=== PATIENT | female | born 1955 | race Caucasian/White ===

== ENCOUNTER 2020-12-04 10:51 | Inpatient (IN) | payer MEDICARE, MEDICAID, SELFPAY ==
[2020-12-04] VITALS (26 sets, daily range): BP systolic 92–131; BP diastolic 45–72; PULSE 68–89; RESP 12–22; TEMP 36.3–37.2; O2SAT 91–100; BMI 31.4
--- NOTE | ~2020-12-04 | XR_ITS ---
EXAMINATION: XR shoulder LT min 2V EXAM DATE: 12/07/2020 18:05 INDICATION: Left shoulder pain after fall. Initial encounter. TECHNIQUE: The following left shoulder projections obtained: frontal projection with internal rotatio n, frontal projection with external rotation, Grashey, and scapular Y view (4+ views). There is no p rior study for comparison. FINDINGS: No evidence of left shoulder rotator cuff calcific tendinosis. There is moderate glenohum eral joint, mild acromioclavicular joint primary osteoarthritis. There are no acute fractures or disl ocations identified. There is no subcutaneous gas. The soft tissue is unremarkable. There are no radiopaque foreign bodies. IMPRESSION: 1. XR shoulder LT min 2V exam without acute osseous findings. 2. Osteoarthritis. Reviewed, dictated and finalized at location A.
--- NOTE | ~2020-12-04 | XR_ITS ---
EXAMINATION: XR shoulder RT min 2V EXAM DATE: 12/07/2020 18:06 INDICATION: Right shoulder pain, fall. Initial encounter. TECHNIQUE: The following right shoulder projections obtained: frontal projection with internal rotati on, frontal projection with external rotation, Grashey, and scapular Y view (4+ views). Comparison is made to prior examination from 12/23/2014. FINDINGS: No evidence of right shoulder rotator cuff calcific tendinosis. There is moderate glenohu meral joint, mild to moderate acromioclavicular joint primary osteoarthritis. There are no acute frac tures or dislocations identified. There is no subcutaneous gas. The soft tissue is unremarkable. There are no radiopaque foreign bodies. IMPRESSION: 1. XR shoulder RT min 2V exam without acute osseous findings. 2. Osteoarthritis. Reviewed, dictated and finalized at location A.
--- NOTE | ~2020-12-04 | XR_ITS ---
EXAMINATION: XR chest 2V DATE: 12/06/2020 12:01 INDICATION: Respiratory failure TECHNIQUE: AP and lateral views of the chest are obtained. COMPARISON: 12/04/2020 FINDINGS: There are persistent but decreased opacities of the lung bases. There is no pleural effusio n or pneumothorax. The cardiomediastinal silhouette is normal. There is moderate thoracic spondylosis . IMPRESSION: 1. Persistent but decreased opacities of the lung bases, consistent with atelectasis versus pneumonia . Reviewed, dictated and finalized at location B. IMPRESSION: 1. Persistent but decreased opacities of the lung bases, consistent with atelec tasis versus pneumonia.
--- NOTE | ~2020-12-04 | XR_ITS ---
XR chest 1V portable DATE: 12/04/2020 11:34 INDICATION: Cough. Weakness. History of COPD. TECHNIQUE: Portable AP chest on 12/04/2020 1123 hours COMPARISON: 07/29/2017 portable AP chest FINDINGS: There are patchy infiltrates and/atelectasis in the lower lung zones, left greater than rig ht. Borderline heart size. No pleural effusion or pulmonary vascular congestion or pneumothorax is eviden t. Osteoarthritic change at the glenohumeral joints. Osteopenia. IMPRESSION: Bilateral lower lung infiltrates and/atelectasis, left greater than right Reviewed, dictated and finalized at location A.
--- NOTE | ~2020-12-04 | XR_ITS ---
EXAMINATION: XR hip RT min 2V EXAM DATE: 12/07/2020 18:06 INDICATION: Initial encounter following injury, with pain of the right hip. TECHNIQUE: Right hip frontal, 'frog leg' projections for interpretation. There is no prior study for comparison. FINDINGS: Smooth right hip femoral head contour, no radiographic evidence of avascular necrosis. The re are no acute right hip fractures or dislocations identified. There is no subcutaneous gas. There are arterial calcifications, arteriosclerosis. There are no radiopaque foreign bodies. There is m ild to moderate primary osteoarthritis. IMPRESSION: 1. XR hip RT min 2V exam without acute osseous findings. 2. Mild to moderate osteoarthritis. Reviewed, dictated and finalized at location A.
--- NOTE | ~2020-12-04 | CT_ITS ---
EXAMINATION: CT brain wo con DATE: 12/04/2020 14:32 INDICATION: Patient fell and struck head. Frequent falls. Weakness. TECHNIQUE: Computed tomography (CT) of the head was performed without intravenous contrast. The mA wa s adjusted according to patient size. Iterative reconstruction technique was employed. Exam dose: 60 5.33 mGy-cm total exam DLP. COMPARISON: 07/29/2017 CT brain FINDINGS: No intracranial mass lesion or hemorrhage or cerebrovascular accident. No midline shift or mass effect effect. No subdural or epidural hematoma. Bilateral vertebral and carotid siphon internal carotid artery calcifications. There is nonspecific d iminished attenuation of the cerebral white matter, likely due to chronic small vessel ischemic anthony es. Partial opacification of left mastoid air cells. Right mastoid air cells are normally developed and a erated. The paranasal sinuses are well aerated. No fracture or bone destruction of the cranial vault. IMPRESSION: No acute intracranial finding or skull fracture Reviewed, dictated and finalized at Location A. Reviewed, dictated and finalized at location A.
--- NOTE | 2020-12-04 11:04 | ECG_ITS ---
Measurements Intervals Waterflow Rate: 73 P: 61 HI: 208 QRS: -21 QRSD: 94 T: 58 QT: 374 QTc: 415 Interpretive Statements SINUS RHYTHM ANTEROSEPTAL INFARCT, AGE INDETERMINATE BORDERLINE ST-T WAVE ABNORMALITY- HIGH LATERAL LEADS ABNORMAL ECG Electronically Signed On 12-04-2020 11:44:09 CDT by Alireza Arevalo D.O.
[2020-12-04 11:22] LABS: Alveolar/Arterial O2 Gradient 184.7 mmHg; Base Excess ABG 3.4 mEq/l (+/-2.0); Carboxyhemoglobin 1.3 % THb (0-2.0); Fractional Inspired Oxygen 44 %; Methemoglobin ABG 0.2 %THb (0-1.5); Oxygen Content ABG 14.3 %vol (16.0-22.0); Oxyhemoglobin 85.8 % THb (90.0-100.0); PO2 ABG 57.7 mmHg (80.0-100.0); PO2 FiO2 Ratio Arterial Blood 1.31 %; Reduced Hemoglobin 12.7 %THb (0-5.0); Total Hemoglobin 11.8 g/dL (12.0-18.0); pH ABG 7.313 (7.350-7.450)
[2020-12-04 11:23] LABS: Device NASAL CANNULA; Oxygen Saturation ABG 86.8 % (95.0-100.0); PCO2 ABG 62.6 mmHg (35.0-45.0); Site Drawn RIGHT BRACHIAL
--- NOTE | 2020-12-04 11:34 | ED.WEAKNESS ---
HPI - Weakness General Chief complaint: Weakness Stated complaint: weakness Time Seen by Provider: 12/04/20 11:26 History of Present Illness HPI Narrative: History limited by mental status. Brought in by EMS for hypoxia. Reportedly on 3 liters at all times. She denies any chest pain fever. She has had increasing generalized weakness. Related Data Home Medications Medication Instructions Recorded Confirmed albuterol sulfate 2 puff INHALATION Q4H PRN 12/04/20 12/04/20 amlodipine 5 mg PO DAILY 12/04/20 12/04/20 diazepam 10 mg PO TID PRN 12/04/20 12/04/20 hydrocodone-acetaminophen 1 tablet PO Q6H PRN 12/04/20 12/04/20 insulin lispro See Rx Instructions .ROUTE .COMPLEX 12/04/20 12/04/20 metformin 500 mg PO BID 12/04/20 12/04/20 pregabalin 100 mg PO DAILY 12/04/20 12/04/20 quetiapine 50 mg PO BID 12/04/20 12/04/20 trazodone 300 mg PO HS 12/04/20 12/04/20 Allergies Allergy/AdvReac Type Severity Reaction Status Date / Time celecoxib Allergy Mild Rash Verified 07/29/17 14:43 alcohol Allergy Unknown Verified 06/17/12 08:51 atorvastatin Allergy Unknown Verified 10/17/11 09:27 clarithromycin Allergy Unknown Verified 09/16/14 08:28 fentanyl Allergy Unknown Verified 10/17/11 09:27 metformin Allergy Unknown Verified 10/17/11 09:26 paroxetine Allergy Unknown Verified 10/17/11 09:26 varenicline Allergy Unknown Verified 10/17/11 09:27 morphine AdvReac Severe Nausea and Verified 07/29/17 14:43 Vomiting Review of Systems Constitutional: Constitutional: Denies fever(s) Cardiovascular: Cardiovascular: Denies chest pain Respiratory: Respiratory: Reports dyspnea Gastrointestinal: Gastrointestinal: Denies nausea Genitourinary: Comments: chronic morfin Neurologic: Denies headache(s), Denies focal weakness and Reports weakness PMFSH Past Medical History Medical History COPD (chronic obstructive pulmonary disease) Depression with anxiety DM2 (diabetes mellitus, type 2) Hypertension Obstructive sleep apnea no longer uses a CPAP but uses oxygen at 2 L per nasal cannula. Peripheral neuropathy Tobacco abuse Surgical History Surgical History History of classical section History of total knee arthroplasty right Family History Family History Father Family history of coronary artery disease Mother Family history of coronary artery disease Other Asthma Diabetes mellitus Family history of elevated blood lipids Social History Social History Social History: the patient stated that she smokes cigarettes up to about 4 months ago. 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 She lives at [facility]. She has an ex-. She has 3 children. She tells me she does not have a durable power sole stitcher hand for healthcare but desires to be a full code. The patient stated although she quit smoking 4 months ago she desires to have a cigarette today. Smoking status: Former smoker Second hand tobacco smoke exposure: Yes Alcohol intake: never Substance use: never Substance use type: does not use Gender identity (if verbalized by the patient): Female Spiritual care concerns: No Exam Const: General: no acute distress and ill appearing Orientation/consciousness: patient oriented x3 Other: lethargic. arousable to voice. HENMT: Head: normal to inspection Neck: Neck: normal visual inspection Resp: Auscultation: crackles bilateral Cardio: Rate: regular rate Rhythm: regular rhythm GI: GI Palp: Yes Soft to palpation and No Tenderness to palpation present (GI) Skin: General skin exam: normal color Neuro: General: no focal motor deficits and CN's II-XI intact bilaterally Speech: normal speech Extrem: General: normal to inspection and no edema Course Vital Signs Vital s
[2020-12-04 11:37] LABS: Add Urine Microscopic? YES; Appearance Urine Cloudy (Clear); Bacteria Urine 4+ /hpf; Bilirubin Urine Negative (Negative); Blood Urine 2+ (Negative); Budding Yeast Urine Present /hpf; Color Urine Yellow (Yellow); Glucose Urine UA Negative (Negative); Ketones Urine Negative (Negative); Leukocyte Esterase Ur 3+ LEU/UL (Negative); Mucus Urine Rare /lpf; Nitrate Urine Negative (Negative); Protein Urine 2+ mg/dL (Negative); RBC Urine >75 /hpf (0-2); Specific Grav Ur 1.016 (1.001-1.035); Squamous Epithelial Cell Urine Rare /hpf (Few); Urobilinogen Urine Negative mg/dL (<2.0); WBC Urine >75 /hpf
[2020-12-04 12:11] LABS: Basophils Percent Auto 0.4 % (0.2-1.2); Eosinophils Absolute Auto 0.2 K/mm3 (0-0.3); Eosinophils Percent Auto 3.2 % (0-4.4); Hematocrit 34.7 % (37.0-47.0); Hemoglobin 10.6 g/dL (12.0-15.0); Immature Granulocyte Absolute 0.03 K/mm3 (0.00-0.031); Immature Granulocyte Percent A 0.4 % (0-0.5); Lymphocytes Absolute Auto 2.19 K/mm3 (0.9-3.2); Lymphocytes Percent Auto 32.1 % (18.3-44.2); Mean Corpuscular HGB Conc 30.5 g/dl (32-36); Mean Corpuscular Hemoglobin 28.9 pg (26-34); Mean Corpuscular Volume 94.6 fl (80-100); Mean Platelet Volume 9.9 fl (7.4-10.4); Monocytes Absolute Auto 0.8 K/mm3 (0.1-0.6); Monocytes Percent Auto 12.3 % (2.6-8.5); Neutrophils Absolute Auto 3.5 K/mm3 (1.3-6.7); Neutrophils Percent Auto 51.6 % (45.5-73.1); Platelet Count Result 181 k/mm3 (150-375); Red Blood Count 3.67 M/mm3 (4.2-5.4); Red Cell Distribution Width 14.5 % (11.5-14.5); White Blood Count 6.8 K/mm3 (4.5-10.0)
[2020-12-04 12:22] LABS: Alanine Aminotransferase 12 U/L (4-35); Albumin Level 3.8 g/dL (3.5-5.1); Alkaline Phosphatase 97 U/L (38-126); Anion Gap 7 mmol/L (8-16); Aspartate Amino Transferase 21 U/L (14-36); Bilirubin,Total 0.3 mg/dL (0.2-1.3); Blood Urea Nitrogen 18 mg/dL (7-17); Calcium 9.6 mg/dL (8.4-10.2); Carbon Dioxide 31 mmol/L (22-30); Chloride 100 mmol/L (98-107); Estimated CRCL calculation 45 ml/min; Estimated Glomerular Filt Rate 55; Glucose 118 mg/dL (65-110); Lactic Acid Reflex 0.5 mmol/L (0.7-2.1); Potassium 5.1 mmol/L (3.4-5.0); Sodium 138 mmol/L (137-145)
[2020-12-04 12:30] LABS: NT Pro B Type Natriuretic Pept 153 pg/mL (5-100)
--- NOTE | 2020-12-04 14:12 | PM.IMHP ---
H&P: HPI History of Present Illness Date/Time: 12/04/20 14:12 This is a 65-year-old female patient who resides at [facility]. The patient does have a history of COPD and just quit smoking approximately 4 months ago. The patient stated she does have sleep apnea and she wears oxygen at about 3 L per nasal cannula at home at night and does not use the CPAP. The patient stated that she has lost weight and does not need to wear her CPAP anymore. The patient stated that she has been short of breath and she has been using her nebulizer machine and oxygen at home. The patient is currently on a BiPAP machine so it is very difficult to understand him plus she is very short of breath so it is difficult to get information from her at this point. It is not known how long she has been short of breath. She also has a chronic Miller catheter and she is not sure how long she has had that in either. The patient tells me that she did fall several days ago she has an abrasion to both her knees and right elbow and has a contusion on the back of her head. She said that she fell several days ago but did going to details as so why she fell. Chest x-ray was read as bilateral lower lung infiltrates and/or atelectasis left greater than right. H&H is 10.6 and 34.7. The patient was somnolent when she 1st came to the emergency room so she was placed on a BiPAP machine. PH was 7.313. CO2 62.6. PO2 was 57.7. The patient is starting to arouse a little bit more. But I have to keep waking her up to get her to answer questions. Patient was found to be positive for UTI with 3+ leukocyte esterase RBCs greater than 75 WBCs greater than 75 urine bacteria 4+. No antibiotics are started at this time However cultures have been sent The patient came in with the indwelling Miller catheter. The patient could not recall when she had a placed. Or even why she had a place. Urine appears to to be dark yellow clear. the patient is being admitted to inpatient services on the date of service of 12/04/2020. Chief Complaint: Shortness of breath Review of Systems Review of Systems: All systems reviewed & are unremarkable except as noted in HPI and below Constitutional: Constitutional: Reports as per HPI and Reports no additional constitutional complaints Eyes: Eyes: Reports as per HPI and Reports no additional eye complaints ENT: Reports system reviewed and no additional complaints, except as documented and Reports Normal hearing present Cardiovascular: Cardiovascular: Reports no additional cardiovascular complaints Respiratory: Respiratory: Reports no additional respiratory complaints and Reports no additional respiratory complaints Gastrointestinal: Gastrointestinal: Reports as per HPI and Reports no additional gastrointestinal complaints Musculoskeletal: Musculoskeletal: Reports no additional musculoskeletal complaints Integumentary/Breasts: Skin/Breast: Reports system reviewed and no additional complaints, except as docu and Reports as per HPI Neurologic: Reports system reviewed and no additional complaints, except as documented, Reports as per HPI and Reports Normal hearing present Psychiatric: Psychiatric: Reports no additional psychiatric complaints and Reports as per HPI Endocrine: Endocrine: Reports no additional endocrine complaints Hematologic/Lymphatic: Hematologic/Lymphatic: Reports no additional hematologic/lymphatic complaints Allergic/Immunologic: Allergic/Immunologic: Reports no additional allergic/immunologic complaints [facility] Past Medical History Medical History (Updated 12/04/20 @ 14:27 by Laura Colmenares NP) COPD (chronic obstructive pulmonary disease) Depression with anxiety DM2 (diabetes mellitus, type 2) Hypertension Obstructive sleep apnea no longer uses a CPAP but uses oxygen at 2 L per nasal cannula. Peripheral neuropathy Tobacco abuse Surgical History Surgical History (Updated 12/04/20 @ 14:27 by Laura Colmenares NP) Hi
--- NOTE | 2020-12-04 14:26 | PC.NURSE ---
Per RESP, pt taken off BIPAP and placed on 3 L NC O2 to go to CT scan, pt is alert and upright on stretcher. VSS.
--- NOTE | 2020-12-04 15:14 | ADMGEN ---
This patient, Casimiro Atkinson, was admitted to IMU Room 204-01 at 1514. Patient/family oriented to hospital policies and general routines including ID bracelet, bed and alarms, visiting hours, pain management, procedures, bathroom and other care routines, personal items, smoking policy, room service/diet, and visiting hours. Information on how to activate the Rapid Response Team has been discussed. Patient/Family are encouraged to report perceived risks to care and to ask questions if they do not understand what they are told or what they should do.
[2020-12-04] MEDS: ENOXAPARIN 40 MG/0.4 ML SYRINGE SUB-Q (16:43)
[2020-12-04] MEDS: methylPREDNISolone SOD SUCC 125 MG VIAL 60 MG IV PUSH (16:43)
[2020-12-04 17:01] LABS: Alveolar/Arterial O2 Gradient 212.6 mmHg; Base Excess ABG 2.2 mEq/l (+/-2.0); Fractional Inspired Oxygen 50 %; Oxygen Content ABG 15.3 %vol (16.0-22.0); Oxygen Saturation ABG 95.1 % (95.0-100.0); Oxyhemoglobin 93.9 % THb (90.0-100.0); PCO2 ABG 55.6 mmHg (35.0-45.0); PO2 ABG 81.4 mmHg (80.0-100.0); PO2 FiO2 Ratio Arterial Blood 1.63 %; Total Hemoglobin 11.5 g/dL (12.0-18.0); pH ABG 7.335 (7.350-7.450)
[2020-12-04 17:02] LABS: Device NON-INVASIVE VENT; Modified Allen's Test Unable to perform; Site Drawn LEFT RADIAL
[2020-12-04 17:03] LABS: Non-Invasive Expiratory Pressure 6 CMH2O; Non-Invasive Inspiratory Pressure 12 CMH2O; Non-Invasive Vent Rate 4 /MIN
[2020-12-04 17:10] LABS: Glucose Point of Care 109 mg/dl (65-105)
[2020-12-04 20:14] LABS: Glucose Point of Care 121 mg/dl (65-105)
[2020-12-04] MEDS: QUEtiapine FUMARATE 25 MG TABLET 50 MG PO (20:42)
[2020-12-04] MEDS: traZODone HCL 50 MG TABLET 300 MG PO (20:44)
[2020-12-04] MEDS: IPRATROPIUM BR 0.02% INH SOLN 0.5 MG/2.5 ML VIAL INHALATION (20:45)
[2020-12-04] MEDS: ALBUTEROL SULFATE NEB 2.5 MG/0.5 ML INH 5 MG INHALATION (20:45)
[2020-12-05] VITALS (21 sets, daily range): BP systolic 116–142; BP diastolic 55–63; PULSE 60–104; RESP 13–20; TEMP 35.5–36.6; O2SAT 91–99
[2020-12-05] MEDS: methylPREDNISolone SOD SUCC 125 MG VIAL 60 MG IV PUSH ×3 (00:12→12:13)
[2020-12-05] MEDS: IPRATROPIUM BR 0.02% INH SOLN 0.5 MG/2.5 ML VIAL INHALATION ×4 (02:35→19:45)
[2020-12-05] MEDS: ALBUTEROL SULFATE NEB 2.5 MG/0.5 ML INH 5 MG INHALATION ×4 (02:36→19:45)
[2020-12-05 03:51] LABS: Hemoglobin A1C 6.9 % (<5.7)
[2020-12-05 04:30] LABS: Basophils Percent Auto 0.1 % (0.2-1.2); Hematocrit 34.6 % (37.0-47.0); Immature Granulocyte Absolute 0.05 K/mm3 (0.00-0.031); Immature Granulocyte Percent A 0.6 % (0-0.5); Lymphocytes Percent Auto 12.8 % (18.3-44.2); Mean Corpuscular HGB Conc 31.8 g/dl (32-36); Mean Corpuscular Hemoglobin 28.9 pg (26-34); Mean Corpuscular Volume 90.8 fl (80-100); Mean Platelet Volume 10.4 fl (7.4-10.4); Monocytes Absolute Auto 0.1 K/mm3 (0.1-0.6); Neutrophils Absolute Auto 6.7 K/mm3 (1.3-6.7); Neutrophils Percent Auto 85.5 % (45.5-73.1); Platelet Count Result 205 k/mm3 (150-375); Red Blood Count 3.81 M/mm3 (4.2-5.4); Red Cell Distribution Width 14.1 % (11.5-14.5); White Blood Count 7.8 K/mm3 (4.5-10.0)
[2020-12-05 04:42] LABS: Anion Gap 9 mmol/L (8-16); Blood Urea Nitrogen 21 mg/dL (7-17); Calcium 9.4 mg/dL (8.4-10.2); Carbon Dioxide 30 mmol/L (22-30); Chloride 97 mmol/L (98-107); Estimated CRCL calculation 51 ml/min; Estimated Glomerular Filt Rate > 60; Glucose 238 mg/dL (65-110); Magnesium 1.5 mg/dL (1.6-2.3); Potassium 4.9 mmol/L (3.4-5.0); Sodium 136 mmol/L (137-145)
[2020-12-05 07:53] LABS: Glucose Point of Care 231 mg/dl (65-105)
[2020-12-05] MEDS: amLODIPine BESYLATE 5 MG TABLET PO (08:31)
[2020-12-05] MEDS: INSULIN ASPART (*BKC) 100 UNITS/ML SUB-Q ×3 (08:34→17:07)
--- NOTE | 2020-12-05 08:42 | WPDCDIQUERY2 ---
CDI Query Clarification Request -Acute on Chronic respiratory failure documented by EDP but not on hospitalist H&P. -12/04 ABG's pH 7.313 pCO2 62.6 pO2 57.5 HCO3 31 O2 sats 86% on 6L O2 -There is documentation that pt is on home O2 at 3L -ER nurse documented that pt is on home O2 at 3L and per EMS, pt's sats were 82% and at 6L O2 sats 91%. -Pt was placed on bipap and currently has O2 at 5L and bipap Please clarify if acute on chronic respiratory failure has been ruled in or ruled out.
[2020-12-05] MEDS: MAGNESIUM SULF 2 GM/WATER 50ML 2 GM/50 ML BAG IVPB (12:09)
--- NOTE | 2020-12-05 12:42 | PM.IMPN ---
Progress Note: A&P Assessment and Plan (1) Acute on chronic respiratory failure with hypercapnia: Code(s): J96.22 - Acute and chronic respiratory failure with hypercapnia Status: Acute Assessment and Plan: Likely secondary to COPD and ERINN with lack of supplemental O2 use at home (due to lack of access to O2 tanks). Improving. No longer obtunded and maintaining adequate oxygenation on 3L supplemental O2 per nasal cannula Continue supplemental O2 with goal saturation 90% or above BiPAP at night; resume continuous BiPAP if she becomes obtunded she will need a home oxygen evaluation prior to discharge and will need to arrange delivery of home O2 CXR reviewed. Favor atelectasis over pneumonia as no clinical findings to suggest acute infection. Continue incentive spirometry (2) COPD exacerbation: Code(s): J44.1 - Chronic obstructive pulmonary disease with (acute) exacerbation Status: Acute Assessment and Plan: Diffuse wheezing on exam continue albuterol and ipratropium nebs scheduled continue IV Solu-Medrol q8h. wean as tolerated (3) Abnormal urinalysis: Code(s): R82.90 - Unspecified abnormal findings in urine Status: Acute Assessment and Plan: UA abnormal upon presentation. Denies urinary symptoms. She does have a chronic indwelling Miller catheter. She has been started on Rocephin Will await results of urine culture. Tailor antibiotics accordingly. Blood cultures are pending. (4) DM2 (diabetes mellitus, type 2): Code(s): E11.9 - Type 2 diabetes mellitus without complications Status: Chronic Assessment and Plan: A1c is 6.9. Blood sugars are elevated above target, likely due to IV steroids Continue accuchecks, high dose SSI, and hypoglycemic protocol Will add Lantus given IV steroids. Plan to discontinue IV steroids as soon as possible (5) Hypertension: Code(s): I10 - Essential (primary) hypertension Status: Chronic Assessment and Plan: Blood pressure reviewed and has been generally well controlled. Last BP 116/55 continue amlodipine (6) Hypomagnesemia: Code(s): E83.42 - Hypomagnesemia Status: Acute Assessment and Plan: magnesium is 1.5 IV magnesium sulfate. Monitor daily labs Subjective Date/time seen: 12/05/20 12:42 Interval history: Date of service: 12/05/20 Casimiro Atkinson is a 65 year old female with a history of COPD, type 2 DM, HTN, and ERINN who is seen in follow up for acute on chronic respiratory failure. She is feeling much better today. She remaining alert and is no longer drowsy. Her main complaint today is that she is hurting all throughout her body which she states is due to a fall. She tells me that she came to the hospital specifically because of fall. Endorses pain in her head, shoulders, elbows, knees, and back. she is having difficulty Getting around. She has been needing to use her walker lately. at this time, she denies shortness of breath. She denies wheezing. No chest pain or pleuritic pain. Has occasional cough, with infrequent clear sputum production. The last time she smoked was 2 months ago. She does not smoke because her son does not like her to, but she has says if she could smoke she would. She reports she is supposed to be on supplemental oxygen per nasal cannula during the day and CPAP at night, however she has not had her oxygen tanks delivered, therefore has been using her CPAP 100% of the time. She cannot recall being drowsy yesterday. She states she has had her Miller catheter approximately 3 months and believes this is due to some kind of bladder cancer but cannot elaborate on this. She is established with a urologist and does have a follow-up appointment scheduled. She denies blood in her urine, suprapubic pain or flank pain. She denies constipation or diarrhea. She ate a good breakfast this morning. Denies
[2020-12-05 12:48] LABS: Glucose Point of Care 343 mg/dl (65-105)
[2020-12-05 16:32] LABS: Glucose Point of Care 411 mg/dl (65-105)
[2020-12-05] MEDS: INSULIN ASPART (*BKC) 100 UNITS/ML 10 UNITS SUB-Q (17:07)
[2020-12-05] MEDS: ENOXAPARIN 40 MG/0.4 ML SYRINGE SUB-Q (17:08)
[2020-12-05] MEDS: ACETAMINOPHEN 325 MG TABLET 650 MG PO ×2 (17:12→21:51)
[2020-12-05] MEDS: QUEtiapine FUMARATE 25 MG TABLET 50 MG PO (20:34)
[2020-12-05] MEDS: traZODone HCL 50 MG TABLET 300 MG PO (20:34)
[2020-12-05] MEDS: guaiFENesin 12 HR 600 MG TABCR PO (20:35)
[2020-12-05] MEDS: INSULIN GLARGINE (*BKC) 100 UNITS/ML 23 UNITS SUB-Q (20:35)
[2020-12-05 21:19] LABS: Glucose Point of Care 381 mg/dl (65-105)
[2020-12-06] VITALS (20 sets, daily range): BP systolic 131–154; BP diastolic 55–84; PULSE 63–89; RESP 17–24; TEMP 36.4–37; O2SAT 92–100
[2020-12-06] MEDS: IPRATROPIUM BR 0.02% INH SOLN 0.5 MG/2.5 ML VIAL INHALATION ×4 (01:29→20:46)
[2020-12-06] MEDS: ALBUTEROL SULFATE NEB 2.5 MG/0.5 ML INH 5 MG INHALATION ×2 (01:29→08:30)
[2020-12-06 05:23] LABS: Hematocrit 33.2 % (37.0-47.0); Hemoglobin 10.1 g/dL (12.0-15.0); Mean Corpuscular HGB Conc 30.4 g/dl (32-36); Mean Corpuscular Hemoglobin 29.6 pg (26-34); Mean Corpuscular Volume 97.4 fl (80-100); Mean Platelet Volume 10.6 fl (7.4-10.4); Platelet Count Result 183 k/mm3 (150-375); Red Blood Count 3.41 M/mm3 (4.2-5.4); Red Cell Distribution Width 14.6 % (11.5-14.5); White Blood Count 8.6 K/mm3 (4.5-10.0)
[2020-12-06 05:37] LABS: Alanine Aminotransferase 10 U/L (4-35); Albumin Level 3.7 g/dL (3.5-5.1); Alkaline Phosphatase 82 U/L (38-126); Anion Gap 9 mmol/L (8-16); Aspartate Amino Transferase 18 U/L (14-36); Bilirubin,Total 0.3 mg/dL (0.2-1.3); Blood Urea Nitrogen 26 mg/dL (7-17); Calcium 9.4 mg/dL (8.4-10.2); Carbon Dioxide 26 mmol/L (22-30); Chloride 98 mmol/L (98-107); Estimated CRCL calculation 57 ml/min; Estimated Glomerular Filt Rate > 60; Glucose 254 mg/dL (65-110); Potassium 4.4 mmol/L (3.4-5.0); Sodium 133 mmol/L (137-145)
[2020-12-06] MEDS: INSULIN ASPART (*BKC) 100 UNITS/ML SUB-Q ×2 (08:01→12:08)
[2020-12-06] MEDS: INSULIN ASPART (*BKC) 100 UNITS/ML 15 UNITS SUB-Q ×3 (08:01→16:43)
[2020-12-06] MEDS: amLODIPine BESYLATE 5 MG TABLET PO (08:02)
[2020-12-06] MEDS: guaiFENesin 12 HR 600 MG TABCR PO ×2 (08:02→21:38)
[2020-12-06] MEDS: QUEtiapine FUMARATE 25 MG TABLET 50 MG PO ×2 (08:02→21:38)
[2020-12-06] MEDS: predniSONE 40 MG, predniSONE 10 MG 50 MG PO (08:02)
[2020-12-06] MEDS: PREGABALIN (*CRX) 50 MG CAPSULE 100 MG PO ×2 (08:05→16:43)
[2020-12-06] MEDS: ACETAMINOPHEN 325 MG TABLET 650 MG PO (08:09)
--- NOTE | 2020-12-06 10:14 | PM.IMPN ---
Progress Note: A&P Assessment and Plan (1) Acute on chronic respiratory failure with hypercapnia: Code(s): J96.22 - Acute and chronic respiratory failure with hypercapnia Status: Acute Assessment and Plan: Likely secondary to COPD and ERINN with lack of supplemental O2 use at home (due to lack of access to O2 tanks). Improving and maintaining adequate oxygenation on 3L supplemental O2 per nasal cannula Continue supplemental O2 with goal saturation 90% or above BiPAP with sleeping; resume continuous BiPAP if she becomes obtunded. She declined to use BiPAP last night and again became obtunded Consult to pulmonology. Input is appreciated. she will need a home oxygen evaluation prior to discharge CXR reviewed. Favor atelectasis over pneumonia as no clinical findings to suggest acute infection. Will repeat CXR today. (2) COPD exacerbation: Code(s): J44.1 - Chronic obstructive pulmonary disease with (acute) exacerbation Status: Acute Assessment and Plan: Improved wheezing on exam continue albuterol and ipratropium nebs scheduled Switched to Prednisone 50 PO. Continue with steroid taper (3) Abnormal urinalysis: Code(s): R82.90 - Unspecified abnormal findings in urine Status: Acute Assessment and Plan: UA abnormal upon presentation. Denies urinary symptoms. She does have a chronic indwelling Morfin catheter which could explain UA results. UTI ruled out based on urine culture Discontinue Rocephin Monitor clinically (4) DM2 (diabetes mellitus, type 2): Code(s): E11.9 - Type 2 diabetes mellitus without complications Status: Chronic Assessment and Plan: A1c is 6.9. Blood sugars are elevated above target, likely due to IV steroids, improving today Continue accuchecks, high dose SSI, and hypoglycemic protocol Lantus and scheduled novolog with meals given steroids. (5) Hypertension: Code(s): I10 - Essential (primary) hypertension Status: Chronic Assessment and Plan: Blood pressure reviewed and has been generally well controlled. Last BP 131/84 continue amlodipine (6) Hypomagnesemia: Code(s): E83.42 - Hypomagnesemia Status: Acute Assessment and Plan: Resolved. magnesium is 2.0 Monitor daily labs (7) Bladder tumor: Code(s): D49.4 - Neoplasm of unspecified behavior of bladder Status: Acute Assessment and Plan: Follows with urologist Dr. Anne. Scheduled for procedure (? tumor removal) this week. Continue morfin catheter Outpatient follow up. Procedure is being rescheduled. Discussed with her son. Subjective Date/time seen: 12/06/20 10:14 Interval history: Date of service: 12/06/20 Casimiro Atkinson is a 65 year old female with a history of COPD, type 2 DM, HTN, and ERINN who is seen in follow up for acute on chronic respiratory failure. she is feeling pretty well today. Continues to have occasional nonproductive cough. she denies wheezing. She does feel weak and notes that when she gets up she is sort of shaky. denies chest pain or palpitations. Denies abdominal pain, nausea, vomiting, fever, or chills. Tolerating her diet. Denies suprapubic pain or flank pain. She declined to wear her BiPAP last night. She eventually became obtunded and was then put on the BiPAP. Review of Systems Review of Systems: All systems reviewed & are unremarkable except as noted in HPI and below Exam Narrative: Exam Narrative: Ms. Atkinson is a chronically ill-appearing 65-year-old female who is lying semi recumbent in bed. She appears comfortable and is in NARD. Neuro: awake, alert and oriented x4, speech clear, no focal neuro deficits noted HEENMT: normocephalic, atraumatic, EOMI, sclerae anicteric, moist oral mucosa Neck: supple, no lymphadenopathy Respiratory: faint expiratory wheezes bilaterally, nonlabored breathing, able to speak in
--- NOTE | 2020-12-06 12:19 | PM.CNPUL ---
Assessment and Plan Assessment and plan (1) COPD exacerbation: Code(s): J44.1 - Chronic obstructive pulmonary disease with (acute) exacerbation Status: Acute Assessment and Plan: Patient carries a diagnosis of COPD on chronic home O2 with a history of tobacco exposure. I have no PFTs at this time. Agree with current treatment for COPD exacerbation including prednisone 50 mg p.o. q.day, albuterol to 4 and 5 mg nebulized q.6 hours, ipratropium bromide 0.5 mg nebulized q.6 hours. Patient did receive ceftriaxone for 48 hours for possible urinary tract infection. Currently patient has no evidence of a pneumonia or tracheobronchitis and anger agree with holding antibiotics at this time. Patient has chronic hypercarbic respiratory failure from her COPD with a blood gas of 7.31/63/58 and would benefit from BiPAP or noninvasive ventilation at night. This will prevent further deterioration and prevent further hospitalizations. Patient was placed on BiPAP but the pressures were high and this hurt her face and I switched her to an AVAPS mode today and she stated that a VATS rate of 20, tidal volume 500, expiratory pressure 5, inspiratory minimum pressure 6, inspiratory maximum pressure 30, inspiratory time 0.8 seconds, rise of 5 which is our slow S2, and 35% FiO2 felt very comfortable. I will plan on continuing these settings tonight and performing an arterial blood gas in the morning prior to discontinuation of the noninvasive ventilation to assess her hypercarbia. I will check an overnight oximetry on 35%. Discussed with April Wilson. will follow with you History of Present Illness History of Present Illness Consult date: 12/06/20 Requesting physician: April Wilson PA-C Reason for consult: COPD Chief complaint: Acute respiratory failure with hypercapnea Narrative: This is a new pulmonary consult for COPD with chronic hypercarbic and hypoxemic respiratory failure. 65-year-old woman with a history of COPD on 3 L oxygen 24-7, diabetes, hypertension, obstructive sleep apnea no longer using CPAP, history of tobacco use, and depression. Patient was discharged from [facility] approximately 1 month ago on 3 L nasal cannula 09/12. The son is in the room today who lives with the patient and he denies that she has ever worn any CPAP or BiPAP and states that she uses her oxygen intermittently. The son also states that when she wears her 3 L nasal cannula at home that her oxygen saturations sitting were 77-88%. Patient states she had shortness of breath that was worsening since her discharge 2 weeks ago from the [facility] and presented to the emergency room on 12/04 with altered mental status and a blood gas of 7.31/63/58 on 6 L nasal cannula. Patient was placed on BiPAP 04/23 and her mental status improved and her blood gas improved for to 7.34/50 . Patient was placed on Patient had a chest x-ray that showed bilateral lower lobe atelectasis left greater than right and also had a possible urinary tract infection was started on ceftriaxone. Patient was treated for COPD exacerbation with Solu-Medrol, ipratropium nebulization and albuterol nebulization. At baseline on a good day patient and son states that she can walk 20 yd. Patient smoked cigarettes from age 10-1 month ago at 1 pack per day for total of 55 pack years. Patient denies vaping, marijuana use, illicit drug use, sandblasting, professional painting, asbestos work or working in the [employer]. 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 12/05 I was consulted today for chronic hypercarbic and hypoxemic respiratory failure. Patient states that she is improved and denies any fever, chills, or hemoptysis. Patient states since admission to the hospital her phlegm production has decreased and it all has also cleared from dark brown to black to a chavarria color now. Currently patient on 3 L nasal cannula with saturatio
[2020-12-06] MEDS: ALBUTEROL SULFATE NEB 2.5 MG/0.5 ML INH INHALATION ×2 (13:48→20:46)
--- NOTE | 2020-12-06 14:29 | PCRCNOTE ---
Addendum entered by Charlette West, TIP CEMENTER 12/07/20 09:55: Patient's discharge destination has changed to [facility]. [facility] to provide non-invasive ventilator at the facility. Original Note: Arrangements for non-invasive ventilator being made with patient's DME company, [employer], for set-up at [facility].
[2020-12-06] MEDS: ENOXAPARIN 40 MG/0.4 ML SYRINGE SUB-Q (16:43)
[2020-12-06 16:50] LABS: Glucose Point of Care 226 mg/dl (65-105)
[2020-12-06 16:50] LABS: Glucose Point of Care 251 mg/dl (65-105)
[2020-12-06 17:00] LABS: Glucose Point of Care 183 mg/dl (65-105)
[2020-12-06] MEDS: traZODone HCL 50 MG TABLET 300 MG PO (21:37)
[2020-12-06] MEDS: INSULIN GLARGINE (*BKC) 100 UNITS/ML 23 UNITS SUB-Q (21:38)
[2020-12-07] VITALS (9 sets, daily range): BP systolic 134–160; BP diastolic 54–70; PULSE 58–84; RESP 18–25; TEMP 36.4–36.6; O2SAT 90–97
[2020-12-07 05:02] LABS: Alveolar/Arterial O2 Gradient 108.8 mmHg; Base Excess ABG 4.2 mEq/l (+/-2.0); Fractional Inspired Oxygen 35 %; HCO3 ABG 29.9 mEq/l (22.0-26.0); Oxygen Content ABG 16.1 %vol (16.0-22.0); Oxygen Saturation ABG 96.1 % (95.0-100.0); Oxyhemoglobin 94.7 % THb (90.0-100.0); PCO2 ABG 49.3 mmHg (35.0-45.0); PO2 ABG 83.4 mmHg (80.0-100.0); PO2 FiO2 Ratio Arterial Blood 2.38 %
[2020-12-07 05:03] LABS: Modified Allen's Test Pass; Site Drawn LEFT RADIAL
[2020-12-07 05:04] LABS: Device OTHER DEVICE
[2020-12-07 06:41] LABS: Hematocrit 37.2 % (37.0-47.0); Hemoglobin 11.7 g/dL (12.0-15.0); Mean Corpuscular HGB Conc 31.5 g/dl (32-36); Mean Corpuscular Volume 92.1 fl (80-100); Mean Platelet Volume 10.1 fl (7.4-10.4); Platelet Count Result 223 k/mm3 (150-375); Red Blood Count 4.04 M/mm3 (4.2-5.4); Red Cell Distribution Width 15.4 % (11.5-14.5); White Blood Count 8.5 K/mm3 (4.5-10.0)
[2020-12-07 07:09] LABS: Anion Gap 7 mmol/L (8-16); Blood Urea Nitrogen 23 mg/dL (7-17); Calcium 9.6 mg/dL (8.4-10.2); Carbon Dioxide 29 mmol/L (22-30); Chloride 101 mmol/L (98-107); Estimated CRCL calculation 51 ml/min; Estimated Glomerular Filt Rate > 60; Glucose 137 mg/dL (65-110); Magnesium 1.9 mg/dL (1.6-2.3); Potassium 4.3 mmol/L (3.4-5.0); Sodium 137 mmol/L (137-145)
[2020-12-07 07:59] LABS: Glucose Point of Care 108 mg/dl (65-105)
[2020-12-07] MEDS: predniSONE 40 MG, predniSONE 10 MG 50 MG PO (08:06)
[2020-12-07] MEDS: QUEtiapine FUMARATE 25 MG TABLET 50 MG PO ×2 (08:06→21:04)
[2020-12-07] MEDS: INSULIN ASPART (*BKC) 100 UNITS/ML 15 UNITS SUB-Q ×2 (08:06→11:51)
[2020-12-07] MEDS: guaiFENesin 12 HR 600 MG TABCR PO ×2 (08:07→21:05)
[2020-12-07] MEDS: amLODIPine BESYLATE 5 MG TABLET PO (08:07)
[2020-12-07] MEDS: ACETAMINOPHEN 325 MG TABLET 650 MG PO (08:11)
[2020-12-07] MEDS: PREGABALIN (*CRX) 50 MG CAPSULE 100 MG PO ×2 (08:11→18:17)
[2020-12-07] MEDS: IPRATROPIUM BR 0.02% INH SOLN 0.5 MG/2.5 ML VIAL INHALATION ×2 (08:27→14:39)
[2020-12-07] MEDS: ALBUTEROL SULFATE NEB 2.5 MG/0.5 ML INH INHALATION ×2 (08:27→14:39)
--- NOTE | 2020-12-07 11:28 | PM.PNPUL ---
Progress Note: A&P Assessment and Plan (1) COPD exacerbation: Code(s): J44.1 - Chronic obstructive pulmonary disease with (acute) exacerbation Status: Acute Assessment and Plan: 12/06 Patient carries a diagnosis of COPD on chronic home O2 with a history of tobacco exposure. I have no PFTs at this time. Agree with current treatment for COPD exacerbation including prednisone 50 mg p.o. q.day, albuterol to 4 and 5 mg nebulized q.6 hours, ipratropium bromide 0.5 mg nebulized q.6 hours. Patient did receive ceftriaxone for 48 hours for possible urinary tract infection. Currently patient has no evidence of a pneumonia or tracheobronchitis and anger agree with holding antibiotics at this time. Patient has chronic hypercarbic respiratory failure from her COPD with a blood gas of 7.31/63/58 and would benefit from BiPAP or noninvasive ventilation at night. This will prevent further deterioration and prevent further hospitalizations. Patient was placed on BiPAP but the pressures were high and this hurt her face and I switched her to an AVAPS mode today and she stated that a VATS rate of 20, tidal volume 500, expiratory pressure 5, inspiratory minimum pressure 6, inspiratory maximum pressure 30, inspiratory time 0.8 seconds, rise of 5 which is our slow S2, and 35% FiO2 felt very comfortable. I will plan on continuing these settings tonight and performing an arterial blood gas in the morning prior to discontinuation of the noninvasive ventilation to assess her hypercarbia. I will check an overnight oximetry on 35%. 12/07 patient tells me that she feels back to normal. Patient has been walking in the room. Patient does have a few end expiratory wheezes on exam today. Patient wore her noninvasive ventilation overnight with AVAPS Rate of 20, tidal volume 500, expiratory pressure 5, inspiratory minimum pressure 6, inspiratory maximum pressure 30, inspiratory time 0.8 seconds, rise of 5 which is our slowest, and 35% FiO2 and said that she was very comfortable. Patient had an arterial blood gas at the end of the night with a pH of 7.40/49/83. Patient had an overnight oximetry on 35% with the noninvasive ventilation with a baseline saturation 98%, lowest saturation 94%, time with saturation less than or equal to 88% was 0 minutes. For her COPD exacerbation I will continue albuterol 2.5 mg nebs q.6 hours, ipratropium 0.5 mg nebs q.6 hours and prednisone 50 mg a day (day 4 steroids). Of note pateint is auto diuresing on the nonincvasive ventilation with cumulative minus 9.1 L. I will continue the above-mentioned noninvasive ventilation at night and have sent an order to [facility] for a ask stroke machine with settings of pressure support with safety tidal volume respiratory rate 15 to 20, tidal volume 350-500, peep 5-20, pressure support 8 to 20 and 3 L bleed in so that when the patient goes to her rehabilitation center this can be continued. Will follow with you. Subjective Date/time seen: 12/07/20 11:28 Interval history: 12/06 This is a new pulmonary consult for COPD with chronic hypercarbic and hypoxemic respiratory failure. 65-year-old woman with a history of COPD on 3 L oxygen , diabetes, hypertension, obstructive sleep apnea no longer using CPAP, history of tobacco use, and depression. Patient was discharged from [facility] approximately 1 month ago on 3 L nasal cannula 09/12. The son is in the room today who lives with the patient and he denies that she has ever worn any CPAP or BiPAP and states that she uses her oxygen intermittently. The son also states that when she wears her 3 L nasal cannula at home that her oxygen saturations sitting were 77-88%. Patient states she had shortness of breath that was worsening since her [facility] and presented to the emergency room on 12/04 with altered mental status and a blood gas of 7.31/63/58 on
--- NOTE | 2020-12-07 11:52 | PM.IMPN ---
Progress Note: A&P Assessment and Plan (1) Acute on chronic respiratory failure with hypercapnia: Code(s): J96.22 - Acute and chronic respiratory failure with hypercapnia Status: Acute Assessment and Plan: Likely secondary to COPD and ERINN with lack of supplemental O2 use at home (due to lack of access to O2 tanks). Improving and maintaining adequate oxygenation on 3L supplemental O2 per nasal cannula Continue supplemental O2 with goal saturation 90% or above BiPAP with sleeping; resume continuous BiPAP if she becomes obtunded. Settings adjusted per pulmonology and she is tolerating. Consult to pulmonology. Input is appreciated. CXR reviewed with decreased opacities. Planning for discharge to SNF that can manage BiPAP. (2) COPD exacerbation: Code(s): J44.1 - Chronic obstructive pulmonary disease with (acute) exacerbation Status: Acute Assessment and Plan: Improved wheezing on exam continue albuterol and ipratropium nebs scheduled Continue Prednisone 50 mg PO. Continue with steroid taper (3) Abnormal urinalysis: Code(s): R82.90 - Unspecified abnormal findings in urine Status: Acute Assessment and Plan: UA abnormal upon presentation. Denies urinary symptoms. She does have a chronic indwelling Morfin catheter which could explain UA results. UTI ruled out based on urine culture Rocephin discontinued Monitor clinically (4) DM2 (diabetes mellitus, type 2): Code(s): E11.9 - Type 2 diabetes mellitus without complications Status: Chronic Assessment and Plan: A1c is 6.9. Blood sugars and were elevated above target with IV steroids. Improving. Fasting glucose today 108 Continue accuchecks, high dose SSI, and hypoglycemic protocol Lantus and scheduled novolog with meals given steroids. Decreased dose. (5) Hypertension: Code(s): I10 - Essential (primary) hypertension Status: Chronic Assessment and Plan: Blood pressure reviewed and has been generally well controlled. Last BP 151/70 continue amlodipine (6) Bladder tumor: Code(s): D49.4 - Neoplasm of unspecified behavior of bladder Status: Acute Assessment and Plan: Follows with urologist Dr. Anne. Scheduled for procedure (? tumor removal) this week. Continue morfin catheter Outpatient follow up. Procedure was rescheduled Patient would like to follow with local urologist. Referral being faxed to [facility] in [place]. Subjective Date/time seen: 12/07/20 11:53 Interval history: Date of service: 12/07/20 Casimiro Atkinson is a 65 year old female with a history of COPD, type 2 DM, HTN, and ERINN who is seen in follow up for acute on chronic respiratory failure. she is feeling pretty well today. She notes dyspnea on exertion and cough occasionally productive of yellowish sputum. No chest pain. Her breathing has improved. Denies palpitations. Denies wheezing. No abdominal pain, nausea, vomiting, fever, or chills. No issues with her morfin. She is eating well. She tolerated her BiPAP well last night. Review of Systems Review of Systems: All systems reviewed & are unremarkable except as noted in HPI and below Exam Narrative: Exam Narrative: Ms. Atkinson is a chronically ill-appearing 65-year-old female who is lying semi recumbent in bed. She appears comfortable and is in NARD. Neuro: awake, alert and oriented x4, speech clear, no focal neuro deficits noted HEENMT: normocephalic, atraumatic, EOMI, sclerae anicteric, moist oral mucosa Neck: supple, no lymphadenopathy Respiratory: faint post expiratory wheezes bilaterally, nonlabored breathing, able to speak in full sentences without increased work of breathing Cardio: regular rate, regular rhythm with S1-S2 Abdomen: nondistended, normoactive bowel sounds, soft, nontender to palpation : Morfin catheter patent and draining straw-colored urine
[2020-12-07 12:14] LABS: Glucose Point of Care 127 mg/dl (65-105)
--- NOTE | 2020-12-07 13:50 | PC.NURSE ---
This patient, Casimiro Atkinson, was transferred to [ [facility]-] on 12/07/20 at 1401. Personal belongings sent with patient. Report given to [CHANTAL Ramos @ [phone]]. Appropriate documentation sent with patient.
--- NOTE | 2020-12-07 13:56 | PC.NURSE ---
Patient transferred from IMU to [address] [place] [address] via bed at 1350.
[2020-12-07 17:18] LABS: Glucose Point of Care 254 mg/dl (65-105)
[2020-12-07] MEDS: ENOXAPARIN 40 MG/0.4 ML SYRINGE SUB-Q (18:13)
[2020-12-07] MEDS: INSULIN ASPART (*BKC) 100 UNITS/ML 10 UNITS SUB-Q (19:01)
[2020-12-07] MEDS: INSULIN GLARGINE (*BKC) 100 UNITS/ML 20 UNITS SUB-Q (21:03)
[2020-12-07] MEDS: traZODone HCL 50 MG TABLET 300 MG PO (21:04)
[2020-12-07 21:38] LABS: Glucose Point of Care 291 mg/dl (65-105)
--- NOTE | 2020-12-07 23:58 | PCRCNOTE ---
Window of time for administration has passed. See next scheduled administration.
[2020-12-08] VITALS (9 sets, daily range): BP systolic 126–150; BP diastolic 55–73; PULSE 60–76; RESP 16–20; TEMP 36.3–36.4; O2SAT 91–98
[2020-12-08] MEDS: IPRATROPIUM BR 0.02% INH SOLN 0.5 MG/2.5 ML VIAL INHALATION ×3 (01:34→15:14)
[2020-12-08] MEDS: ALBUTEROL SULFATE NEB 2.5 MG/0.5 ML INH INHALATION ×3 (01:34→15:14)
[2020-12-08 06:36] LABS: Hemoglobin 11.7 g/dL (12.0-15.0)
[2020-12-08 06:54] LABS: Anion Gap 9 mmol/L (8-16); Blood Urea Nitrogen 28 mg/dL (7-17); Calcium 9.8 mg/dL (8.4-10.2); Carbon Dioxide 27 mmol/L (22-30); Chloride 102 mmol/L (98-107); Estimated CRCL calculation 51 ml/min; Estimated Glomerular Filt Rate > 60; Glucose 124 mg/dL (65-110); Potassium 4.2 mmol/L (3.4-5.0); Sodium 138 mmol/L (137-145)
[2020-12-08 08:09] LABS: Glucose Point of Care 89 mg/dl (65-105)
[2020-12-08] MEDS: PREGABALIN (*CRX) 50 MG CAPSULE 100 MG PO ×2 (08:45→16:26)
[2020-12-08] MEDS: guaiFENesin 12 HR 600 MG TABCR PO (08:46)
[2020-12-08] MEDS: predniSONE 40 MG, predniSONE 10 MG 50 MG PO (08:46)
[2020-12-08] MEDS: amLODIPine BESYLATE 5 MG TABLET PO (08:46)
[2020-12-08] MEDS: QUEtiapine FUMARATE 25 MG TABLET 50 MG PO (08:46)
--- NOTE | 2020-12-08 08:49 | PM.PNPUL ---
Progress Note: A&P Assessment and Plan (1) COPD exacerbation: Code(s): J44.1 - Chronic obstructive pulmonary disease with (acute) exacerbation Status: Acute Assessment and Plan: 12/06 Patient carries a diagnosis of COPD on chronic home O2 with a history of tobacco exposure. I have no PFTs at this time. Agree with current treatment for COPD exacerbation including prednisone 50 mg p.o. q.day, albuterol to 4 and 5 mg nebulized q.6 hours, ipratropium bromide 0.5 mg nebulized q.6 hours. Patient did receive ceftriaxone for 48 hours for possible urinary tract infection. Currently patient has no evidence of a pneumonia or tracheobronchitis and anger agree with holding antibiotics at this time. Patient has chronic hypercarbic respiratory failure from her COPD with a blood gas of 7.31/63/58 and would benefit from BiPAP or noninvasive ventilation at night. This will prevent further deterioration and prevent further hospitalizations. Patient was placed on BiPAP but the pressures were high and this hurt her face and I switched her to an AVAPS mode today and she stated that a VATS rate of 20, tidal volume 500, expiratory pressure 5, inspiratory minimum pressure 6, inspiratory maximum pressure 30, inspiratory time 0.8 seconds, rise of 5 which is our slow S2, and 35% FiO2 felt very comfortable. I will plan on continuing these settings tonight and performing an arterial blood gas in the morning prior to discontinuation of the noninvasive ventilation to assess her hypercarbia. I will check an overnight oximetry on 35%. 12/07 patient tells me that she feels back to normal. Patient has been walking in the room. Patient does have a few end expiratory wheezes on exam today. Patient wore her noninvasive ventilation overnight with AVAPS Rate of 20, tidal volume 500, expiratory pressure 5, inspiratory minimum pressure 6, inspiratory maximum pressure 30, inspiratory time 0.8 seconds, rise of 5 which is our slowest, and 35% FiO2 and said that she was very comfortable. Patient had an arterial blood gas at the end of the night with a pH of 7.40/49/83. Patient had an overnight oximetry on 35% with the noninvasive ventilation with a baseline saturation 98%, lowest saturation 94%, time with saturation less than or equal to 88% was 0 minutes. For her COPD exacerbation I will continue albuterol 2.5 mg nebs q.6 hours, ipratropium 0.5 mg nebs q.6 hours and prednisone 50 mg a day (day 4 steroids). Of note pateint is auto diuresing on the nonincvasive ventilation with cumulative minus 9.1 L. I will continue the above-mentioned noninvasive ventilation at night and have sent an order to [facility] for an astral machine with settings of pressure support with safety tidal volume respiratory rate 15 to 20, tidal volume 350-500, peep 5-20, pressure support 8 to 20 and 3 L bleed in so that when the patient goes to her rehabilitation center this can be continued. 12/08 Patient tells me that she is back to normal and breathing better than she has in the last few months. Patient has been walking in the room. Patient was transferred from her IMU bed to a new bed and she tells me they did not look up her noninvasive ventilation last night. The respiratory therapy note says she refused. When I asked the patient if she would wear the machine at night she said yes as long as they help her put it on. She has no wheezes today. Ready for discharge to facility. Last day of steroids today. Discharge on these pulmonary medications: Beta agonist and muscarinic antagonist that insurance will cover (Anoro Ellipta 62.5/25 at 1 puff Q day, stiolto respimat 2.5/2.5 at 1 puff BID, combivent respimat at 2 puffs Q 4 HR or separate albuterol and atrovent inhalers at 2 puffs Q 4 HR). Rescue albuterol 2 puffs Q 4 H PRN SOB and wheezing Oxygen at rest and with ambulation per facility assessment Astral machine with settings of pressure
[2020-12-08] MEDS: HYDROcodone/acetaminophen (*CRX) 10-325 MG TABLET 1 TAB PO ×2 (08:59→16:26)
[2020-12-08 12:23] LABS: Glucose Point of Care 228 mg/dl (65-105)
--- NOTE | 2020-12-08 12:43 | PM.DS ---
DS: Admitting Diagnosis Admitting Diagnosis Acute respiratory failure DS: Discharge Diagnosis Discharge Diagnosis (1) Acute on chronic respiratory failure with hypercapnia: Code(s): J96.22 - Acute and chronic respiratory failure with hypercapnia Status: Acute Assessment and Plan: Likely secondary to COPD and ERINN with lack of supplemental O2 use at home (due to lack of access to O2 tanks). ABG with hypercapnia improved with BiPAP. She was initially obtunded but mental status improved with BiPAP therapy. She also began to autodiurese with adequate respiratory support. She was seen in consultation by pulmonology and will continue with outpatient follow up in 1 month. Continue with BiPAP therapy at SNF with settings outlined per Dr. Kay Supplemental O2 to be titrated per nursing facility CXR reviewed; overall presentation not felt to be consistent with pneumonia/infectious process. (2) COPD exacerbation: Code(s): J44.1 - Chronic obstructive pulmonary disease with (acute) exacerbation Status: Acute Assessment and Plan: Presented with wheezing. Improved significantly with nebulized breathing treatments and systemic steroids. Will continue with PO prednisone 50 mg daily to complete 5 days. Started on Anoro Ellipta inhaler with p.r.n. albuterol for rescue inhaler. (3) Abnormal urinalysis: Code(s): R82.90 - Unspecified abnormal findings in urine Status: Acute Assessment and Plan: UA abnormal upon presentation with chronic indwelling Miller catheter and lack of urinary symptoms. She was started on empiric Rocephin which was discontinued following negative urine culture. (4) DM2 (diabetes mellitus, type 2): Code(s): E11.9 - Type 2 diabetes mellitus without complications Status: Chronic Assessment and Plan: A1c is 6.9. Blood sugars reviewed and were elevated above target with IV steroids. Managed with Lantus and scheduled novolog and blood sugars were improved. Continue to monitor blood sugars at facility. (5) Hypertension: Code(s): I10 - Essential (primary) hypertension Status: Chronic Assessment and Plan: Blood pressure reviewed and were generally well controlled. Continue amlodipine (6) Bladder tumor: Code(s): D49.4 - Neoplasm of unspecified behavior of bladder Status: Acute Assessment and Plan: Follows with urologist Dr. Anne. Scheduled for procedure, it sounds like a bladder tumor resection, this week that she missed while being hospitalized. She would like to follow up with local urologist. Referral was made to [facility] in [place] per patient request. She and son aware of need for follow up and will call to schedule appointment. Continue with indwelling Miller which was exchanged during this hospitalization. DS: Summary Hospital Course Hospital Course: date of admission: 12/04/2020 date of discharge: 12/08/2020 Casimiro Atkinson is a 65 year old female with a history of COPD, type 2 DM, HTN, and ERINN who presented to the emergency department on 12/04/2020 who was brought in from her assisted living facility as she had become increasingly weak. she was very lethargic upon presentation and BiPAP was initiated immediately. Upon presentation to the emergency department, her blood pressure was low at 90 8/45 with additional vital signs stable, hemoglobin 10.6, hematocrit 34.7, additional CBC unremarkable, potassium 5.1, bicarb 31, additional electrolytes stable, lactic 0.5, BNP 153, ABG with hypercapnia and hypoxemia, urinalysis abnormal, and CXR with bilateral lower lung infiltrates. She was admitted to the hospitalist service for further evaluation management was seen in consultation by pulmonology. Please see above for further details. She had significant improvement in her respiratory and mental status with BiPAP therapy. She will continue to use her BiPAP machine with settings
[2020-12-08] MEDS: INSULIN ASPART (*BKC) 100 UNITS/ML SUB-Q ×2 (13:19→16:26)
[2020-12-08 15:25] LABS: Glucose Point of Care 375 mg/dl (65-105)
== END 2020-12-08 16:35 | DRG 189 ==
LOC: ANHED 12:48 → ANHIMU 15:16 → ANH3MEDSUR 12-08 10:04 → ANHIMU 12-12 13:03
PROVIDERS: Internal Medicine Pulmonary Disease; Nurse Practitioner; Admitting Provider Internal Medicine; Emergency Provider Emergency Medicine; Visit Provider Physician Assistant
DX: J96.22 Acute and chronic respiratory failure with hypercapnia (principal); J44.1 Chronic obstructive pulmonary disease with (acute) exacerbation; R82.90 Unspecified abnormal findings in urine; D49.4 Neoplasm of unspecified behavior of bladder; E11.42 Type 2 diabetes mellitus with diabetic polyneuropathy; I10 Essential (primary) hypertension; F41.8 Other specified anxiety disorders; E83.42 Hypomagnesemia; G47.33 Obstructive sleep apnea (adult) (pediatric); Z87.891 Personal history of nicotine dependence; Z97.8 Presence of other specified devices
CPT/HCPCS: 36415; 36600; 70450; 71045; 71046; 73030; 73502; 80048; 80053; 81001; 82375; 82805; 82948; 83036; 83050; 83605; 83735; 83880; 84443; 85014; 85018; 85025; 85027; 87040; 87086; 87088; 93005; 94002; 94003; 94640; 94762; 97110; 97116; 97161; 97165; 97530; 97535; A9270; J0696; J1650; J1815; J2930; J3475; J7512

== ENCOUNTER 2020-12-24 17:32 | Inpatient (IN) | payer MEDICARE, MEDICAID, SELFPAY ==
[2020-12-24] VITALS (8 sets, daily range): BP systolic 122–145; BP diastolic 57–66; PULSE 66–91; RESP 14–22; TEMP 36.9–39.3; O2SAT 91–98; BMI 32.5
--- NOTE | ~2020-12-24 | XR_ITS ---
EXAMINATION: XR chest 2V DATE: 12/24/2020 18:28 INDICATION: Shortness of breath and fever. TECHNIQUE: Frontal and lateral views of the chest were obtained. COMPARISON: Chest 2 views 12/06/2020, chest single view 12/04/2020, 07/29/2017 FINDINGS: The patient is rotated to her left. There is a diffuse interstitial pattern in the lungs. T here are airspace opacities in left lower lung zone. No pleural effusion or pneumothorax. The heart s ize is normal. IMPRESSION: 1. Stable airspace opacities in left lower lung zone, consistent with atelectasis versus pneumonia. 2. Chronic interstitial pattern in the lungs, likely emphysema. Reviewed, dictated and finalized at location A. IMPRESSION: 1. Stable airspace opacities in left lower lung zone, consistent with atelectas is versus pneumonia. 2. Chronic interstitial pattern in the lungs, likely emphysema.
--- NOTE | 2020-12-24 17:35 | ECG_ITS ---
Measurements Intervals [place] Rate: 92 P: 55 OH: 176 QRS: -27 QRSD: 82 T: 66 QT: 329 QTc: 408 Interpretive Statements SINUS RHYTHM WITH SINUS ARRHYTHMIA CANNOT RULE OUT SEPTAL INFARCT, AGE INDETERMINATE BASELINE ARTIFACT- I, II, III, AVR, AVL, AVF ABNORMAL ECG Electronically Signed On 12-24-2020 20:07:01 CDT by Alireza Arevalo D.O.
[2020-12-24 17:58] LABS: Basophils Percent Auto 0.5 % (0.2-1.2); Eosinophils Absolute Auto 0.1 K/mm3 (0-0.3); Eosinophils Percent Auto 1.7 % (0-4.4); Hematocrit 33.3 % (37.0-47.0); Hemoglobin 10.4 g/dL (12.0-15.0); Immature Granulocyte Absolute 0.02 K/mm3 (0.00-0.031); Immature Granulocyte Percent A 0.3 % (0-0.5); Lymphocytes Absolute Auto 1.12 K/mm3 (0.9-3.2); Lymphocytes Percent Auto 17.7 % (18.3-44.2); Mean Corpuscular HGB Conc 31.2 g/dl (32-36); Mean Corpuscular Hemoglobin 29.1 pg (26-34); Mean Corpuscular Volume 93.3 fl (80-100); Mean Platelet Volume 9.4 fl (7.4-10.4); Monocytes Absolute Auto 0.5 K/mm3 (0.1-0.6); Monocytes Percent Auto 7.9 % (2.6-8.5); Neutrophils Absolute Auto 4.6 K/mm3 (1.3-6.7); Neutrophils Percent Auto 71.9 % (45.5-73.1); Platelet Count Result 251 k/mm3 (150-375); Red Blood Count 3.57 M/mm3 (4.2-5.4); Red Cell Distribution Width 14.8 % (11.5-14.5); White Blood Count 6.3 K/mm3 (4.5-10.0)
[2020-12-24 18:13] LABS: Alanine Aminotransferase 11 U/L (4-35); Albumin Level 3.6 g/dL (3.5-5.1); Alkaline Phosphatase 82 U/L (38-126); Anion Gap 4 mmol/L (8-16); Aspartate Amino Transferase 19 U/L (14-36); Bilirubin,Total 0.4 mg/dL (0.2-1.3); Blood Urea Nitrogen 14 mg/dL (7-17); Calcium 9.2 mg/dL (8.4-10.2); Carbon Dioxide 28 mmol/L (22-30); Chloride 103 mmol/L (98-107); Estimated CRCL calculation 65 ml/min; Estimated Glomerular Filt Rate > 60; Glucose 152 mg/dL (65-110); Potassium 5.4 mmol/L (3.4-5.0); Sodium 135 mmol/L (137-145)
[2020-12-24 18:56] LABS: Alveolar/Arterial O2 Gradient 91.4 mmHg; Base Excess ABG 2.6 mEq/l (+/-2.0); Fractional Inspired Oxygen 32 %; HCO3 ABG 28.4 mEq/l (22.0-26.0); Oxygen Saturation ABG 95.5 % (95.0-100.0); Oxyhemoglobin 93.5 % THb (90.0-100.0); PCO2 ABG 48.7 mmHg (35.0-45.0); PO2 ABG 79.8 mmHg (80.0-100.0); PO2 FiO2 Ratio Arterial Blood 2.49 %; Total Hemoglobin 12.1 g/dL (12.0-18.0); pH ABG 7.383 (7.350-7.450)
[2020-12-24 18:57] LABS: Device NASAL CANNULA; Modified Allen's Test Pass; Site Drawn RIGHT RADIAL
[2020-12-24 19:12] LABS: Add Urine Microscopic? YES; Appearance Urine Clear (Clear); Bacteria Urine Trace /hpf; Bilirubin Urine Negative (Negative); Blood Urine 2+ (Negative); Budding Yeast Urine Present /hpf; Color Urine Yellow (Yellow); Glucose Urine UA Negative (Negative); Ketones Urine Negative (Negative); Leukocyte Esterase Ur 2+ LEU/UL (Negative); Mucus Urine Rare /lpf; Nitrate Urine Negative (Negative); Protein Urine Negative (Negative); Specific Grav Ur 1.012 (1.001-1.035); Squamous Epithelial Cell Urine Rare /hpf (Few); Urobilinogen Urine Negative mg/dL (<2.0)
--- NOTE | 2020-12-24 19:34 | PC.NURSE ---
Patient attempting to get out of bed multiple times. java programmer analyst aware, sitter at bedside.
--- NOTE | 2020-12-24 20:14 | ED.SOB ---
HPI - SOB/Dyspnea General Chief Complaint: Shortness of Breath/Dyspnea Stated Complaint: SOB Time Seen by Provider: 12/24/20 18:10 Source: patient and EMS Mode of arrival: EMS Limitations: clinical condition History of Present Illness HPI Narrative: 65-year-old female History of COPD on home oxygen and has a indwelling urinary catheter, had a history of type 2 diabetes Poor historian, tells me that is 1953 and that she was born in 1955 and does recognize that paradox but still cannot get the year right Arrives via EMS for shortness of breath, with low oxygen saturations reported in the field, and confusion Patient is unable to elaborate on this in any detail Does however appear that she was discharged from here about 2-1/2 weeks ago after being hospitalized with a UTI and hypercapnic exacerbation of her COPD Related Data Home Medications Medication Instructions Recorded Confirmed albuterol sulfate 2 puff INHALATION Q4H PRN 12/04/20 12/04/20 amlodipine 5 mg PO DAILY 12/04/20 12/04/20 insulin lispro See Rx Instructions .ROUTE .COMPLEX 12/04/20 12/04/20 metformin 500 mg PO BID 12/04/20 12/04/20 quetiapine 50 mg PO BID 12/04/20 12/04/20 trazodone 300 mg PO HS 12/04/20 12/04/20 Allergies Allergy/AdvReac Type Severity Reaction Status Date / Time celecoxib Allergy Mild Rash Verified 07/29/17 14:43 alcohol Allergy Unknown Verified 06/17/12 08:51 atorvastatin Allergy Unknown Verified 10/17/11 09:27 clarithromycin Allergy Unknown Verified 09/16/14 08:28 fentanyl Allergy Unknown Verified 10/17/11 09:27 metformin Allergy Unknown Verified 10/17/11 09:26 paroxetine Allergy Unknown Verified 10/17/11 09:26 varenicline Allergy Unknown Verified 10/17/11 09:27 morphine AdvReac Severe Nausea and Verified 07/29/17 14:43 Vomiting Review of Systems Review of Systems: ROS unobtainable: Yes unobtainable due to mental status PMFSH Past Medical History Medical History COPD (chronic obstructive pulmonary disease) Depression with anxiety DM2 (diabetes mellitus, type 2) Hypertension Obstructive sleep apnea no longer uses a CPAP but uses oxygen at 2 L per nasal cannula. Peripheral neuropathy Tobacco abuse Surgical History Surgical History History of classical section History of total knee arthroplasty right Family History Family History Father Family history of coronary artery disease Mother Family history of coronary artery disease Other Asthma Diabetes mellitus Family history of elevated blood lipids Social History Social History Social History: the patient stated that she smokes cigarettes up to about 4 months ago. 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 She lives at [facility]. She has an ex-. She has 3 children. She tells me she does not have a durable power trust and estates attorney for healthcare but desires to be a full code. The patient stated although she quit smoking 4 months ago she desires to have a cigarette today. Smoking status: Former smoker Second hand tobacco smoke exposure: Yes Alcohol intake: never Substance use: never Substance use type: does not use Gender identity (if verbalized by the patient): Female Spiritual care concerns: No Exam Const: General: cooperative, alert, confusion and ill appearing Nutritional Appearance: obese Limitations: altered mental status HENMT: Head: normal to inspection, normocephalic, atraumatic, no contusions and no hematomas Ears: external ears normal General nose exam: no epistaxis Eyes: Conjunctivae: conjunctivae normal EOM: EOMs intact bilaterally Neck: Neck: normal visual inspection, supple and no JVD Resp: Effort & Inspection: normal respiratory effort and not labored Auscultation: clear to ausculta
--- NOTE | 2020-12-24 20:32 | PC.NURSE ---
Patient starting to get agitated and ripping of her oxygen. ERP notified. Orders received.
[2020-12-24] MEDS: HALOPERIDOL LACTATE 5 MG/ML VIAL IV PUSH (20:34)
[2020-12-24] MEDS: ALBUTEROL SULFATE NEB 2.5 MG/0.5 ML INH 5 MG INHALATION (20:46)
[2020-12-24] MEDS: IPRATROPIUM BR 0.02% INH SOLN 0.5 MG/2.5 ML VIAL INHALATION (20:46)
--- NOTE | 2020-12-24 22:25 | ADMGEN ---
This patient, Casimiro Atkinson, was admitted to [facility] Room 323-01. Patient/family oriented to hospital policies and general routines including ID bracelet, bed and alarms, visiting hours, pain management, procedures, bathroom and other care routines, personal items, smoking policy, room service/diet, and visiting hours. Information on how to activate the Rapid Response Team has been discussed. Patient/Family are encouraged to report perceived risks to care and to ask questions if they do not understand what they are told or what they should do.
--- NOTE | 2020-12-24 23:24 | PM.IMHP ---
H&P: HPI History of Present Illness Date/Time: 12/24/20 23:24 Chief Complaint: LOW OXYGEN SATURATION Narrative: THIS IS A 65-YEAR-OLD FEMALE WITH PAST MEDICAL HISTORY SIGNIFICANT FOR CHRONIC HYPERCARBIC AND HYPOXIC RESPIRATORY FAILURE ON SUPPLEMENTAL OXYGEN, CHRONIC INDWELLING SAMPSON CATHETER, RECENTLY DISCHARGED FROM OUR HOSPITAL WHERE SHE WAS TREATED FOR ACUTE ON CHRONIC RESPIRATORY FAILURE AND ABNORMAL URINALYSIS. SHE WAS BROUGHT IN TODAY DUE TO LOW PULSE OX AND CONFUSION. PATIENT ALSO HAS HISTORY OF BLADDER CANCER WHICH IS BEING FOLLOWED UP IN THE OUTPATIENT SETTING WITH UROLOGY. PATIENT CAN NOT PROVIDE MUCH HISTORY SHE WAS CONFUSED AT THE TIME OF ARRIVAL AND AT THE TIME OF MY VISIT SHE DENIED ANY ACUTE ISSUES. SHE HAS BEEN STARTED ON ANTIBIOTIC AND HER OXYGEN WAS INCREASED TO 5 L IN EMERGENCY ROOM. SHE HAS BEEN RULED OUT FOR COVID PNEUMONIA. Review of Systems Review of Systems: ROS unobtainable: Yes unobtainable due to mental status PMFSH Past Medical History Medical History (Updated 12/25/20 @ 04:09 by Lj Fernandez MD) COPD (chronic obstructive pulmonary disease) Depression with anxiety DM2 (diabetes mellitus, type 2) Hypertension Obstructive sleep apnea no longer uses a CPAP but uses oxygen at 2 L per nasal cannula. Peripheral neuropathy Tobacco abuse Surgical History Surgical History History of classical section History of total knee arthroplasty right Family History Family History Father Family history of coronary artery disease Mother Family history of coronary artery disease Other Asthma Diabetes mellitus Family history of elevated blood lipids Social History Social History Social History: the patient stated that she smokes cigarettes up to about 4 months ago. 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 She lives at [facility]. She has an ex-. She has 3 children. She tells me she does not have a durable power corporate associate attorney for healthcare but desires to be a full code. The patient stated although she quit smoking 4 months ago she desires to have a cigarette today. Smoking packs per day: 1 Smoking cigarettes per day: 20.0 Smoking status: Current every day smoker Tobacco type: cigarettes Second hand tobacco smoke exposure: Yes Alcohol intake: unknown Substance use: unknown Substance use type: does not use Gender identity (if verbalized by the patient): Female Spiritual care concerns: No Meds Home Medications and Allergies Home Medications Medication Instructions Recorded Confirmed Type albuterol sulfate 2 puff INHALATION Q4H PRN 12/04/20 12/24/20 History amlodipine 5 mg PO DAILY 12/04/20 12/24/20 History insulin lispro See Rx Instructions .ROUTE .COMPLEX 12/04/20 12/24/20 History metformin 500 mg PO BID 12/04/20 12/24/20 History quetiapine 50 mg PO BID 12/04/20 12/24/20 History trazodone 300 mg PO HS PRN 12/04/20 12/24/20 History acetaminophen [Mapap 650 mg PO Q4H PRN #30 tablet 12/08/20 12/24/20 Rx (acetaminophen)] diazepam 10 mg PO TID PRN #20 tablet 12/08/20 12/24/20 Rx hydrocodone-acetaminophen 1 tablet PO Q6H PRN #20 tablet 12/08/20 12/24/20 Rx pregabalin 100 mg PO BID #20 cap 12/08/20 12/24/20 Rx umeclidinium-vilanterol [Anoro 1 inh INHALATION DAILY #60 ea 12/08/20 Rx Ellipta] diclofenac sodium 1 ea TOPICAL BID PRN 12/24/20 12/24/20 History duloxetine 60 mg PO DAILY 12/24/20 12/24/20 History nystatin 1 applic TOPICAL BID 12/24/20 12/24/20 History simvastatin 20 mg PO DAILY 12/24/20 12/24/20 History Allergies Allergy/AdvReac Type Severity Reaction Status Date / Time celecoxib Allergy Mild Rash Verified 07/29/17 14:43 alcohol Allergy Unknown Unknown Verified 12/25/20 11:40 atorvastatin Allergy Unknown Unknown Verified 12/25/20 11:40 clarithromycin Allergy Unknown Unkno
[2020-12-24] MEDS: LACTATED RINGERS 1,000 ML 150 ML IV CONT (23:29)
[2020-12-25] VITALS (10 sets, daily range): BP systolic 109–140; BP diastolic 52–65; PULSE 65–90; RESP 16–22; TEMP 36.2–37.1; O2SAT 93–99; BMI 32.5
[2020-12-25] MEDS: ALBUTEROL SULFATE NEB 2.5 MG/0.5 ML INH 5 MG INHALATION ×3 (03:03→23:51)
[2020-12-25] MEDS: IPRATROPIUM BR 0.02% INH SOLN 0.5 MG/2.5 ML VIAL INHALATION ×3 (03:03→23:51)
[2020-12-25 06:49] LABS: Basophils Percent Auto 0.2 % (0.2-1.2); Hematocrit 35.5 % (37.0-47.0); Hemoglobin 10.9 g/dL (12.0-15.0); Immature Granulocyte Absolute 0.03 K/mm3 (0.00-0.031); Immature Granulocyte Percent A 0.6 % (0-0.5); Lymphocytes Absolute Auto 0.99 K/mm3 (0.9-3.2); Mean Corpuscular HGB Conc 30.7 g/dl (32-36); Mean Corpuscular Hemoglobin 28.5 pg (26-34); Mean Corpuscular Volume 92.9 fl (80-100); Mean Platelet Volume 9.3 fl (7.4-10.4); Monocytes Absolute Auto 0.2 K/mm3 (0.1-0.6); Neutrophils Absolute Auto 3.8 K/mm3 (1.3-6.7); Neutrophils Percent Auto 76.2 % (45.5-73.1); Platelet Count Result 261 k/mm3 (150-375); Red Blood Count 3.82 M/mm3 (4.2-5.4); Red Cell Distribution Width 14.6 % (11.5-14.5)
[2020-12-25] MEDS: LACTATED RINGERS 1,000 ML 150 ML IV CONT (06:51)
[2020-12-25 07:05] LABS: Anion Gap 5 mmol/L (8-16); Blood Urea Nitrogen 14 mg/dL (7-17); Calcium 9.8 mg/dL (8.4-10.2); Carbon Dioxide 28 mmol/L (22-30); Chloride 102 mmol/L (98-107); Estimated CRCL calculation 90 ml/min; Estimated Glomerular Filt Rate > 60; Glucose 202 mg/dL (65-110); Potassium 4.8 mmol/L (3.4-5.0); Sodium 135 mmol/L (137-145)
[2020-12-25] MEDS: ASPIRIN 81 MG CHEWABLE TABLET PO (09:43)
--- NOTE | 2020-12-25 10:37 | PCRTNOTE ---
Window of time for administration has passed. See next scheduled administration.
--- NOTE | 2020-12-25 10:52 | PM.IMPN ---
Progress Note: A&P Assessment and Plan (1) Altered mental status: Code(s): R41.82 - Altered mental status, unspecified Status: Acute Assessment and Plan: Patient presented to the emergency room from her long-term rehab facility with altered mental status. During the patient's prior hospitalization 2 and half weeks ago she had multiple episodes of altered mental status which was secondary to hypercapnia. In the emergency room they placed her on a BiPAP with improvement of her symptoms and confusion. Today she is feeling well, resting comfortably on 3 L of oxygen. could be secondary to acute hypercapnia. Continue monitoring her mental status, use BiPAP machine at night with sleeping and with naps. She was also found to have fevers which could also have contributed to her confusion. She was started on IV doxycycline and Rocephin for treatment of pneumonia. Patient does have a slightly abnormal urinalysis with 2+ leukocyte esterase and WBCs 10-15. Urine culture is pending at this time and being cover with IV Rocephin. She does have a chronic indwelling Morfin catheter due to history of bladder cancer, And she needs to follow-up with a urologist for further evaluation, treatment plan and monitoring.. She is currently in isolation for COVID-19, pending COVID results. She has not been COVID vaccine needed. Continue with neuro checks q.4 hours. Continue monitoring. (2) Fever: Code(s): R50.9 - Fever, unspecified Status: Acute Assessment and Plan: Could be secondary to pneumonia versus COVID versus UTI blood cultures pending at this time continue IV Rocephin and doxycycline she did have a fever of 102.7 on arrival to the emergency room last night. No fever since then. Continue IV antibiotics. Continue monitoring for any fevers. P.r.n. Tylenol. (3) Acute on chronic respiratory failure with hypercapnia: Code(s): J96.22 - Acute and chronic respiratory failure with hypercapnia Status: Acute Assessment and Plan: Patient was requiring 5 L of oxygen on arrival, but today she is improved back down to her baseline which is 3 L of oxygen. She denies any respiratory symptoms that are worse from her baseline. She does not seem to be in COPD exacerbation at this time. No steroids have been given. Continue breathing treatments q.6 hours, BiPAP at night for hypercapnia, wean oxygen as tolerated to keep between 90-95%. (4) Abnormal urinalysis: Code(s): R82.90 - Unspecified abnormal findings in urine Status: Acute Assessment and Plan: Could have UTI due to indwelling morfin catheter which is to remain in place due to history of Bladder tumor. IV Rocephin at this time Pending Urine Culture results Will change out morfin catheter today Continue monitoring. (5) Obstructive sleep apnea: Code(s): G47.33 - Obstructive sleep apnea (adult) (pediatric) Status: Chronic Assessment and Plan: BiPAP ordered for home settings to trying prevent any worsening confusion or hypercapnia. (6) DM2 (diabetes mellitus, type 2): Code(s): E11.9 - Type 2 diabetes mellitus without complications Status: Chronic Assessment and Plan: Will hold patient's oral medications while here. She is not on any insulin at home. Continue glucose a.c. HS, hypoglycemic protocol in place, sliding scale insulin ordered. (7) Tobacco abuse: Code(s): Z72.0 - Tobacco use Status: Inactive Assessment and Plan: Smoking sensation given for 3 minutes to the patient. (8) Bladder tumor:
[2020-12-25 11:56] LABS: Glucose Point of Care 269 mg/dl (65-105)
[2020-12-25] MEDS: QUEtiapine FUMARATE 25 MG TABLET 50 MG PO ×2 (11:59→21:01)
[2020-12-25] MEDS: PREGABALIN (*CRX) 50 MG CAPSULE 100 MG PO ×2 (12:00→17:29)
[2020-12-25] MEDS: DULoxetine HCL 60 MG CAPSULE.DR PO (12:01)
[2020-12-25] MEDS: HYDROcodone/acetaminophen (*CRX) 10-325 MG TABLET 1 TAB PO (12:03)
[2020-12-25] MEDS: INSULIN ASPART (*BKC) 100 UNITS/ML SUB-Q ×2 (12:51→17:32)
--- NOTE | 2020-12-25 16:27 | PCRCNOTE ---
PT DOES NOT USE CPAP AT HOME .
[2020-12-25 17:00] LABS: Glucose Point of Care 241 mg/dl (65-105)
[2020-12-25 17:31] LABS: SARS-CoV-2 RNA PCR Negative
[2020-12-25] MEDS: MELATONIN 5 MG TABLET PO (21:01)
[2020-12-25] MEDS: SIMVASTATIN 20 MG TABLET PO (21:03)
[2020-12-25 21:58] LABS: Glucose Point of Care 200 mg/dl (65-105)
[2020-12-26] VITALS (14 sets, daily range): BP systolic 127–140; BP diastolic 53–60; PULSE 61–95; RESP 12–20; TEMP 36.3–36.5; O2SAT 92–97
[2020-12-26] MEDS: diazePAM (*CRX) 10 MG TABLET PO ×4 (01:43→21:13)
[2020-12-26] MEDS: ALBUTEROL SULFATE NEB 2.5 MG/0.5 ML INH 5 MG INHALATION ×4 (03:07→21:01)
[2020-12-26] MEDS: IPRATROPIUM BR 0.02% INH SOLN 0.5 MG/2.5 ML VIAL INHALATION ×4 (03:07→21:01)
[2020-12-26 06:23] LABS: Basophils Percent Auto 0.4 % (0.2-1.2); Eosinophils Absolute Auto 0.1 K/mm3 (0-0.3); Eosinophils Percent Auto 1.7 % (0-4.4); Hematocrit 33.7 % (37.0-47.0); Hemoglobin 10.6 g/dL (12.0-15.0); Immature Granulocyte Absolute 0.02 K/mm3 (0.00-0.031); Immature Granulocyte Percent A 0.4 % (0-0.5); Lymphocytes Absolute Auto 2.23 K/mm3 (0.9-3.2); Lymphocytes Percent Auto 41.2 % (18.3-44.2); Mean Corpuscular HGB Conc 31.5 g/dl (32-36); Mean Corpuscular Hemoglobin 28.4 pg (26-34); Mean Corpuscular Volume 90.3 fl (80-100); Mean Platelet Volume 9.3 fl (7.4-10.4); Monocytes Absolute Auto 0.5 K/mm3 (0.1-0.6); Monocytes Percent Auto 9.8 % (2.6-8.5); Neutrophils Absolute Auto 2.5 K/mm3 (1.3-6.7); Neutrophils Percent Auto 46.5 % (45.5-73.1); Platelet Count Result 284 k/mm3 (150-375); Red Blood Count 3.73 M/mm3 (4.2-5.4); Red Cell Distribution Width 14.6 % (11.5-14.5); White Blood Count 5.4 K/mm3 (4.5-10.0)
[2020-12-26 06:41] LABS: Anion Gap 5 mmol/L (8-16); Blood Urea Nitrogen 21 mg/dL (7-17); Calcium 10.1 mg/dL (8.4-10.2); Carbon Dioxide 30 mmol/L (22-30); Chloride 99 mmol/L (98-107); Estimated CRCL calculation 76 ml/min; Estimated Glomerular Filt Rate > 60; Glucose 123 mg/dL (65-110); Potassium 4.7 mmol/L (3.4-5.0); Sodium 134 mmol/L (137-145)
[2020-12-26] MEDS: HYDROcodone/acetaminophen (*CRX) 10-325 MG TABLET 1 TAB PO ×3 (07:46→21:13)
[2020-12-26] MEDS: QUEtiapine FUMARATE 25 MG TABLET 50 MG PO ×2 (07:49→20:59)
[2020-12-26] MEDS: PREGABALIN (*CRX) 50 MG CAPSULE 100 MG PO ×2 (07:49→18:00)
[2020-12-26] MEDS: ASPIRIN 81 MG CHEWABLE TABLET PO (07:50)
[2020-12-26] MEDS: amLODIPine BESYLATE 5 MG TABLET PO (07:51)
[2020-12-26] MEDS: DULoxetine HCL 60 MG CAPSULE.DR PO (07:51)
[2020-12-26 11:35] LABS: Glucose Point of Care 218 mg/dl (65-105)
[2020-12-26] MEDS: INSULIN ASPART (*BKC) 100 UNITS/ML SUB-Q ×2 (11:48→18:38)
[2020-12-26] MEDS: MICONAZOLE NITRATE 2% CREAM 30 GM TUBE 1 APPLIC TOPICAL (13:42)
--- NOTE | 2020-12-26 16:47 | PM.IMPN ---
Progress Note: A&P Assessment and Plan (1) Acute exacerbation of chronic obstructive pulmonary disease: Code(s): J44.1 - Chronic obstructive pulmonary disease with (acute) exacerbation Status: Acute Assessment and Plan: OXYGEN INCREASED TO 5 L, but decreased to 3L which is her norm Ceftriaxone 1gm Daily, and Doxycycline 100mg IV Q12hr Albuterol inhalation q.6 schedule Atrovent nebs 0.5 mg q.6 scheduled BREATHING TREATMENTS SUPPORTIVE CARE (2) Altered mental status: Code(s): R41.82 - Altered mental status, unspecified Status: Acute Assessment and Plan: Seems to be resolved as patient is A&O x3 LIKELY SECONDARY TO HYPOXEMIA, or possible UTI SUPPORTIVE CARE (3) Fever: Code(s): R50.9 - Fever, unspecified Status: Acute Assessment and Plan: Seems to been resolved patient 36.5 c PATIENT HAS BEEN RULE OUT FOR COVID AWAITING COVID PCR (4) Acute on chronic respiratory failure with hypercapnia: Code(s): J96.22 - Acute and chronic respiratory failure with hypercapnia Status: Acute Assessment and Plan: SUPPLEMENTAL OXYGEN INCREASED TO 5 L, patient is back down to 3 L which to her baseline CONTINUE TO MONITOR APPEARS TO BE COMFORTABLE (5) Obstructive sleep apnea: Code(s): G47.33 - Obstructive sleep apnea (adult) (pediatric) Status: Chronic Assessment and Plan: CPAP AT NIGHTTIME HOME SETTINGS (6) DM2 (diabetes mellitus, type 2): Code(s): E11.9 - Type 2 diabetes mellitus without complications Status: Chronic Assessment and Plan: GLUCOSE 123 TREND LABS LABS IN A.M. CONTINUE TO MONITOR INSULIN SLIDING SCALE NEEDED (7) Tobacco abuse: Code(s): Z72.0 - Tobacco use Status: Inactive Assessment and Plan: NICOTINE PATCH NEEDED (8) UTI (urinary tract infection): Code(s): N39.0 - Urinary tract infection, site not specified Status: Acute Assessment and Plan: UA suspicious for UTI leukocyte esterase 2+, white blood cell 10 to 15 yeast is present trace bacteria Ceftriaxone 1g Q24 Time Spent With Patient Time with patient: Greater than 35 minutes Subjective Date/time seen: 12/26/20 12:57 Interval history: Patient 65 year old female with a past medical history with chronic hypercarbic and hypoxic respiratory failure on supplemental oxygen, chronic indwelling Miller catheter who came for evaluation of altered mental status and confusion. Today she stated that she is feeling better, and that she does not know why she is even here. She stated that she does have the chronic catheter from bladder cancer. Nursing did say that she did have a rough night which the patient confirmed. She was given Haldol overnight since she was being non-compliant. She was alert and oriented however she did say to not ask her about the president because she does not like them. Her son did ask that the patient be seen by a urologist here for her bladder cancer since the patient does not seem to be able to get to her appointments in [place]. Patient denied chest pain, shortness of breath, nausea, vomiting, abdominal pain, sweats, chills, fevers. Review of Systems Review of Systems: All systems reviewed & are unremarkable except as noted in HPI and below Exam Const: General: cooperative, healthy appearing, comfortable, no acute distress, well developed, alert, awake, Physically active, anxious, confusion, ill appearing and tired appearing Nutritional Appearance: average body habitus Orientation/consciousness: oriented to person, oriented to place, oriented to time and patient oriented x3 HENMT: Head: normal to inspection, normocephalic and atraumatic Ears: hearing grossly normal bilaterally General nose exam: Normal external nose present Face and sinus: normal facial exam Eyes: General: appearance normal, both eyes and all related structur
[2020-12-26 17:15] LABS: Glucose Point of Care 219 mg/dl (65-105)
[2020-12-26] MEDS: MELATONIN 5 MG TABLET PO (20:59)
[2020-12-26] MEDS: SIMVASTATIN 20 MG TABLET PO (20:59)
[2020-12-26 22:30] LABS: Glucose Point of Care 182 mg/dl (65-105)
[2020-12-27] VITALS (11 sets, daily range): BP systolic 102–150; BP diastolic 55–76; PULSE 55–71; RESP 14–20; TEMP 36.7; O2SAT 2–100
[2020-12-27] MEDS: ALBUTEROL SULFATE NEB 2.5 MG/0.5 ML INH 5 MG INHALATION ×3 (03:46→21:12)
[2020-12-27] MEDS: IPRATROPIUM BR 0.02% INH SOLN 0.5 MG/2.5 ML VIAL INHALATION ×3 (03:46→21:12)
[2020-12-27 06:37] LABS: Hematocrit 33.8 % (37.0-47.0); Hemoglobin 10.5 g/dL (12.0-15.0); Mean Corpuscular HGB Conc 31.1 g/dl (32-36); Mean Corpuscular Hemoglobin 28.5 pg (26-34); Mean Corpuscular Volume 91.6 fl (80-100); Mean Platelet Volume 9.2 fl (7.4-10.4); Platelet Count Result 275 k/mm3 (150-375); Red Blood Count 3.69 M/mm3 (4.2-5.4); Red Cell Distribution Width 14.6 % (11.5-14.5); White Blood Count 5.6 K/mm3 (4.5-10.0)
[2020-12-27 06:53] LABS: Alanine Aminotransferase 10 U/L (4-35); Albumin Level 3.3 g/dL (3.5-5.1); Alkaline Phosphatase 65 U/L (38-126); Anion Gap 7 mmol/L (8-16); Aspartate Amino Transferase 14 U/L (14-36); Bilirubin,Total < 0.1 mg/dL (0.2-1.3); Blood Urea Nitrogen 23 mg/dL (7-17); Calcium 9.2 mg/dL (8.4-10.2); Carbon Dioxide 29 mmol/L (22-30); Chloride 89 mmol/L (98-107); Estimated CRCL calculation 66 ml/min; Estimated Glomerular Filt Rate > 60; Glucose 102 mg/dL (65-110); Potassium 4.7 mmol/L (3.4-5.0); Sodium 125 mmol/L (137-145)
[2020-12-27 07:48] LABS: NT Pro B Type Natriuretic Pept 1440 pg/mL (5-100)
[2020-12-27 09:06] LABS: Glucose Point of Care 110 mg/dl (65-105)
[2020-12-27] MEDS: HYDROcodone/acetaminophen (*CRX) 10-325 MG TABLET 1 TAB PO ×2 (09:26→17:11)
[2020-12-27] MEDS: DULoxetine HCL 60 MG CAPSULE.DR PO (09:28)
[2020-12-27] MEDS: amLODIPine BESYLATE 5 MG TABLET PO (09:28)
[2020-12-27] MEDS: DICLOFENAC SODIUM 1% 100 GM GEL (*BKC) 1 APPLIC TOPICAL ×2 (09:29→18:45)
[2020-12-27] MEDS: ASPIRIN 81 MG CHEWABLE TABLET PO (09:29)
[2020-12-27] MEDS: QUEtiapine FUMARATE 25 MG TABLET 50 MG PO ×2 (09:31→22:27)
[2020-12-27] MEDS: PREGABALIN (*CRX) 50 MG CAPSULE 100 MG PO ×2 (10:02→17:07)
[2020-12-27] MEDS: MICONAZOLE NITRATE 2% CREAM 30 GM TUBE 1 APPLIC TOPICAL ×2 (10:03→18:45)
[2020-12-27] MEDS: diazePAM (*CRX) 10 MG TABLET PO ×2 (10:03→22:38)
--- NOTE | 2020-12-27 11:05 | WPDURCON ---
Assessment and Plan Assessment and plan (1) Bladder tumor: Code(s): D49.4 - Neoplasm of unspecified behavior of bladder Status: Acute Assessment and Plan: After discussion with Dr. Palacio we will plan to have her follow up as an outpatient for a cystoscope to further assess. No imaging needed at this time. No surgical plans at this time. (2) Abnormal urinalysis: Code(s): R82.90 - Unspecified abnormal findings in urine Status: Acute Assessment and Plan: Continue IV antibiotics, tailor to culture results. (3) Indwelling Morfin catheter present: Code(s): Z97.8 - Presence of other specified devices Status: Acute Assessment and Plan: Remove morfin and perform voiding trial. Bladder scan after first void and call the office to report. Likely left in after the ICU placed it months ago and she never had an opportunity for a voiding trial. Push fluids to encourage urination. Urology Consult Note HPI Date Seen: 12/27/20 Requesting Physician: Bonnie Benedict PA-C Primary Care Provider: Griffin Weiss MD Consult Narrative Narrative: Casimiro Atkinson is a 65 year old female who presented ot the ER on 12/24/2020 for a COPD exacerbation with a chronic morfin. The patient had mentioned to the hospitalist that she was seeing a Dr. Anne (urologist) in [place] for a bladder tumor that was discovered. She had a cystoscope in 09/2020 which confirmed this bladder tumor and was scheduled yesterday for a TURBT. We were consulted per the patient's request to have a second opinion of her bladder tumor as she lives in [place] and our group was much closer for her to manage her appointments. She states her morfin was placed while hospitalized in the ICU at [place] in 08/2020. She states she fell at home in 08/2020 and her son found her bleeding from her head which caused her to be intubated and in the ICU for quite some time to recover. She has had her morfin in since and it was never re-evaluated according to her as to why she needs it. She had it changed with her cystoscope in 09/2020 but not again since yesterday, therefore prior to yesterday it was in place for 3 months. She has now developed what appears to be a UTI, but her urine culture is pending. WBC 5.6, creatinine is 0.70, she is bradycardic and hypotensive. She is A&O x 4 but her medical history seems to be a bit unclear. She did however, provide all of her urologic information to me today. There has been no imaging of her abdomen at this time. Review of Systems Cardiovascular: Cardiovascular: Denies chest pain Respiratory: Respiratory: Reports dyspnea on exertion Gastrointestinal: Gastrointestinal: Denies abdominal pain, Denies nausea and Denies vomiting Genitourinary: Genitourinary: Denies hematuria, Denies flank pain and Reports other (morfin catheter of uknown reason) [facility] Past Medical History Medical History COPD (chronic obstructive pulmonary disease) Depression with anxiety DM2 (diabetes mellitus, type 2) Hypertension Obstructive sleep apnea no longer uses a CPAP but uses oxygen at 2 L per nasal cannula. Peripheral neuropathy Tobacco abuse Surgical History Surgical History History of classical section History of total knee arthroplasty right Family History Family History Father Family history of coronary artery disease Mother Family history of coronary artery disease Other Asthma Diabetes mellitus Family history of elevated blood lipids Social History Social History Social History: the patient stated that she smokes cigarettes up to about 4 months ago. 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 She has an ex-. She has 3 children. She tells m
[2020-12-27] MEDS: BUMETANIDE INJ 1 MG/4 ML VIAL 2 MG IV PUSH (12:55)
[2020-12-27 13:13] LABS: Glucose Point of Care 188 mg/dl (65-105)
--- NOTE | 2020-12-27 16:00 | PM.IMPN ---
Progress Note: A&P Assessment and Plan (1) Acute exacerbation of chronic obstructive pulmonary disease: Code(s): J44.1 - Chronic obstructive pulmonary disease with (acute) exacerbation Status: Acute Assessment and Plan: OXYGEN INCREASED TO 5 L, but decreased to 3L which is her norm Ceftriaxone 1gm Daily, and Doxycycline 100mg IV Q12hr Albuterol inhalation q.6 schedule Atrovent nebs 0.5 mg q.6 scheduled BREATHING TREATMENTS SUPPORTIVE CARE (2) Altered mental status: Code(s): R41.82 - Altered mental status, unspecified Status: Acute Assessment and Plan: Seems to be resolved as patient is A&O x3 LIKELY SECONDARY TO HYPOXEMIA, or possible UTI SUPPORTIVE CARE (3) Fever: Code(s): R50.9 - Fever, unspecified Status: Acute Assessment and Plan: Seems to been resolved patient 36.5 c PATIENT HAS BEEN RULE OUT FOR COVID (4) Acute on chronic respiratory failure with hypercapnia: Code(s): J96.22 - Acute and chronic respiratory failure with hypercapnia Status: Acute Assessment and Plan: SUPPLEMENTAL OXYGEN INCREASED TO 5 L, patient is back down to 3 L which to her baseline CONTINUE TO MONITOR APPEARS TO BE COMFORTABLE (5) Obstructive sleep apnea: Code(s): G47.33 - Obstructive sleep apnea (adult) (pediatric) Status: Chronic Assessment and Plan: CPAP AT NIGHTTIME HOME SETTINGS (6) DM2 (diabetes mellitus, type 2): Code(s): E11.9 - Type 2 diabetes mellitus without complications Status: Chronic Assessment and Plan: GLUCOSE 102 TREND LABS LABS IN A.M. CONTINUE TO MONITOR INSULIN SLIDING SCALE NEEDED (7) Tobacco abuse: Code(s): Z72.0 - Tobacco use Status: Inactive Assessment and Plan: NICOTINE PATCH NEEDED (8) UTI (urinary tract infection): Code(s): N39.0 - Urinary tract infection, site not specified Status: Acute Assessment and Plan: UA suspicious for UTI leukocyte esterase 2+, white blood cell 10 to 15 yeast is present trace bacteria Ceftriaxone 1g Q24 (9) Bladder cancer: Code(s): C67.9 - Malignant neoplasm of bladder, unspecified Status: Acute Assessment and Plan: Patient has a known history of bladder cancer Patient wanted a 2nd opinion about her bladder cancer Urology was consulted think the recommendations Voiding trial Remove Miller Post residual void Follow-up outpatient Subjective Date/time seen: 12/27/20 11:28 Interval history: Patient 65 year old female with a past medical history with chronic hypercarbic and hypoxic respiratory failure on supplemental oxygen, chronic indwelling Miller catheter who came for evaluation of altered mental status and confusion. Patient had no complaints except for she did say she had pain in her right hip and shoulder. She also was upset because her trazodone was discontinued due to her unresponsive nature. She went her trazodone restarted. Patient denied chest pain, shortness of breath, nausea, vomiting, diarrhea, constipation I did consult Urology for her chronic Miller and bladder cancer. It was stated that they would like for the patient to have a voiding trial. Patient also need to follow-up outpatient. It was also recommended that the patient have a bladder scan after the 1st void. Exam Const: General: cooperative, healthy appearing, comfortable, no acute distress, well developed, alert, awake, Physically active, anxious, confusion, ill appearing and tired appearing Nutritional Appearance: average body habitus Orientation/consciousness: oriented to person, oriented to place, oriented to time and patient oriented x3 HENMT: Head: normal to inspection, normocephalic and atraumatic Ears: hearing grossly normal bilaterally General nose exam: Normal external nose present Face and sinus: normal facial exam Eyes: General: a
[2020-12-27 20:08] LABS: Glucose Point of Care 184 mg/dl (65-105)
[2020-12-27] MEDS: MELATONIN 5 MG TABLET PO (22:27)
[2020-12-27] MEDS: SIMVASTATIN 20 MG TABLET PO (22:27)
[2020-12-28] VITALS (8 sets, daily range): BP systolic 104–136; BP diastolic 47–72; PULSE 59–76; RESP 18–22; TEMP 36.2–37.2; O2SAT 94–100
[2020-12-28] MEDS: HYDROcodone/acetaminophen (*CRX) 10-325 MG TABLET 1 TAB PO (00:16)
[2020-12-28 07:41] LABS: Hematocrit 37.8 % (37.0-47.0); Hemoglobin 12.1 g/dL (12.0-15.0); Mean Corpuscular Volume 90.6 fl (80-100); Mean Platelet Volume 9.3 fl (7.4-10.4); Platelet Count Result 304 k/mm3 (150-375); Red Blood Count 4.17 M/mm3 (4.2-5.4); Red Cell Distribution Width 14.6 % (11.5-14.5); White Blood Count 6.7 K/mm3 (4.5-10.0)
[2020-12-28 07:57] LABS: Alanine Aminotransferase 10 U/L (4-35); Albumin Level 3.4 g/dL (3.5-5.1); Alkaline Phosphatase 70 U/L (38-126); Anion Gap 6 mmol/L (8-16); Aspartate Amino Transferase 16 U/L (14-36); Bilirubin,Total 0.3 mg/dL (0.2-1.3); Blood Urea Nitrogen 28 mg/dL (7-17); Calcium 9.3 mg/dL (8.4-10.2); Carbon Dioxide 27 mmol/L (22-30); Chloride 92 mmol/L (98-107); Estimated CRCL calculation 66 ml/min; Estimated Glomerular Filt Rate > 60; Glucose 121 mg/dL (65-110); Magnesium 1.3 mg/dL (1.6-2.3); Potassium 4.9 mmol/L (3.4-5.0); Sodium 125 mmol/L (137-145)
[2020-12-28 08:43] LABS: Glucose Point of Care 127 mg/dl (65-105)
--- NOTE | 2020-12-28 08:58 | WPDUROPN2 ---
Progress Note: A&P Assessment and Plan (1) Bladder cancer: Code(s): C67.9 - Malignant neoplasm of bladder, unspecified Status: Acute Assessment and Plan: Will plan to cysto as an outpatient with Dr. Palacio once she is discharged home. No further plans at this time. (2) Indwelling Miller catheter present: Code(s): Z97.8 - Presence of other specified devices Status: Acute Assessment and Plan: Patient is urinating well s/p cath removal. Plan to bladder scan today post void and call with results. [phone] Subjective Subjective Date/Time Seen: 12/28/20 08:58 Patient is doing well today, she is urinating s/p cath removal. She has no complaints at this time. Review of Systems Cardiovascular: Cardiovascular: Denies chest pain Respiratory: Respiratory: Reports no additional respiratory complaints Gastrointestinal: Gastrointestinal: Denies abdominal pain, Denies nausea and Denies vomiting Genitourinary: Genitourinary: Denies hematuria, Denies nocturia, Denies dysuria, Denies pelvic pain, Denies flank pain, Denies urinary hesitancy and Denies urinary urgency Exam Resp: Effort & Inspection: normal respiratory effort Cardio: Rate: regular rate GI: GI Palp: Yes Soft to palpation and No Tenderness to palpation present (GI) : General: Yes no CVA tenderness Extrem: General: no edema Objective Data Vital Signs Vital Signs: Vital Signs - 24 hr 12/27/20 14:00 12/27/20 20:00 12/27/20 21:10 Temperature 98.0 F Pulse Rate 58 L 60 Respiratory Rate 14 20 Blood Pressure 117/57 L Pulse Oximetry 98 2 L 96 12/27/20 21:25 12/27/20 22:00 12/28/20 05:53 Temperature 98.0 F 97.5 F L Pulse Rate 61 64 61 Respiratory Rate 20 18 20 Blood Pressure 150/76 H 136/64 Pulse Oximetry 96 95 95 Intake/Output Intake/Output: Intake & Output 12/25/20 12/26/20 12/27/20 12/28/20 23:59 23:59 23:59 23:59 Intake Total 3450 2822 2030 100 Output Total 3350 2100 2925 Balance 100 722 -895 100 Meds/Results Medications: Active Medications Generic Name Dose Route Start Last Admin Trade Name Freq PRN Reason Stop Dose Admin Acetaminophen 650 mg 12/25/20 10:47 Acetaminophen 325 Mg Tablet PO Q4H PRN Pain 1-3 Hydrocodone Bitart/Acetaminophen 1 tab 12/25/20 10:47 12/28/20 00:16 Hydrocodone/Acetaminophen (*Crx) 10-325 Mg Tablet PO 1 tab Q6H PRN Administration Pain 6-10 Albuterol 5 mg 12/25/20 02:00 12/28/20 02:17 Albuterol Sulfate Neb 2.5 Mg/0.5 Ml Inh INHALATION Not Given Q6HRT LALO Amlodipine Besylate 5 mg 12/26/20 09:00 12/27/20 09:28 Amlodipine Besylate 5 Mg Tablet PO 5 mg DAILY LALO Administration Aspirin 81 mg 12/25/20 08:00 12/27/20 09:29 Aspirin 81 Mg Chewable Tablet PO 81 mg DAILY@0800 LALO Administration Dextrose 12.5 gm 12/25/20 10:52 Dextrose 50% 25 Gm/50 Ml Syringe IV PUSH PRN PRN Hypoglycemia Protocol Diazepam 10 mg 12/25/20 10:47 12/27/20 22:38 Diazepam (*Crx) 10 Mg Tablet PO 10 mg TID PRN Administration Muscle Spasm Diclofenac Sodium 1 applic 12/25/20 10:50 12/27/20 18:45 Diclofenac Sodium 1% 100 Gm Gel (*Bkc) TOPICAL 1 applic BID PRN Administration Muscle Pain Duloxetine HCl 60 mg 12/25/20 10:50 12/27/20 09:28 Duloxetine Hcl 60 Mg Capsule.Dr PO 60 mg DAILY LALO Administration Glucagon 1 mg 12/25/20 10:52 Glucagon For Inj 1 Mg Vial IM PRN PRN Hypoglycemia Protocol Glucose 15 gm 12/25/20 10:52 Glucose Oral Gel 15 Gm Of Glucse In 37.5 Gm Tube PO PRN PRN Hypoglycemia Protocol Doxycycline Hyclate 100 mg in 100 mls @ 100 mls/hr 12/25/20 09:00 12/27/20 22:27 Vibramycin 100 Mg/D5w 100 Ml IVPB 100 mls/hr Q12H LALO Administration Ceftriaxone Sodium/Dextrose 1 gm in 50 mls @ 100 mls/hr 12/25/20 18:00 12/27/20 18:48 Rocephin 1 Gm/D5w 50 Ml IVPB 100 mls/hr QPM LALO Administration Dex
[2020-12-28] MEDS: PREGABALIN (*CRX) 50 MG CAPSULE 100 MG PO ×2 (09:27→16:59)
[2020-12-28] MEDS: DICLOFENAC SODIUM 1% 100 GM GEL (*BKC) 1 APPLIC TOPICAL (09:27)
[2020-12-28] MEDS: MICONAZOLE NITRATE 2% CREAM 30 GM TUBE 1 APPLIC TOPICAL ×2 (09:28→16:59)
[2020-12-28] MEDS: amLODIPine BESYLATE 5 MG TABLET PO (09:28)
[2020-12-28] MEDS: DULoxetine HCL 60 MG CAPSULE.DR PO (09:28)
[2020-12-28] MEDS: QUEtiapine FUMARATE 25 MG TABLET 50 MG PO (09:28)
[2020-12-28] MEDS: ASPIRIN 81 MG CHEWABLE TABLET PO (09:29)
[2020-12-28] MEDS: ALBUTEROL SULFATE NEB 2.5 MG/0.5 ML INH 5 MG INHALATION ×2 (10:33→14:36)
[2020-12-28] MEDS: IPRATROPIUM BR 0.02% INH SOLN 0.5 MG/2.5 ML VIAL INHALATION ×2 (10:33→14:36)
--- NOTE | 2020-12-28 10:38 | PCNFU ---
Nutrition Follow-Up Complete: Increased protein needs as related to wounds as evidenced by unstageable pressure ulcer on coccyx/right and left buttock. Goal: Adequate Intake of at least 75% of meals/supplements Patient is progressing towards goal. We will continue current goal. Pt current nutrition is DBCC with Michael BID. Last recorded weight is 80.6 kg, no new weight to report. Bowel Motility:+BM reported 12/25 Labs Reviewed:BUN 28,Na 125,Alb 3.4,Glu 121 Meds Noted:Liberty,Norvasc,Valium,Cymbalta,Zocor,Seroquel,Rocephin. Additional Notes: Patient seen today for nutrition follow up. She states to eating toast and banana for breakfast today. Oral Intake has improved to greater than 75% of meals. Skin: unstageable pressure ulcer noted coccyx and left/right heels-Michael continues for wound healing. Agree with diet orders. Monitoring: RD will monitor every 5 days.
[2020-12-28 11:04] LABS: Glucose Point of Care 195 mg/dl (65-105)
--- NOTE | 2020-12-28 11:51 | PCOTNOTE ---
Attempted to see patient this am, however patient declined stating, No, I'm not feeling well. I haven't slept, and I barely ate.
--- NOTE | 2020-12-28 14:22 | PCOTNOTE ---
Attempted to see patient this pm, however patient unavailable with nursing attempting straight cath at this time.
--- NOTE | 2020-12-28 15:55 | PM.IMPN ---
Progress Note: A&P Assessment and Plan (1) Acute exacerbation of chronic obstructive pulmonary disease: Code(s): J44.1 - Chronic obstructive pulmonary disease with (acute) exacerbation Status: Acute Assessment and Plan: OXYGEN INCREASED TO 5 L, but decreased to 3L which is her norm Ceftriaxone 1gm Daily, and Doxycycline 100mg IV Q12hr (Day 4) Albuterol inhalation q.6 schedule Atrovent nebs 0.5 mg q.6 scheduled BREATHING TREATMENTS SUPPORTIVE CARE (2) Altered mental status: Code(s): R41.82 - Altered mental status, unspecified Status: Acute Assessment and Plan: Seems to be resolved as patient is A&O x3 LIKELY SECONDARY TO HYPOXEMIA, or possible UTI SUPPORTIVE CARE (3) Fever: Code(s): R50.9 - Fever, unspecified Status: Acute Assessment and Plan: Seems to been resolved patient 36.5 c PATIENT HAS BEEN RULE OUT FOR COVID (4) Acute on chronic respiratory failure with hypercapnia: Code(s): J96.22 - Acute and chronic respiratory failure with hypercapnia Status: Acute Assessment and Plan: SUPPLEMENTAL OXYGEN INCREASED TO 5 L, patient is back down to 3 L which to her baseline CONTINUE TO MONITOR APPEARS TO BE COMFORTABLE (5) Obstructive sleep apnea: Code(s): G47.33 - Obstructive sleep apnea (adult) (pediatric) Status: Chronic Assessment and Plan: CPAP AT NIGHTTIME HOME SETTINGS (6) DM2 (diabetes mellitus, type 2): Code(s): E11.9 - Type 2 diabetes mellitus without complications Status: Chronic Assessment and Plan: GLUCOSE 102 TREND LABS LABS IN A.M. CONTINUE TO MONITOR INSULIN SLIDING SCALE NEEDED (7) Tobacco abuse: Code(s): Z72.0 - Tobacco use Status: Inactive Assessment and Plan: NICOTINE PATCH NEEDED (8) UTI (urinary tract infection): Code(s): N39.0 - Urinary tract infection, site not specified Status: Acute Assessment and Plan: UA suspicious for UTI leukocyte esterase 2+, white blood cell 10 to 15 yeast is present trace bacteria Ceftriaxone 1g Q24 (9) Bladder cancer: Code(s): C67.9 - Malignant neoplasm of bladder, unspecified Status: Acute Assessment and Plan: Patient has a known history of bladder cancer Patient wanted a 2nd opinion about her bladder cancer Urology was consulted think the recommendations Voiding trial Remove Miller Post residual void Follow-up outpatient Patient did have a voiding trial and had a post residual void of more than 1000ml. Time Spent With Patient Time with patient: Greater than 35 minutes Subjective Date/time seen: 12/28/20 15:55 Interval history: Patient 65 year old female with a past medical history with chronic hypercarbic and hypoxic respiratory failure on supplemental oxygen, chronic indwelling Miller catheter who came for evaluation of altered mental status and confusion. Patient stated that she was doing okay this morning when I saw her she was excited that she was peeing on her own and she was going on the commode. Patient was little irritated that I did not restart trazodone, and was stating that she was tired and she did not get good sleep last night. Patient denied chest pain, shortness of breath, nausea, vomiting, sweats, fevers, chills. 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
--- NOTE | 2020-12-28 16:31 | PM.DS ---
DS: Admitting Diagnosis Admitting Diagnosis COPD exacerbation DS: Discharge Diagnosis Discharge Diagnosis (1) Acute exacerbation of chronic obstructive pulmonary disease: Code(s): J44.1 - Chronic obstructive pulmonary disease with (acute) exacerbation Status: Acute Assessment and Plan: OXYGEN INCREASED TO 5 L, but decreased to 3L which is her norm Ceftriaxone 1gm Daily, and Doxycycline 100mg IV Q12hr (Day 4) Albuterol inhalation q.6 schedule Atrovent nebs 0.5 mg q.6 scheduled BREATHING TREATMENTS SUPPORTIVE CARE (2) Altered mental status: Code(s): R41.82 - Altered mental status, unspecified Status: Acute Assessment and Plan: Seems to be resolved as patient is A&O x3 LIKELY SECONDARY TO HYPOXEMIA, or possible UTI SUPPORTIVE CARE (3) Fever: Code(s): R50.9 - Fever, unspecified Status: Acute Assessment and Plan: Seems to been resolved patient 36.5 c PATIENT HAS BEEN RULE OUT FOR COVID (4) Acute on chronic respiratory failure with hypercapnia: Code(s): J96.22 - Acute and chronic respiratory failure with hypercapnia Status: Acute Assessment and Plan: SUPPLEMENTAL OXYGEN INCREASED TO 5 L, patient is back down to 3 L which to her baseline CONTINUE TO MONITOR APPEARS TO BE COMFORTABLE (5) Obstructive sleep apnea: Code(s): G47.33 - Obstructive sleep apnea (adult) (pediatric) Status: Chronic Assessment and Plan: CPAP AT NIGHTTIME HOME SETTINGS (6) DM2 (diabetes mellitus, type 2): Code(s): E11.9 - Type 2 diabetes mellitus without complications Status: Chronic Assessment and Plan: GLUCOSE 102 TREND LABS LABS IN A.M. CONTINUE TO MONITOR INSULIN SLIDING SCALE NEEDED (7) Tobacco abuse: Code(s): Z72.0 - Tobacco use Status: Inactive Assessment and Plan: NICOTINE PATCH NEEDED (8) UTI (urinary tract infection): Code(s): N39.0 - Urinary tract infection, site not specified Status: Acute Assessment and Plan: UA suspicious for UTI leukocyte esterase 2+, white blood cell 10 to 15 yeast is present trace bacteria Ceftriaxone 1g Q24 (9) Bladder cancer: Code(s): C67.9 - Malignant neoplasm of bladder, unspecified Status: Acute Assessment and Plan: Patient has a known history of bladder cancer Patient wanted a 2nd opinion about her bladder cancer Urology was consulted think the recommendations Voiding trial Remove Miller Post residual void Follow-up outpatient Patient did have a voiding trial and had a post residual void of more than 1000ml. DS: Summary Hospital Course Reason for hospitalization: Date of service 12/28/2020 at 11:28 a.m. Hospital Course: Patient is 65-year-old female with past medical history of chronic hypercarbic and hypoxic respiratory failure on supplemental oxygen, with a chronic indwelling Miller catheter who came in for evaluation of altered mental status and confusion. Since admission patient was treated with COPD exacerbation with IV antibiotics and breathing treatments. Patient was also continued on supplemental oxygen however was increased to 5 L and was weaned down to 3 L which is her normal. Patient was also placed on CPAP at night per her home settings. Patient was also treated for suspected UTI. Patient was also evaluated by Urology who did a voiding trial on patient which the patient did not do well and had to have a new Miller placed. Labs have remained stable throughout the visit vital signs have also been stable throughout the visit. Patient will be going back to alf care. Patient will need to follow up with Urology outpatient for further evaluations and needs. Today patient denied chest pain, shortness of breath, nausea, vomiting, fevers, chills, sweats, any other symptoms. Patient did state that she was tired and that she wanted her trazodone
[2020-12-28 17:11] LABS: Glucose Point of Care 141 mg/dl (65-105)
== END 2020-12-28 21:45 | DRG 191 ==
LOC: ANHED 20:58 → ANH3MEDSUR 12-25 08:02
PROVIDERS: Emergency Medicine; Nurse Practitioner; Admitting Provider Internal Medicine; Emergency Provider Emergency Medicine; Visit Provider Physician Assistant
DX: J44.1 Chronic obstructive pulmonary disease with (acute) exacerbation (principal); N39.0 Urinary tract infection, site not specified; C67.9 Malignant neoplasm of bladder, unspecified; Z97.8 Presence of other specified devices; Z20.822 Contact with and (suspected) exposure to COVID-19; R50.9 Fever, unspecified; R41.82 Altered mental status, unspecified; E11.42 Type 2 diabetes mellitus with diabetic polyneuropathy; I10 Essential (primary) hypertension; G47.33 Obstructive sleep apnea (adult) (pediatric); F17.210 Nicotine dependence, cigarettes, uncomplicated; F41.8 Other specified anxiety disorders; Z79.899 Other long term (current) drug therapy; Z79.4 Long term (current) use of insulin; Z99.81 Dependence on supplemental oxygen
CPT/HCPCS: 36415; 36600; 71046; 80048; 80053; 81001; 82805; 82948; 83605; 83735; 83880; 85025; 85027; 87040; 87077; 87086; 87088; 87106; 87186; 93005; 94640; 96365; 96375; 97110; 97162; 97165; 97530; 97535; 99285; A9270; C9803; J0696; J1630; J1815; J7120; U0003; U0005

== ENCOUNTER → 2021-08-11 00:09 | Outpatient (CLI) | payer MEDICARE, MEDICAID, SELFPAY ==
[2021-08-11 13:10] LABS: SARS-CoV-2 RNA PCR Negative
== END ==
PROVIDERS: Visit Provider Urology
DX: Z01.812 Encounter for preprocedural laboratory examination (principal); Z20.822 Contact with and (suspected) exposure to COVID-19
CPT/HCPCS: C9803; U0003; U0005

== ENCOUNTER 2021-08-11 10:39 | Outpatient (CLI) | payer MEDICARE, MEDICAID, SELFPAY | END 2021-08-11 10:40 | disposition home or self-care (01) | PROVIDERS: Visit Provider Urology | DX: C67.9 Malignant neoplasm of bladder, unspecified (principal); Z01.818 Encounter for other preprocedural examination | CPT/HCPCS: 87086; 87147; 87181; 87186 ==

== ENCOUNTER → 2021-08-25 00:18 | Outpatient (CLI) | payer MEDICARE, MEDICAID, SELFPAY ==
[2021-08-25 11:30] LABS: SARS-CoV-2 RNA PCR Negative
== END ==
PROVIDERS: Visit Provider Urology
DX: Z01.812 Encounter for preprocedural laboratory examination (principal); Z20.822 Contact with and (suspected) exposure to COVID-19
CPT/HCPCS: C9803; U0003; U0005

== ENCOUNTER 2021-08-25 08:53 | Outpatient (CLI) | payer MEDICARE, MEDICAID, SELFPAY ==
[2021-08-25 10:51] LABS: INR 0.9; Prothrombin Time 11.6 Seconds (11.1-14.7)
== END 2021-08-25 08:54 | disposition home or self-care (01) ==
LOC: ANHLAB 08:57
PROVIDERS: Visit Provider Urology
DX: N32.9 Bladder disorder, unspecified (principal); Z01.812 Encounter for preprocedural laboratory examination
CPT/HCPCS: 36415; 85610; 85730

== ENCOUNTER 2021-08-28 00:27 | Day surgery (SDC) | payer MEDICARE, MEDICAID, SELFPAY ==
--- NOTE | 2021-08-06 09:49 | PC.NURSE ---
Report to the Outpatient Waiting Room, entrance under the green pavilion located off [facility], at time __0800 on date __08/14/21 . OR Time: _999 . - You and your visitor will be asked a series of questions to screen for COVID 19 for your protection. - A mask is required within the hospital. Preoperative COVID Testing Requirements: No COVID Test needed if: (proof is required; if not received patient will have Rapid Test prior to entry) - Patient has received COVID Vaccine at least 14 days prior to procedure date or - Patient has positive COVID test result within last 90 days of surgery date. COVID Test needed if above criteria is not met If not COVID vaccinated a COVID test must be conducted within 72 hours of surgery and patient is asked to isolate self from time of testing until procedure. You will go to the [facility] for your COVID testing. The [facility] is located at the corner of [address] [facility]. You will only be called if COVID results are positive and your surgeon may reschedule your elective surgery date. Patients may have clear liquids (water, carbonated beverages, clear teas, apple juice) until 3 hours prior to surgery with a maximum of 20 ounces. - No food from midnight until time of surgery - Infants may have breast milk until 4 hours before surgery, infant formula 6 hours prior to surgery. - Children will be allowed to drink immediately following surgery. If applicable, please bring a bottle or sippy cup to assist with drinking. Juice, water, soda, and popsicles are readily available. For infants on formula, please bring formula the day of surgery. Pacifiers are allowed. Take the following medications with a SIP of water the morning of surgery: ___INHALERS ,AMLODIPINE,PAIN PILL IF NEEDED,QUETIAPINE,DULOXETINE Medications to discontinue per physician PT STATES ASPIRIN 7 DAYS PER OP PER DR ANDRADE, ALL VITAMINS 3 DAYS PRE OP Date to take last dose___ASPIRIN 08/06/21, VITAMINS 08/10/21 Please no make-up, nail romansh, hairspray, perfume, deodorant, or body powder the day of surgery. No jewelry (including any body piercings) or valuables the day of surgery, leave them at home. Please take a shower or bath the night before, or the morning of, surgery with an antibacterial soap. Wear comfortable, loose fitting clothing. Children are encouraged to wear pajamas. - Jewelry must be removed prior to entering the operating room. Rings and piercings that are not removed may be cut off. - The hospital will not accept responsibility for valuables. - Please leave all valuables, including medications, at home the day of surgery. If you are going home after surgery, a licensed carry all driver must drive you home. - NO public transportation without another adult. - We recommend that an adult stay with you for 24 hours following discharge. - We also recommend that you do not drive, make important decision, drink alcoholic beverages, or take any drugs that were not prescribed by your health care provider for at least 24 hours after your discharge time. For Pediatric surgeries, we recommend two adults accompany the child home (only one inside the building at this time). One visitor will be allowed to accompany the patient into the hospital. Patients visitor will be instructed to remain with patient at all times or leave the building. We will allow the visitor to come back to the postoperative area when patient is ready. Follow any additional instructions given to you from your surgeon. Telephone instructions given to _PATIENT and asked if any additional questions and then verbalized understanding. Patient advised to call surgeon office or pre surgery nurse liaison [phone] if any additional questions.
[2021-08-06 10:09] VITALS: BMI 29.8
--- NOTE | 2021-08-20 09:42 | PC.NURSE ---
Report to the Outpatient Waiting Room, entrance under the green pavilion located off [facility], at time _07 on date ___08/28/21____. OR Time: . - You and your visitor will be asked a series of questions to screen for COVID 19 for your protection. - A mask is required within the hospital. Preoperative COVID Testing Requirements: No COVID Test needed if: (proof is required; if not received patient will have Rapid Test prior to entry) - Patient has received COVID Vaccine at least 14 days prior to procedure date or - Patient has positive COVID test result within last 90 days of surgery date. COVID TESTING 08/25/21 @ 0930 COVID Test needed if above criteria is not met If not COVID vaccinated a COVID test must be conducted within 72 hours of surgery and patient is asked to isolate self from time of testing until procedure. You will go to the [facility] for your COVID testing. The [facility] is located at the corner of [address] [facility]. You will only be called if COVID results are positive and your surgeon may reschedule your elective surgery date. Patients may have clear liquids (water, carbonated beverages, clear teas, apple juice) until 3 hours prior to surgery with a maximum of 20 ounces. - No food from midnight until time of surgery - Infants may have breast milk until 4 hours before surgery, infant formula 6 hours prior to surgery. - Children will be allowed to drink immediately following surgery. If applicable, please bring a bottle or sippy cup to assist with drinking. Juice, water, soda, and popsicles are readily available. For infants on formula, please bring formula the day of surgery. Pacifiers are allowed. Take the following medications with a SIP of water the morning of surgery: ___INHALERS,AMLODIPINE,PAIN PILL IF NEEDED,QUETIAPINE Medications to discontinue per physician __ASPIRIN 7 DAYS PRE OP PER DR ANDRADE, ALL VITAMINS AND SUPPLEMENTS 3 DAYS PRE OP Date to take last dose_PT STATES LAST DOSE OF ASPIRIN WAS 08/06/21 NONE SINCE. ALL VITAMINS 08/24/21 Please no make-up, nail korean, hairspray, perfume, deodorant, or body powder the day of surgery. No jewelry (including any body piercings) or valuables the day of surgery, leave them at home. Please take a shower or bath the night before, or the morning of, surgery with an antibacterial soap. Wear comfortable, loose fitting clothing. Children are encouraged to wear pajamas. - Jewelry must be removed prior to entering the operating room. Rings and piercings that are not removed may be cut off. - The hospital will not accept responsibility for valuables. - Please leave all valuables, including medications, at home the day of surgery. If you are going home after surgery, a licensed local intermodal truck driver must drive you home. INSTRUCTED TO NOTIFY GAURAV AT DR ANDRADE OFFICE TO HAVE HER FAX ORDERS FOR URINE CULTURE AND PT/PTT TO [facility] - NO public transportation without another adult. - We recommend that an adult stay with you for 24 hours following discharge. - We also recommend that you do not drive, make important decision, drink alcoholic beverages, or take any drugs that were not prescribed by your health care provider for at least 24 hours after your discharge time. For Pediatric surgeries, we recommend two adults accompany the child home (only one inside the building at this time). One visitor will be allowed to accompany the patient into the hospital. Patients visitor will be instructed to remain with patient at all times or leave the building. We will allow the visitor to come back to the postoperative area when patient is ready. Follow any additional instructions given to you from your surgeon. Telephone instructions given to ___PATIENT and asked if any additional questions and then verbalized understa
--- NOTE | 2021-08-20 09:48 | PC.NURSE ---
PT STATES NO CHANGE IN HEALTH HX SINCE LAST INTERVIEW ON 08/06/21. DID STATE POSITIVE URINE CULTURE AND WAS ON ANTIBIOTICS. STATES LAST DOSE WILL BE TODAY
[2021-08-28] VITALS (9 sets, daily range): BP systolic 118–145; BP diastolic 57–96; PULSE 56–67; RESP 11–20; TEMP 36.2–36.6; O2SAT 97–100
--- NOTE | 2021-08-28 07:36 | WPDHPUPDATE1 ---
History and Physical Update Update Date/Time: 08/28/21 07:36 History and Physical has been reviewed, including an updated exam of the patient. There are NO changes in the patient's condition. Risks, benefits, and alternatives have been discussed and questions answered. Patient agrees to proceed with procedure.
--- NOTE | 2021-08-28 08:18 | WPDANESEPPF ---
Anes - Initial Pre Proc Eval Procedure: Operation Date: 08/28/21 09:15 Proposed Procedures p Trans Urethral Resection Bladder Tumor - Sy Palacio MD Date/Time: 08/28/21 08:18 Surgeon: Sy Palacio MD Pre Op Diagnosis: lesion of bladder Patient Data Age: 66 Gender: F Height: 1.57 m Weight: 76.2 kg Last Vital Signs Temp 36.6 C 08/28/21 06:59 Pulse 67 08/28/21 06:59 Resp 16 08/28/21 06:59 BP 135/66 08/28/21 06:59 Pulse Ox 97 08/28/21 06:59 Allergies Allergy/AdvReac Type Severity Reaction Status Date / Time alcohol Allergy Severe Hives Verified 08/28/21 07:48 fentanyl Allergy Severe COULD NOT Verified 08/28/21 07:50 BREATH clarithromycin Allergy Intermediate Hives Verified 08/28/21 07:50 paroxetine Allergy Intermediate Hives Verified 08/28/21 07:50 varenicline [From Chantix] Allergy Intermediate Hallucinati Verified 08/28/21 07:53 ng morphine AdvReac Severe Nausea and Verified 08/20/21 09:41 Vomiting gabapentin AdvReac Intermediate Dizziness Verified 08/28/21 07:50 Home Medications Medication Instructions Recorded Confirmed Type albuterol sulfate 2 puff INHALATION Q4H PRN 12/04/20 08/28/21 History amlodipine 5 mg PO DAILY 12/04/20 08/28/21 History insulin lispro See Rx Instructions .ROUTE .COMPLEX 12/04/20 08/28/21 History metformin 500 mg PO BID 12/04/20 08/28/21 History quetiapine 50 mg PO BID 12/04/20 08/28/21 History trazodone 300 mg PO HS PRN 12/04/20 08/28/21 History diclofenac sodium 1 ea TOPICAL BID PRN 12/24/20 08/20/21 History nystatin 1 applic TOPICAL BID 12/24/20 08/28/21 History simvastatin 20 mg PO DAILY 12/24/20 08/28/21 History aspirin [Children's Aspirin] 81 mg PO DAILY@0800 30 Days #30 12/28/20 08/28/21 Rx tablet doxycycline monohydrate 100 mg PO BID #2 cap 12/28/20 08/28/21 Rx miconazole nitrate [Aloe [place] 1 applic TOPICAL Q12HR 30 Days 12/28/20 08/28/21 Rx Antifungal (micon)] #1692 g hydrocodone 10 mg-acetaminophen 1 tablet PO Q8H PRN #90 tablet 01/06/21 08/28/21 Rx 325 mg tablet pregabalin 100 mg capsule 100 mg PO BID #60 cap 02/20/21 08/28/21 Rx budesonide-formoterol 2 puff INHALATION DAILY 08/06/21 08/28/21 History diazepam 2 mg PO BID PRN 08/06/21 08/28/21 History melatonin 10 mg PO HS PRN 08/06/21 08/28/21 History pbruuwmydgqa-wba-ehks-FA-vit K 1 tablet PO DAILY 08/06/21 08/28/21 History [Adults Multivitamin] tiotropium bromide [Spiriva 2 puff INHALATION DAILY 08/06/21 08/28/21 History Respimat] Patient hx anesthesia problems: none Family hx anesthesia problems: none Results Review: All pre-operative results and documents have been reviewed as part of the pre-operative evaluation. [facility] Past Medical History Medical History COPD (chronic obstructive pulmonary disease) Depression with anxiety DM2 (diabetes mellitus, type 2) Hypertension Obstructive sleep apnea no longer uses a CPAP but uses oxygen at 2 L per nasal cannula. Peripheral neuropathy Tobacco abuse Surgical History Surgical History History of classical section History of total knee arthroplasty right Family History Family History Father Family history of coronary artery disease Mother Family history of coronary artery disease Other Asthma Diabetes mellitus Family history of elevated blood lipids Social History Social History Social History: the patient stated that she smokes cigarettes up to about 4 months ago. 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 She lives at [facility]. She has an ex-. She has 3 children. She tells me she does not have a durable power employment law attorney for healthcare but desires to be a full code. The patient stated although she quit smoking 4 months ago she desires to have a cigarette toda
[2021-08-28 08:24] LABS: Glucose Point of Care 103 mg/dl (65-105)
[2021-08-28] MEDS: LACTATED RINGERS 1,000 ML 30 ML IV CONT ×2 (08:30→10:01)
[2021-08-28] MEDS: ceFAZolin 2 GM/D5W 50 ML 2 GM/50 ML BAG IVPB (09:23)
[2021-08-28] MEDS: LIDOCAINE HCL 2% GEL UROJET 10 ML PKG MUCOUS MEM (09:46)
--- NOTE | 2021-08-28 09:59 | W.PM.PROC2 ---
Procedure Note - Detailed Date of Procedure 08/28/21 Pre-op Diagnosis lesion of bladder Post-op Diagnosis Same Procedure Performed Cysto with transurethral resection of bladder tumor greater than 5 cm area with fulguration Surgeon Sy Palacio MD Anesthesia General Findings Irregularity along the right lateral wall and floor of bladder differential including edema from catheter versus low-grade carcinoma Description of Procedure Patient is taken the operative suite correctly identified. Once anesthesia was obtained she was placed in dorsal lithotomy position and prepped and draped usual sterile fashion. Twenty-four Slovenian resectoscope sheath inserted the bladder. She has irregularity along the right lateral wall and floor. Some of this appears edematous from catheter irritation but malignancy cannot be ruled out. We went ahead and resected the irregularity. We fulgurated the base as well as the surrounding tissue. The total area was greater than 5 cm. Scope was removed. 2% viscous lidocaine was inserted urethra. Eighteen Slovenian Miller was placed and inflated with 10 cc in the balloon. Patient was taken recovery stable condition. Estimated Blood Loss 0 Drains Yes Packing No Pathology Yes Complications No immediate complications Condition Stable Disposition PACU
[2021-08-28 10:25] LABS: Glucose Point of Care 89 mg/dl (65-105)
[2021-08-28] MEDS: MORPHINE SULFATE (*CRX) 2 MG/ML INJ 1 MG IV PUSH ×2 (10:59→11:06)
[2021-08-28] MEDS: OXYBUTYNIN CHLORIDE 5 MG TABLET PO (12:10)
== END 2021-08-28 12:48 | disposition home or self-care (01) ==
PROVIDERS: Visit Provider Urology
PROC: 0TBB8ZZ Excision of Bladder, Via Natural or Artificial Opening Endoscopic (ICD-10-PCS; CPT 52240; principal; 2021-08-28 09:15)
DX: N30.80 Other cystitis without hematuria (principal); J44.9 Chronic obstructive pulmonary disease, unspecified; I10 Essential (primary) hypertension; E11.42 Type 2 diabetes mellitus with diabetic polyneuropathy; G47.33 Obstructive sleep apnea (adult) (pediatric); F41.8 Other specified anxiety disorders; Z79.51 Long term (current) use of inhaled steroids; Z79.84 Long term (current) use of oral hypoglycemic drugs; Z79.4 Long term (current) use of insulin; Z79.82 Long term (current) use of aspirin; Z79.891 Long term (current) use of opiate analgesic; Z87.891 Personal history of nicotine dependence; E66.9 Obesity, unspecified; Z68.30 Body mass index [BMI] 30.0-30.9, adult
CPT/HCPCS: 52240; 36415; 82948; 85610; 85730; 87086; 87147; 87181; 87186; 88305; A9270; C9803; J0171; J0690; J1100; J2270; J2405; J2704; J3010; J7120; U0003; U0005

== ENCOUNTER 2023-03-04 13:34 | Outpatient (CLI) | payer MEDICARE, MEDICAID, SELFPAY ==
[2023-03-04 14:53] LABS: Anion Gap 6 mmol/L (8-16); Blood Urea Nitrogen 13 mg/dL (7-17); Calcium 8.7 mg/dL (8.4-10.2); Carbon Dioxide 25 mmol/L (22-30); Chloride 102 mmol/L (98-107); Estimated Glomerular Filt Rate > 60; Glucose 64 mg/dL (65-110); Potassium 4.3 mmol/L (3.4-5.0); Sodium 133 mmol/L (137-145)
== END 2023-03-04 13:35 | disposition home or self-care (01) ==
PROVIDERS: Visit Provider Anesthesiology
DX: E11.9 Type 2 diabetes mellitus without complications (principal); Z01.818 Encounter for other preprocedural examination
CPT/HCPCS: 36415; 80048

== ENCOUNTER 2023-03-20 02:18 | Day surgery (SDC) | payer MEDICARE, MEDICAID, SELFPAY ==
--- NOTE | 2023-02-27 13:48 | PC.NURSE ---
Report to the Outpatient Waiting Room, entrance under the green pavilion located off [facility], at time _1215 on date __03/06/23 . Planned Procedure Time: __1415 . Time changes happen often and if your time is changed the preop area will call you the afternoon before. - You and your visitor will be asked to self-screen and do not enter if you have any COVID symptoms. - A mask is optional within the hospital at this time. Patients may have clear liquids (water, carbonated beverages, clear teas, apple juice) until 3 hours prior to surgery with a maximum of 20 ounces. - No food from midnight until time of surgery - Infants may have breast milk until 4 hours before surgery, infant formula 6 hours prior to surgery. - Children will be allowed to drink immediately following surgery. If applicable, please bring a bottle or sippy cup to assist with drinking. Juice, water, soda, and popsicles are readily available. For infants on formula, please bring formula the day of surgery. Pacifiers are allowed. Take the following medications with a SIP of water the morning of surgery: ___AMLODIPINE,SYMBICORT ,HYDROCODONE IF NEEDED,PREGABALIN,QUETIAPINE DO NOT STOP ANY OF YOUR OTHER PRESCRIPTION MEDICATIONS PRIOR TO SURGERY ?EXCEPT THE FOLLOWING Medications to discontinue per physician _PT STATES HOLD_ASPIRIN AND FISH OIL__5 DAYS PRE OP. LAST DOSE02/28/23. ALL VITAMINS AND SUPPLEMENTS 3 DAYS PRE OP.LAST DOSE03/02/23 Please no make-up, nail chinese, hairspray, perfume, deodorant, or body powder the day of surgery. No jewelry (including any body piercings) or valuables the day of surgery, leave them at home. Please take a shower or bath the night before, or the morning of, surgery with an antibacterial soap. Wear comfortable, loose fitting clothing. Children are encouraged to wear pajamas. - Jewelry must be removed prior to entering the operating room. Rings and piercings that are not removed may be cut off. - The hospital will not accept responsibility for valuables. - Please leave all valuables, including medications, at home the day of surgery. If you are going home after surgery, a licensed electric pile driver operator must drive you home. - NO public transportation without another adult if you receive anesthesia. - We recommend that an adult stay with you for 24 hours following discharge. - We also recommend that you do not drive, make important decision, drink alcoholic beverages, or take any drugs that were not prescribed by your health care provider for at least 24 hours after your discharge time. For Pediatric surgeries, we recommend two adults accompany the child home. Follow any additional instructions given to you from your surgeon. If you or anyone in your household have experienced Covid symptoms in the past week, please notify your surgeon or the nurse liaison at the phone number below for possible testing. Telephone instructions given to __PATIENT and asked if any additional questions and then verbalized understanding. Patient advised to call surgeon office or pre surgery nurse liaison [phone] if any additional questions.
[2023-02-27 13:56] VITALS: BMI 22.5
--- NOTE | 2023-03-13 14:06 | PC.NURSE ---
Report to the Outpatient Waiting Room, entrance under the green pavilion located off [facility], at time 0945 on date __03/20/23 . Planned Procedure Time: 1145 . Time changes happen often and if your time is changed the preop area will call you the afternoon before. - You and your visitor will be asked to self-screen and do not enter if you have any COVID symptoms. - A mask is optional within the hospital at this time. Patients may have clear liquids (water, carbonated beverages, clear teas, apple juice) until 3 hours prior to surgery with a maximum of 20 ounces. - No food from midnight until time of surgery - Infants may have breast milk until 4 hours before surgery, formula 6 hours prior to surgery. - Children will be allowed to drink immediately following surgery. If applicable, please bring a bottle or sippy cup to assist with drinking. Juice, water, soda, and popsicles are readily available. For infants on formula, please bring formula the day of surgery. Pacifiers are allowed. Take the following medications with a SIP of water the morning of surgery: _AMLODIPINE,SYMBICORT INHALER,HYDROCODONE IF NEEDED FOR PAIN,PREGABALIN, AND QUETIAPINE DO NOT STOP ANY OF YOUR OTHER PRESCRIPTION MEDICATIONS PRIOR TO SURGERY ?EXCEPT THE FOLLOWING Medications to discontinue per physician __PT STATES HOLD ASPIRIN AND FISH OIL 5 DAYS PRE OP PER DR COLLINS. LAST DOSE 03/14/23. HOLD ALL VITAMINS AND SUPPLEMENTS 3 DAYS PRE OP .LAST DOSE 03/16/23 Please no make-up, nail slovak, hairspray, perfume, deodorant, or body powder the day of surgery. No jewelry (including any body piercings) or valuables the day of surgery, leave them at home. Please take a shower or bath the night before, or the morning of, surgery with an antibacterial soap. Wear comfortable, loose fitting clothing. Children are encouraged to wear pajamas. - Jewelry must be removed prior to entering the operating room. Rings and piercings that are not removed may be cut off. - The hospital will not accept responsibility for valuables. - Please leave all valuables, including medications, at home the day of surgery. If you are going home after surgery, a licensed feeder driver must drive you home. - NO public transportation without another adult if you receive anesthesia. - We recommend that an adult stay with you for 24 hours following discharge. - We also recommend that you do not drive, make important decision, drink alcoholic beverages, or take any drugs that were not prescribed by your health care provider for at least 24 hours after your discharge time. For Pediatric surgeries, we recommend two adults accompany the child home. Follow any additional instructions given to you from your surgeon. If you or anyone in your household have experienced Covid symptoms in the past week, please notify your surgeon or the nurse liaison at the phone number below for possible testing. Telephone instructions given to ____PT and asked if any additional questions and then verbalized understanding. Patient advised to call surgeon office or pre surgery nurse liaison [phone] if any additional questions.
--- NOTE | 2023-03-13 14:09 | PC.NURSE ---
PT STATES NO CHANGE IN HEALTH HX SINCE LAST INTERVIEW ON 02/27/23
--- NOTE | 2023-03-20 06:25 | WPDHPUPDATE1 ---
History and Physical Update Update Date/Time: 03/20/23 06:25 History and Physical has been reviewed, including an updated exam of the patient. There are NO changes in the patient's condition. Risks, benefits, and alternatives have been discussed and questions answered. Patient agrees to proceed with procedure.
[2023-03-20 09:13] VITALS: BP 109/55; PULSE 82; RESP 20; TEMP 37.3; O2SAT 98
[2023-03-20 09:59] LABS: Glucose Point of Care 82 mg/dl (65-105)
[2023-03-20] MEDS: LACTATED RINGERS 1,000 ML 30 ML IV CONT (10:09)
--- NOTE | 2023-03-20 10:28 | WPDANESEPPF ---
Anes - Initial Pre Proc Eval Procedure: Operation Date: 03/20/23 11:45 Proposed Procedures p Cystoscopy, Insertion Suprapubic Catheter - Jameson Medellin MD Date/Time: 03/20/23 10:28 Surgeon: Jameson Medellin MD Pre Op Diagnosis: retention Patient Data Age: 67 Gender: F Height: 1.57 m Weight: 57 kg Last Vital Signs Temp 37.3 C 03/20/23 09:13 Pulse 82 03/20/23 09:13 Resp 20 03/20/23 09:13 BP 109/55 L 03/20/23 09:13 Pulse Ox 98 03/20/23 09:13 O2 Del Method Room Air 03/20/23 09:13 Allergies Allergy/AdvReac Type Severity Reaction Status Date / Time alcohol Allergy Severe Hives Verified 03/20/23 09:37 fentanyl Allergy Severe COULD NOT Verified 03/20/23 09:37 BREATH clarithromycin Allergy Intermediate Hives Verified 03/20/23 09:37 paroxetine Allergy Intermediate Hives Verified 03/20/23 09:37 varenicline [From Chantix] Allergy Intermediate Hallucinati Verified 03/20/23 09:37 ng morphine AdvReac Severe Nausea and Verified 03/20/23 09:37 Vomiting gabapentin AdvReac Intermediate Dizziness Verified 03/20/23 09:37 Lipitor Allergy Unknown Rash Uncoded 03/20/23 09:37 Home Medications Medication Instructions Recorded Confirmed Type albuterol sulfate 90 mcg/actuation 2 puff inhalation Q4H PRN 12/04/20 03/20/23 History aerosol inhaler Shortness Of Breath amlodipine 5 mg tablet 5 mg PO DAILY 12/04/20 03/20/23 History metformin 500 mg tablet 500 mg PO BID 12/04/20 03/20/23 History quetiapine 50 mg tablet 50 mg PO BID 12/04/20 03/20/23 History trazodone 300 mg tablet 300 mg PO HS PRN Sleep 12/04/20 03/20/23 History simvastatin 20 mg tablet 20 mg PO DAILY 12/24/20 03/20/23 History aspirin 81 mg chewable tablet 81 mg PO DAILY@0800 30 days #30 12/28/20 03/20/23 Rx (Children's Aspirin) tabs miconazole nitrate 2 % topical 1 applic topical Q12HR 30 days 12/28/20 03/20/23 Rx ointment (Aloe [place] Antifungal #1,692 grams (miconazole)) hydrocodone 10 mg-acetaminophen 1 tablet PO Q8H PRN Pain 6-10 #90 01/06/21 03/20/23 Rx 325 mg tablet tabs pregabalin 100 mg capsule 100 mg PO BID #60 caps 02/20/21 03/20/23 Rx budesonide-formoterol HFA 80 2 puff inhalation DAILY 08/06/21 03/20/23 History mcg-4.5 mcg/actuation aerosol inhaler multivit with minerals-iron 18 1 tablet PO DAILY 08/06/21 03/20/23 History mg-folic ac 400 mcg-vit K 25 mcg tablet (Adults Multivitamin) omega-3 fatty acids 1,250 mg PO DAILY 02/27/23 03/20/23 History tiotropium bromide 2.5 1 inh inhalation .twice a day #4 03/04/23 03/20/23 Rx mcg/actuation mist for inhalation grams Laboratory Tests 03/20/23 09:46 POC Capillary Glucose 82 mg/dl (65-105) Patient hx anesthesia problems: none Family hx anesthesia problems: none Results Review: All pre-operative results and documents have been reviewed as part of the pre-operative evaluation. [facility] Past Medical History Medical History COPD (chronic obstructive pulmonary disease) Depression with anxiety DM2 (diabetes mellitus, type 2) Hypertension Obstructive sleep apnea no longer uses a CPAP but uses oxygen at 2 L per nasal cannula. Peripheral neuropathy Tobacco abuse Surgical History Surgical History History of classical section History of total knee arthroplasty right Family History Family History Father Family history of coronary artery disease Mother Family history of coronary artery disease Other Asthma Diabetes mellitus Family history of elevated blood lipids Social History Social History Social History: the patient stated that she smokes cigarettes up to about 4 months ago. 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 She lives at [facility]. She has an ex-. She has 3 c
[2023-03-20 10:41] VITALS: PULSE 65; RESP 18
[2023-03-20] MEDS: ALBUTEROL SULFATE NEB 2.5 MG/3 ML INH INHALATION (10:41)
[2023-03-20 10:55] VITALS: PULSE 66; RESP 18
[2023-03-20] MEDS: ceFAZolin 2 GM/D5W 50 ML 2 GM/50 ML BAG IVPB (11:00)
[2023-03-20] MEDS: LIDOCAINE HCL 1% LOCAL INJ 10 ML VIAL INFILTRATE (11:18)
[2023-03-20] MEDS: LIDOCAINE HCL 2% GEL UROJET 10 ML PKG MUCOUS MEM (11:19)
--- NOTE | 2023-03-20 11:30 | W.PM.PROC2 ---
Procedure Note - Detailed Date of Procedure 03/20/23 Pre-op Diagnosis Urinary retention Post-op Diagnosis Same Procedure Performed Cystoscopy, placement of a suprapubic catheter Surgeon Jameson Medellin MD Anesthesia MAC Description of Procedure Patient is brought to the operative suite where she has prepped and draped in routine sterile fashion while in a dorsal lithotomy position. Cystoscopy is undertaken with a 21 F rigid cystoscope. She has no urethral strictures and a normal bladder neck. Bladder mucosa is normal with only minimal hyperemia in the posterior wall consistent with catheter cystitis. There is no intravesical foreign body or neoplasm. I filled his bladder with saline and placed a spinal needle through the dome of the bladder 0.035 in glidewire was advanced through that and grasped with the cystoscope. I dilated the suprapubic tract with Amplatz dilators to from 8 F to 22 F. I then placed an 18 F Councill tip catheter through the dome. The suprapubic catheter secured with a 3-0 nylon. Scopes and wires were removed. Blood loss was approximately 5 cc. Drains Yes Packing No Pathology None sent Complications No immediate complications Condition Stable
[2023-03-20 11:37] VITALS: BP 110/51; PULSE 72; RESP 16; O2SAT 100
[2023-03-20 11:56] LABS: Glucose Point of Care 79 mg/dl (65-105)
[2023-03-20 12:05] VITALS: BP 111/67; PULSE 75; RESP 16; O2SAT 100
== END 2023-03-20 12:20 | disposition home or self-care (01) ==
PROVIDERS: PCP Internal Medicine Gastroenterology; Visit Provider Urology
PROC: 0T9B30Z Drainage of Bladder with Drainage Device, Percutaneous Approach (ICD-10-PCS; CPT 51102; principal; 2023-03-20 11:45)
DX: R33.9 Retention of urine, unspecified (principal); J44.9 Chronic obstructive pulmonary disease, unspecified; E11.9 Type 2 diabetes mellitus without complications; I10 Essential (primary) hypertension; G47.33 Obstructive sleep apnea (adult) (pediatric); Z79.51 Long term (current) use of inhaled steroids; Z79.84 Long term (current) use of oral hypoglycemic drugs; Z79.82 Long term (current) use of aspirin; Z79.891 Long term (current) use of opiate analgesic; Z99.81 Dependence on supplemental oxygen; Z82.49 Family history of ischemic heart disease and other diseases of the circulatory system; F17.210 Nicotine dependence, cigarettes, uncomplicated
CPT/HCPCS: 51102; 36415; 80048; 82948; 94640; C1726; C1769; J0690; J2704; J7120

== ENCOUNTER 2023-05-06 07:58 | Outpatient (CLI) | payer MEDICARE, MEDICAID, SELFPAY ==
--- NOTE | 2023-05-06 12:53 | WPDSIXMINUTE ---
Six Minute Walk Procedure Procedure Performed Pulmonary Stress Test (6 min walk) Six Minute Walk Six Minute Walk: This is a 6 minute walk test. The test was performed and interpreted in accordance with the 2014 ERS/ATS task force guidelines. Of note the patient stopped walking at 3 minutes as she felt too tired, shortness of breath and total body pain to complete. Findings: The patient's resting room air oxygen saturation measured by pulse oximetry was 95% and heart rate was 67 bpm. Patient ambulated for 76 meters and oxygen saturation remained 94%. Heart rate at 3 minutes was 94 bpm. The patient did not qualify for supplemental oxygen at rest or with ambulation. There are no prior studies for comparison.
--- NOTE | 2023-05-06 12:55 | WPDPFTINT ---
PFT Procedure Performed PFT Procedure Performed Plethysmography (Lung Vol) Flow Vol Loop Spirometry w/o Bronchodil PFT Interpretation This is a pulmonary function test with spirometry and plethysmography. The test was performed and results interpreted in accordance with the 2019 and 2005 ATS/ERS Task Force guidelines respectively using the Global Lung Function Initiative-2012 reference equations. Patient demonstrated good effort and cooperation. Reproducibility criteria were met. The quality of the spirometry maneuver was Grade A. Of note the patient was unable to finish the post bronchodilator spirometry because she was too tired and needed to stop the testing. She was unable to complete DLCO after 2 attempts. Findings: Spirometry: There is decreased maximal expiratory airflow at all lung volumes with concave expiratory flow tracing. The contour the inspiratory flow tracing is truncated. The FVC is 1.87 L, 71% predicted. The FEV1 is 0.91 L, 44% predicted. The FEV1: FVC ratio is 49%. Plethysmography: The total lung capacity is 4.86 L, 103% predicted. The functional residual capacity is 3.68 L, 137% predicted. The residual volume is 2.99 L, 144% predicted Impression: There is a severe obstructive abnormality. The increase in residual volume is consistent with hyperinflation from an obstructive abnormality. There are no prior studies for comparison
== END 2023-05-06 07:59 | disposition home or self-care (01) ==
PROVIDERS: PCP Internal Medicine Gastroenterology; Visit Provider Internal Medicine Pulmonary Disease
DX: J44.9 Chronic obstructive pulmonary disease, unspecified (principal); R94.2 Abnormal results of pulmonary function studies
CPT/HCPCS: 94375; 94618; 94726

== ENCOUNTER 2023-05-11 11:50 | Emergency (ER) | payer MEDICARE, MEDICAID, SELFPAY ==
--- NOTE | ~2023-05-11 | XR_ITS ---
XR chest 1V portable DATE: 05/11/2023 13:25 INDICATION: Shortness of breath TECHNIQUE: Portable upright AP chest on 05/07/2023 at 1323 hours COMPARISON: 12/24/2020 2 view chest FINDINGS: Heart size is within normal limits. There is minimal aortic unfolding. No hilar or mediasti nal enlargement. No pulmonary infiltrate or consolidation, pleural effusion or pulmonary vascular congestion or pneumo thorax. Osteoarthritic change at the glenohumeral joints. Mild thoracic dextroscoliosis. Degenerative spurring of the thoracic spine. IMPRESSION: No active cardiopulmonary disease Reviewed, dictated and finalized at location A. INKER
--- NOTE | ~2023-05-11 | CT_ITS ---
EXAMINATION: CT abdomen pelvis w con DATE: 05/11/2023 15:41 INDICATION: Right lower quadrant pain TECHNIQUE: Computed tomography (CT) of the abdomen and pelvis was performed with 100 cc Omnipaque 350 intravenous contrast. The dose-length product was 334.70 mGy-cm. Automated exposure control and iter ative reconstruction technique were employed. COMPARISON: None. FINDINGS: There is dependent atelectasis. Heart size normal. There is mild thickening of the distal e sophagus. No significant pleural or pericardial effusion. Status post cholecystectomy with expected p rominence of the bile ducts. There is moderate-severe bilateral hydronephrosis. No obstructing stone or mass identified. Ureter is dilated to the pelvis. There is a suprapubic catheter in the bladder. B ladder is moderately distended. There is bilateral perinephric edema is nonobstructive bowel gas scarlett ruthy. Moderate colonic fecal loading. The spleen, pancreas, adrenal glands are unremarkable. Nonobstructive bowel pattern. Severe lumbar sp ondylosis with levoscoliosis. Moderate osteoarthritis of the hips. IMPRESSION: 1. Moderate-severe bilateral hydroureteronephrosis with perinephric edema. No obstructing stone or ma ss identified. Bladder is moderately distended with suprapubic catheter present. 2: Mild thickening of the distal esophagus, suspicious for esophagitis. Reviewed, dictated and finalized at location A. ER SHOP OPERATOR IMPRESSION: 1. Moderate-severe bilateral hydroureteronephrosis with perinephric edema. No o bstructing stone or mass identified. Bladder is moderately distended with supra pubic catheter present. 2: Mild thickening of the distal esophagus, suspicious for esophagitis.
[2023-05-11 12:09] VITALS: BP 156/91; PULSE 102; RESP 22; TEMP 36.4; O2SAT 95
[2023-05-11 12:18] VITALS: BP 206/97; PULSE 94; RESP 17; RESP 30; O2SAT 90; O2SAT 99
[2023-05-11 12:20] VITALS: O2SAT 98
--- NOTE | 2023-05-11 12:37 | PC.NURSE ---
patient will not discuss symptoms that brought her in today. asked if she was SOB, denies, however, patient labored breathing and placed on oxygen. states that she is having some lower back pain. hx of non-malignant bladder tumor but has suprapubic catheter in place. patient too focused on drinking soda at this time and is uncooperative.
--- NOTE | 2023-05-11 12:39 | PC.NURSE ---
patient wishes to be a DNR when asked
--- NOTE | 2023-05-11 12:45 | ECG_ITS ---
Measurements Intervals [place] Rate: 80 P: 73 MO: 188 QRS: -22 QRSD: 80 T: 36 QT: 346 QTc: 401 Interpretive Statements SINUS RHYTHM POSSIBLE OLD SEPTAL MYOCARDIAL INFARCTION , PROBABLY OLD [40+ ms Q WAVE IN V1/V2] COMPARED TO ECG 12/24/2020 17:37:08 NO SIGNIFICANT CHANGES Electronically Signed On 05-11-2023 17:13:08 PHYSICAL THERAPIST AIDE by Bijal Cortez M.D.
[2023-05-11 13:06] VITALS: BP 217/84; PULSE 87; RESP 22; O2SAT 99
[2023-05-11 13:09] LABS: Basophils Percent Auto 0.5 % (0.2-1.2); Eosinophils Absolute Auto 0.1 K/mm3 (0-0.3); Eosinophils Percent Auto 0.7 % (0-4.4); Hematocrit 34.5 % (37.0-47.0); Hemoglobin 11.1 g/dL (12.0-15.0); Immature Granulocyte Absolute 0.03 K/mm3 (0.00-0.031); Immature Granulocyte Percent A 0.3 % (0-0.5); Lymphocytes Absolute Auto 1.74 K/mm3 (0.9-3.2); Mean Corpuscular HGB Conc 32.2 g/dl (32-36); Mean Corpuscular Hemoglobin 27.9 pg (26-34); Mean Corpuscular Volume 86.7 fl (80-100); Monocytes Absolute Auto 0.5 K/mm3 (0.1-0.6); Monocytes Percent Auto 6.1 % (2.6-8.5); Neutrophils Absolute Auto 6.3 K/mm3 (1.3-6.7); Neutrophils Percent Auto 72.4 % (45.5-73.1); Platelet Count Result 305 k/mm3 (150-375); Red Blood Count 3.98 M/mm3 (4.2-5.4); Red Cell Distribution Width 14.5 % (11.5-14.5); White Blood Count 8.7 K/mm3 (4.5-10.0)
[2023-05-11 13:14] LABS: Appearance Urine Clear (Clear); Bacteria Urine None Seen /hpf; Bilirubin Urine Negative (Negative); Blood Urine Negative (Negative); Color Urine Yellow (Yellow); Glucose Urine UA Negative (Negative); Ketones Urine Negative (Negative); Leukocyte Esterase Ur Trace LEU/UL (Negative); Nitrate Urine Negative (Negative); Non Pathogenic Casts 0-2; Protein Urine Negative (Negative); RBC Urine 0-2 /hpf (0-2); Specific Grav Ur 1.007 (1.001-1.035); Squamous Epithelial Cell Urine None seen /hpf (Few); Urobilinogen Urine 0.2 mg/dL (<2.0); WBC Urine 0-5 /hpf
[2023-05-11 13:20] LABS: INR 0.9; Prothrombin Time 12.5 Seconds (11.1-14.7)
[2023-05-11 13:22] LABS: Alanine Aminotransferase 36 U/L (6-35); Albumin Level 4.1 g/dL (3.5-5.1); Alkaline Phosphatase 80 U/L (38-126); Anion Gap 8 mmol/L (8-16); Aspartate Amino Transferase 38 U/L (14-36); Bilirubin,Total 0.4 mg/dL (0.2-1.3); Blood Urea Nitrogen 12 mg/dL (7-17); Calcium 9.5 mg/dL (8.4-10.2); Carbon Dioxide 25 mmol/L (22-30); Chloride 97 mmol/L (98-107); Estimated CRCL calculation 84 ml/min; Estimated Glomerular Filt Rate > 60; Glucose 127 mg/dL (65-110); Potassium 4.2 mmol/L (3.4-5.0); Sodium 130 mmol/L (137-145)
[2023-05-11 13:23] LABS: Add Urine Microscopic? YES; Lactic Acid Reflex 0.7 mmol/L (0.7-2.0)
[2023-05-11 13:24] LABS: Alveolar/Arterial O2 Gradient 40.9 mmHg; Base Excess ABG 1.9 mEq/l (+/-2.0); Device ROOM AIR; Fractional Inspired Oxygen 21 %; HCO3 ABG 25.6 mEq/l (22.0-26.0); Modified Allen's Test Pass; Oxygen Content ABG 15.5 %vol (16.0-22.0); Oxygen Saturation ABG 93.9 % (95.0-100.0); PCO2 ABG 36.7 mmHg (35.0-45.0); PO2 ABG 64.9 mmHg (80.0-100.0); PO2 FiO2 Ratio Arterial Blood 3.09 %; Site Drawn RIGHT RADIAL; Total Hemoglobin 12.4 g/dL (12.0-18.0); pH ABG 7.461 (7.350-7.450)
[2023-05-11] MEDS: IPRATROPIUM BR 0.02% INH SOLN 0.5 MG/2.5 ML VIAL 1.5 MG INHALATION (13:30)
[2023-05-11] MEDS: ALBUTEROL SULFATE NEB 2.5 MG/3 ML INH 15 MG INHALATION (13:30)
[2023-05-11 13:46] LABS: Influenza A QL RT-PCR Negative (Negative); Influenza B QL RT-PCR Negative (Negative); RSV RNA, RT-PCR Negative (Negative); SARS-CoV-2 RNA PCR Negative (Negative)
[2023-05-11 16:15] VITALS: BP 175/96; PULSE 100; RESP 19; O2SAT 95
--- NOTE | 2023-05-11 16:35 | PC.NURSE ---
irrigated existing suprapubic catheter. Flushed with ease but not draining well. pulled 850 ml off with syringe. notified dr. Driver
--- NOTE | 2023-05-11 17:26 | ED.GENADULT ---
HPI - General Adult General Chief complaint: Unspecified Stated complaint: i don't know what's wrong Time Seen by Provider: 05/11/23 12:41 History of Present Illness HPI narrative: Patient is a 68-year-old female who presents ER with lower abdominal pain and shortness of breath. Patient reports recent hospitalization In ICU at [place]. Discharge 2 days ago. Reports UTI and low sodium. Reports she has dropped off by family today and they were not present help provide any additional information. Patient is unsure what antibiotic she may be on. Related Data Home Medications Medication Instructions Recorded Confirmed albuterol sulfate 90 mcg/actuation 2 puff inhalation Q4H PRN 12/04/20 03/20/23 aerosol inhaler Shortness Of Breath amlodipine 5 mg tablet 5 mg PO DAILY 12/04/20 03/20/23 metformin 500 mg tablet 500 mg PO BID 12/04/20 03/20/23 quetiapine 50 mg tablet 50 mg PO BID 12/04/20 03/20/23 trazodone 300 mg tablet 300 mg PO HS PRN Sleep 12/04/20 03/20/23 simvastatin 20 mg tablet 20 mg PO DAILY 12/24/20 03/20/23 budesonide-formoterol HFA 80 2 puff inhalation DAILY 08/06/21 03/20/23 mcg-4.5 mcg/actuation aerosol inhaler multivit with minerals-iron 18 1 tablet PO DAILY 08/06/21 03/20/23 mg-folic ac 400 mcg-vit K 25 mcg tablet (Adults Multivitamin) omega-3 fatty acids 1,250 mg PO DAILY 02/27/23 03/20/23 Allergies Allergy/AdvReac Type Severity Reaction Status Date / Time alcohol Allergy Severe Hives Verified 05/11/23 12:23 fentanyl Allergy Severe COULD NOT Verified 05/11/23 12:23 BREATH clarithromycin Allergy Intermediate Hives Verified 05/11/23 12:23 paroxetine Allergy Intermediate Hives Verified 05/11/23 12:23 varenicline [From Chantix] Allergy Intermediate Hallucinati Verified 05/11/23 12:23 ng atorvastatin Allergy Unknown Rash Verified 05/11/23 12:23 morphine AdvReac Severe Nausea and Verified 05/11/23 12:23 Vomiting gabapentin AdvReac Intermediate Dizziness Verified 05/11/23 12:23 Review of Systems Review of Systems: All systems reviewed & are unremarkable except as noted in HPI and below Constitutional: Constitutional: Reports no additional constitutional complaints ENT: Reports system reviewed and no additional complaints, except as documented Cardiovascular: Cardiovascular: Reports no additional cardiovascular complaints Respiratory: Respiratory: Reports cough, Reports dyspnea and Reports wheezing Gastrointestinal: Gastrointestinal: Reports abdominal pain, Denies diarrhea, Denies nausea and Denies vomiting PMF Past Medical History Medical History COPD (chronic obstructive pulmonary disease) Depression with anxiety DM2 (diabetes mellitus, type 2) Hypertension Obstructive sleep apnea no longer uses a CPAP but uses oxygen at 2 L per nasal cannula. Peripheral neuropathy Tobacco abuse Surgical History Surgical History History of classical section History of total knee arthroplasty right Family History Family History Father Family history of coronary artery disease Mother Family history of coronary artery disease Other Asthma Diabetes mellitus Family history of elevated blood lipids Social History Social History Social History: the patient stated that she smokes cigarettes up to about 4 months ago. 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 She lives at [facility] [address]. She has an ex-. She has 3 children. She tells me she does not have a durable power jewelry appraiser for healthcare but desires to be a full code. The patient stated although she quit smoking 4 months ago she desires to have a cigarette today. Smoking packs per day: 0.25 Smoking cigarettes per day: 5.0 Years smoked: 57 Smoking pack-years: 14.25 Smoking
[2023-05-11 17:49] VITALS: BP 168/93; PULSE 98; RESP 22; O2SAT 95
== END 2023-05-11 18:01 | disposition home or self-care (01) ==
PROVIDERS: Emergency Provider Emergency Medicine; PCP Internal Medicine Gastroenterology
DX: T83.098A Other mechanical complication of other urinary catheter, initial encounter (principal); R33.9 Retention of urine, unspecified; J44.9 Chronic obstructive pulmonary disease, unspecified; E11.9 Type 2 diabetes mellitus without complications; I10 Essential (primary) hypertension; F17.210 Nicotine dependence, cigarettes, uncomplicated; Z20.822 Contact with and (suspected) exposure to COVID-19
CPT/HCPCS: 36415; 36600; 71045; 74177; 80053; 81001; 82805; 83605; 85025; 85610; 85730; 87637; 93005; 99284; Q9967

== ENCOUNTER 2023-11-14 11:51 | Observation (INO) | payer MEDICARE, MEDICAID, SELFPAY ==
[2023-11-14] VITALS (20 sets, daily range): BP systolic 115–152; BP diastolic 69–103; PULSE 66–102; RESP 13–20; TEMP 36.4–37.1; O2SAT 91–98; BMI 26.9
--- NOTE | ~2023-11-14 | CT_ITS ---
EXAMINATION: CT cervical spine wo con DATE: 11/14/2023 12:34 INDICATION: Fall with head injury TECHNIQUE: Computed tomography (CT) of the cervical spine was performed without intravenous contrast. Automated exposure control and iterative reconstruction technique were employed. The dose-length pro duct was 327.19 mGy-cm. COMPARISON: None FINDINGS: Alignment is normal. Mild to moderate osteoarthritis at the atlantoaxial articulation. Vertebral body heights are normal. No fracture. Moderate disc height loss at T1-T2 and T2-T3. Mild disc height loss dated C3-C4. Small disc bulges with only minimal central canal stenosis at C3-C4 through C5-C6. Mult ilevel mild cervical uncovertebral osteoarthritis and mild to moderate left-sided and moderate to sev ere right-sided facet osteoarthritis which results in multilevel mild bilateral cervical neural akiko inal stenosis. Atherosclerotic calcifications along the bilateral carotid arteries including at the c arotid bulbs. Cervical soft tissues are otherwise unremarkable. Mild emphysema and pleural parenchyma l scarring at the bilateral apices. IMPRESSION: 1. Mild cervical and moderate upper thoracic spondylosis. No acute osseous abnormality. Reviewed, dictated and finalized at location B. IMPRESSION: 1. Mild cervical and moderate upper thoracic spondylosis. No acute osseous abno rmality.
--- NOTE | ~2023-11-14 | CT_ITS ---
EXAMINATION: CT brain wo con DATE: 11/14/2023 12:34 INDICATION: Head injury post fall TECHNIQUE: Computed tomography (CT) of the head was performed without intravenous contrast. Sagittal and coronal reconstructions were performed. The mA was adjusted according to patient size. Iterative reconstruction technique was employed. The dose-length product was 756.67 mGy-cm. COMPARISON: head CT dated 12/04/2020 FINDINGS: No fracture. No acute intracranial hemorrhage, acute infarction or abnormal extra axial fluid collect ion. There is mild scattered white matter hypoattenuation consistent with chronic small vessel ischem ic disease. Symmetric prominence of the sulci and subarachnoid spaces overlying the convexities consi stent with mild to moderate age-appropriate diffuse cerebral volume loss. Ventricles are normal and s ymmetric. No mass/mass effect. Chronic moderate-sized left mastoid effusion. The orbits, paranasal si nuses and right mastoid air cells are normal. IMPRESSION: 1. No fracture or acute intracranial process. 2. Age-related changes including mild to moderate diffuse volume loss and mild scattered white matter hypoattenuation consistent with chronic small vessel ischemic disease. Reviewed, dictated and finalized at location B. IMPRESSION: 1. No fracture or acute intracranial process. 2. Age-related changes including mild to moderate diffuse volume loss and mild scattered white matter hypoattenuation consistent with chronic small vessel isc hemic disease.
--- NOTE | ~2023-11-14 | XR_ITS ---
EXAMINATION: XR chest 2V DATE: 11/14/2023 13:17 INDICATION: Weakness. Confusion. TECHNIQUE: Frontal and lateral views of the chest were obtained. COMPARISON: Chest single view 05/11/2023, CT abdomen and pelvis 05/11/2023 FINDINGS: There is mild atelectasis in the lower lung zones. No pleural effusion or pneumothorax. The heart size is normal. IMPRESSION: 1. Mild atelectasis in the lower lung zones. Reviewed, dictated and finalized at location A.
--- NOTE | 2023-11-14 12:26 | ECG_ITS ---
Test Date: 2023-11-14 12:21:20 Measurements Intervals [place] Rate: 97 P: 69 NM: 216 QRS: -12 QRSD: 85 T: 72 QT: 328 QTc: 417 Interpretive Statements SINUS RHYTHM WITH FIRST DEGREE AV BLOCK PREVIOUS ANTEROSEPTAL CT NONSPECIFIC T-WAVE ABNORMALITY ABNORMAL ECG No previous ECG available for comparison Electronically Signed On 11-14-2023 15:50:52 CDT by Enoch Cruz M.D.
[2023-11-14 14:07] LABS: Basophils Percent Auto 0.3 % (0.2-1.2); Eosinophils Percent Auto 0.3 % (0-4.4); Hematocrit 32.4 % (37.0-47.0); Hemoglobin 9.8 g/dL (12.0-15.0); Immature Granulocyte Absolute 0.05 K/mm3 (0.00-0.031); Immature Granulocyte Percent A 0.4 % (0-0.5); Lymphocytes Absolute Auto 1.27 K/mm3 (0.9-3.2); Lymphocytes Percent Auto 10.9 % (18.3-44.2); Mean Corpuscular HGB Conc 30.2 g/dl (32-36); Mean Corpuscular Hemoglobin 26.4 pg (26-34); Mean Corpuscular Volume 87.3 fl (80-100); Mean Platelet Volume 9.6 fl (7.4-10.4); Monocytes Absolute Auto 0.8 K/mm3 (0.1-0.6); Monocytes Percent Auto 7.2 % (2.6-8.5); Neutrophils Absolute Auto 9.4 K/mm3 (1.3-6.7); Neutrophils Percent Auto 80.9 % (45.5-73.1); Platelet Count Result 285 k/mm3 (150-375); Red Blood Count 3.71 M/mm3 (4.2-5.4); Red Cell Distribution Width 14.6 % (11.5-14.5); White Blood Count 11.6 K/mm3 (4.5-10.0)
[2023-11-14 14:17] LABS: Alanine Aminotransferase 21 U/L (6-35); Albumin Level 4.3 g/dL (3.5-5.1); Alkaline Phosphatase 88 U/L (38-126); Anion Gap 6 mmol/L (4-12); Aspartate Amino Transferase 31 U/L (14-36); Bilirubin,Total 0.3 mg/dL (0.2-1.3); Blood Urea Nitrogen 22 mg/dL (7-17); Calcium 9.5 mg/dL (8.4-10.2); Carbon Dioxide 32 mmol/L (22-30); Chloride 101 mmol/L (98-107); Estimated CRCL calculation 41 ml/min; Estimated Glomerular Filt Rate > 60; Glucose 169 mg/dL (65-110); Potassium 4.6 mmol/L (3.4-5.0); Sodium 139 mmol/L (137-145)
[2023-11-14 14:40] LABS: Appearance Urine Clear (Clear); Bacteria Urine 2+ /hpf; Bilirubin Urine Negative (Negative); Blood Urine Negative (Negative); Budding Yeast Urine Present /hpf; Color Urine Yellow (Yellow); Glucose Urine UA 3+ mg/dL (Negative); Ketones Urine Negative (Negative); Leukocyte Esterase Ur 1+ LEU/UL (Negative); Need Manual Microscopic Reviewed; Nitrate Urine Positive (Negative); Non Pathogenic Casts 0-2; Protein Urine Negative (Negative); Specific Grav Ur 1.008 (1.001-1.035); Squamous Epithelial Cell Urine None Seen /hpf (Few); Urobilinogen Urine 0.2 mg/dL (<2.0)
[2023-11-14 14:41] LABS: RBC Urine 0-2 /hpf (0-2)
[2023-11-14 14:42] LABS: Add Urine Microscopic? YES
--- NOTE | 2023-11-14 14:53 | ED.FALL ---
HPI - Fall General Chief Complaint: Fall Stated Complaint: back pain & fall Time Seen by Provider: 11/14/23 13:03 History of Present Illness HPI Narrative: 68-year-old female with history of COPD, type 2 diabetes, hypertension and current smoker presented to the emergency department for evaluation of altered mental status after having a ground level fall. Patient has been more confused and restless. Patient denies any pain or complaint. Patient is confused and not a good historian due to her mental status change. Related Data Home Medications Medication Instructions Recorded Confirmed albuterol sulfate 90 mcg/actuation 2 puff inhalation Q4H PRN 12/04/20 11/14/23 aerosol inhaler Shortness Of Breath amlodipine 5 mg tablet 5 mg PO DAILY 12/04/20 11/14/23 quetiapine 50 mg tablet 100 mg PO BID 12/04/20 11/14/23 trazodone 300 mg tablet 300 mg PO HS PRN Sleep 12/04/20 11/14/23 simvastatin 20 mg tablet 20 mg PO DAILY 12/24/20 11/14/23 multivit with minerals-iron 18 1 tablet PO DAILY 08/06/21 11/14/23 mg-folic ac 400 mcg-vit K 25 mcg tablet (Adults Multivitamin) omega-3 fatty acids 1,250 mg PO DAILY 02/27/23 11/14/23 clopidogrel 75 mg tablet 75 mg PO DAILY 10/21/23 11/14/23 budesonide 160 mcg-glycopyr 9 2 inh inhalation BID 11/14/23 11/14/23 mcg-formot 4.8 mcg/actuation HFA inhaler (Breztri Aerosphere) budesonide-formoterol HFA 160 2 inh inhalation BID 11/14/23 11/14/23 mcg-4.5 mcg/actuation aerosol inhaler (Symbicort) melatonin 10 mg tablet 20 mg PO HS 11/14/23 11/14/23 metformin 500 mg tablet 500 mg PO BIDWM 11/14/23 11/14/23 Allergies Allergy/AdvReac Type Severity Reaction Status Date / Time alcohol Allergy Severe Hives Verified 11/14/23 14:59 fentanyl Allergy Severe COULD NOT Verified 11/14/23 14:59 BREATH clarithromycin Allergy Intermediate Hives Verified 11/14/23 14:59 paroxetine Allergy Intermediate Hives Verified 11/14/23 14:59 varenicline [From Chantix] Allergy Intermediate Hallucinati Verified 11/14/23 14:59 ng atorvastatin Allergy Unknown Rash Verified 11/14/23 14:59 morphine AdvReac Severe Nausea and Verified 11/14/23 14:59 Vomiting gabapentin AdvReac Intermediate Dizziness Verified 11/14/23 14:59 Review of Systems Review of Systems: All systems reviewed & are unremarkable except as noted in HPI and below PMFSH Past Medical History Medical History Bladder cancer s/p resection COPD (chronic obstructive pulmonary disease) Depression with anxiety DM2 (diabetes mellitus, type 2) Hyperlipidemia, unspecified Hypertension Indwelling Miller catheter present Obstructive sleep apnea no longer uses a CPAP but uses oxygen at 2 L per nasal cannula. Peripheral neuropathy Tobacco abuse Surgical History Surgical History History of classical section History of total knee arthroplasty right Family History Family History Father Family history of coronary artery disease Mother Family history of coronary artery disease Other Asthma Diabetes mellitus Family history of elevated blood lipids Social History Social History Social History: the patient stated that she smokes cigarettes up to about 4 months ago. 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 She lives at [facility]. She has an ex-. She has 3 children. She tells me she does not have a durable power trademark attorney for healthcare but desires to be a full code. The patient stated although she quit smoking 4 months ago she desires to have a cigarette today. Smoking packs per day: 1 Smoking cigarettes per day: 20.0 Years smoked: 62 Smoking pack-years: 62.00 Smoking status: Current every day smoker Tobacco type: cigarettes Second hand tobacco smoke exposure: Yes Smoking end date:
--- NOTE | 2023-11-14 14:54 | PM.IMHP ---
H&P: HPI History of Present Illness Date/Time: 11/14/23 14:54 Chief Complaint: Back Pain, Cloudy Urine, Fall Narrative: 68 y/o F presents here with lower back pain and cloudy urine with PMH of COPD, bladder mass (s/p resection, 2021), depression/anxiety, DM2, HTN, ERINN (on 2L at night), current smoker, and peripheral neuropathy. The patient presents here for further evaluation of lower right back pain, cloudy urine, restlessness, and GLF. Patient unable to contribute to HPI due to somnolence, patient's son was able to provide some collateral information, but majority of information obtained through chart review. Patient is reporting lower right back pain that is accompanied by change in urinary output from her suprapubic catheter. States her urine has become more cloudy. Has a chronic indwelling suprapubic catheter due to urinary retention and bladder mass that was resected in 2021. Patient also reports feeling restless with involuntary body movements that started today, had similar episode in July of 2023 due to non-compliance with CPAP leading to CO2 narcosis. Restlessness is not accompanied by focal weakness, focal numbness, dysarthria, headache, changes in vision, or changes in gait. Patient also sustained a ground level fall this morning. Patient fell sometime this morning between 730am-930am, found on the floor by her son. Unclear what caused fall. Unable to clarify with patient if she hit her head or loss consciousness. Son estimates the patient has had 1 fall in the last 3 months. Uses a walker at baseline. Initial VS at presentation: 97.6? F, HR 100, RR 20, 134/85, and 97% on 2L nasal cannula. ED workup showed: WBC 11.6, hemoglobin 9.8, creatinine 0.8 and GFR >60, glucose 169, no other electrolyte derangements. UA consistent with UTI. CT of the head and C-spine negative for acute findings. CXR showed mild atelectasis in the lower lung zones. Review of Systems Review of Systems: ROS unobtainable: Yes unobtainable due to mental status PMFSH Past Medical History Medical History Bladder cancer s/p resection COPD (chronic obstructive pulmonary disease) Depression with anxiety DM2 (diabetes mellitus, type 2) Hyperlipidemia, unspecified Hypertension Indwelling Miller catheter present Obstructive sleep apnea no longer uses a CPAP but uses oxygen at 2 L per nasal cannula. Peripheral neuropathy Tobacco abuse Surgical History Surgical History History of classical section History of total knee arthroplasty right Family History Family History Father Family history of coronary artery disease Mother Family history of coronary artery disease Other Asthma Diabetes mellitus Family history of elevated blood lipids Social History Social History Social History: the patient stated that she smokes cigarettes up to about 4 months ago. 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 She lives at [facility]. She has an ex-. She has 3 children. She tells me she does not have a durable power civil litigation attorney for healthcare but desires to be a full code. The patient stated although she quit smoking 4 months ago she desires to have a cigarette today. Smoking packs per day: 1 Smoking cigarettes per day: 20.0 Years smoked: 62 Smoking pack-years: 62.00 Smoking status: Current every day smoker Tobacco type: cigarettes Second hand tobacco smoke exposure: Yes Smoking end date: 08/05/21 Additional smoking assessment comments: CURRENTLY SMOKES 0.25 PK/DAY Alcohol intake: never Substance use: former Substance use type: crack/cocaine Do You Feel Safe in your Home?: Yes Lack of Transportation: No Lack of Food: Never True Current Housing: I Have Housing Concerned About Future [facility]
--- NOTE | 2023-11-14 15:40 | ADMGEN ---
This patient, Casimiro Atkinson, was admitted to Medical Room 255-. Patient/family oriented to hospital policies and general routines including ID bracelet, bed and alarms, visiting hours, pain management, procedures, bathroom and other care routines, personal items, smoking policy, room service/diet, and visiting hours. Information on how to activate the Rapid Response Team has been discussed. Patient/Family are encouraged to report perceived risks to care and to ask questions if they do not understand what they are told or what they should do.
[2023-11-14 16:51] LABS: Glucose Point of Care 137 mg/dl (65-105)
[2023-11-14 17:27] LABS: Base Excess ABG 5.9 mEq/l (+/-2.0); Device NASAL CANNULA; Fractional Inspired Oxygen 40 %; HCO3 ABG 31.6 mEq/l (22.0-26.0); Modified Allen's Test Pass; Oxygen Content ABG 13.6 %vol (16.0-22.0); Oxyhemoglobin 91.8 % THb (90.0-100.0); PCO2 ABG 51.7 mmHg (35.0-45.0); PO2 ABG 70.7 mmHg (80.0-100.0); PO2 FiO2 Ratio Arterial Blood 1.77 %; Site Drawn LEFT RADIAL; Total Hemoglobin 10.5 g/dL (12.0-18.0); pH ABG 7.404 (7.350-7.450)
[2023-11-14 18:02] LABS: Amphetamine Screen Urine Negative (Negative); Barbiturate Screen Urine Negative (Negative); Benzodiazepines Screen Urine Negative (Negative); Cannabinoid Screen Urine Negative (Negative); Cocaine Screen Urine Negative (Negative); Methadone Screen Urine Negative (Negative); Opiate Screen Urine Negative (Negative); Phencyclidine Screen Urine Negative (Negative)
[2023-11-14] MEDS: PREGABALIN (*CRX) 50 MG CAPSULE 100 MG PO (18:02)
[2023-11-14] MEDS: FLUTICASONE/SALMETEROL 115-21 MCG INHALER 1 PUFF 2 PUFF INHALATION (20:09)
[2023-11-14] MEDS: QUEtiapine FUMARATE 100 MG TABLET PO (20:32)
[2023-11-14] MEDS: MELATONIN 5 MG TABLET 20 MG PO (20:33)
[2023-11-14] MEDS: QUEtiapine FUMARATE 25 MG TABLET 50 MG PO (20:33)
[2023-11-14] MEDS: ACETAMINOPHEN 325 MG TABLET 650 MG PO (20:37)
[2023-11-14] MEDS: ALBUTEROL SULFATE (*SP) AEROSOL 1 PUFF 2 PUFF INHALATION (20:38)
[2023-11-14 20:46] LABS: Glucose Point of Care 142 mg/dl (65-105)
[2023-11-15] VITALS (17 sets, daily range): BP systolic 134–172; BP diastolic 48–77; PULSE 72–97; RESP 18–24; TEMP 36.6–36.7; O2SAT 90–100
[2023-11-15 05:20] LABS: Basophils Percent Auto 0.6 % (0.2-1.2); Eosinophils Absolute Auto 0.1 K/mm3 (0-0.3); Eosinophils Percent Auto 1.3 % (0-4.4); Hematocrit 31.2 % (37.0-47.0); Hemoglobin 9.4 g/dL (12.0-15.0); Immature Granulocyte Absolute 0.01 K/mm3 (0.00-0.031); Immature Granulocyte Percent A 0.1 % (0-0.5); Lymphocytes Percent Auto 33.3 % (18.3-44.2); Mean Corpuscular HGB Conc 30.1 g/dl (32-36); Mean Corpuscular Volume 86.4 fl (80-100); Mean Platelet Volume 9.9 fl (7.4-10.4); Monocytes Absolute Auto 0.7 K/mm3 (0.1-0.6); Monocytes Percent Auto 10.3 % (2.6-8.5); Neutrophils Absolute Auto 3.9 K/mm3 (1.3-6.7); Neutrophils Percent Auto 54.4 % (45.5-73.1); Platelet Count Result 273 k/mm3 (150-375); Red Blood Count 3.61 M/mm3 (4.2-5.4); Red Cell Distribution Width 14.7 % (11.5-14.5); White Blood Count 7.2 K/mm3 (4.5-10.0)
[2023-11-15 05:24] LABS: Hemoglobin A1C 5.5 % (<5.7)
[2023-11-15 05:28] LABS: Alanine Aminotransferase 20 U/L (6-35); Albumin Level 3.8 g/dL (3.5-5.1); Alkaline Phosphatase 88 U/L (38-126); Anion Gap 4 mmol/L (4-12); Aspartate Amino Transferase 30 U/L (14-36); Bilirubin,Total 0.3 mg/dL (0.2-1.3); Blood Urea Nitrogen 22 mg/dL (7-17); Calcium 9.3 mg/dL (8.4-10.2); Carbon Dioxide 30 mmol/L (22-30); Chloride 102 mmol/L (98-107); Estimated CRCL calculation 42 ml/min; Estimated Glomerular Filt Rate > 60; Glucose 102 mg/dL (65-110); Potassium 4.2 mmol/L (3.4-5.0); Sodium 136 mmol/L (137-145)
[2023-11-15] MEDS: FLUTICASONE/SALMETEROL 115-21 MCG INHALER 1 PUFF 2 PUFF INHALATION (07:59)
[2023-11-15] MEDS: FLUTICASONE/UMECLIDIN/VILANTER 100-62.5-25 MCG ELLIPTA 1 PUFF INHALATION (08:00)
[2023-11-15 08:04] LABS: Glucose Point of Care 109 mg/dl (65-105)
--- NOTE | 2023-11-15 08:25 | PM.IMPN ---
Progress Note: A&P Assessment and Plan (1) COPD (chronic obstructive pulmonary disease): Code(s): J44.9 - Chronic obstructive pulmonary disease, unspecified Status: Acute Assessment and Plan: - continue home medications: albuterol inhaler, budesonide inhaler, breztri inhaler - add albuterol neb - CXR negative for acute findings - exam: intermittent expiratory wheeze, somnolent - abg: pH 7.404, pCO2 51.7, pO2 70.7, HCO3 31.6, O2 sat 94% on 5L NC 11/14: Patient is lethargic with congested cough, diffuse expiratory wheezing, coarse lung sounds with rhonchi. Gas on admission shows compensated respiratory acidosis. Home inhalers on hold. Neb treatments with duo nebs scheduled q 4 hours and budesonide q 12 hours Started on Solu-Medrol 40 mg IVP every six hours Added azithromycin Mucinex BID CPAP when sleeping and napping chronically on 5 L nc at home. Currently on 3 L NC here. (2) Urinary tract infection: Qualifiers: Hematuria presence: without hematuria Urinary tract infection type: acute cystitis Qualified Code(s): N30.00 - Acute cystitis without hematuria Code(s): N39.0 - Urinary tract infection, site not specified Status: Acute Assessment and Plan: - chronic suprapubic catheter - UA: 3+ glucose, positive nitrates, 1+ leuks, 6-10 WBC, 2+ bacteria, no epithelial cells, yeast present. - UC pending, obtained on 11/13 - previous micro reviewed 07/2021: coag neg strep, resistant to Cipro, Levaquin, Oxacillin, and intermediate to Moxifloxacin 12/2020: pseudomonas putida and martin, resistant to Bactrim - started on Ceftriaxone on 11/13 11/14: I exchanged suprapubic catheter. U/A was collected on chronic morfin, nursing had replaced collection bag but not catheter. New U/A ordered with culture. Urine is yellow, clear with some sediment present. Per nurse, collection bag was dirty and discolored. (3) Ground-level fall: Code(s): W18.30XA - Fall on same level, unspecified, initial encounter Status: Acute Assessment and Plan: - CT head: 1. No fracture or acute intracranial process. 2. Age-related changes including mild to moderate diffuse volume loss and mild scattered white matter hypoattenuation consistent with chronic small vessel ischemic disease. - CT c-spine: Mild cervical and moderate upper thoracic spondylosis. No acute osseous abnormality. - CXR: Mild atelectasis in the lower lung zones. - pain control 11/14: Patient does not remember falling. Will need PT/OT consult for new weakness, recent fall, and dispo planning (4) Restless: Code(s): R45.1 - Restlessness and agitation Status: Acute Assessment and Plan: - Head CT negative for acute findings - reviewed home medications: holding home Aguila and trazodone given somnolence - ABG pH 7.404, pCO2 51.7, pO2 70.7, HCO3 31.6, O2 sat 94% on 5L NC - add UDS, per son has current substance use. Narcan ordered. - start CPAP while inpatient 11/14: Patient is lethargic on exam. Opens her eyes and answer limited questions with tactile stimulation. Holding all sedating medications. UDS was negative. (5) DM2 (diabetes mellitus, type 2): Code(s): E11.9 - Type 2 diabetes mellitus without complications Status: Chronic Assessment and Plan: - hypoglycemia protocol - POC blood glucose ACHS - home medication: hold metformin - correct regimen ordered - low dose TIDWM based off total insulin at home - A1C 6.9% in 2020, update 11/14: Blood glucose reviewed. (6) Hypertension: Code(s): I10 - Essential (primary) hypertension Status: Chronic Assessment and Plan: - chronic, currently 152/81 - continue home medications: amlodipine 5 mg daily - monitor (7) Obstructive sleep apnea: Code(s): G47.33 - Obstructive sleep apnea (adult) (pediatric) Status: Chronic Assessment and Plan: - wears 2L NC at night or while
[2023-11-15] MEDS: SIMVASTATIN 20 MG TABLET PO (09:03)
[2023-11-15] MEDS: OMEGA 3 POLYUNSAT FATTY ACIDS 1 GM CAP PO (09:03)
[2023-11-15] MEDS: MULTIVITAMINS /C LUTEIN (CENTRUM SILVER) TABLET *BKC 1 TAB PO (09:03)
[2023-11-15] MEDS: CLOPIDOGREL BISULFATE 75 MG TABLET PO (09:03)
[2023-11-15] MEDS: amLODIPine BESYLATE 5 MG TABLET PO (09:03)
[2023-11-15] MEDS: ASPIRIN 81 MG CHEWABLE TABLET PO (09:03)
[2023-11-15] MEDS: QUEtiapine FUMARATE 100 MG TABLET PO ×2 (09:03→20:11)
[2023-11-15] MEDS: PREGABALIN (*CRX) 50 MG CAPSULE 100 MG PO ×2 (09:05→17:30)
[2023-11-15 11:54] LABS: Appearance Urine Clear (Clear); Bacteria Urine None Seen /hpf; Bilirubin Urine Negative (Negative); Blood Urine Trace (Negative); Color Urine Yellow (Yellow); Glucose Urine UA 2+ mg/dL (Negative); Ketones Urine Negative (Negative); Leukocyte Esterase Ur 2+ LEU/UL (Negative); Nitrate Urine Negative (Negative); Non Pathogenic Casts 0-2; Protein Urine Negative (Negative); RBC Urine 0-2 /hpf (0-2); Specific Grav Ur 1.009 (1.001-1.035); Squamous Epithelial Cell Urine None Seen /hpf (Few); Urobilinogen Urine 0.2 mg/dL (<2.0); WBC Urine 21-50 /hpf (0-3)
[2023-11-15 11:59] LABS: Add Urine Microscopic? YES
[2023-11-15 12:00] LABS: Glucose Point of Care 165 mg/dl (65-105)
[2023-11-15] MEDS: BUDESONIDE RESPULE NEB 0.5 MG/2 ML AMP INHALATION ×2 (12:12→21:08)
[2023-11-15] MEDS: IPRATROPIUM 0.5 MG/ALBUTEROL SULFATE 2.5 MG AMPUL.NEB 3 ML INHALATION ×4 (12:12→23:00)
--- NOTE | 2023-11-15 12:29 | PCPTNOTE ---
Attempted patient evaluation. Pt lethargic and fell asleep multiple times mid sentence. Attempted to sit upright with head of bed elevated and patient continued to fall asleep. Would rouse with tactile stim but could not remain alert. Well reattempt evaluation as able.
[2023-11-15] MEDS: AZITHROMYCIN 500 MG/NS 250 ML 500 MG/250 ML BAG 250 MG IVPB (12:44)
[2023-11-15] MEDS: guaiFENesin 12 HR 600 MG TABCR 1200 MG PO ×2 (12:44→20:10)
[2023-11-15] MEDS: methylPREDNISolone SOD SUCC 40 MG VIAL IV PUSH ×3 (12:46→23:08)
[2023-11-15 16:50] LABS: Glucose Point of Care 207 mg/dl (65-105)
[2023-11-15] MEDS: INSULIN ASPART (*BKC) 100 UNITS/ML SUB-Q (17:30)
[2023-11-15] MEDS: QUEtiapine FUMARATE 25 MG TABLET 50 MG PO (20:11)
[2023-11-15 20:58] LABS: Glucose Point of Care 232 mg/dl (65-105)
[2023-11-16] VITALS (13 sets, daily range): BP systolic 133–151; BP diastolic 55–62; PULSE 79–99; RESP 18–20; TEMP 36.6–36.9; O2SAT 82–100
[2023-11-16] MEDS: ONDANSETRON INJ 4 MG/2 ML VIAL IV PUSH (01:45)
[2023-11-16] MEDS: IPRATROPIUM 0.5 MG/ALBUTEROL SULFATE 2.5 MG AMPUL.NEB 3 ML INHALATION (02:38)
[2023-11-16] MEDS: methylPREDNISolone SOD SUCC 40 MG VIAL IV PUSH ×2 (05:04→12:28)
[2023-11-16 06:06] LABS: Hematocrit 29.7 % (37.0-47.0); Hemoglobin 9.5 g/dL (12.0-15.0); Immature Granulocyte Absolute 0.04 K/mm3 (0.00-0.031); Immature Granulocyte Percent A 0.6 % (0-0.5); Lymphocytes Absolute Auto 0.88 K/mm3 (0.9-3.2); Lymphocytes Percent Auto 14.1 % (18.3-44.2); Mean Corpuscular Hemoglobin 26.6 pg (26-34); Mean Corpuscular Volume 83.2 fl (80-100); Mean Platelet Volume 10.8 fl (7.4-10.4); Monocytes Absolute Auto 0.2 K/mm3 (0.1-0.6); Neutrophils Absolute Auto 5.1 K/mm3 (1.3-6.7); Neutrophils Percent Auto 82.3 % (45.5-73.1); Platelet Count Result 258 k/mm3 (150-375); Red Blood Count 3.57 M/mm3 (4.2-5.4); Red Cell Distribution Width 14.6 % (11.5-14.5); White Blood Count 6.2 K/mm3 (4.5-10.0)
[2023-11-16 06:12] LABS: Alanine Aminotransferase 20 U/L (6-35); Albumin Level 3.9 g/dL (3.5-5.1); Alkaline Phosphatase 81 U/L (38-126); Anion Gap 5 mmol/L (4-12); Aspartate Amino Transferase 26 U/L (14-36); Bilirubin,Total 0.3 mg/dL (0.2-1.3); Blood Urea Nitrogen 24 mg/dL (7-17); Calcium 9.3 mg/dL (8.4-10.2); Carbon Dioxide 31 mmol/L (22-30); Chloride 96 mmol/L (98-107); Estimated CRCL calculation 53 ml/min; Estimated Glomerular Filt Rate > 60; Glucose 204 mg/dL (65-110); Magnesium 1.8 mg/dL (1.6-2.3); Potassium 3.9 mmol/L (3.4-5.0); Sodium 132 mmol/L (137-145)
--- NOTE | 2023-11-16 07:25 | P.PNIM_ITS ---
Progress Note: A&P Assessment and Plan (1) COPD (chronic obstructive pulmonary disease): Code(s): J44.9 - Chronic obstructive pulmonary disease, unspecified Status: Acute Assessment and Plan: - continue home medications: albuterol inhaler, budesonide inhaler, breztri inhaler - add albuterol neb - CXR negative for acute findings - exam: intermittent expiratory wheeze, somnolent - abg: pH 7.404, pCO2 51.7, pO2 70.7, HCO3 31.6, O2 sat 94% on 5L NC 11/14: Patient is lethargic with congested cough, diffuse expiratory wheezing, coarse lung sounds with rhonchi. Gas on admission shows compensated respiratory acidosis. * Home inhalers on hold. Neb treatments with duo nebs scheduled q 4 hours and budesonide q 12 hours * Started on Solu-Medrol 40 mg IVP every six hours * Added azithromycin * Mucinex BID * CPAP when sleeping and napping * chronically on 5 L nc at home. Currently on 3 L NC here. 11/15: * (2) Urinary tract infection: Qualifiers: Hematuria presence: without hematuria Urinary tract infection type: acute cystitis Qualified Code(s): N30.00 - Acute cystitis without hematuria Code(s): N39.0 - Urinary tract infection, site not specified Status: Acute Assessment and Plan: - chronic suprapubic catheter - UA: 3+ glucose, positive nitrates, 1+ leuks, 6-10 WBC, 2+ bacteria, no epithelial cells, yeast present. - UC pending, obtained on 11/13 - previous micro reviewed 07/2021: coag neg strep, resistant to Cipro, Levaquin, Oxacillin, and intermediate to Moxifloxacin 12/2020: pseudomonas putida and martin, resistant to Bactrim - started on Ceftriaxone on 11/13 11/14: I exchanged suprapubic catheter. U/A was collected on chronic Miller, nursing had replaced collection bag but not catheter. * New U/A ordered with culture. Urine is yellow, clear with some sediment present. Per nurse, collection bag was dirty and discolored. 11/15: Surprisingly, urine culture obtained from chronic Miller was negative. (3) Ground-level fall: Code(s): W18.30XA - Fall on same level, unspecified, initial encounter Status: Acute Assessment and Plan: - CT head: 1. No fracture or acute intracranial process. 2. Age-related changes including mild to moderate diffuse volume loss and mild scattered white matter hypoattenuation consistent with chronic small vessel ischemic disease. - CT c-spine: Mild cervical and moderate upper thoracic spondylosis. No acute osseous abnormality. - CXR: Mild atelectasis in the lower lung zones. - pain control 11/14: Patient does not remember falling. * Will need PT/OT consult for new weakness, recent fall, and dispo planning 11/15: PT/OT attempted to see the patient yesterday but due to somnolence her visit was deferred. (4) Restless: Code(s): R45.1 - Restlessness and agitation Status: Acute Assessment and Plan: - Head CT negative for acute findings - reviewed home medications: holding home Brackney and trazodone given somnolence - ABG pH 7.404, pCO2 51.7, pO2 70.7, HCO3 31.6, O2 sat 94% on 5L NC - add UDS, per son has current substance use. Narcan ordered. - start CPAP while inpatient 11/14: Patient is lethargic on exam. Opens her eyes and answer limited questions with tactile stimulation. * Holding all sedating medications. * UDS was negative. 11/15: Patient was rather lethargic (5) DM2 (diabetes mellitus, type 2): Code(s): E11.9 - Type 2 diabetes mellitus without complications Status: Chronic Assessm
[2023-11-16 08:08] LABS: Glucose Point of Care 190 mg/dl (65-105)
[2023-11-16] MEDS: CLOPIDOGREL BISULFATE 75 MG TABLET PO (08:27)
[2023-11-16] MEDS: SIMVASTATIN 20 MG TABLET PO (08:27)
[2023-11-16] MEDS: OMEGA 3 POLYUNSAT FATTY ACIDS 1 GM CAP PO (08:27)
[2023-11-16] MEDS: MULTIVITAMINS /C LUTEIN (CENTRUM SILVER) TABLET *BKC 1 TAB PO (08:27)
[2023-11-16] MEDS: ASPIRIN 81 MG CHEWABLE TABLET PO (08:27)
[2023-11-16] MEDS: guaiFENesin 12 HR 600 MG TABCR 1200 MG PO (08:27)
[2023-11-16] MEDS: amLODIPine BESYLATE 5 MG TABLET PO (08:27)
[2023-11-16] MEDS: PREGABALIN (*CRX) 50 MG CAPSULE 100 MG PO (08:27)
[2023-11-16 11:59] LABS: Glucose Point of Care 209 mg/dl (65-105)
[2023-11-16 11:59] LABS: Glucose Point of Care 278 mg/dl (65-105)
[2023-11-16] MEDS: AZITHROMYCIN 500 MG/NS 250 ML 500 MG/250 ML BAG 250 MG IVPB (12:28)
[2023-11-16] MEDS: INSULIN ASPART (*BKC) 100 UNITS/ML SUB-Q (12:29)
--- NOTE | 2023-11-16 13:37 | PM.DS ---
DS: Admitting Diagnosis Discharge Date 11/15 Admitting Diagnosis fall DS: Discharge Diagnosis Discharge Diagnosis (1) COPD (chronic obstructive pulmonary disease): Code(s): J44.9 - Chronic obstructive pulmonary disease, unspecified Status: Acute Assessment and Plan: - continue home medications: albuterol inhaler, budesonide inhaler, breztri inhaler - add albuterol neb - CXR negative for acute findings - exam: intermittent expiratory wheeze, somnolent - abg: pH 7.404, pCO2 51.7, pO2 70.7, HCO3 31.6, O2 sat 94% on 5L NC 11/14: Patient is lethargic with congested cough, diffuse expiratory wheezing, coarse lung sounds with rhonchi. Gas on admission shows compensated respiratory acidosis. Home inhalers on hold. Neb treatments with duo nebs scheduled q 4 hours and budesonide q 12 hours Started on Solu-Medrol 40 mg IVP every six hours Added azithromycin Mucinex BID CPAP when sleeping and napping chronically on 5 L nc at home. Currently on 3 L NC here. 11/15: (2) Urinary tract infection: Qualifiers: Hematuria presence: without hematuria Urinary tract infection type: acute cystitis Qualified Code(s): N30.00 - Acute cystitis without hematuria Code(s): N39.0 - Urinary tract infection, site not specified Status: Acute Assessment and Plan: - chronic suprapubic catheter - UA: 3+ glucose, positive nitrates, 1+ leuks, 6-10 WBC, 2+ bacteria, no epithelial cells, yeast present. - UC pending, obtained on 11/13 - previous micro reviewed 07/2021: coag neg strep, resistant to Cipro, Levaquin, Oxacillin, and intermediate to Moxifloxacin 12/2020: pseudomonas putida and martin, resistant to Bactrim - started on Ceftriaxone on 11/13 11/14: I exchanged suprapubic catheter. U/A was collected on chronic Miller, nursing had replaced collection bag but not catheter. New U/A ordered with culture. Urine is yellow, clear with some sediment present. Per nurse, collection bag was dirty and discolored. 11/15: Surprisingly, urine culture obtained from chronic Miller was negative. (3) Ground-level fall: Code(s): W18.30XA - Fall on same level, unspecified, initial encounter Status: Acute Assessment and Plan: - CT head: 1. No fracture or acute intracranial process. 2. Age-related changes including mild to moderate diffuse volume loss and mild scattered white matter hypoattenuation consistent with chronic small vessel ischemic disease. - CT c-spine: Mild cervical and moderate upper thoracic spondylosis. No acute osseous abnormality. - CXR: Mild atelectasis in the lower lung zones. - pain control 11/14: Patient does not remember falling. Will need PT/OT consult for new weakness, recent fall, and dispo planning 11/15: PT/OT attempted to see the patient yesterday but due to somnolence her visit was deferred. (4) Restless: Code(s): R45.1 - Restlessness and agitation Status: Acute Assessment and Plan: - Head CT negative for acute findings - reviewed home medications: holding home Axson and trazodone given somnolence - ABG pH 7.404, pCO2 51.7, pO2 70.7, HCO3 31.6, O2 sat 94% on 5L NC - add UDS, per son has current substance use. Narcan ordered. - start CPAP while inpatient 11/14: Patient is lethargic on exam. Opens her eyes and answer limited questions with tactile stimulation. Holding all sedating medications. UDS was negative. 11/15: Patient was rather lethargic (5) DM2 (diabetes mellitus, type 2): Code(s): E11.9 - Type 2 diabetes mellitus without complications Status: Chronic Assessment and Plan: - hypoglycemia protocol - POC blood glucose ACHS - home medication: hold metformin - correct regimen ordered - low dose TIDWM based off total insulin at home - A1C 6.9% in 2020, update 11/14: Blood glucose reviewed. (6) Hypertension: Code(s): I10 - Essential (primary) hypertension Status: Chronic
--- NOTE | 2023-11-16 14:06 | HOMEO2EVAL ---
Evaluation was performed at [facility] Home Oxygen Evaluation RC: Home Oxygen (O2) Evaluation Start: 11/16/23 13:29 Freq: ONCE Status: Active Protocol: RPE Activity Type Activity Date Activity User E-sign Co-sign Detail Recorded Client Recorded Date Recorded By Document 11/16/23 13:50 CLC [email or web address] 11/16/23 14:05 CLC Document 11/16/23 13:52 CLC [email or web address] 11/16/23 14:05 CLC Document 11/16/23 14:03 CLC [email or web address] 11/16/23 14:05 CLC Document 11/16/23 14:04 CLC [email or web address] 11/16/23 14:05 CLC 11/16/23 11/16/23 11/16/23 13:50 13:52 14:03 Home O2 Evaluation [Oxygen] -Test Phase Resting Exercise Exercise -Oxygen Delivery Room Air Room Air Nasal Cannula -Oxygen Flow Rate (L/min) 1 [Pulse Oximetry] -Pulse Oximetry (90-100 %) 94 82 L 87 L [Pulse Rate] -Pulse Rate (60-100 beats/min) 89 95 97 [Evaluation] -Activity Tolerance Fair [Exercise] -Ambulation Distance (feet) 150 -Ambulation Distance (meters) 45.71 [Charges] -Evaluation Charges O2 Evaluation by 11/16/23 14:04 Home O2 Evaluation [Oxygen] -Test Phase Exercise -Oxygen Delivery Nasal Cannula -Oxygen Flow Rate (L/min) 2 [Pulse Oximetry] -Pulse Oximetry (90-100 %) 91 [Pulse Rate] -Pulse Rate (60-100 beats/min) 99 [Evaluation] -Activity Tolerance [Exercise] -Ambulation Distance (feet) -Ambulation Distance (meters) [Charges] -Evaluation Charges
--- NOTE | 2023-11-16 14:06 | PCRCNOTE ---
Home oxygen evaluation complete. Patient requires 2 liters per minute with activity. Patient aware of new liter flow requirement. New orders being faxed to [facility].
--- NOTE | 2023-11-16 15:05 | PC.NURSE ---
patient had home oxygen evaluation which states she requires 2 liters NC with activity. patient already has oxygen setup at home, but doesn't think she has a portable tank. Patient states even if I had a tank at home my son won't stop to get it. I can go home without oxygen, I go to the movies and don't wear oxygen the whole time. I then called patient's son, Donell to ask him if he would be able to check patient's house and bring portable tank so she can wear oxygen at discharge or if he would be able to bring the portable tank back to the hospital if I send them with one. Donell states I will not stop to look at the house because she does not have a tank at home. She gave them all back to the [employer]. And I am not going to bring a tank back if you try and send her home with one. She doesn't wear her oxygen right at home. I explained the importance of her wearing the oxygen with activity to both the patient and son as she does desat without it with activity. Patient and son persistent that she does not need oxygen to go home. Patient ready to leave now. Spoke with Naima Oh NP about situation. Provider aware and said to send her home without the oxygen if patient and son refuse to bring portable tank from home and refuse to take a tank from here to bring back.
== END 2023-11-16 15:27 | disposition home or self-care (01) ==
LOC: ANHED 14:58 → ANH2MED 16:59
PROVIDERS: Emergency Medicine; Student in an Organized Health Care Education/Training Program; Admitting Provider General Practice; Emergency Provider Emergency Medicine; PCP Internal Medicine Gastroenterology; Visit Provider Nurse Practitioner Acute Care
DX: N30.00 Acute cystitis without hematuria (principal); J44.9 Chronic obstructive pulmonary disease, unspecified; W18.30XA Fall on same level, unspecified, initial encounter; R53.1 Weakness; R45.1 Restlessness and agitation; I10 Essential (primary) hypertension; Z85.51 Personal history of malignant neoplasm of bladder; F41.8 Other specified anxiety disorders; E78.5 Hyperlipidemia, unspecified; G47.33 Obstructive sleep apnea (adult) (pediatric); F17.210 Nicotine dependence, cigarettes, uncomplicated; E11.42 Type 2 diabetes mellitus with diabetic polyneuropathy
CPT/HCPCS: 36415; 36600; 70450; 71046; 72125; 80053; 80307; 81001; 82805; 82948; 83036; 83735; 85025; 87086; 87088; 93005; 94618; 94640; 96365; 96367; 96375; 96376; 97161; 99285; A9270; G0378; J0456; J0696; J1815; J2405; J2919

== ENCOUNTER 2023-11-24 07:58 | Outpatient (CLI) | payer MEDICARE, MEDICAID, SELFPAY ==
--- NOTE | ~2023-11-24 | CT_ITS ---
CT Scan of the Chest without Contrast: Clinical Indication: Lung cancer screening, nicotine dependence Technique: Contiguous sections were acquired throughout the chest without intravenous contrast. Dose reduction technique was used on this scan by utilizing automated exposure control and iterative recon struction technique. The dose-length product (DLP) was 161.65 mGy-cm. Findings: There is no evidence of any significant mediastinal, hilar or axillary lymphadenopathy. There are ext ensive atherosclerotic calcifications of the coronary arteries. There is no evidence of pleural or pericardial effusion. There is moderate emphysema, especially in the right upper lobe. There is linear scarring or atelecta sis at the bilateral lung bases. 2 mm left upper lobe pulmonary nodule present. Images through the upper abdomen reveal no abnormalities. Impression: Lung RADS 2: Benign appearance. 12 month follow-up screening CT advised. Emphysema, as above. Reviewed, dictated and finalized at [facility]. Impression: Lung RADS 2: Benign appearance. 12 month follow-up screening CT advised. Emphysema, as above.
== END 2023-11-24 07:59 | disposition home or self-care (01) ==
LOC: ANHIMG 07:58
PROVIDERS: PCP Internal Medicine Gastroenterology; Visit Provider Internal Medicine Pulmonary Disease
DX: Z12.2 Encounter for screening for malignant neoplasm of respiratory organs (principal); Z87.891 Personal history of nicotine dependence; J43.9 Emphysema, unspecified
CPT/HCPCS: 71271

== ENCOUNTER 2023-12-28 14:04 | Emergency (ER) | payer MEDICARE, MEDICAID, SELFPAY ==
[2023-12-28] VITALS (13 sets, daily range): BP systolic 109–125; BP diastolic 57–99; PULSE 74–87; RESP 13–26; TEMP 36.8–37.3; O2SAT 77–100
--- NOTE | ~2023-12-28 | XR_ITS ---
EXAMINATION: XR hip RT 2V w AP pelvis DATE: 12/28/2023 15:30 INDICATION: Right hip pain. TECHNIQUE: An anteroposterior view of the pelvis and 2 views of right hip were obtained. COMPARISON: Right hip radiographs 12/07/2020 FINDINGS: There is a bipolar right hip hemiarthroplasty near-anatomic alignment. No fracture. No cierra prosthetic lucency to suggest loosening or infection. There is moderate left hip osteoarthritis. Ther e is lumbar levoscoliosis and severe spondylosis. IMPRESSION: 1. Bipolar right hip hemiarthroplasty in near-anatomic alignment. 2. Moderate left hip osteoarthritis. Reviewed, dictated and finalized at location E.
--- NOTE | ~2023-12-28 | XR_ITS ---
EXAMINATION: XR chest 2V DATE: 12/28/2023 14:31 INDICATION: Hypoxia. TECHNIQUE: Frontal and lateral views of the chest were obtained. COMPARISON: Chest 2 views 11/14/2023 FINDINGS: There are airspace opacities in the lower lung zones. No pleural effusion or pneumothorax. The heart size is normal. IMPRESSION: 1. Worsened airspace opacities in the lower lung zones, consistent with atelectasis versus pneumonia. Reviewed, dictated and finalized at location E. IMPRESSION: 1. Worsened airspace opacities in the lower lung zones, consistent with atelect asis versus pneumonia.
--- NOTE | ~2023-12-28 | CT_ITS ---
EXAMINATION: CT cervical spine wo con DATE: 12/28/2023 15:39 INDICATION: Fall. Neck injury. TECHNIQUE: Computed tomography (CT) of the cervical spine was performed without intravenous contrast. Automated exposure control and iterative reconstruction technique were employed. The dose-length pro duct was 304.58 mGy-cm. COMPARISON: CT cervical spine 11/14/2023 FINDINGS: There is mild emphysema. There is 7 degrees dextrocurvature of cervical spine. Vertebral camilla dy heights are normal. There is moderately decreased disc height at C3-C4 and mildly decreased disc h eight at C5-C6. The following disc levels are specifically discussed: C2-C3: There is no uncovertebral joint osteoarthritis. There is severe right and mild left facet join t osteoarthritis. There is no neural foraminal stenosis. There is no central canal stenosis. C3-C4: There is severe bilateral uncovertebral joint osteoarthritis. There is severe right and modera te left facet joint osteoarthritis. There is mild bilateral neural foraminal stenosis. There is mild central canal stenosis. C4-C5: There is no uncovertebral joint osteoarthritis. There is severe right and moderate left facet joint osteoarthritis. There is mild right neural foraminal stenosis. There is no central canal stenos is. C5-C6: There is mild left uncovertebral joint osteoarthritis. There is severe right and mild left fac et joint osteoarthritis. There is mild bilateral neural foraminal stenosis. There is mild central can al stenosis. C6-C7: There is no uncovertebral joint osteoarthritis. There is severe bilateral facet joint osteoart hritis. There is mild bilateral neural foraminal stenosis. There is no central canal stenosis. C7-T1: There is no uncovertebral joint osteoarthritis. There is severe bilateral facet joint osteoart hritis. There is mild bilateral neural foraminal stenosis. There is no central canal stenosis. IMPRESSION: 1. No fracture. 2. Moderate cervical spondylosis. Reviewed, dictated and finalized at location E.
--- NOTE | ~2023-12-28 | CT_ITS ---
EXAMINATION: CT brain wo con DATE: 12/28/2023 15:39 INDICATION: Fall. TECHNIQUE: Computed tomography (CT) of the head was performed without intravenous contrast. The mA wa s adjusted according to patient size. Iterative reconstruction technique was employed. The dose-lengt h product was 605.33 mGy-cm. COMPARISON: Head CT 11/14/2023 FINDINGS: There are scattered areas of low attenuation in the cerebral white matter, which is within normal limits for the patient's age. There is no intracranial hemorrhage, acute infarction, or abnorm al intracranial mass lesion. The ventricles are normal in size. There is mild mucosal thickening in t he paranasal sinuses. There is a left mastoid effusion. IMPRESSION: 1. Normal aging brain. Reviewed, dictated and finalized at location E. IMPRESSION: 1. Normal aging brain.
--- NOTE | ~2023-12-28 | CT_ITS ---
EXAMINATION: CT lumbar spine wo con DATE: 12/28/2023 15:40 INDICATION: Low back pain. Fall. TECHNIQUE: Computed tomography (CT) of the lumbar spine was performed without intravenous contrast. A utomated exposure control and iterative reconstruction technique were employed. The dose-length produ ct was 945.48 mGy-cm. COMPARISON: None FINDINGS: There is 15 degrees levoscoliosis of lumbar spine. There is 3 mm retrolisthesis of L2 on L3 and L3 on L4 and L5 on S1. There is a burst fracture of L4 with 2/5 loss of height and retropulsion of bone 3 mm into central spinal canal. There is a chronic compression fracture of L5. There is mild chronic anterior wedging of T12 vertebral body. There is severely decreased disc height at T12-L1, mi ldly decreased disc height at L1-L2, moderately decreased disc height at L2-L3, severely decreased di sc height at L3-L4, and moderately decreased disc height at L4-L5 and L5-S1. The following disc level s are specifically discussed: L1-L2: The disc is bulging. There is severe right and mild left facet joint osteoarthritis. There is mild bilateral neural foraminal stenosis. There is mild central canal stenosis. L2-L3: The disc is bulging. There is moderate bilateral facet joint osteoarthritis. There is moderate bilateral neural foraminal stenosis. There is mild central canal stenosis. L3-L4: The disc is bulging. There is severe bilateral facet joint osteoarthritis. There is moderate b ilateral neural foraminal stenosis. There is mild central canal stenosis. L4-L5: The disc is bulging. There is severe bilateral facet joint osteoarthritis. There is moderate b ilateral neural foraminal stenosis. There is severe central canal stenosis. L5-S1: The disc is bulging. There is moderate right and severe left facet joint osteoarthritis. There is mild bilateral neural foraminal stenosis. There is mild central canal stenosis. IMPRESSION: 1. L4 burst fracture. 2. Severe lumbar spondylosis. 3. Lumbar levoscoliosis. Reviewed, dictated and finalized at location E.
--- NOTE | ~2023-12-28 | CT_ITS ---
EXAMINATION: CTA chest PE protocol DATE: 12/28/2023 17:31 INDICATION: Hypoxia. TECHNIQUE: Computed tomography angiography (CTA) of the chest was performed with 100 mL Omnipaque-350 intravenous contrast timed to evaluate the pulmonary arteries. Coronal maximum intensity projection 3D-reconstructions were created by the technologist. Automated exposure control and iterative reconst ruction technique were employed. The dose-length product was 430.99 mGy-cm. COMPARISON: Chest CT 11/24/23 FINDINGS: There is mild emphysema. There is smooth septal thickening in the lungs. There are airspace opacities in the lower lobes. There is mucous plugging in the lower lobes. No pleural effusion. Card iomegaly is noted. There are coronary artery calcifications. No pericardial effusion. There are pulmo nary emboli in the lower lobes and left upper lobe. There is moderate thoracic spondylosis and severe lumbar spondylosis. IMPRESSION: 1. Acute pulmonary emboli in the lower lobes and left upper lobe. 2. Mild pulmonary edema. 3. Airspace opacities in the lower lobes, consistent with atelectasis versus pneumonia. 4. Mild emphysema. Reviewed, dictated and finalized at location E. IMPRESSION: 1. Acute pulmonary emboli in the lower lobes and left upper lobe. 2. Mild pulmonary edema. 3. Airspace opacities in the lower lobes, consistent with atelectasis versus pn eumonia. 4. Mild emphysema.
--- NOTE | ~2023-12-28 | CT_ITS ---
EXAMINATION: CT abdomen pelvis wo con DATE: 12/28/2023 20:11 INDICATION: Acute anemia. TECHNIQUE: Computed tomography (CT) of the abdomen and pelvis was performed without intravenous contr ast. Automated exposure control and iterative reconstruction technique were employed. The dose-length product was 583.36 mGy-cm. COMPARISON: CT abdomen and pelvis 05/11/2023 FINDINGS: The visualized portions of the lung bases demonstrate emphysema. There is septal thickening bilaterally. There are airspace opacities in the lower lobes. There is mild atelectasis in right mid dle lobe and lingula. There is mucous plugging in the lower lobes. Calcified pulmonary nodules and ca lcified hilar lymph nodes are consistent with old granulomatous disease. The heart size is normal. Th ere are coronary artery calcifications. No pericardial effusion. The liver is normal. Calcifications in the spleen are consistent with old granulomatous disease. The gallbladder is absent. The pancreas, adrenal glands, and kidneys are normal. There is a suprapubic catheter in the bladder. There is dive rticulosis of the colon without evidence of diverticulitis. The appendix is not visualized. There is calcified atherosclerosis of the aorta and many of the other arteries. There are no pathologically en larged lymph nodes. There is no free intraperitoneal fluid. There is a bipolar right hip hemiarthropl asty. There is lumbar levoscoliosis and severe spondylosis. There is a burst fracture of L4 with 2/5 loss of height. IMPRESSION: 1. Mucous plugging in the lower lobes with airspace opacities in the lower lobes, consistent with ate lectasis versus pneumonia. 2. Mild pulmonary edema. 3. L4 burst fracture. Reviewed, dictated and finalized at location E. IMPRESSION: 1. Mucous plugging in the lower lobes with airspace opacities in the lower lobe s, consistent with atelectasis versus pneumonia. 2. Mild pulmonary edema. 3. L4 burst fracture.
--- NOTE | 2023-12-28 14:20 | ECG_ITS ---
Test Date: 2023-12-28 14:42:31 Measurements Intervals [place] Rate: 76 P: 40 OH: 228 QRS: -20 QRSD: 101 T: 23 QT: 370 QTc: 416 Interpretive Statements SINUS RHYTHM WITH FIRST DEGREE AV BLOCK INCOMPLETE RIGHT BUNDLE BRANCH BLOCK [90+ ms QRS DURATION, TERMINAL R IN V1/V2, 40+ ms S IN I/aVL/V4/V5/V6] CANNOT RULE OUT PREVIOUS ANTEROSEPTAL MT ABNORMAL ECG COMPARED WITH 11/14/2023, SLIGHTLY ALTERED PRECORDIAL LEAD POSITION Electronically Signed On 12-29-2023 12:21:00 CDT by Enoch Cruz M.D.
--- NOTE | 2023-12-28 14:36 | PC.NURSE ---
pt reports she wears 3L NC at all times.
--- NOTE | 2023-12-28 14:42 | ED.FALL ---
HPI - Fall General Chief Complaint: Fall <Belle Hahn PA-C - Last Filed: 12/29/23 01:51> Stated Complaint: fall, right hip pain <Belle Hahn PA-C - Last Filed: 12/29/23 01:51> Time Seen by Provider: 12/28/23 14:23 <Belle Hahn PA-C - Last Filed: 12/29/23 01:51> History of Present Illness HPI Narrative: 5-year-old female with a history of COPD, chronic hypoxic respiratory failure on 3 L nasal cannula baseline, type 2 diabetes, hypertension, recent s/p right arthroplasty at [facility] within the past couple of weeks and chronic suprapubic indwelling catheter presents to the emergency department for a fall. Patient states she fell last night but cannot provide information surrounding the fall. when asked what caused her to fall she states I do not know . She is a poor historian. She is reporting pain to her low back and her right hip. She is unsure if she hit her head or lost consciousness. She is not anticoagulated but is on Plavix. She also states she had a recent right hip replacement at [facility] within the past couple of weeks. Her suprapubic catheter has not been replaced in approximately 1 month. She also was found to be hypoxic in triage at 77% on room air. She was placed on 6 L nasal cannula now satting 92% on my evaluation. She denies chest pain or shortness of breath, remainder pain to her right lower extremity, left lower extremity or bilateral upper extremities, abdominal pain, fever. Patient lives alone. <Belle Hahn PA-C - Last Filed: 12/29/23 01:51> 68-year-old female with a history of COPD, chronic hypoxic respiratory failure on 3 L nasal cannula baseline, type 2 diabetes, hypertension, recent s/p right arthroplasty at [facility] within the past couple of weeks and chronic suprapubic indwelling catheter presents to the emergency department for a fall. Patient states she fell last night but cannot provide information surrounding the fall. when asked what caused her to fall she states I do not know . She is a poor historian. She is reporting pain to her low back and her right hip. She is unsure if she hit her head or lost consciousness. She is not anticoagulated but is on Plavix. She also states she had a recent right hip replacement at [facility] within the past couple of weeks. Her suprapubic catheter has not been replaced in approximately 1 month. She also was found to be hypoxic in triage at 77% on room air. She was placed on 6 L nasal cannula now satting 92% on my evaluation. She denies chest pain or shortness of breath, remainder pain to her right lower extremity, left lower extremity or bilateral upper extremities, abdominal pain, fever. Patient lives alone. <Pierre Hunter MD - Last Filed: 12/29/23 23:01> Related Data Home Medications: Home Medications Medication Instructions Recorded Confirmed albuterol sulfate 90 mcg/actuation 2 puff inhalation Q4H PRN 12/04/20 11/14/23 aerosol inhaler Shortness Of Breath amlodipine 5 mg tablet 5 mg PO DAILY 12/04/20 11/14/23 quetiapine 50 mg tablet 100 mg PO BID 12/04/20 11/14/23 trazodone 300 mg tablet 300 mg PO HS PRN Sleep 12/04/20 11/14/23 simvastatin 20 mg tablet 20 mg PO DAILY 12/24/20 11/14/23 multivit with minerals-iron 18 1 tablet PO DAILY 08/06/21 11/14/23 mg-folic ac 400 mcg-vit K 25 mcg tablet (Adults Multivitamin) omega-3 fatty acids 1,250 mg PO DAILY 02/27/23 11/14/23 clopidogrel 75 mg tablet 75 mg PO DAILY 10/21/23 11/14/23 budesonide 160 mcg-glycopyr 9 2 inh inhalation BID 11/14/23 11/14/23 mcg-formot 4.8 mcg/actuation HFA inhaler (Breztri Aerosphere) budesonide-formoterol HFA 160 2 inh inhalation BID 11/14/23 11/14/23 mcg-4.5 mcg/actuation aerosol inhaler (Symbicort) melatonin 10 mg tablet 20 mg PO HS 11/14/23 11/14/23 metformin 500 mg tablet 500 mg PO BIDWM 11/14/23 11/14/23 <Belle Hahn PA-C - Last Filed: 12/29/23 01:51> Allergies/Adverse Reactions: Allergies Allergy/AdvR
[2023-12-28] MEDS: IPRATROPIUM 0.5 MG/ALBUTEROL SULFATE 2.5 MG AMPUL.NEB 3 ML INHALATION ×3 (14:52→15:40)
[2023-12-28 15:00] LABS: Alveolar/Arterial O2 Gradient 164.6 mmHg; Base Excess ABG 2.4 mEq/l (+/-2.0); Device NASAL CANNULA; Fractional Inspired Oxygen 40 %; HCO3 ABG 28.1 mEq/l (22.0-26.0); Modified Allen's Test Pass; Oxygen Content ABG 11.4 %vol (16.0-22.0); Oxygen Saturation ABG 91.7 % (95.0-100.0); Oxyhemoglobin 89.7 % THb (90.0-100.0); PCO2 ABG 49.3 mmHg (35.0-45.0); PO2 ABG 63.9 mmHg (80.0-100.0); Site Drawn LEFT RADIAL; pH ABG 7.373 (7.350-7.450)
[2023-12-28 15:17] LABS: Basophils Absolute Auto 0.1 K/mm3 (0.0-0.1); Basophils Percent Auto 0.7 % (0.2-1.2); Eosinophils Absolute Auto 0.4 K/mm3 (0-0.3); Eosinophils Percent Auto 4.2 % (0-4.4); Hematocrit 27.7 % (37.0-47.0); Hemoglobin 8.2 g/dL (12.0-15.0); Immature Granulocyte Absolute 0.02 K/mm3 (0.00-0.031); Immature Granulocyte Percent A 0.2 % (0-0.5); Lymphocytes Absolute Auto 1.61 K/mm3 (0.9-3.2); Lymphocytes Percent Auto 18.8 % (18.3-44.2); Mean Corpuscular HGB Conc 29.6 g/dl (32-36); Mean Corpuscular Volume 87.9 fl (80-100); Mean Platelet Volume 9.4 fl (7.4-10.4); Monocytes Absolute Auto 0.8 K/mm3 (0.1-0.6); Monocytes Percent Auto 9.2 % (2.6-8.5); Neutrophils Absolute Auto 5.7 K/mm3 (1.3-6.7); Neutrophils Percent Auto 66.9 % (45.5-73.1); Platelet Count Result 370 k/mm3 (150-375); Red Blood Count 3.15 M/mm3 (4.2-5.4); Red Cell Distribution Width 16.7 % (11.5-14.5); White Blood Count 8.6 K/mm3 (4.5-10.0)
[2023-12-28 15:27] LABS: Prothrombin Time 13.5 Seconds (11.1-14.7)
[2023-12-28 15:29] LABS: Ethanol < 10 mg/dL (<10)
[2023-12-28 15:31] LABS: Creatine Kinase 218 U/L (30-135); Lactic Acid Reflex 0.7 mmol/L (0.7-2.0)
[2023-12-28 15:36] LABS: Alanine Aminotransferase 18 U/L (6-35); Albumin Level 3.5 g/dL (3.5-5.1); Alkaline Phosphatase 81 U/L (38-126); Anion Gap 6 mmol/L (4-12); Aspartate Amino Transferase 37 U/L (14-36); Bilirubin,Total 0.4 mg/dL (0.2-1.3); Blood Urea Nitrogen 20 mg/dL (7-17); Calcium 8.8 mg/dL (8.4-10.2); Carbon Dioxide 29 mmol/L (22-30); Chloride 101 mmol/L (98-107); Estimated CRCL calculation 53 ml/min; Estimated Glomerular Filt Rate > 60; Glucose 95 mg/dL (65-110); Magnesium 1.8 mg/dL (1.6-2.3); Potassium 4.3 mmol/L (3.4-5.0); Sodium 136 mmol/L (137-145)
[2023-12-28 15:43] LABS: Amphetamine Screen Urine Negative (Negative); Barbiturate Screen Urine Negative (Negative); Benzodiazepines Screen Urine Negative (Negative); Cannabinoid Screen Urine Negative (Negative); Cocaine Screen Urine Negative (Negative); Methadone Screen Urine Negative (Negative); Opiate Screen Urine Positive (Negative); Phencyclidine Screen Urine Negative (Negative)
[2023-12-28 15:44] LABS: NT Pro B Type Natriuretic Pept 1210 pg/mL (19.9-100); Troponin I < 0.012 ng/mL (0.000-0.034)
[2023-12-28 15:46] LABS: Add Urine Microscopic? YES; Appearance Urine Turbid (Clear); Bacteria Urine None Seen /hpf; Bilirubin Urine Negative (Negative); Blood Urine 2+ (Negative); Color Urine Yellow (Yellow); Glucose Urine UA 3+ mg/dL (Negative); Ketones Urine Negative (Negative); Leukocyte Esterase Ur 2+ LEU/UL (Negative); Need Manual Microscopic Reviewed; Nitrate Urine Negative (Negative); Protein Urine 1+ mg/dL (Negative); RBC Urine 51-100 /hpf (0-2); Specific Grav Ur 1.025 (1.001-1.035); Squamous Epithelial Cell Urine None Seen /hpf (Few); WBC Urine >100 /hpf (0-3); pH Urine 5.5 (5.0-9.0)
[2023-12-28 15:51] LABS: Hypochromasia 1+; Platelet Estimate Adequate (Adequate); Schistocytes None Seen
[2023-12-28 15:52] LABS: Anisocytosis 2+
--- NOTE | 2023-12-28 15:52 | PC.NURSE ---
pt refusing to take steroids. pt states I dont want that shit I got that at home! this RN educated pt on the importance of receiving IV steroids. pt still refusing. provider made aware.
[2023-12-28 15:53] LABS: Influenza A QL RT-PCR Negative (Negative); Influenza B QL RT-PCR Negative (Negative); RSV RNA, RT-PCR Negative (Negative); SARS-CoV-2 RNA PCR Negative (Negative)
[2023-12-28] MEDS: SODIUM CHLORIDE 0.9% IV 500 ML 999 ML IV CONT (17:57)
[2023-12-28] MEDS: levoFLOXacin 750 MG/D5W 150 ML 750 MG/150 ML BAG 100 MG IVPB (17:57)
--- NOTE | 2023-12-28 18:27 | PC.NURSE ---
called pt's Daughter,Luciana, and gave her an update. Luciana's phone number is [phone]. she is requesting to be pt's POA.
[2023-12-28] MEDS: SODIUM CHLORIDE 0.9% IV 500 ML 1000 ML IV CONT (19:01)
--- NOTE | 2023-12-28 19:07 | PC.NURSE ---
when giving pt's daughter an update, she states pt wears 5L NC at all times.
--- NOTE | 2023-12-28 19:20 | PC.NURSE ---
Report received from CHANTAL Singh. Assumed care of patient at this time.
[2023-12-28 19:23] LABS: Hematocrit 25.6 % (37.0-47.0); Hemoglobin 7.6 g/dL (12.0-15.0)
--- NOTE | 2023-12-28 19:54 | PC.NURSE ---
This RN contacted patients daughter Luciana Jurado at [phone] to give update on transfer to [facility].
--- NOTE | 2023-12-28 19:57 | PC.NURSE ---
Patient taken to CT via stretcher at this time while on monitor.
--- NOTE | 2023-12-28 19:58 | PC.NURSE ---
Called [facility] at [phone] to change patient status to ALS. New eta is [phone].
--- NOTE | 2023-12-28 20:59 | PC.NURSE ---
Hansel Damian, patients son calls to get update on patient. He gives phone number of [phone]. Hansel given update on patient status to be transferred to [facility].
[2023-12-28] MEDS: ENOXAPARIN 80 MG/0.8 ML SYRINGE 65 MG SUB-Q (21:13)
--- NOTE | 2023-12-28 21:29 | PC.NURSE ---
EMS here to transfer patient to [facility].
== END 2023-12-28 21:37 | disposition short-term general hospital (02) ==
PROVIDERS: Student in an Organized Health Care Education/Training Program; Emergency Provider Physician Assistant; PCP Internal Medicine Gastroenterology
DX: S32.041A Stable burst fracture of fourth lumbar vertebra, initial encounter for closed fracture (principal); J18.9 Pneumonia, unspecified organism; I26.99 Other pulmonary embolism without acute cor pulmonale; J44.1 Chronic obstructive pulmonary disease with (acute) exacerbation; J96.21 Acute and chronic respiratory failure with hypoxia; N39.0 Urinary tract infection, site not specified; R41.82 Altered mental status, unspecified; I10 Essential (primary) hypertension; E78.5 Hyperlipidemia, unspecified; E11.42 Type 2 diabetes mellitus with diabetic polyneuropathy; G47.33 Obstructive sleep apnea (adult) (pediatric); F41.8 Other specified anxiety disorders; Z99.81 Dependence on supplemental oxygen; Z96.651 Presence of right artificial knee joint; Z96.641 Presence of right artificial hip joint; Z85.51 Personal history of malignant neoplasm of bladder; Z79.84 Long term (current) use of oral hypoglycemic drugs; Z79.899 Other long term (current) drug therapy; M16.12 Unilateral primary osteoarthritis, left hip; I44.0 Atrioventricular block, first degree; R94.31 Abnormal electrocardiogram [ECG] [EKG]; I45.10 Unspecified right bundle-branch block; M47.812 Spondylosis without myelopathy or radiculopathy, cervical region; M47.816 Spondylosis without myelopathy or radiculopathy, lumbar region; J43.9 Emphysema, unspecified; W19.XXXA Unspecified fall, initial encounter
CPT/HCPCS: 36415; 36600; 70450; 71046; 71275; 72125; 72131; 73502; 74176; 80053; 80307; 81001; 82550; 82805; 83605; 83735; 83880; 84484; 85014; 85018; 85025; 85610; 85730; 87040; 87077; 87086; 87088; 87186; 87637; 93005; 94640; 96365; 96366; 96372; 96375; 99285; J1650; J1956; J2919; J7030; Q9967

== ENCOUNTER 2024-06-24 22:11 | Observation (INO) | payer MEDICARE, MEDICAID, SELFPAY ==
--- NOTE | ~2024-06-24 | XR_ITS ---
CHEST RADIOGRAPH CLINICAL HISTORY: ET PLACEMENT . Nasogastric tube placement COMPARISON: 12/28/2023 TECHNIQUE: Single portable view of the chest. FINDINGS Endotracheal tube is identified with its tip projecting approximately 4cm above the base of the venecia a. Nasogastric tube identified with its tip extending below the left hemidiaphragm, presumably within th e stomach. The remainder of the cardiomediastinal silhouette is otherwise unremarkable. Blunting of the right costophrenic sulcus suggesting a small right-sided pleural effusion. Increased interstitial markings are identified bilaterally, findings suggesting moderate pulmonary va scular congestion. Remainder of the lungs are clear. IMPRESSION: Moderate pulmonary vascular congestion, without focal infiltrate or effusion. Endotracheal tube and nasogastric tube in good position, and ready for immediate use. Reviewed, dictated and finalized at location A. STANT RESEARCH SCIENTIST IMPRESSION: Moderate pulmonary vascular congestion, without focal infiltrate or effusion. Endotracheal tube and nasogastric tube in good position, and ready for immediat e use.
--- NOTE | ~2024-06-24 | CT_ITS ---
Clinical Indication: Unresponsive, respiratory arrest CT Scan of the Chest, Abdomen, and Pelvis with Contrast: Technique: Contiguous sections were acquired throughout the chest, abdomen, and pelvis after intraven ous administration of 100 cc of Omnipaque 350. Dose reduction technique was used on this scan by zhanna alicea automated exposure control and iterative reconstruction technique. The dose-length product (DL P) was 1612.47 mGy-cm. Comparison: 12/28/2023 Findings: Enlarged AP window lymph node measures 2.8 x 1.4 cm. Mildly enlarged right hilar lymph nodes are pres ent. No large central pulmonary embolus. No aortic aneurysm or dissection. There is no evidence of pleural or pericardial effusion. There is moderate to advanced emphysema. There is a 6 mm left upper lobe pulmonary nodule (axial imag e 62). There is mild bibasilar atelectatic change. There is diffuse hepatic steatosis. The spleen, pancreas, gallbladder, adrenals and kidneys are withi n normal limits. There are extensive atherosclerotic calcifications of the aorta and iliac vessels. IVC filter present. No lymphadenopathy. No bowel obstruction or bowel wall thickening. There is no evidence to suggest acute appendicitis. Probable suprapubic catheter in place. There is streak artifact in the pelvis from right hip arthropl asty. No definite pelvic mass or ascites seen. L4 compression fracture present, unchanged. Impression: Moderate to advanced emphysema. 6 mm left upper lobe pulmonary nodule, indeterminate. According to Fleischner Society criteria, for a low-risk patient, recommend 6-12 month follow-up CT, then consider additional 18-[address] For a high-risk patient, follow-up CT scans at both 6-12 months and 18-24 months are recommended. Diffuse hepatic steatosis. Stable L4 compression fracture. Reviewed, dictated and finalized at location . NG [facility] Impression: Moderate to advanced emphysema. 6 mm left upper lobe pulmonary nodule, indeterminate. According to Fleischner S ociety criteria, for a low-risk patient, recommend 6-12 month follow-up CT, the n consider additional 18-[address] For a high-risk patient, follow-up CT sca ns at both 6-12 months and 18-24 months are recommended. Diffuse hepatic steatosis. Stable L4 compression fracture.
--- NOTE | ~2024-06-24 | CT_ITS ---
Non-contrast Head CT History: Altered mental status COMPARISON: 1124 Technique: Axial non-contrast imaging of the brain was performed. Dose reduction technique was used on this scan by utilizing automated exposure control and iterative reconstruction technique. The dose -length product (DLP) was 756.67 mGy-cm. Findings: There is no evidence of intracranial hemorrhage, mass lesion, or acute infarct. Brain par enchyma appears normal. The ventricles and subarachnoid spaces are normal in size. The calvarium ap pears normal. The visualized paranasal sinuses and right mastoid air cells are clear. Mild left mast oid effusion. Impression: No acute abnormality seen. Reviewed, dictated and finalized at location . CASTER APPRENTICE Impression: No acute abnormality seen.
--- NOTE | ~2024-06-24 | XR_ITS ---
CHEST RADIOGRAPH CLINICAL HISTORY: CENTRAL LINE PLACEMENT . TECHNIQUE: Single portable view of the chest. FINDINGS Endotracheal tube and nasogastric tube unchanged. Interval placement of a left-sided subclavian central venous catheter with its tip projecting over th e superior vena cava. The left lung is fully inflated. The lungs are unchanged. IMPRESSION: Central venous catheter in good position and ready for immediate use. Remainder of examination is unchanged Reviewed, dictated and finalized at location A. TECHNICIAN
[2024-06-24 22:22] VITALS: PULSE 92; O2SAT 100
--- OUTSIDE RECORDS SUMMARY | 2024-06-24 22:22 | XMS_ITS | Clinical Summary ---
Author Organization [facility] Address [address] [place] [id number] Care Team Providers Care Senior Military Analyst Name Role Phone Hadley Olmsteda MD Primary Care Provider [phone] Social History Tobacco Use Types Packs/Day Years Used Date Smoking Tobacco: Never Assessed Comments Unknown Sex and Gender Information Value Date Recorded Sex Assigned at Not on file Legal Sex Female 8:22 PM CDT Gender Identity Not on file Sexual Orientation Not on file Last Filed Vital Signs Vital Sign Reading Time Taken Comments Blood Pressure 140/78 07/11/2017 10:23 AM [facility] Pulse 59 07/11/2017 10:23 AM [facility] Temperature - - Respiratory Rate - - Oxygen Saturation - - Inhaled Oxygen Concentration - - Weight 93 kg (205 lb) 07/11/2017 10:23 AM [facility] Height 157.5 cm (5' 2 ) 07/11/2017 10:23 AM [facility] Body Mass Index 37.49 07/11/2017 10:23 AM [facility]ASC[facility] Plan of Treatment Health Maintenance Due Date Last Done Comments Colorectal Cancer Screening Colonoscopy (10 Years) 1953 Hepatitis C 1971 DTaP, Tdap and Td Vaccines ( 1 - Tdap) 1972 Mammogram Screening 1993 Zoster Vaccines (1 of 2) 2003 Dexa Scan (General) 2018 Pneumococcal Vaccine: 65+ Ye ars (1 of 1 - PCV) 2018 COVID-19 Vaccine ( - 2023-2 5 season) 2024 Influenza Adult (#1) 2024 RSV Immunization or 60+ Years (1 - 1-dose 75+ series) 2028 Meningococcal B Vaccine Aged Out No l onger eligible based on patient's age to complete this topic Meningococcal Vaccine Aged Out No christopher cristian eligible based on patient's age to complete this topic RSV Immunizations Under 20 Months Aged Out No longer eligible based on patient's age to complete this topic Care Teams Senior Military Analyst Relationship Specialty Start Date End Date Hadley Olmstead MD PCP - General 07/01/16
--- OUTSIDE RECORDS SUMMARY | 2024-06-24 22:22 | XMS_ITS | Clinical Summary ---
Author Organization [facility] Address [address] [place] [address] Phone Care Team Providers Care Cdc Associate Name Role Phone Jose Bales MD Primary Care Provider Allergies Active Allergy Reactions Criticality Noted Date Comments Alcohol Hives 06/24/2016 Clarithromycin Unknown 10/21/2016 Fentanyl Other (see Comments) 06/24/2016 Atorvastatin Other (see Comments) 06/24/2016 Weight loss/nausea Morphine Nausea 06/24/2016 Other Hallucinations 06/24/2016 Chantex, glugaphage Paroxetine Hcl Hives 06/24/2016 Varenicline Unknown 10/21/2016 Medications SYMBICORT 80-4.5 MCG/ACT Aerosol 6 Active VENTOLIN HFA 108 (90 BASE) MCG/ACT Aerosol Solution 7 Active HUMULIN N 100 UNIT/ML Suspension 6 Active ZETIA 10 MG Tablet 6 Active gabapentin (NEURONTIN) 100 MG Capsule 6 Active lidocaine-prilocaine 2.5-2.5 % Cream 7 Active clonazePAM (KLONOPIN) 2 MG Tablet 7 Active amLODIPine (NORVASC) 5 MG Tablet 6 Active lisinopril (PRINIVIL, ZESTRIL) 40 MG Tablet 7 Active traZODone (DESYREL) 100 MG Tablet 6 Active simvastatin (ZOCOR) 40 MG Tablet Take 40 mg by mouth every evening. Active aspirin EC (ASPIR-81) 81 MG Tablet Delayed ResponseIndications: Secondary polycythemia,Simple chronic bronchitis (HCC),Hereditary hemochromatosis (HCC) daily. 6 Active diclofenac (VOLTAREN) 75 MG Tablet Delayed ResponseIndications: Secondary polycythemia,Simple chronic bronchitis (HCC),Hereditary hemochromatosis (HCC) 2 times daily. 7 Active HYDROcodone-acetamin ophen (NORCO) 10-325 MG Tablet as needed. 7 Active ketoconazole (NIZORAL) 2 % Cream 01/14/20 1 7 Active Active Problems Patient Care Coordination No te Formatting of this note migh t be different from the original. NO CA DX 09/02/17 Problem Noted Date Diagnosed Date Hemochromatosis 10/21/2016 COPD (chronic obstructive pulmonary disease) 10/2016 Secondary polycythemia 06/24/2016 Family History Medical History Relation Name Comments Congestive Heart Failure Brother Heart Attack Brother Congestive Heart Failure Father Heart Attack Father Congestive Heart Failure Mother Diabetes Mother Heart Attack Mother Congestive Heart Failure Sister Diabetes Sister Heart Attack Sister Relation Name Status Comments Brother Father Mother Sister Social History Tobacco Use Types Packs/Day Years Used Date Smoking Tobacco: Every Day Cigarettes 2 61 Started: 06/24/1965 Smokeless Tobacco: Never Alcohol Use Standard Drinks/Week Comments No 0 (1 standard drink = 0.6 oz pur e alcohol) Comments Unknown Sex and Gender Information Value Date Recorded Sex Assigned at Not on file Legal Sex Female 4:00 AM CDT Gender Identity Not on file Sexual Orientation Not on file Last Filed Vital Signs Vital Sign Reading Time Taken Comments Blood Pressure 132/62 03/05/2017 10:19 AM CDT Pulse 83 03/05/2017 10:19 AM CDT Temperature 36.4 C (97.5 F) 03/05/2017 10:19 AM CDT Respiratory Rate 20 03/05/2017 10:19 AM CDT Oxygen Saturation 88% 03/05/2017 10:19 AM CDT Inhaled Oxygen Concentration - - Weight 93 kg (205 lb) 03/05/2017 10:19 AM CDT Height 162.6 cm (5' 4 ) 03/05/2017 10:19 AM CDT Body Mass Index 35.19 03/05/2017 10:19 AM CDT Plan of Treatment Health Maintenance Due Date Last Done Comments DEXA Bone Density 1955 TdaP Immunization 1953 Pneumococcal Immunization (5 0+ years) (1 of 2 - PCV) 1972 Colonoscopy 1998 Colorectal Cancer Screening 1998 Cologuard 2003 Immunochemical Fecal Occult Blood 2003 Mammogram 2003 Zoster Immunization (1 of 2) 2003 Respiratory Syncytial Virus (RSV) Immunization (Adult) (1 - Risk 60-74 years 1-dose series) 2013 Influenza Immunization (#1) 2024 SARS-COV-2 Immunization (2023- season) 2024 Hepatitis C Virus (HCV) Screening Completed 017 Hepatitis B Immunization Aged Out No longer eligible based on patient's age to complete this topic Meningococcal Immunization (ACWY) Aged Out No longer eligible based on patient's age to complete this topic Rotavirus Immunization Aged Out No lo nger eligible based on patient's age to complete this topic Insurance MEDICARE [place]ICAID [place] Care Teams Cdc Associate Relationship Specialty Start Date End Date Jose Bales MD [address] [place] [address] PCP - General Internal Medicine 06/24/16
--- OUTSIDE RECORDS SUMMARY | 2024-06-24 22:22 | XMS_ITS | Encounter Summary ---
Author Organization [facility] Address [address] [place] [id number] Care Team Providers Care Atomic Fuel Assembler Name Role Phone Hadley Olmstead MD Primary Care Provider [phone] Hadley Olmstead MD Primary Care Provider [phone] Encounter Details Date Type Department Care Team (Late st Contact Info) Description 08/24/1998 Abstract [facility] Conversion Md, Generic Conversion, Social History Tobacco Use Types Packs/Day Years Used Date Smoking Tobacco: Never Assessed Comments Unknown Sex and Gender Information Value Date Recorded Sex Assigned at Not on file Legal Sex Female 8:22 PM CDT Gender Identity Not on file Sexual Orientation Not on file documented as of this encounter Plan of Treatment Not on file documented as of this encounter Visit Diagnoses Not on filedocumented in this encounter Care Teams Atomic Fuel Assembler Relationship Specialty Start Date End Date Hadley Olmstead MD PCP - General 07/01/16 Hadley Olmstead MD PCP - General 06/24/16 06/30/16 documented as of this encounter
--- OUTSIDE RECORDS SUMMARY | 2024-06-24 22:22 | XMS_ITS | Clinical Summary ---
Author Organization [facility] Address [address] [place] [address] Care Team Providers Care Petroleum Terminal Plant Operator Name Role Phone Griffin Weiss MD Primary Care Provider [phone] [facility],non-owned Affiliates and Associated Physician Practices is amultiple site organization consisting of ambulatory clinics and hospital sitesin [place], [place], [place] and [place]. This disclosure is being madepursuant to the Care Everywhere program and may not contain all information available regarding this patient. Last updated 18.[facility] Allergies Active Allergy Reactions Criticality Noted Date Comments Alcohol Urticaria High 06/24/2016 Atorvastatin Myalgias Medium 06/24/2016 Patient tolerates simvastatin - [facility], PharmD, 10/31/20 Clarithromycin Unknown Medium 10/21/2016 Duragesic Shortness of Breath High 10/31/2020 Patient only has problems with the fentanyl patch Gabapentin Dizziness Medium 08/29/2017 Confusion and falls Morphine Nausea and/or Vomiting Low 06/24/2016 Paroxetine Urticaria,Rash,Unknown High 06/24/2016 Somatropin Dizziness Medium 09/09/2017 Passed out Tramadol Nausea and/or Vomiting Low 05/21/2018 Varenicline Unknown,Psychiatric Medium 10/21/2016 Medications * Be aware that medications may not be up to date on this document. Alwaysverify current medications with the patient. Medication Sig Dispensed Refills Start Date End Date Status amLODIPine (NORVASC) 5 MG tablet Take 5 mg by mouth once daily Active levocetirizine (XYZAL) 5 MG tablet Take 5 mg by mouth once daily Active metFORMIN (GLUCOPHAGE) 500 MG tablet Take 500 mg by mouth 2 times daily Active pregabalin (LYRICA) 100 MG capsule Take 100 mg by mouth 2 times daily Active QUEtiapine (SEROQUEL) 50 MG tablet Take 50 mg by mouth 3 times daily Active simvastatin (ZOCOR) 20 MG tablet Take 20 mg by mouth once daily Active traZODone (DESYREL) 150 MG tablet Take 150 mg by mouth at bedtime 11/25/2019 Active lactobacillus extra strength (FLORAJEN) capsule Take 1 capsule by mouth 2 times daily Active venlafaxine (EFFEXOR) 75 MG tablet Take 75 mg by mouth 2 times daily Active insulin lispro (HUMALOG;ADMELOG) 100 UNIT/ML pen Inject 0-10 Units subcutaneously 3 times daily before meals Active magnesium oxide (MAG-OX) 400 MG tablet Take 1 (one) tablet by mouth once daily 11/03/2020 Active HYDROcodone-aceta minophen (NORCO) 10-325 MG tablet Take 1 (one) tablet by mouth every 6 hours as needed 12 tablet 11/03/2020 Active Active Problems Problem Noted Date Diagnosed Date Chronic respiratory failure with hypoxia 021 Social History Tobacco Use Types Packs/Day Years Used Date Smoking Tobacco: Every Day Cigarettes 0.5 60.1 Started: [birth year]/19/1964 Smokeless Tobacco: Never Tobacco Cessation:Ready to Q uit: Yes; Counseling Given: Yes Alcohol Use Standard Drinks/Week Comments Never 0 (1 standard drink = 0.6 oz pur e alcohol) Sex and Gender Information Value Date Recorded Sex Assigned at Not on file Gender Identity Not on file Sexual Orientation Not on file Last Filed Vital Signs Vital Sign Reading Time Taken Comments Blood Pressure 151/70 11/03/2020 11:53 AM CDT Pulse 68 11/03/2020 6:50 PM CDT Temperature 36.5 C (97.7 F) 11/03/2020 12:01 PM CDT Respiratory Rate 17 11/03/2020 6:50 PM CDT Oxygen Saturation 95% 11/03/2020 6:50 PM CDT Inhaled Oxygen Concentration 40% 10/31/2020 7 :52 AM CDT Weight 80.8 kg (178 lb 3.2 oz) 11/03/2020 4:00 A M CDT Height 152.4 cm (5') 10/31/2020 3:36 AM CDT Body Mass Index 34.8 10/31/2020 3:36 AM CDT Plan of Treatment Health Maintenance Due Date Last Done Comments BONE DENSITY TESTING 1955 COLOGUARD (AGES 45-75) - COL ON CA SCREENING 1953 COLON MONITORING 1953 COLONOSCOPY - COLON CA SCREENING 1953 CT COLONOGRAPHY - COLON CA SCREENING 1953 Colorectal Cancer Screening 1953 FIT - COLON CA SCREENING 1953 FLEX SIG - COLON CA SCREENING 1953 MAMMOGRAM 1955 MEDICARE AWV 12 MONTHS 1953 HEPATITIS C SCREENING 03/19/1971 DTAP/TDAP/TD VACCINES (1 - Tdap) 1972 PNEUMOCOCCAL VACCINE 50+ (1 of 2 - PCV) 1972 ZOSTER VACCINE (1 of 2) 2003 COVID-19 VACCINE (1 - 2023-2 5 season) 2024 INFLUENZA VACCINE (#1) 2024 9, 03/19/2018 DEPRESSION SCREENING 05/19/2024 Respiratory Syncytial Virus (RSV) Vaccine Pt: or over 60 yrs (1 - 1-dose 75+ series) 2028 HEPATITIS B VACCINE Aged Out No longe r eligible based on patient's age to complete this topic HIB VACCINE Aged Out No longer eligi ble based on patient's age to complete this topic HPV VACCINE Aged Out No longer eligi ble based on patient's age to complete this topic MENINGOCOCCAL (Group B) VACCINE Aged Out No longer eligible b ased on patient's age to complete this topic MENINGOCOCCAL VACCINE Aged Out No christopher cristian eligible based on patient's age to complete this topic Advance Directives * Full Code (Latest Code Status on File) Date Activated Date Inactivated Comments 10/31/2020 3:20 AM 11/03/2020 8:42 PM Care Teams Petroleum Terminal Plant Operator Relationship Specialty Start Date End Date Griffin Weiss MD [address] [place] [address] PCP - General 08/29/21
--- OUTSIDE RECORDS SUMMARY | 2024-06-24 22:22 | XMS_ITS ---
Author Organization [facility] Address [address] [place] [address] Care Team Providers Care Thread Machine Operator Name Role Phone Cayla Guillen RN Unavailable Unavailable Cayla Guillen RN Unavailable Unavailable Shira Anne MD Unavailable [phone] Fran Dawson MD Unavailable Denisha Gomez MD Unavailable [phone] Jose Bales MD Primary Care Provider Active Problems Patient Care Coordination No te Formatting of this note migh t be different from the original. Mechanism of Injury: SLMF Dx: R FN fx PMHx: COPD on 2-3L, DM, HLD, HTN, MDD, suprapubic catheter Surgeries: 12/07/23 R INFORMATION SYSTEMS PROFESSOR HDC: 01/08/24, DC to SNF WBAT All extremities Global Hip Restrictions for 6 weeks post surgery RTC in 3wks for Suture Removal (Surgery Date- ) May Walk as Tolerated Able to bathe self, groom and Requires assistance May Shower keep wound clean and dry DVT Prophylaxis- ASA 81mg Pain Mgmt- Tylenol 325mg Klondike 10/325 Lidocaine Patches 4% Robaxin 750mg Upcoming Clinic Visit: 01/16/24 Suture Removal? Does Insurance Qualify for In Clinic PT? NO Medicare- [facility] Problem Noted Date Diagnosed Date Lumbar spine pain 04/02/2024 Recurrent falls 12/29/2023 Assessment & Plan (12/29/2023 4:07 PM CDT): Recently admitted with femur fracture repaired this episode fall with lumbar burst fracture Sutures remain in right hip from prior surgery check date for removal right INFORMATION SYSTEMS PROFESSOR 12/07/2023 [place] Closed burst fracture of lumbar vertebra (CMS/HC C) 12/29/2023 Assessment & Plan (12/31/2023 10:23 AM CDT): #L4 burst fx - ortho spine consult - pending MRI lumbar spine without contrast L spine precautions . No deep bending/twisting/lifting heavy objects LSO brace - ordered Hold dvt ppx Q 4 hour neuro checks PT/OT as tolerated - 12/30: Non op per spine, spine signed off Pulmonary embolism 12/29/2023 Assessment & Plan (01/05/2024 10:34 AM CDT): - last TTE 12/08/23; EF 67% - trops 24 > 25 - on 5L NC (up from 2-3L baseline requirement)trending back to 2L - holding heparin drip until MRI lumbar spine done, need to have discussion about AC plan going forward given frequent falls Obtain LE dopplers - 12/30: IR consulted for IVC filter placement. Will hold AC given hx of falls. Heparin gtt held for high risk for falls - 01/01: IR placed IVC filter Follow Up in [address] Bales (PCP) to discuss Filter removal/surveillance Acute deep vein thrombosis (DVT) of right perone al vein 12/29/2023 Assessment & Plan (01/05/2024 10:35 AM CDT): 12/30 and 12/31: Discussion with IR for Filter though in setting of current PE may not be warranted Anticoagulation risk outweighs benefit due to recurrent falls, will hold. - Serial surveillance duplex q7d See PE Urothelial carcinoma of bladder 12/12/2023 Assessment & Plan (12/12/2023 12:41 PM CDT): Presented with suprapubic catheter Clear yellow efflux ABLA (acute blood loss anemia) 12/09/2023 Assessment & Plan (12/11/2023 11:46 AM CDT): - ABLA on likely chronic anemia - Hgb on admission 8.4 - Hgb trend: 8.4- 8.60 9.0 post op- 7.6- 7.6- 7.1- 7.3 - EBL 250 cc - Transfuse for Hgb <7.0 or symptomatic - CBC as indicated Encounter for medication review 12/09/2023 Assessment & Plan (12/29/2023 3:47 PM CDT): C-APAP 1 gram prn C- Albuterol PRN - Amlodipine 5 mg- held C- Symbicort 160-4.5- held (similar ingredient to Trelegy) - Breztri 160-9-4.8- alternative ordered H- Plavix 75 mg- - Jardiance 10 mg (filled 10/07)- held - Klondike 10-325 mg TID - Hydroxyzine 10 mg C- Lyrica 100 mg BID C- Quetiapine 100 mg BID C- Simvastatin 20 mg C- Trazodone 300 mg- (150 mg nightly prn) H-ASA 81 mg daily C-Methocarbamol Assessment & Plan (12/09/2023 12:29 PM CDT): Per dispense report: - Albuterol - Amlodipine 5 mg- held - Symbicort 160-4.5- held (similar ingredient to Trelegy) - Breztri 160-9-4.8- alternative ordered - Plavix 75 mg- held - Jardiance 10 mg (filled 10/07)- held - Klondike 10-325 mg TID - Hydroxyzine 10 mg - Lyrica 100 mg BID - Quetiapine 100 mg BID - Simvastatin 20 mg - Trazodone 300 mg- dose reduced and made PRN Patient also reports taking aspirin 81 mg daily Acute encephalopathy 12/08/2023 Acute metabolic encephalopathy 12/08/2023 Fall 12/08/2023 NSTEMI (non-ST elevated myocardial infarction) ( [facility]/HCC) 12/08/2023 Onychomycosis 12/08/2023 Staring episodes 12/08/2023 Suprapubic catheter ([facility]) 12/08/2023 Assessment & Plan (12/29/2023 3:43 PM CDT): 2/2 hx bladder cancer Assessment & Plan (12/11/2023 11:43 AM CDT): - Urine culture from suprapubic catheter with E faecalis and STENOTROPHOMONAS MALTOPHILIA - 12/07: WBC 9.0 (6.5), Tmax 37.3 - 12/08: WBC 5.2 (9.0), Tmax 37.1 - 12/09: WBC 6.2 (5.2), Tmax 37.7 - 12/10: WBC 4.4 (6.2), Tmax 37.1 - Monitored WBC, fever curve Fall 12/08/2023 Assessment & Plan (12/10/2023 10:15 AM CDT): - Unclear mechanism - Syncope work up - TTE (12/07): Normal LV size, LVEF 67%. Normal RV function. Mild LAE. Calcified AV with mild (SAVI 1.8 cm2, mean 9mmHg). Estimated PASP 45mmHg+RA pressure. Normal caliber IVC. - Carotid duplex: R ICA c/w less than 50% stenosis. L ICA c/w less than 50% stenosis. Atherosclerotic changes of the bilateral common carotid artery without significant doppler findings. Normal antegrade flow in bilateral vertebral arteries. Patent bilateral external carotid arteries with evidence of atherosclerotic plaque. - Orthostatic vital signs (12/09): negative - Telemetry monitoring x 48 hours - Follow up with PCP for mild aortic stenosis Discharge planning issues 12/08/2023 Assessment & Plan (01/05/2024 10:35 AM CDT): - PT/OT rec placement - CM assessment completed - Patient is medically stable for discharge, SW/CM updated. Discharge pending insurance authorization Assessment & Plan (12/11/2023 11:45 AM CDT): - 12/07: POD1, desaturation event/ wean O2, PT/OT, follow WBC and fever curve - 12/08: POD2, monitor Hgb, pending orthostatics - 12/09: chest xray, wean O2, pain control. Patient is medically stable for discharge, SW/CM updated. Discharge pending facility acceptance - 12/10: Patient is medically stable for discharge, SW/CM updated. Discharge pending facility acceptance Preoperative cardiovascular examination 12/07/19 Assessment & Plan (12/07/2023 6:32 AM CDT): Planned procedure and risk: Major ORTHOPEDIC/SPINE surgery - moderate risk Surgery is urgent (6-24H) or emergent (<6H): Yes Cardiovascular contraindications to surgery present: Unstable cardiac arrhythmia: No Acute coronary syndrome: No Acute heart failure: No Severe valvular disease: No Functional capacity good (>4 METS): Yes Pertinent available cardiovascular testing data: EKG (12/06/23) - NSR, no signs of ischemic changes RCRI = 1 (pre-operative treatment with insulin) Based on type of procedure, patient co-morbidities and functional capacity, she is at least at LOW/MILD 30-day perioperative risk of cardiovascular events. Recommendations: - Further cardiovascular testing needed for risk stratification/mitigation: No. - Telemetry - Appreciate IPAP recs Other fracture of right femu r, initial encounter for closed fracture 12/06/2023 Assessment & Plan (12/10/2023 10:14 AM CDT): - R femoral neck fx - Ortho Trauma consulted -12/06 R INFORMATION SYSTEMS PROFESSOR [Deana, Ortho Trauma] - WBAT RLE - Anterior hip precautions - Stitch/staple removal 3 weeks post op - PT/OT, pain control - Bone health referral at discharge - Dressing changes daily and as needed - Follow up with Ortho Trauma on 01/15 COPD (chronic obstructive pulmonary disease) Assessment & Plan (12/11/2023 11:45 AM CDT): - Home medications: albuterol, Breztri, Symbicort - correction smoking hx - 2L O2 at home, questionable compliance - Duo-nebs and pulmicort reordered - SpO2 >88% - 12/07: desat to 70s without supplemental O2, placed briefly on CPAP with recovery. Patient drowsy, VBG post cpap 7.38/47/66/28. Requiring 6 L via NC, wean as able to home oxygen requirements. - 12/08: patient on 6 L O2 via NC. Wean as able. Resumed equivalent to home inhalers. - 12/09: patient continues on 6 L O2 via NC. During rounds patient's SpO2 95% on 6 L NC. Weaned to 5 L NC. Continue to wean. - Chest xray (12/09): Mild bibasilar atelectasis has improved. No pneumothorax. Hypertension 12/06/2023 Assessment & Plan (01/06/2024 1:50 PM CDT): - Chronic - Home amlodipine 5 mg daily - Hold due to hypotensive bp resume when appropriate - 01/05: Restarted home amlodipine Assessment & Plan (12/12/2023 11:40 AM CDT): - Home amlodipine 10 mg daily held, resume as needed 12/11 at discharge resumed Amlodipine 5mg for hypertension Hyperlipidemia 12/06/2023 Assessment & Plan (12/29/2023 3:49 PM CDT): Chronic Continue atorvastatin Assessment & Plan (12/09/2023 12:13 PM CDT): - Simvastatin 20 mg resumed - hold ASA 81 mg, resumed 12/08 Acute pain 12/06/2023 Assessment & Plan (12/11/2023 11:46 AM CDT): Home norco 10-325 TID started Q6Hr - d/c'd - Tylenol 325 mg q6h - Pregabalin - Robaxin - Lidoderm patch x2 - Oxycodone 5 mg q4h PRN- d/c'd - 12/08: patient reporting continued pain. Reports home Klondike is helpful at home. Will change oxycodone back to home Klondike 10-325 mg q8h PRN. - 12/09: toradol 15 mg IV q6h x 3 doses. Increase Robaxin to 750 mg - 12/10: increase Klondike to q6h PRN Mood disorder 12/06/2023 Assessment & Plan (12/06/2023 1:09 PM CDT): - resume home seroquel 100 mg BID Insomnia 12/06/2023 Assessment & Plan (12/06/2023 1:09 PM CDT): - Resume home trazodone 150 mg nightly PRN Gangrene of toe of left foot ([facility]) 4 Cigarette smoker 03/24/2023 Diabetic peripheral neuropathy ([facility]) 023 Hammer toe 03/24/2023 Peripheral arterial occlusive disease ([facility]) 03/24/2023 Acute urinary tract infection 09/27/2022 Retention of urine 09/10/2022 Recurrent urinary tract infection 08/22/2022 Overactive bladder 07/22/2022 Vitamin D deficiency 07/22/2022 Neuropathy due to type 2 diabetes mellitus ([facility]) 07/23/2021 Ulcer of foot due to type 2 diabetes mellitus ([facility]) 07/23/2021 Unsteadiness on feet 01/05/2021 Superficial mycosis, unspecified 12/28/2020 Acute and chronic respirator y failure with hypercapnia ([facility]) 12/08/2020 Hypomagnesemia 12/08/2020 Major depressive disorder, recurrent, unspecifie d 12/08/2020 Muscle weakness (generalized) 12/08/2020 Neoplasm of unspecified behavior of bladder 11/17 Obstructive sleep apnea (adult) (pediatric) 11/17 Other abnormalities of gait and mobility 021 Polyneuropathy, unspecified 12/08/2020 Presence of other specified devices 12/08/2020 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 12/08/2020 Assessment & Plan (12/29/2023 3:49 PM CDT): Chronic A1C 5.8 (12/09/23) Glucose monitoring Ssi Hold home Jardiance Assessment & Plan (12/12/2023 11:44 AM CDT): - Hgb A1c 5.8 - Patient reports only taking insulin at home if BG >150 - Low dose SSI and accu-checks ordered On day of discharge she resumed home Jardiance Unspecified abnormal findings in urine Chronic respiratory failure with hypoxia (CMS/HC C) 10/30/2020 Disc degeneration, lumbar 03/15/2020 Spinal stenosis of lumbar re gion with neurogenic claudication 03/15/2020 Radiculopathy, lumbosacral region 02/23/2020 Acute hepatitis A 11/19/2019 Abnormal LFTs 11/18/2019 Acute duodenitis 11/18/2019 Pneumonia 11/18/2019 Assessment & Plan (01/05/2024 10:34 AM CDT): POA On levaquin at home Changed to CTX on admission 12/28 d/c CTX resume Levaquin daily x 3 Coarse Completed Sepsis with acute hypoxic respiratory failure Tobacco abuse 11/18/2019 Mixed stress and urge urinary incontinence 01/02 Nocturnal enuresis 01/02/2018 Moderate episode of recurrent major depressive d isorder 11/12/2017 Diabetic polyneuropathy asso ciated with type 2 diabetes mellitus ([facility]) 08/29/2017 Hypoxia 08/29/2017 Panlobular emphysema 08/29/2017 Assessment & Plan (12/29/2023 3:52 PM CDT): Chronic Home O2 2 liters Goal SPO2 greater than 88% Prn albuterol Scheduled Trelegy Ellipta for Symbicort Long-term current use of opiate analgesic 2016 Cervicalgia 04/28/2017 Chronic bilateral low back pain with bilateral s ciatica 04/28/2017 Assessment & Plan (12/06/2023 1:00 PM CDT): - Home lyrica 100 mg BID resumed Thoracic spine pain 04/28/2017 Pain in joint involving multiple sites 7 Abdominal hernia 01/28/2017 Venous insufficiency 01/13/2017 Abdominal pannus 01/11/2017 Edema, peripheral 12/05/2016 Hemochromatosis 10/21/2016 Osteoarthritis of shoulder 09/10/2016 Overview (10/11/2016): Primary osteoarthritis of both shoulders Disseminated candidiasis (CMS/HCC) 08/26/2016 Traumatic arthropathy involving shoulder region 07/30/2016 Overview (10/11/2016): Post-traumatic osteoarthritis of left shoulder Morbid obesity 07/30/2016 Overview (10/11/2016): Severe obesity with body mass index (BMI) of 36.0 to 36.9 Secondary polycythemia 03/28/2016 Arthralgia of hip 02/19/2016 Overview (08/22/2016): Right hip pain Mass of hip region 02/19/2016 Overview (08/22/2016): Mass of right hip region Tobacco dependence syndrome 03/17/2008 Current Oncology Plans No current plan information found. Past Plans No past plan information found. Radiation Treatments * No radiation treatments are documented for this patient in [facility]. Treatments may have been administered in another system. Lifetime Dose Tracking * Chemical Lifetime Dose Automatic Entry Manual Entr y Fluoro Time 4.03 minutes 4.03 minutes 0 minutes Air kerma at the reference point (Ka,r) 32.42 mGy 3 2.42 mGy 0 mGy
--- OUTSIDE RECORDS SUMMARY | 2024-06-24 22:22 | XMS_ITS | Referral Summary ---
Author Organization [facility] Address [address] [place] [address] Care Team Providers Care Electronics Engineering Technician Name Role Phone Cayla Guillen RN Unavailable Unavailable Cayla Guillen RN Unavailable Unavailable Shira Anne MD Unavailable [phone] Fran Dawson MD Unavailable Denisha Gomez MD Unavailable [phone] Jose Bales MD Primary Care Provider Encounters Date Type Department Care Team Description 04/02/2024 10:47 AM RENT COLLECTOR - 04/02/2024 11:59 PM RENT COLLECTOR Hospital Encounter [facility] [address] [place] [address] Lumbar spine pain Discharge Disposition: Discharge to home or self care 04/02/2024 11:00 AM RENT COLLECTOR Office Visit [facility] [address] [facility] 12th [place] [address] [place] [address] Hadley Reynoso MD Lumbar spine pain (Primary Dx); Closed stable burst fracture of fourth lumbar vertebra with delayed healing, subsequent encounter from Last 3 Months Allergies Active Allergy Reactions Criticality Noted Date Comments Atorvastatin Muscle pain Medium Clarithromycin Unknown Medium Fentanyl Shortness of breath High Patient states only problems with fentanyl patch Gabapentin Dizziness Medium 08/06/2018 Metformin Muscle pain Medium 08/06/2018 Morphine Nausea only Low Paroxetine Rash High Varenicline Hallucinations High Medications albuterol HFA (VENTOLIN HFA) 90 mcg/actuation inhaler inhale 2 puff by inhalation route every 4 - 6 hours as needed 0 Inhaler 0 6 Active nystatin cream apply by topical route 2 times every day to the affected area(s) 0 0 6 Active amLODIPine (NORVASC) 5 mg tablet take 1 tablet by oral route every day 0 0 6 Active budesonide-form oterol (SYMBICORT) 160-4.5 mcg/actuation inhaler Inhale 2 puffs 2 (two) times a day Rinse mouth with water after use to reduce aftertaste and incidence of candidiasis. Do not swallow. Active Breztri Aerosphere 160-9-4.8 mcg/actuation inhaler Inhale 2 puffs 2 (two) times a day 4 Active Jardiance 10 mg tablet Take 1 tablet (10 mg total) by mouth daily Active hydrOXYzine (ATARAX) 10 mg tablet Take 1 tablet (10 mg total) by mouth 2 (two) times a day as needed for anxiety 4 Active Compact Space Chamber spacer Inhale 1 Device as directed (use as directed with inhaler) 4 Active pregabalin (LYRICA) 100 mg capsule Take 1 capsule (100 mg total) by mouth 2 (two) times a day 4 Active simvastatin (ZOCOR) 20 mg tablet Take 1 tablet (20 mg total) by mouth nightly 4 Active acetaminophen (TYLENOL) 325 mg tabletIndicatio ns:Pain Take 1 tablet (325 mg total) by mouth every 8 (eight) hours as needed for pain 4 Active senna-docusate (PERICOLACE) 8.6-50 mg Take 1 tablet by mouth 2 (two) times a day 4 Active Additional Information Patient not taking.Reported on 04/02/2024 methocarbamoL (ROBAXIN) 750 mg tablet Take 1 tablet (750 mg total) by mouth 3 (three) times a day 4 Active polyethylene glycol (MIRALAX) 17 gram packetIndicatio ns:constipation Take 1 packet (17 g total) by mouth daily 4 Active HYDROcodone-ja taminophen (NORCO) 10-325 mg per tabletIndicatio ns:Pain Take 1 tablet by mouth every 6 (six) hours as needed for pain 20 tablet 4 Active aspirin 81 mg enteric coated tabletIndicatio ns:prevention of thrombosis Take 1 tablet (81 mg total) by mouth 2 (two) times a day for 14 days 28 tablet 4 Active QUEtiapine (SEROquel) 200 mg tablet Take 1 tablet (200 mg total) by mouth nightly 4 Active traZODone (DESYREL) 300 mg tabletIndicatio ns:insomnia associated with depression Take 1 tablet (300 mg total) by mouth nightly 4 Active Active Problems Patient Care Coordination No te Formatting of this note migh t be different from the original. Mechanism of Injury: SLMF Dx: R FN fx PMHx: COPD on 2-3L, DM, HLD, HTN, MDD, suprapubic catheter Surgeries: 12/07/23 R FARM ADVISER HDC: 01/08/24, DC to SNF WBAT All extremities Global Hip Restrictions for 6 weeks post surgery RTC in 3wks for Suture Removal (Surgery Date- ) May Walk as Tolerated Able to bathe self, groom and Requires assistance May Shower keep wound clean and dry DVT Prophylaxis- ASA 81mg Pain Mgmt- Tylenol 325mg [place] 10/325 Lidocaine Patches 4% Robaxin 750mg Upcoming Clinic Visit: 01/16/24 Suture Removal? Does Insurance Qualify for In Clinic PT? NO Medicare- [facility] Problem Noted Date Diagnosed Date Lumbar spine pain 04/02/2024 Recurrent falls 12/29/2023 Assessment & Plan (12/29/2023 4:07 PM CDT): Recently admitted with femur fracture repaired this episode fall with lumbar burst fracture Sutures remain in right hip from prior surgery check date for removal right FARM ADVISER 12/07/2023 [place] Closed burst fracture of lumbar [...] Jardiance 10 mg (filled 10/07)- held - [place] 10-325 mg TID - Hydroxyzine 10 mg [...] Jardiance 10 mg (filled 10/07)- held - [place] 10-325 mg TID - Hydroxyzine 10 mg - Lyrica 100 mg BID - Quetiapine 100 mg BID - Simvastatin 20 mg - Trazodone 300 mg- dose reduced and made PRN Patient also reports taking aspirin 81 mg daily Acute encephalopathy 12/08/2023 Acute metabolic encephalopathy 12/08/2023 Fall 12/08/2023 NSTEMI (non-ST elevated myocardial infarction) ( [facility]) 12/08/2023 Onychomycosis 12/08/2023 Staring episodes 12/08/2023 Suprapubic catheter ([facility]) 12/08/2023 Assessment & Plan (12/29/2023 3:43 PM [...] fx - Ortho Trauma consulted -12/06 R FARM ADVISER [Deana, Ortho Trauma] - WBAT RLE - Anterior hip precautions - Stitch/staple removal 3 weeks post op - PT/OT, pain control - Bone health referral at discharge - Dressing changes daily and as needed - Follow up with Ortho Trauma on 01/15 COPD (chronic obstructive pulmonary disease) Assessment & Plan (12/11/2023 11:45 AM CDT): - Home medications: albuterol, Breztri, Symbicort - intermediate frame tender smoking hx - 2L O2 at home, [...] 12/08: patient reporting continued pain. Reports home Meadow Grove is helpful at home. Will change oxycodone back to home [place] 10-325 mg q8h PRN. - 12/09: toradol 15 mg IV q6h x 3 doses. Increase Robaxin to 750 mg - 12/10: increase [place] to q6h PRN Mood disorder 12/06/2023 Assessment & Plan (12/06/2023 1:09 PM CDT): - resume home seroquel 100 mg BID Insomnia 12/06/2023 Assessment & Plan (12/06/2023 1:09 PM CDT): - Resume home trazodone 150 mg nightly PRN Gangrene of toe of left foot ([facility]) 4 Cigarette smoker 03/24/2023 Diabetic peripheral neuropathy ([facility]) 023 Hammer toe 03/24/2023 Peripheral arterial occlusive disease ([facility]) 03/24/2023 Acute urinary tract infection 09/27/2022 Retention of urine 09/10/2022 Recurrent urinary tract infection 08/22/2022 Overactive bladder 07/22/2022 Vitamin D deficiency 07/22/2022 Neuropathy due to type 2 diabetes mellitus ([facility]) 07/23/2021 Ulcer of foot due to type 2 diabetes mellitus ([facility]) 07/23/2021 Unsteadiness on feet 01/05/2021 Superficial mycosis, unspecified 12/28/2020 Acute and chronic respirator y failure with hypercapnia ([facility]) 12/08/2020 Hypomagnesemia 12/08/2020 Major depressive disorder, recurrent, [...] home Jardiance Unspecified abnormal findings in urine 1 Chronic respiratory failure with hypoxia (CMS/HC C) [...] asso ciated with type 2 diabetes mellitus ([facility]) 08/29/2017 Hypoxia 08/29/2017 Panlobular emphysema 08/29/2017 Assessment [...] right hip region Tobacco dependence syndrome 03/17/2008 Social History Tobacco Use Types Packs/Day Years Used Date Smoking Tobacco: Every Day Cigarettes 0.5 60.1 Started: 1966 Smokeless Tobacco: Never Tobacco Cessation:Ready to Q uit: Yes Alcohol Use Standard Drinks/Week Comments Not Currently 0 (1 standard drink = 0.6 oz pur e alcohol) [facility] Utilities Answer Date Recorded In the past 12 months has [facility] [employer], gas, oil, or water Fio threatened to shut off services in your home? No 12/29/2023 Humiliation, Afraid, Rape, and Kick questionnair e Answer Date Recorded Within the last year, have y ou been afraid of your partner or ex-partner? No 12/29/2023 Within the last year, have y ou been humiliated or emotionally abused in other ways by your partner or ex-partner? No Within the last year, have y ou been kicked, hit, slapped, or otherwise physically hurt by your partner or ex-partner? No 12/29/2023 Within the last year, have y ou been raped or forced to have any kind of sexual activity by your partner or ex-partner? No 12/29/2023 Social Connection and Isolation Panel [NHANES] A nswer Date Recorded In a typical week, how many times do you talk on the phone with family, friends, or neighbors? Twice a week 12/29/19 24 How often do you get togethe r with friends or relatives? Twice a week 12/29/2023 How often do you attend chur ch or jain services? 1 to 4 times per year 12/29/2023 Do you belong to any clubs o r organizations such as hoahaoism groups, unions, fraternal or athletic groups, or school groups? No 12/29/2023 How often do you attend meet ings of the clubs or organizations you belong to? Never 12/29/2023 Are you , , di vorced, , never , or living with a partner? 12/29/2023 AUDIT-C Answer Date Recorded Q1: How often do you have a drink containing alc ohol? Never 12/07/2023 Average Number of Drinks Not on file 024 Frequency of Binge Drinking Not on file 11/17 Overall Financial Resource Strain (CARDIA) Answe r Date Recorded How hard is it for you to pa y for the very basics like food, housing, medical care, and heating? Not very hard 12/29/2023 PHQ-2 Answer Date Recorded PHQ-2 Total Score 0 12/29/2023 [facility] Occupational Stress Questionnaire Answer Date Recorded Do you feel stress - tense, restless, nervous, or anxious, or unable to sleep at night because your mind is troubled all the time - these days? To some extent 12/29/2023 Exercise Vital Sign Answer Date Recorde d On average, how many days pe r week do you engage in moderate to strenuous exercise (like a brisk walk)? 0 days 12/29/2023 On average, how many minutes do you engage in exercise at this level? 0 min 12/29/2023 Hunger Vital Sign Answer Date Recorded Within the past 12 months, y ou worried that your food would run out before you got the money to buy more. Never true 12/29/19 24 Within the past 12 months, t he food you bought just didn't last and you didn't have money to get more. Never true 12/29/2023 PRAPARE - Transportation Answer Date Re corded In the past 12 months, has l ack of transportation kept you from medical appointments or from getting medications? No 12/17 In the past 12 months, has l ack of transportation kept you from meetings, work, or from getting things needed for daily living? No 12/29/2023 Housing Stability Vital Sign Answer Randell e Recorded In the last 12 months, was t here a time when you were not able to pay the mortgage or rent on time? No 12/29/2023 In the past 12 months, how m any times have you moved where you were living? 1 12/29/2023 At any time in the past 12 m [facility], were you homeless or living in a senior care (including now)? No 12/29/2023 Personal Safety Answer Date Recorded Have you ever been in or are you currently in a harmful physical or emotional relationship or is someone making you feel afraid or unsafe? Denies 12/29/2023 Comments No Sex and Gender Information Value Date Recorded Sex Assigned at Not on file Legal Sex Female 11:12 PM RENT COLLECTOR Gender Identity Not on file Sexual Orientation Not on file Last Filed Vital Signs Vital Sign Reading Time Taken Comments Blood Pressure 128/52 01/08/2024 11:00 AM CDT Pulse 69 01/08/2024 11:00 AM CDT Temperature 36.3 C (97.3 F) 01/08/2024 11:00 AM CDT Respiratory Rate 18 01/08/2024 11:0 0 AM CDT Oxygen Saturation 94% 01/08/2024 11: 00 AM CDT Inhaled Oxygen Concentration - - Weight 63.5 kg (139 lb 15.9 oz) 12/30/2023 2:17 AM CDT Height 157.5 cm (5' 2.01 ) 12/30/2023 2:17 AM CD T Body Mass Index 25.6 12/30/2023 2:17 AM CDT Plan of Treatment Not on file Goals Goal Patient Goal Type Associated Problems Recent Progress Patient-Stated? Author Exercise times per week Exercise No change(2017 7:25 AM RENT COLLECTOR) No Cayla Guillen, CHANTAL Note: 5 times a week. 50%= Score 3 She is currently walking on the treadmill every day for about 7 minutes. Reduce tobacco use (cigarettes, smokeless, etc) Tobacco Use No change(2017 7:25 AM RENT COLLECTOR) Cayla Leos RN Note: She is currently trying to stop smoking and is down to only half of a pack per day. Medical Devices Implanted Type Area Jewelry Maker Device Identifier Shelf Expiration Date Model / Serial / Lot [employer] Simplex P Radiopaque Full Dose Cement Bone Sterile 6191-1-010 - S0 - [id number] Implanted:Qty: 1 on 12/07/2023 by Marnie Leblanc MD at [facility] Bone Cement Right: Hip [employer] [id number] 01/16/2026 6191-1-010 / 0 / [employer] Simplex P Full Dose Radiopaque Preblend Cement Bone Tobramycin 6197-9-010 - S0 - [id number] Implanted:Qty: 1 on 12/07/2023 by Marnie Leblanc MD at [facility] Bone Cement Right: Hip [employer] [id number] 03/18/2025 6197-9-010 / 0 / Depuy Orth[employer] Inc Self-Centering 46mm 28mm Hip Femur Head Bipolar Sterile Brown [id number] - S0 - [id number] Implanted:Qty: 1 on 12/07/2023 by Marnie Leblanc MD at [facility] Other - see comments Right: Hip [employer] Inc [id number] 12/17/2027 [id number] / 0 / Dep[employer] Inc Articul/Selvin 28mm Hip +1.5mm /14 Taper Head Femoral Cocr Sterile Latex Free 1365-11-000 - S0 - [id number] Implanted:Qty: 1 on 12/07/2023 by Marnie Leblanc MD at [facility] Other - see comments Right: Hip [employer] Inc [id number] 08/16/2028 1365--000 / 0 / Mur[employer] Nephew/Richco/Or tho Prep-Im Plug [place] Sponge Suction Hip Kit Thr Latex Free 384548 - S0 - [id number] Implanted:Qty: 1 on 12/07/2023 by Marnie Leblanc MD at [facility] Other - see comments Right: Hip [employer]/ Ortho [id number] 07/07/2033 152847 / 0 / [id number] Depuy [employer] Inc Cementralizer 9.25mm Cemented Hip Femur Centralizer Stem Pmma Latex Free [id number] - S0 - [id number] Implanted:Qty: 1 on 12/07/2023 by Marnie Leblanc MD at [facility] Other - see comments Right: Hip [employer] Inc [id number] 07/16/2028 [id number] / 0 / Depuy Orth[employer]ed[employer] Inc [place] 108mm Cemented Hip 3 05/01 Standard Offset Taper Stem [id number] - S0 - [id number] Implanted:Qty: 1 on 12/07/2023 by Marnie Leblanc MD at [facility] Other - see comments Right: Hip [employer] Inc [id number] 05/18/2028 [id number] / 0 / [employer] Charito Jugular Venal Cava Filter Dz325s - [id number] Implanted:Qty: 1 on 01/02/2024 at [facility] [employer] 10/16/2026 [id number] / / [id number] Explanted Type Area Jewelry Maker Device Identifier Shelf Expiration Date Model / Serial / Lot [employer] 1192 [place] Lead - Sn/A - [id number] Implanted:Qty: 1 on 08/07/2018 by Angely Lucero MD at [facility] N/A: Thoracic [employer] [id number] 06/29/2020 1192 / N/A / [id number] Description:Fascia above T-8 [employer] 1192 [place] Lead - Sn/A - [id number] Implanted:Qty: 1 on 08/07/2018 by Angely Lucero MD at [facility] N/A: Thoracic [employer] [id number] 06/29/2020 1192 / N/A / [id number] Description:Fascia above T-7 [employer] 3186ans Octrode 60cm 8 Electrode Lead Percutaneous Kit Neurostimulator - [id number] - [id number] Implanted:Qty: 1 on 08/07/2018 by Angely Lucero MD at [facility] N/A: Thoracic [employer] [id number] 03/02/2020 [id number] / [id number] / N/A Description:Thoracic 8 [employer] 3186ans Octrode 60cm 8 Electrode Lead Percutaneous Kit Neurostimulator - [id number] - [id number] Implanted:Qty: 1 on 08/07/2018 by Angely Lucero MD at [facility] N/A: Thoracic [employer] [id number] 03/01/2020 [id number] / [id number] / Description:Thoracic 7 [employer] 3662 Proclaim Elite 2.63inx1.98in 7 Ipg Implantable Recharge Free - [id number] - [id number] Implanted:Qty: 1 on 08/07/2018 by Angely Lucero MD at [facility] Left: Back [employer] [id number] 06/03/2020 3662 / [id number] / Description:Left posterior l ower quadrant battery Procedures Procedure Name Priority Date/Time Associated Diagnosis Comments XR SPINE LUMBAR 2 OR 3 VIEWS Schedule Routine, Read Routine (OP Routine) 04/02/2024 10:53 AM RENT COLLECTOR Lumbar spine pain EGFR Routine 01/04/2024 10:05 PM CDT HEMOGLOBIN A1C Routine 12/08/2023 9:56 PM CDT SERUM HEPATITIS PANEL Routine 03/04/2016 9:39 AM CDT from Last 3 Months or Most Recently Relevant to Health Maintenance Results * XR Spine Lumbar 2 Or 3 View (04/02/2024 10:53 AM RENT COLLECTOR) Anatomical Region Laterality Modality Spine N/A Computed Radiogr aphy 04/02/2024 11:5 6 AM RENT COLLECTOR Impressions 04/02/2024 11:56 AM RENT COLLECTOR 1. Unchanged L4 burst fracture with grade 1 anterolisthesis of L4 on L5. Electronically signed by: Shayne Muniz D.O. Narrative 04/02/2024 11:56 AM RENT COLLECTOR EXAMINATION: XR SPINE LUMBAR 2 OR 3 VIEWS HISTORY: lumbar fx FINDINGS: Comparison made with 12/30/2023. Unchanged L4 burst fracture without interval Roper. Unchanged grade 1 anterolisthesis of L4 on L5. Wezndmrb-ar-dhyfdr degenerative disc disease throughout the lumbar spine. No acute fractures. Vascular calcifications. IVC filter noted. Right hip hemiarthroplasty partially visualized. Procedure Note Shayne Muniz DO - 04/02/2024 EXAMINATION: XR SPINE LUMBAR 2 OR 3 VIEWS HISTORY: lumbar fx FINDINGS: Comparison made with 12/30/2023. Unchanged L4 burst fracture without interval Roper. Unchanged grade 1 anterolisthesis of L4 on L5. Xzjjxnmr-tn-fzdwla degenerative disc disease throughout the lumbar spine. No acute fractures. Vascular calcifications. IVC filter noted. Right hip hemiarthroplasty partially visualized. IMPRESSION: 1. Unchanged L4 burst fracture with grade 1 anterolisthesis of L4 on L5. Electronically signed by: Shayne Muniz D.O. Hadley Reynoso MD IMG XR PROCEDURES Final Result * eGFR (01/04/2024 10:05 PM CDT) eGFR 62 >=60 mL/min/1. 73 m2 Comment: Interpretive Data Reference Interval Normal >/= 90 mL/min/1.73m2 Mildly decreased* 60 - 89 mL/min/1.73m2 Mildly to moderately decreased 45 - 59 mL/min/1.73m2 Moderately to severely decreased 30 - 44 mL/min/1.73m2 Severely decreased 15 - 29 mL/min/1.73m2 Kidney Failure < 15 mL/min/1.73m2 *Relative to young adult level Estimated glomerular filtration rate is determined by the 2020 CKD-EPI equation recommended by the National Kidney Foundation (A Unifying Approach to GFR Estimation: Recommendations of the NKF-ASK Task Force on Reassessing the Inclusion of Race in Diagnosing Kidney Disease, JASN 202). The CKD-EPI equation should not be used for patients with unstable renal function and has not been validated in children and those over 70. Current interpretive data was last reviewed 2021. Blood 01/04/2024 10:0 5 PM CDT 01/04/2024 10:47 PM CDT us Semaj Lovell DO LAB BLOOD ORDERABLES Final Result Performing Organization Address [facility] Co de Phone Number [facility] Department [place] [address] * (ABNORMAL) Hemoglobin A1c (12/08/2023 9:56 PM CDT) Pathologist [facility] Hgb A1C 5.8(H) 4.0 - 5.6 % Estimated Average Glucose 120 mg/dL [facility] Comment: The ADA recommends reporting an estimated Average Glucose (eAG) with all Hemoglobin A1c results using the equation derived from a study of 507 normal and diabetic adults. Minority populations were underrepresented and children were not included. (Diabetes Care 2020; 43(S1): S66-S76). The eAG is not equivalent to a fasting glucose. Blood 12/08/2023 9:56 PM CDT 12/08/2023 10:38 PM CDT us Harmony Sullivan MD LAB BLOOD ORDERABLES Final Res ult Performing Organization Address [facility] Co de Phone Number [facility] Department [place] [address] * (ABNORMAL) Serum Hepatitis panel (03/04/2016 9:39 AM CDT) Pathologist [facility] HAV ab, IgM Negative Negative CDR HISTORICAL RESULTS HBV surface ag Negative Negative CDR HISTORICAL RESULTS HBV core ab, IgM Indeterminat e(A) Negative CDR HISTORICAL RESULTS Comment:Results inconclusive , suggest repeat testing in 1 week HCV ab Positive(A) Negative CDR HISTORICAL RESULTS Comment:Recommend confirmati on by PCR testing. Serum 03/04/2016 9:39 AM CDT Narrative CDR HISTORICAL RESULTS - 03/08/2016 4:40 AM CDT today Donna Lux MD LAB BLOOD ORDERABLES F inal Result CDR HISTORICAL RESULTS from Last 3 Months or Most Recently Relevant to Health Maintenance Insurance MEDICARE [facility] Address: [address] [address] [place] [address] [facility] MEDICARE [facility] Address: [address] [address] [place] [address] [employer] MEDICARE [facility] Address: [address] [address] [place] [address] [facility] Advance Directives For more information, please contact: [phone] * Full Code (Latest Code Status on File) Date Activated Date Inactivated Comments 12/29/2023 7:54 AM 01/08/2024 5:28 PM * Full Code Date Activated Date Inactivated Comments 12/06/2023 7:58 AM 12/12/2023 5:46 PM Care Teams Electronics Engineering Technician Relationship Specialty Start Date End Date Jose Bales MD [address] [address] PCP - General Gastroenterology 12/09/23 Cayla Guillen, RN Registered Nurse 04/28/17 Cayla Guillen, RN Registered Nurse 06/27/17 Shira Anne MD [address] [place], [place] [id number] Urologist Urology 11/30/20 [place] [address] [facility] [address] [place] [address] Trimmer Sorter Cardiovascular Disease 11/30/20 Denisha Gomez MD [address] [place] [address] Consulting Physician Radiation Oncology 12/01/20
--- OUTSIDE RECORDS SUMMARY | 2024-06-24 22:22 | XMS_ITS | Continuity of Care Document ---
Author Organization [facility] Main Address [address] [place] [id number] Insurance Providers Payer Plan Claims Address Claims Phone Policy Number Group Number Relation Employer Guarantor Name Guarantor Guarantor Address Guarantor Phone [employer] Gold Plus HMO [employer] GOLD PLUS H[employer] CLAIMS OFFICE, [address] [address], [place] [address] tel:[phone] Self Casimiro Atkinson [address] [place], [place] [address] [address] MEDICA ID - OUT OF STATE MEDIC AID - OUT OF STATE [address] [address], [place] [address] tel:[phone] Drew Atkinson [address] [place] [address] [place] [address] MEDICA RE MEDIC ARE [address], [place] [address] tel:[phone] Drew Atkinson [address] [place], [place] [address] [address] Problems Condition ICD9 code ICD10 code SNOMED code Start Date End Date S tatus Fall on same level, unspecified, initial encounter W18.30XA Final Acute cystitis without hematuria N30.00 Final Chronic obstructive pulmonary disease, unspecified J44.9 Final Restlessness and agitation R45.1 Final Essential (primary) hypertension I10 Final Type 2 diabetes mellitus without complications E11.9 Fin al Obstructive sleep apnea (adult) (pediatric) G47.33 Final Chronic obstructive pulmonary disease, unspecified J44.9 Final Personal history of nicotine dependence Z87.891 Final Results No Results Allergies, adverse reactions, alerts No known allergies and adverse reactions Medications No administered medications reported Vital Signs Date Vital Result Comment 03/14/2023 Inhaled Oxygen Concentration 32.0 % N Temperature 98.2 [degF] N Oxygen Saturation 93 % N Respiratory Rate 20 /min N Heart Rate 94 /min N Blood Pressure Systolic 120 mm[Hg] N Blood Pressure Diastolic 60 mm[Hg] N Body Height 62 [in_i] N Body Weight 123 [lb_av] N Body Mass Index 22.5 kg/m2 N 04/23/2023 Inhaled Oxygen Concentration 38.0 % N Temperature 97.5 [degF] N Oxygen Saturation 92 % N Respiratory Rate 22 /min N Heart Rate 120 /min N Blood Pressure Systolic 114 mm[Hg] N Blood Pressure Diastolic 60 mm[Hg] N Body Height 62 [in_i] N 05/16/2023 Inhaled Oxygen Concentration 38.0 % N Temperature 98.8 [degF] N Oxygen Saturation 98 % N Respiratory Rate 20 /min N Heart Rate 88 /min N Blood Pressure Systolic 122 mm[Hg] N Blood Pressure Diastolic 96 mm[Hg] N Body Height 62 [in_i] N Body Weight 116 [lb_av] N Body Mass Index 21.2 kg/m2 N Social History No smoking Hx information available Functional Status Category Condition Date Problem (Feeding: Independent) Feeding: Independ ent 04/23/2023 Problem (Bathing: Independen t (or in shower)) Bathing: Independent (or in shower) 04/23/2023 Problem (Grooming: Independe nt face/hair/teeth/ shaving (implements provided)) Grooming: Independent face/hair/teeth/ shaving (implements provided) 04/23/2023 Problem (Dressing: Independe nt (including buttons, zips, laces, etc.)) Dressing: Independent (including buttons, zips, laces, etc.) 04/23/2023 Problem (Bowels: Continent) Bowels: Continent Problem (Bladder: Continent) Bladder: Continent 04/23/2023 Problem (Toilet use: Indepen dent (on and off, dressing, wiping)) Toilet use: Independent (on and off, dressing, wiping) 04/23/2023 Problem (Transfers (bed to c hair and back): Independent) Transfers (bed to chair and back): Independent 04/23/2023 Problem (Mobility (on level surfaces): Independent (but may use any aid; for example, stick) >50 yards) Mobility (on level surfaces): Independent (but may use any aid; for example, stick) >50 yards 04/23/2023 Problem (Stairs: Unable) Stairs: Unable 023 Problem (Total score: 90) Total score: 90 2022 Problem (Feeding: Independent) Feeding: Independ ent 05/16/2023 Problem (Bathing: Independen t (or in shower)) Bathing: Independent (or in shower) 05/16/2023 Problem (Grooming: Independe nt face/hair/teeth/ shaving (implements provided)) Grooming: Independent face/hair/teeth/ shaving (implements provided) 05/16/2023 Problem (Dressing: Independe nt (including buttons, zips, laces, etc.)) Dressing: Independent (including buttons, zips, laces, etc.) 05/16/2023 Problem (Bowels: Continent) Bowels: Continent Problem (Bladder: Incontinen t, or catheterized and unable to manage alone) Bladder: Incontinent, or catheterized and unable to manage alone 05/16/2023 Problem (Toilet use: Indepen dent (on and off, dressing, wiping)) Toilet use: Independent (on and off, dressing, wiping) 05/16/2023 Problem (Transfers (bed to c hair and back): Independent) Transfers (bed to chair and back): Independent 05/16/2023 Problem (Mobility (on level surfaces): Independent (but may use any aid; for example, stick) >50 yards) Mobility (on level surfaces): Independent (but may use any aid; for example, stick) >50 yards 05/16/2023 Problem (Stairs: Unable) Stairs: Unable 023 Problem (Total score: 80) Total score: 80 2022 Mental Status Category Condition Date Cognitive function Normal 04/23/2023
--- OUTSIDE RECORDS SUMMARY | 2024-06-24 22:22 | XMS_ITS | Referral Summary ---
Author Organization [facility] Address [address] [facility] [place] [address] Care Team Providers Care Cracking And Fanning Machine Operator Name Role Phone Griffin Weiss MD Primary Care Provider [phone] Source Comments [facility],non-owned Affiliates and Associated Physician Practices is amultiple site organization consisting of ambulatory clinics and hospital sitesin [place], [place] and [place]. This disclosure is being madepursuant to the Care Everywhere program and may not contain all information available regarding this patient. Last updated 18.[facility] Allergies Active Allergy Reactions Criticality Noted Date [...] Mass Index 34.8 10/31/2020 3:36 AM CDT Functional Status Functional Status Response Date of Assess ment Is person deaf or have serious hearing difficult y? No 11/01/2020 Is person blind or have serious difficulty seein g? No 11/01/2020 Does person have serious dif ficulty walking/climbing stairs? Yes 11/01/2020 Does person have difficulty dressing/bathing? No 11/01/2020 Does person have difficulty doing errands alone? Yes 11/01/2020 Cognitive Status Response Date of Assessm ent Does person have difficulty concentrating/remembering/making decisions? Yes 11/01/2020 Plan of Treatment Not on file Advance Directives * Full Code (Latest Code Status on File) Date Activated Date Inactivated Comments 10/31/2020 3:20 AM 11/03/2020 8:42 PM Care Teams Cracking And Fanning Machine Operator Relationship Specialty Start Date End Date Griffin Weiss MD [address] [place] [address] PCP - General 08/29/21
--- OUTSIDE RECORDS SUMMARY | 2024-06-24 22:22 | XMS_ITS | Clinical Summary ---
Author Organization [facility] [place] Address [address] [place] [address] Care Team Providers Care Drop Hammer Operator Helper Name Role Phone Griffin Weiss MD Primary Care Provider Allergies Active Allergy Reactions Criticality Noted Date Comments Alcohol Hives High 06/24/2016 Atorvastatin Other (See Comments) 08/29/2017 Weight loss Clarithromycin Unknown 10/21/2016 Fentanyl Shortness of Breath/Wheezing High 08/29/2017 Gabapentin Other (See Comments) 08/29/2017 Confusion and falls Metformin Other (See Comments) 08/29/2017 Weight loss Morphine Nausea and Vomiting Low 06/24/2016 Paroxetine Rash,Unknown,Hives High 06/24/2016 Paroxetine Hcl Rash,Hives High 06/24/2016 Somatropin Other (See Comments) 09/09/2017 Passed out Tramadol Nausea and Vomiting Low 05/21/2018 Varenicline Hallucination,Unknown Medium 10/21/2016 Medications nystatin (NYSTOP) 100,000 unit/gram powderIndication s:Intertrigo Apply to affected area 3 times daily. 60 Gram 1 8 Active tiotropium (SPIRIVA RESPIMAT) 2.5 mcg/actuation MistIndications: Panlobular emphysema (CMS/HCC) Take 2 Puffs by inhalation daily. 12 Gram 1 8 Active oxygen home delivery Home Oxygen Concentrator yes at 1 L/M at rest and 2 L/M Activity, Nasal Cannula Portability: yes, May evaluate for device best for patient needs(E system,home fill, conserving device) Maintain Sats: > OR = 90%, Length of Need: 99 months Diagnosis: COPD.. 1 Each 8 Active blood sugar diagnostic (ACCU-CHEK GUIDE) StripIndications :Type 2 diabetes mellitus with complication, with long-term current use of insulin ([facility]) Test blood sugar twice daily. 100 Strip 3 9 Active Blood-Glucose Meter (ACCU-CHEK GUIDE GLUCOSE METER)Indication s:Type 2 diabetes mellitus with complication, with long-term current use of insulin ([facility]) Use to test blood sugars twice daily. 1 Device 9 Active levocetirizine (XYZAL) 5 mg tablet TAKE 1 TABLET EVERY DAY 90 Tablet 1 9 Active SYMBICORT 160-4.5 mcg/actuation HFA Aerosol InhalerIndicatio ns:Panlobular emphysema (CMS/HCC) INHALE 2 PUFFS TWICE DAILY 18 Gram 9 Active albuterol HFA 90 mcg inhalerIndicatio ns:Panlobular emphysema (CMS/[facility]) Take 2 Puffs by inhalation every 4 hours as needed for Shortness of Breath. 54 Gram 2 9 Active amLODIPine (NORVASC) 5 mg tabletIndication s:Essential hypertension Take 1 Tablet (5 mg) by mouth daily For high blood pressure. 90 Tablet 9 Active Additional Information Patient taking differently: 10 mgOral DAILY, For high blood pressure, Informant: Patient, Reported on 11/06/2020 metFORMIN (GLUCOPHAGE) 500 mg tabletIndication s:Type 2 diabetes mellitus with diabetic polyneuropathy, with long-term current use of insulin ([facility]) TAKE 1 TABLET TWICE DAILY WITH MEALS. 180 Tablet 1 9 Active traZODone (DESYREL) 150 mg tabletIndication s:Other insomnia Take 1 Tablet (150 mg) by mouth daily at bedtime. 180 Tablet 0 Active Neomycin-Bacitra darryl Zn-Polymyxin (NEOSPORIN) 3.5-400-5,000 [id number] Ointment in Packet Apply 1 Packet to affected area daily. 0 Active naloxone (NARCAN) 4 mg/spray [place], Non-Aerosol EMERGENCY USE ONLY: Administer 1 spray (4 mg) in one nostril one time. May repeat in alternating nostrils every 2-3 min until responsive or EMS arrives. 2 Each 3 0 Active nitroglycerin (NITROSTAT) 0.4 mg Tablet, Sublingual Place 1 Tablet (0.4 mg) under tongue every 5 minutes as needed for Chest Pain. 0 Active HYDROcodone-acet aminophen (NORCO) 10-325 mg TabletIndication s:Arthralgia of hip, unspecified laterality Take 1 Tablet by mouth every 6 hours as needed for Pain, Moderate or Pain, Severe. Max Daily Amount: 4 Tablets 120 Tablet 1 Active pregabalin (Lyrica) 100 mg CapsuleIndicatio ns:Chronic pain syndrome Take 1 Capsule (100 mg) by mouth every 12 hours. 60 Capsule 1 Active magnesium oxide (MAG-OX) 400 mg (241.3 mg magnesium) tablet Take 400 mg by mouth daily. Active QUEtiapine (SEROquel) 50 mg tablet Take 50 mg by mouth 3 times daily. Active simvastatin (ZOCOR) 20 mg tablet Take 20 mg by mouth daily with supper. Active venlafaxine (EFFEXOR) 75 mg tablet Take 75 mg by mouth 2 times daily. Active insulin lispro (HumaLOG) 100 unit/mL pen syringe Inject 2-9 Units by subcutaneous injection 3 times daily with meals. SS Active Lactobac2-Bifido 1-Strep therm. 112.5 billion cell Capsule Take 1 Capsule by mouth 2 times daily. Active Active Problems Patient Care Coordination No te Formatting of this note migh t be different from the original. SANITARY ENGINEER DR LUIZA VALENCIA MD, [facility] Problem Noted Date Diagnosed Date Acute hepatitis A 11/19/2019 Pneumonia of both lower lobes due to infectious organism 11/18/2019 Abnormal LFTs 11/18/2019 Tobacco abuse 11/18/2019 Acute duodenitis 11/18/2019 Sepsis with acute hypoxic respiratory failure Mixed stress and urge urinary incontinence 01/02 Nocturnal enuresis 01/02/2018 Moderate episode of recurrent major depressive d isorder 11/12/2017 Panlobular emphysema 08/29/2017 Hypoxia 08/29/2017 Chronic pain syndrome 08/29/2017 Type 2 diabetes mellitus wit h diabetic polyneuropathy, without long-term current use of insulin 08/29/2017 Diabetic polyneuropathy asso ciated with type 2 diabetes mellitus 08/29/2017 Other hyperlipidemia 08/29/2017 Essential hypertension 08/29/2017 Other insomnia 08/29/2017 Cervicalgia 04/28/2017 Chronic bilateral low back pain with bilateral s ciatica 04/28/2017 Long-term current use of opiate analgesic 2016 Pain in joint involving multiple sites 7 Thoracic spine pain 04/28/2017 Osteoarthritis of shoulder 09/10/2016 Overview (08/29/2017): Overview: Primary osteoarthritis of both shoulders Traumatic arthropathy involving shoulder region 07/30/2016 Overview (08/29/2017): Overview: Post-traumatic osteoarthritis of left shoulder Secondary polycythemia 06/24/2016 Arthralgia of hip 02/19/2016 Overview (08/29/2017): Overview: Right hip pain Acute on chronic respiratory failure with hypoxi a Fall NSTEMI (non-ST elevated myocardial infarction) Staring episodes COPD exacerbation Acute encephalopathy Acute metabolic encephalopathy Resolved Problems Problem Noted Date Diagnosed Date Resolved Date Incontinence of feces with fecal urgency 01/02/2018 05/21/2018 Accidental poisoning by carbon monoxide 04/28/2018 Narcotic overdose 05/21/2018 Immunizations Immunization Administration Dates Next Due (PNEUMOVAX 23)(50 YRS UP) PN EUMOCOCCAL POLYSACCHARIDE (PPV23) 0.5 ML, IM 12/09/2017 Influenza Seasonal Unspecified Formulation IM ,03/19/2018 Family History Medical History Relation Name Comments Heart Failure Brother 1 Heart Failure Brother 2 Heart Failure Brother 3 Diabetes Brother 4 Hypertension Brother 4 Heart Attack Brother 5 Heart Failure Father Diabetes Mother Heart Failure Mother No Known Problems Sister 1 Diabetes Sister 2 Relation Name Status Comments Brother 1 Brother 2 Brother 3 Brother 4 Alive Brother 5 Alive Father Mother Sister 1 Alive Sister 2 Alive Social History Tobacco Use Types Packs/Day Years Used Date Smoking Tobacco: Former Cigarettes 0.5 52 0 10/09/1968 - 10/09/2020 Smokeless Tobacco: Never Comments:trying to quit Alcohol Use Standard Drinks/Week Comments No 0 (1 standard drink = 0.6 oz pur e alcohol) Comments No Sex and Gender Information Value Date Recorded Sex Assigned at Not on file Legal Sex Female 3:26 PM CDT Gender Identity Not on file Sexual Orientation Not on file Occupation Industry Job Start Date Job End Date Not on file Not on file Not on file Not on file Last Filed Vital Signs Vital Sign Reading Time Taken Comments Blood Pressure 138/66 04/18/2021 8:45 PM BRICK SIDING APPLICATOR Pulse 67 11/22/2020 5:08 PM CDT Temperature 36.7 C (98 F) 04/18/2021 8:45 PM BRICK SIDING APPLICATOR Respiratory Rate 14 04/18/2021 8:45 PM BRICK SIDING APPLICATOR Oxygen Saturation 98% 04/18/2021 8:45 PM BRICK SIDING APPLICATOR Inhaled Oxygen Concentration - - Weight 76.3 kg (168 lb 4.8 oz) 11/22/2020 5:08 P M CDT Height 157.5 cm (5' 2 ) 11/08/2020 2:30 PM CDT Body Mass Index 30.78 11/08/2020 2:30 PM CDT Plan of Treatment Health Maintenance Due Date Last Done Comments DTAP/TDAP/TD VACCINES (1 - Tdap) 1972 COLORECTAL SCREENING 1998 Colorectal Cancer Screening 1998 FIT-DNA Q 3 years 1998 FIT/FOBT Q 1 year 1998 Flex Sig/CT Colonography Q 5 years 1998 ZOSTER VACCINE (1 of 2) 2003 RSV VACCINE (60+ or ) (1 - Risk 60-74 years 1-dose series) 2013 OSTEOPOROSIS SCREENING 2018 DIABETES ANNUAL FOOT EXAM 10/09/2018 10/09/2017 PNEUMOCOCCAL VACCINE 65+ YEA RS (2 of 2 - PCV) 12/09/2018 12/09/2017 DIABETES MICROALBUMIN ANNUAL SCREEN 09/10/2019 09/09/2018, 08/29/2017 LDL CHOLESTEROL ANNUAL 12/26/2019 12/25/2018, 2017 BREAST CANCER SCREENING 02/27/2020 02/26/2019, 12/26 DIABETES HBA1C Q 6 MONTHS 05/02/20212020, 04/17/2020, 11/17/2019, Additional history exists DIABETES ANNUAL RETINAL EXAM 09/15/20211, 09/15/2020, 06/15/2018, Additional history exists INFLUENZA VACCINE (#1) 2023 02/03/2019, 2017 Medical Devices Implanted Type Area Lead Java Developer Architect Device Identifier Shelf Expiration Date Model / Serial / Lot Knee-04/03/2002 Implanted:2001 (Quantity not on file) Procedures Procedure Name Priority Date/Time Associated Diagnosis Comments HEMOGLOBIN A1C Stat 11/17/2019 5:04 PM CDT MAMMO 3D SHANNAN SCREEN BILAT W OR WO CAD Routine 02/26/2019 9:42 AM CDT Encounter for screening for malignant neoplasm of breast LIPID PANEL Routine 12/25/2018 10:45 AM CDT Vitamin D deficiency disease Disorder of fluid or electrolyte Fatigue, unspecified type Screening for lipoid disorders Screening for thyroid disorder MICROALBUMIN/CREATI NINE RATIO, RANDOM UR Routine 09/09/2018 10:08 AM CDT Type 2 diabetes mellitus with diabetic polyneuropathy, with long-term current use of insulin ([facility]) DIABETES EYE EXAM Routine 06/15/2018 from Last 3 Months or Most Recently Relevant to Health Maintenance Results * (ABNORMAL) HEMOGLOBIN A1C (11/17/2019 5:04 PM CDT) HEMOGLOBIN A1C 6.4(H) <=5.6 % 11/17/2019 6:49 PM CDT [facility] EST. AVG GLUCOSE, A1C 137 mg/dL 11/17/2019 6:49 PM CDT [facility] Blood Collection / Unknown 11/17/2019 5:04 PM CDT 11/17/2019 6:34 PM CDT Narrative [facility] - 11/17/2019 6:49 PM CDT HGB A1C INTERPRETATION NORMAL: <5.7% PRE-DIABETES: 5.7 - 6.4% DIABETES: 6.5% OR GREATER M Holden Jordan MD CHEMISTRY ORDERABLES Final Result [facility] CLIA # [id number] [address] [place] [address] * MAMMO SCRN BILAT 3D SHANNAN W OR WO CAD (02/26/2019 9:42 AM CDT) Anatomical Region Laterality Modality Breast Bilateral Mammography 02/26/2019 9:42 AM CDT Impressions 02/26/2019 4:14 PM CDT IMPRESSION: No evidence of breast malignancy OVERALL FINAL ASSESSMENT: BI-RADS CATEGORY 2 - Benign findings RECOMMENDATION: Screening mammogram in one year. Results will be sent to patient via lay letter by mail. DICTATION LOCATION: [facility] Narrative 02/26/2019 4:14 PM CDT BILATERAL DIGITAL SCREENING MAMMOGRAM WITH TOMOSYNTHESIS UTILIZING COMPUTER AIDED DETECTION Exam date: 02/26/2019 9:42 AM TECHNIQUE: Bilateral digital screening mammogram with tomosynthesis interpreted with computer aided detection . Bilateral CC and MLO standard and tomosynthesis views with 3D reformats were obtained. INDICATION: Breast cancer screening CLINICAL HISTORY: 53-year-old asymptomatic female. No personal history of breast malignancy. History of bilateral breast reduction. No family history of breast or ovarian cancer COMPARISON: 12/26/2018, 11/17/2013, 08/29/2012 BREAST COMPOSITION: There are scattered areas of fibroglandular density FINDINGS: Mammoplasty reduction changes. Benign breast calcifications are stable. No suspicious breast masses. No suspicious mammographic or tomographic finding to suggest malignancy or significant interval change. Procedure Note Tracie Jeff MD - 02/26/2019 BILATERAL DIGITAL SCREENING MAMMOGRAM WITH TOMOSYNTHESIS UTILIZING COMPUTER AIDED DETECTION Exam date: 02/26/2019 9:42 AM TECHNIQUE: Bilateral digital screening mammogram with tomosynthesis interpreted with computer aided detection . Bilateral CC and MLO standard and tomosynthesis views with 3D reformats were obtained. INDICATION: Breast cancer screening CLINICAL HISTORY: 53-year-old asymptomatic female. No personal history of breast malignancy. History of bilateral breast reduction. No family history of breast or ovarian cancer COMPARISON: 12/26/2018, 11/17/2013, 08/29/2012 BREAST COMPOSITION: There are scattered areas of fibroglandular density FINDINGS: Mammoplasty reduction changes. Benign breast calcifications are stable. No suspicious breast masses. No suspicious mammographic or tomographic finding to suggest malignancy or significant interval change. IMPRESSION: No evidence of breast malignancy OVERALL FINAL ASSESSMENT: BI-RADS CATEGORY 2 - Benign findings RECOMMENDATION: Screening mammogram in one year. Results will be sent to patient via lay letter by mail. DICTATION LOCATION: [facility] Griffin Weiss MD MAMMO ORDERABLES Final Result * LIPID PANEL (12/25/2018 10:45 AM CDT) CHOLESTEROL 168 <200 mg/dL 12/25/2018 12:25 PM CDT [facility] TRIGLYCERIDE 133 <150 mg/dL 12/25/2018 12:25 PM CDT [facility] HDL 52 40 - 59 mg/dL 12/25/2018 12:25 PM CDT [facility] LDL CALCULATED 89 <100 mg/dL 12/25/2018 12:25 PM T [facility] NON-HDL CHOLESTEROL 116 <130 mg/dL 12/25/2018 12:25 PM CDT [facility] Blood Venipuncture / Unknown 12/25/2018 10:45 AM CDT 12/25/2018 10:45 AM CDT Narrative [facility] - 12/25/2018 12:25 PM CDT TOTAL CHOLESTEROL mg/dL Desirable <200 Borderline high 200-239 High >=240 TRIGLYCERIDES mg/dL Normal <150 Borderline high 150-199 High 200-499 Very high >=500 HDL CHOLESTEROL mg/dL Low <40 Normal 40-59 Desirable >=60 NON HDL CHOLESTEROL mg/dL Optimal <130 Near Optimal 130-159 Borderline High 160-189 Very High >=190 Calculated LDL mg/dL Optimal <100 Near Optimal 100-129 Borderline High 130-159 High 160-189 Very High >=190 ATPIII Guidelines Reference Ranges for Lipid Panels (NCEP/AMA) Griffin Weiss MD CHEMISTRY ORDERABLES Final Resu lt [facility] CLIA # [id number] [place] [address] * MICROALBUMIN/CREATININE RATIO, RANDOM UR (09/09/2018 10:08 AM CDT) MICROALBUMIN, URINE <1.2 No Reference Range mg/dL 09/10/2018 3:03 AM CDT [facility] CREATININE, URINE 93.1 29.0 - 226.0 mg/dL 09/10/2018 3:03 AM CDT [facility] Comment: Reference Range varies with fluid intake and diet. MICROALBUMIN/C REAT RATIO, UR <12.9 <25.0 mg/g 09/10/2018 3:03 AM T [facility] Urine URINE SPECIMEN OBTAINED BY CLEAN CATCH PROCEDURE / Unknown Collection / Unknown 09/09/2018 10:08 AM CDT 09/10/2018 2:37 AM CDT Narrative [facility] - 09/10/2018 3:03 AM CDT Condition Microalbumin/Creat ratio Normal Males <17 Normal Females <25 Microalbuminuria Males 17-299 Microalbuminuria Females 25-299 Overt proteinuria >=300 Karuna Trejo MD URINE ORDERABLES Final Result Performing Organization Address City/[facility]/ZIP Co de Phone Number [facility] CLIA # [id number] [address] [place] [address] * DIABETES EYE EXAM (06/15/2018) us Abstract Provider HEALTH MAINTENANCE Edited Resu lt - Final Performing Organization Address City/[facility]/ZIP Co de Phone Number [facility] CLIA# [id number] [facility] [facility] [address] [place] [address] from Last 3 Months or Most Recently Relevant to Health [place] [address] MEDICA[place] [employer] [facility] Advance Directives For more information, please contact: [phone] * Full Code (Latest Code Status on File) Date Activated Date Inactivated Comments 11/19/2019 8:02 AM 11/25/2019 10:45 PM * Full Code Date Activated Date Inactivated Comments 02/11/2019 8:17 AM 02/11/2019 1:21 PM * Full Code Date Activated Date Inactivated Comments 05/01/2018 5:22 PM 05/04/2018 5:44 PM * Full Code Date Activated Date Inactivated Comments 04/03/2018 2:22 PM 04/05/2018 5:21 PM Care Teams Drop Hammer Operator Helper Relationship Specialty Start Date End Date Griffin Weiss MD [address] [place] [id number] PCP - General Internal Medicine 12/25/18
--- OUTSIDE RECORDS SUMMARY | 2024-06-24 22:22 | XMS_ITS | CONTINUITY OF CARE DOCUMENT ---
Author Name vandana ross Address Unknown Organization [facility] Address [address] [place] [address] Phone [phone] Care Team Providers Care Gore Maker Name Role Phone Samir ENRIQUEZ, Fran Unavailable Manjit Mariano DPM Unavailable Abhishek ENRIQUEZ, Griffin A Unavailable PROBLEMS Condition Status Date Provider Notes OBESITY active Mary Beth Jordan Hypercholesterolemia active hCetna Pinoe lder TOBACCO ABUSE active Mary Beth Jordan HTN essential active Fran Dawson MD LAE-02/28 ECHO EF 65 active ? Fran Dawson MD Diabetes mellitus active Fran Dawson MD Polycythemia active Maicol Richard MD COPD active Maicol Richard MD Candidiasis active Fran Dawson MD Edema, peripheral active Fran Dawson MD VENOUS INSUFFICIENCY active Fran Dawson MD Back pain active Fran Dawson MD Respiratory failure, chronic active Fran couch MD Bladder cancer active Fran Dawson MD Peripheral artery disease active Fran black MD Cardiology examination active Fran Dawson MD Hypoxemia active Fran Dawson MD ENCOUNTERS Date Type Provider Location Encounter Diag nosis - In-person encounter Office Visit Fran Dawson MD [facility] - In-person encounter Office Visit Fran Dawson MD [facility] Hypoxemia - In-person encounter Office Visit Fran Dawson MD [facility] Cardiology examinati on - In-person encounter Office Visit Fran Dawson MD [facility] - In-person encounter Office Visit Fran Dawson MD [facility] Peripheral artery disease - In-person encounter Office Visit Fran Dawson MD [facility] HTN essential - In-person encounter Office Visit Fran Dawson MD [facility] - In-person encounter Office Visit Fran Dawson MD [facility] - In-person encounter Office Visit Fran Dawson MD [facility] Bladder cancer - In-person encounter Office Visit [facility] Respiratory failure, chronic - In-person encounter Office Visit Fran Dawson MD [facility] Back pain - In-person encounter Office Visit Fran Dawson MD [facility] - In-person encounter Office Visit Fran Dawson MD [facility] - In-person encounter Office Visit Fran Dawson MD [facility] VENOUS INSUFFICIENCY - In-person encounter Office Visit Fran Dawson MD [facility] Edema, peripheral - In-person encounter Office Visit Fran [facility] Candidiasis - In-person encounter Office Visit Maicol Richard MD [facility] - In-person encounter Office Visit Maicol Richard MD [facility] PolycythemiaCOPD - In-person encounter Office Visit Fran Dawson MD [facility] - In-person encounter Office Visit Fran Dawson MD [facility] - In-person encounter Office Visit Fran Dawson MD [facility] - In-person encounter Office Visit Fran Dawson MD [facility] Diabetes mellitus - In-person encounter Office Visit Fran Dawson MD [facility] -02/28 ECHO EF 65 - In-person encounter Office Visit Fran Dawson MD [facility] - In-person encounter Office Visit Fran Dawson MD [facility] - In-person encounter Office Visit Fran Dawson MD [facility] - In-person encounter Office Visit Fran Dawson MD [facility] - In-person encounter Office Visit Fran Dawson MD [facility] - In-person encounter Office Visit Fran Dawson MD [facility] - In-person encounter Office Visit Fran Dawson MD [facility] - In-person encounter Office Visit Fran Dawson MD [facility] - In-person encounter Office Visit Fran Dawson MD [facility] VITAL SIGNS Date Observation Value Provider Body Mass Index (Ratio) 30.91 kg/m2 Hayden Dawson MD blood pressure, diastolic 63 mm[Hg] [facility] blood pressure, systolic 105 mm[Hg] [facility], oximetry 76 % [facility] pulse rate 79 /min [facility] weight E&M 169 [lb_av] [facility] height E&M 62 [in_i] [facility] Body Mass Index (Ratio) 25.24 kg/m2 Tyree Nagy blood pressure, diastolic 99 mm[Hg] Kaykay squires [place] blood pressure, systolic 119 mm[Hg] [facility], [facility] 83 % [facility] 79 /[facility] E&M 14 /min [facility] weight E&M 138 [lb_av] [facility] E&M 62 [in_i] [facility] blood pressure, cuff size regular Kaykay squires [place] Body Mass Index (Ratio) 25.20 kg/m2 Hayden Dawson MD blood pressure, diastolic 78 mm[Hg] Shanique nkLog blood pressure, systolic 122 mm[Hg] Eda kLog blood pressure, cuff size regular Jarrett englishcharles Spann blood pressure, diastolic 78 mm[Hg] Ta bitha Spann blood pressure, systolic 122 mm[Hg] Tab itha Spann pulse rate 77 /min Sarah Spann oxygen saturation, oximetry 90 % Sarah Spann weight E&M 137.8 [lb_av] Sarah Spann respiratory rate E&M 12 /min Sarah Spann height E&M 62 [in_i] Sarah Spann Body Mass Index (Ratio) 23.77 kg/m2 Hayden Dawson MD blood pressure, cuff size regular [facility] blood pressure, diastolic 84 mm[Hg] [facility] blood pressure, systolic 139 mm[Hg] [facility] Inhaled O2 5 L/min [facility] pulse rate 71 /min [facility] oxygen saturation, oximetry 87 % [facility] respiratory rate E&M 14 /min [facility] weight E&M 130 [lb_av] [facility] height E&M 62 [in_i] [facility] Body Mass Index (Ratio) 23.23 kg/m2 Hayden Dawson MD blood pressure, cuff size regular [facility] blood pressure, diastolic 81 mm[Hg] [facility] blood pressure, systolic 127 mm[Hg] [facility] Inhaled O2 5 L/min [facility] oxygen saturation, oximetry 76 % [facility] respiratory rate E&M 16 /min [facility] pulse rate 99 /min [facility] weight E&M 127 [lb_av] [facility] height E&M 62 [in_i] [facility] Body Mass Index (Ratio) 22.49 kg/m2 Hayden Dawson MD oxygen saturation, oximetry 95 % [facility] blood pressure, cuff size [facility], [facility] 73 mm[Hg] Oscar rret blood pressure, systolic 149 mm[Hg] Mariaa ret pulse rate 75 /min Jim er respiratory rate E&M 12 /min Jim weight E&M 123 [lb_av] Jim Subramanian y height E&M 62 [in_i] Jim Subramanian y Body Mass Index (Ratio) 27.32 kg/m2 Hayden Dawson MD blood pressure, diastolic 69 mm[Hg] Shanique nkLogic blood pressure, systolic 159 mm[Hg] Eda kLogwarren blood pressure, diastolic 69 mm[Hg] Doni Frey blood pressure, systolic 159 mm[Hg] Sejal Frey pulse rate 72 /min Sofía Frey respiratory rate E&M 18 /min Sofía Frey oxygen saturation, oximetry 98 % Sofía Frey weight E&M 149.4 [lb_av] Sofía Frey blood pressure, cuff size regular Doni Frey height E&M 62 [in_i] Sofía Frey Body Mass Index (Ratio) 29.63 kg/m2 Hayden Dawson MD oxygen saturation, oximetry 94 % Kassie Mccord blood pressure, diastolic 74 mm[Hg] Virginia haq Flex blood pressure, systolic 136 mm[Hg] [facility] arturo Mccord pulse rate 80 /min Kassie yepez weight E&M 162 [lb_av] Kassie yepez respiratory rate E&M 16 /min Suze Mccord blood pressure, cuff size large Virginia beltranheena Mccord height E&M 62 [in_i] Kassie yepez Inhaled O2 3 L/min Analilia Geni blood pressure, cuff size regular Kr isty Geni blood pressure, diastolic 66 mm[Hg] Kr isty Geni blood pressure, systolic 138 mm[Hg] Kri sty Kotlik pulse rate 69 /min Analilia Kotlik oxygen saturation, oximetry 93 % Analilia Arechiga respiratory rate E&M 19 /min Analilia Arechiga Body Mass Index (Ratio) 32.55 kg/m2 Phil Mcnulty weight in kilograms E&M 80.74 kg Phil Mcnulty weight E&M 178 [lb_av] Analilia Mcnulty height E&M 62 [in_i] Analilia Mcnulty height in centimeters E&M 157.48 cm Anoop Arechiga Body Mass Index (Ratio) 29.81 kg/m2 Hayden Dawson MD blood pressure, diastolic 60 mm[Hg] Gunnar deoLyndajose Saunders blood pressure, systolic 124 mm[Hg] Michaela Finn Chip Inhaled O2 3 L/min Mireya Rios anaid oxygen saturation, oximetry 97 % Mireyajose Saunders respiratory rate E&M 16 /min Tessy Saunders pulse rate 69 /min Mireya Nation anaid weight E&M 163 [lb_av] Mireya Nation anaid height E&M 62 [in_i] Mireya Steve anaid Body Mass Index (Ratio) 31.27 kg/m2 Hayden Dawson MD blood pressure, diastolic 79 mm[Hg] emelia Reddy blood pressure, systolic 124 mm[Hg] [facility] jennie Reddy oxygen saturation, oximetry 88 % Rhina Reddy respiratory rate E&M 18 /min Chelsea Reddy pulse rate 84 /min Rhina nascimento weight E&M 171 [lb_av] Yairkeitha Arnulfo nascimento height E&M 62 [in_i] Sherkeitha Craw nascimento Body Mass Index (Ratio) 31.82 kg/m2 Hayden Dawson MD blood pressure, cuff size regular Anoop isty Geni blood pressure, diastolic 70 mm[Hg] Kr isty Geni blood pressure, systolic 140 mm[Hg] Kri sty Kotlik pulse rate 69 /min Analilia Geni oxygen saturation, oximetry 93 % Analilia Kotlik respiratory rate E&M 19 /min Analilia Kotlik weight E&M 174 [lb_av] Analilia Geni height E&M 62 [in_i] Analilia Body Mass Index (Ratio) 37.31 kg/m2 Hayden Dawson MD blood pressure, cuff size regular Anoop pak Kotlik blood pressure, diastolic 70 mm[Hg] Anoop isty Kotlik blood pressure, systolic 132 mm[Hg] Kri sty Geni oxygen saturation, oximetry 92 % Analilia Kotlik respiratory rate E&M 17 /min Analilia Kotlik pulse rate 66 /min Analilia Geni weight E&M 204 [lb_av] Analilia Geni height E&M 62 [in_i] Analilia Geni Body Mass Index (Ratio) 37.31 kg/m2 Hayden Dawson MD blood pressure, diastolic 80 mm[Hg] [facility] blood pressure, systolic 138 mm[Hg] [facility] oxygen saturation, oximetry 92 % [place] Parisi pulse rate 68 /min Anjel Parisi respiratory rate E&M 16 /min [place] Parisi weight E&M 204 [lb_av] Anjel Parisi height E&M 62 [in_i] Anjel Parisi Body Mass Index (Ratio) 37.49 kg/m2 Hayden Dawson MD blood pressure, resting Yes Maribell Saunders blood pressure, diastolic 81 mm[Hg] Gunnar Saunders blood pressure, systolic 141 mm[Hg] Michaela Saunders oxygen saturation, oximetry 94 % Mireya Saunders respiratory rate E&M 20 /min Tessy Saunders pulse rate 88 /min Mireya worrell weight E&M 205 [lb_av] Mireya Nation nskay height E&M 62 [in_i] Mireya Nation on Body Mass Index (Ratio) 35.41 kg/m2 Ramirez Olivera blood pressure, diastolic 79 mm[Hg] Nj peteya Abdul blood pressure, systolic 143 mm[Hg] [facility] da Abdul oxygen saturation, oximetry 90 % [facility] rate E&M 20 /min Theresa H arper pulse rate 80 /min Theresa Abdul weight E&M 193.6 [lb_av] Theresa Abdul height E&M 62 [in_i] Theresa Abdul Body Mass Index (Ratio) 35.59 kg/m2 Brian Richard MD blood pressure, diastolic 75 mm[Hg] Gunnar Rodriguezjose CeeSaunders blood pressure, systolic 168 mm[Hg] Michaela Saunders oxygen saturation, oximetry 93 % Mireya Saunders respiratory rate E&M 20 /min Tessy Saunders pulse rate 69 /min Mireya worrell weight E&M 194.6 [lb_av] Mireya cabrera height E&M 62 [in_i] Mireya Nation sharonkay blood pressure, cuff size regular Ke joesph Wagoner blood pressure, diastolic 72 mm[Hg] Seven pink Ciaran blood pressure, systolic 139 mm[Hg] Angeles lopez Ciaran oxygen saturation, oximetry 96 % Chetna Ciaran respiratory rate E&M 16 /min Chetna Hardwick johana pulse rate 96 /min Chetna Alvarezwilliam lder height E&M 62 [in_i] Chetna Alvarezwilliam lder blood pressure, diastolic 60 mm[Hg] Gunnar Javier Saunders blood pressure, systolic 116 mm[Hg] Michaela Finn Saunders pulse rate 78 /min Mireya Nation sharonkay oxygen saturation, oximetry 90 % Mireya Saunders respiratory rate E&M 16 /min Tessy kunz Saunders Body Mass Index (Ratio) 35.77 kg/m2 Maribell Saunders weight E&M 195.6 [lb_av] Mireya cabrera blood pressure, diastolic 81 mm[Hg] Me adelaide Corado blood pressure, systolic 148 mm[Hg] Laura chun Corado pulse rate 74 /min Zainab Corado oxygen saturation, oximetry 97 % Zainab Corado respiratory rate E&M 15 /min Zainab Corado Body Mass Index (Ratio) 35.11 kg/m2 Clara zulema Corado weight E&M 192 [lb_av] Zainab Corado blood pressure, diastolic 88 mm[Hg] Me adelaide Corado blood pressure, systolic 170 mm[Hg] Laura chun [place] height E&M 62 [in_i] Zainab Corado height in centimeters E&M 157.48 cm Me adelaide Corado Body Mass Index (Ratio) 35.08 kg/m2 Nehemias Holt pulse rate 93 /min Serafin Holt oxygen saturation, oximetry 90 % Serafin Holt respiratory rate E&M 20 /min Serafin Holt weight E&M 191.8 [lb_av] Serafin Holt blood pressure, diastolic 65 mm[Hg] Jarrett Montez blood pressure, systolic 129 mm[Hg] Davi Montez Body Mass Index (Ratio) 34.93 kg/m2 Alexa nunes Montez pulse rate 83 /min Cristina Montez oxygen saturation, oximetry 90 % Cristina Montez respiratory rate E&M 19 /min Cristina Montez weight E&M 191 [lb_av] Cristina Montez blood pressure, diastolic 91 mm[Hg] Oscar Mills RN blood pressure, systolic 159 mm[Hg] Natan Mills RN pulse rate 82 /min Natan Mills RN oxygen saturation, oximetry 97 % Natan Mills RN respiratory rate E&M 18 /min Natan tidwell RN Body Mass Index (Ratio) 35.79 kg/m2 Natan Mills RN weight E&M 195 [lb_av] Natan Mills RN blood pressure, diastolic 90 mm[Hg] Oscar Mills RN blood pressure, systolic 154 mm[Hg] Natan Mills RN pulse rate 84 /min Natan Mills RN oxygen saturation, oximetry 93 % Natan Mills RN respiratory rate E&M 18 /min Natan Sainz rks RN Body Mass Index (Ratio) 33.41 kg/m2 Natan Mills RN weight E&M 182 [lb_av] Natan Mills RN blood pressure, diastolic 89 mm[Hg] Oscar Mills RN blood pressure, systolic 134 mm[Hg] Natan Mills RN pulse rate 80 /min Natan Mills RN oxygen saturation, oximetry 93 % Natan Mills RN respiratory rate E&M 18 /min Natan Sainz diann RN Body Mass Index (Ratio) 37.08 kg/m2 Natan Poonbrody CORNE[place] weight E&M 202 [lb_av] Natan Poons RN height E&M 62 [in_i] Natan Poonbrody CORNEJO blood pressure, diastolic 78 mm[Hg] [place] blood pressure, systolic 121 mm[Hg] Damian Bill pulse rate 79 /min Destiny Bill oxygen saturation, oximetry 99 % Destiny Bill respiratory rate E&M 16 /min Destiny Bill weight E&M 182 [lb_av] Destiny Bill blood pressure, diastolic 74 mm[Hg] Lico Alfaro blood pressure, systolic 164 mm[Hg] Cely Alfaro pulse rate 83 /min Rosie Alfaro oxygen saturation, oximetry 95 % Rosie Alfaro respiratory rate E&M 16 /min Rosie ceron weight E&M 182 [lb_av] Rosie Alfaro blood pressure, diastolic 80 mm[Hg] Nikki mendez [place] blood pressure, systolic 148 mm[Hg] Rubin sharpe [place] pulse rate 74 /min Imtiaz [place] oxygen saturation, oximetry 92 % Imtiaz [place] respiratory rate E&M 20 /min Imtiaz [place] weight E&M 174 [lb_av] Imtiaz [place] oxygen saturation, oximetry 97 % Marlin York blood pressure, diastolic 90 mm[Hg] Glenn Pimentel blood pressure, systolic 153 mm[Hg] Pat sy York pulse rate 80 /min Marlin York respiratory rate E&M 15 /min Marlin Y salima weight E&M 172 [lb_av] Marlin York blood pressure, diastolic 79 mm[Hg] Nikki seph [place] blood pressure, systolic 137 mm[Hg] Rubin eph [place] pulse rate 96 /min Imtiaz [place] oxygen saturation, oximetry 95 % Imtiaz [place] respiratory rate E&M 24 /min Imtiaz [place] weight E&M 202 [lb_av] Imtiaz [place] pulse rate 72 /min Imtiaz [place] oxygen saturation, oximetry 96 % Imtiaz [place] blood pressure, diastolic 92 mm[Hg] Nikki seph [place] blood pressure, systolic 148 mm[Hg] Rubin eph [place] respiratory rate E&M 20 /min Imtiaz [place] blood pressure, diastolic, left arm 68 mm [Hg] Natan Mills RN blood pressure, systolic, left arm 98 mm[ Hg] Natan Mills RN blood pressure, diastolic, right arm 71 m m[Hg] Natan Mills RN blood pressure, systolic, right arm 105 m m[Hg] Natan Mills RN pulse rate 88 /min Natan Mills RN oxygen saturation, oximetry 98 % Natan Mills RN respiratory rate E&M 18 /min Natan tidwell RN weight E&M 204 [lb_av] Natan Mills RN ALLERGIES Allergy Name Onset Date Reaction Criticality Status CLARITHROMYCIN Low Criticality activ e CHANTIX Low Criticality active RESULTS Date Observation Value Provider Reference Range Interpretation Location anion gap, serum 16.3 [facility] - albumin/globulin ratio, serum 1.3 g/dL [facility] 1.1 - 2.5 globulin, serum 3.1 [facility] 2.3 - 3.8 urea nitrogen/creatinine ratio, serum 15.0 [facility] - Estimated Glomerular Filtration Rate (calc) 77.0 (?) [facility] 59.0 - chloride, serum 105.7 mmol/L [facility] 98.0 - 107.0 potassium, serum 4.9 mmol/L [facility] 3.5 - 5.1 sodium, serum 148.0 mmol/L [facility] 136.0 - 145.0 High creatinine, serum 0.8 mg/dL [facility] 0.5 - 1.0 carbon dioxide, venous blood 26.0 mmol/L [facility] 23.0 - 31.0 albumin, serum 4.1 g/dL [facility] 3.5 - 5.2 calcium, serum 9.6 mg/dL [facility] 8.6 - 10.2 aspartate aminotransferase (SGOT), serum 19.0 1/L [facility] 0.0 - 32.0 alkaline phosphatase, serum 86.0 1/L [facility] 40.0 - 130.0 alanine aminotransferase (SGPT), serum 16.0 1/L [facility] 0.0 - 33.0 protein, total, serum 7.2 g/dL [facility] 6.6 - 8.7 bilirubin, serum, total 0.3 mg/dL [facility] 0.0 - 1.2 urea nitrogen, blood 12.0 mg/dL LinkLog 8.0 - 23.0 blood glucose, random 108.0 mg/dL [facility] 74.0 - 99.0 High red blood cell distribution width, size density 52.1 fL [facility] - immature granulocytes, percentage of total cells, blood 0.2 % [facility] - nucleated red blood cells as percent of blood leukocytes 0.0 % [facility] - red blood cell (erythrocyte) count, per high power field 0.0 10*3/UL [facility] - eosinophils as percent of blood leukocytes 1.5 % [facility] - neutrophils as percent of blood leukocytes 69.8 % [facility] - Absolute Neutrophils 6.0 CELLS/UL [facility] 1.5 - 7.8 basophils as percent of blood leukocytes 0.6 % [facility] - Absolute Basophils 0.1 CELLS/UL [facility] 0.0 - 0.2 monocytes as percent of blood leukocytes 6.9 % [facility] - Absolute Monocytes 0.6 CELLS/UL [facility] 0.2 - 1.0 lymphocytes as percent of blood leukocytes 21.0 % [facility] - Absolute Lymphocytes 1.8 CELLS/UL [facility] 0.9 - 3.9 mean platelet volume 11.2 (?) [facility] - platelet count 186.0 THOUSAND/UL [facility] 100.0 - 400.0 mean corpuscular hemoglobin concentration, RBC 32.3 G/DL [facility] 31.0 - 38.0 mean corpuscular hemoglobin, RBC 28.2 pg [facility] 25.0 - 35.0 mean corpuscular volume, RBC 87.3 fL [facility] 75.0 - 100.0 hematocrit, blood 56.3 % [facility] 35.0 - 55.0 High hemoglobin, blood 18.2 g/dL [facility] 11.5 - 16.5 High erythrocyte count, whole blood 6.5 MILLION/UL [facility] 3.5 - 5.5 High Nitrite Urine Negative [facility] Negative urobilinogen, urine 1.0 E.U./dL mg/dl [facility] 0.2 - 1.0 specific gravity, urine 1.020 [facility] 1.001 - 1.035 KETONES, URINE Negative [facility] Negative bilirubin, urine Negative [facility] Negative Glucose Urine Negative [facility] Negative clarity, urine, point Clear [facility] Yellow urine color Yellow Link[facility] yellow to giselle international normalized ratio (INR) 1.1 Imtiaz [place] prothrombin time (patient) 10.9 s Imtiaz [place] HISTORY OF MEDICATION USE Medication Status Instructions Dates Provider Indications Com ments clopidogrel 75 mg tablet active Fran Dawson MD clopidogrel 75 mg tablet completed 1 tablet by mouth once a day - Sarah Spann Jardiance 10 mg tablet active Fran Dawson MD tizanidine 4 mg tablet completed - Jil Ma RN Milk of Magnesia 400 mg/5 mL suspension completed - Jil Ma RN Anoro Ellipta 62.5-25 mcg/actuation blister with device completed - Jil Ma RN magnesium oxide 400 mg magnesium tablet completed 1 tablet twice a day - Jil Ma RN metformin 500 mg tablet completed 1 tablet twice a day - Jil Ma RN pregabalin 100 mg capsule active 1 tablet twice a day Mireya Saunders levocetirizine 5 mg tablet active 1 tablet once a day Mireya Saunders PROBIOTIC CAPSULE completed 1 capsule twice a day - Jil Ma RN HUMALOG MIX 50/50 SUSPENSION active three times a day as directed Mireya Saunders venlafaxine 75 mg capsule,extended release 24hr active 1 tablet twice a day Mireya Saunders quetiapine 50 mg tablet active 1 tablet three times a day Mireya Saunders simvastatin 20 mg tablet active Take 1 tablet by mouth once a day Analilia Arechiga #90, 90 days supply, Filled 07/01/2017 KETOCONAZOLE 2 % EXTERNAL CREAM completed - Mireya Saunders #30, 14 days supply, Filled 07/01/2017 PREDNISONE 10 MG ORAL TABLET completed take one tablet by mouth once daily - Mireya Saunders #30, 12 days supply, Filled 07/11/2017 DIFLUCAN 100 MG ORAL TABLET completed One tab daily for seven days - Mireya Saunders amlodipine 5 mg tablet active 1 tablet once a day Mireya Saunders VENTOLIN HFA 108 (90 BASE) MCG/ACT INHALATION AEROSOL SOLUTION completed 2 puffs as needed - Mireya Saunders ASPIRIN ADULT LOW DOSE 81 MG ORAL TABLET DELAYED RELEASE completed One Tab By Mouth Daily - Mireya Saunders DIFLUCAN 100 MG ORAL TABLET completed one tab daily for 7 days - Mireya Saunders NORCO 10-325 MG ORAL TABLET active every six hours Mierya Saunders DICLOFENAC SODIUM 75 MG ORAL TABLET DELAYED RELEASE completed twice daily - Analilia Arechiga ZITHROMAX 250 MG ORAL TABLET completed take two tablets daily on day 1 and one tablet on days 2-5 - Mireya Saunders Symbicort 80-4.5 mcg/actuation HFA aerosol inhaler completed Inhale using inhaler twice a day - Analilia Arechiga AZITHROMYCIN 250 MG ORAL TABLET completed take 500 mg po on Day 1 and 250 mg po 250 mg po on Days 2-5 - Mireya Saunders AMOXICILLIN 500 MG ORAL CAPSULE completed ONE CAPSULE BY MOUTH EVERY 12 HOURS - Chetna Wagoner GABAPENTIN 100 MG ORAL CAPSULE completed three times daily - Mireya Saunders NORVASC 5 MG ORAL TABLET completed ONE TAB. at nighttime - Mireya Saunders BUPROPION HCL ER (SR) 150 MG ORAL TABLET EXTENDED RELEASE 12 HOUR completed TWICE DAILY - Mireya Saunders BACLOFEN 10 MG ORAL TABLET completed THREE TIMES DAILY - Mireya Saunders NYSTATIN [id number] UNIT/ML MOUTH/THROAT SUSPENSION completed TAKAE NEEDED - Mireya Saunders CODEINE SULFATE 30 MG ORAL TABLET completed TAKE EVERY 6 HOURS - Mireya Saunders KLONOPIN 2 MG ORAL TABLET completed TWICE DAILY - Rhina Reddy VALIUM 5 MG ORAL TABLET completed one tab three times daily - Serafin Cohen HFA 90 mcg/actuation HFA aerosol inhaler active 2 puff twice a day Analilia Arechiga CARISOPRODOL 350 MG ORAL TABLET completed twice a day - Destiny Bill trazodone 100 mg tablet active 3 every night Analilia Arechiga ZETIA 10 MG ORAL TABLET completed once a day - Mireya Saunders ALPRAZOLAM 2 MG ORAL TABLET completed 2mg 1 am 2pm - Natan Mills RN MORPHINE SULFATE 30 MG ORAL TABLET completed 2 tablets by mouth 4 times daily - Serafin Holt MORPHINE SULFATE 30 MG ORAL TABLET completed 2 tablets by mouth every 6 hours as needed - Marlin Pimentel KLONOPIN 1 MG ORAL TABLET completed 1 tablet by mouth in the morning and 2 tablets by mouth in the evening - Destiny Bill ULTRAM ER TABLET EXTENDED RELEASE 24 HOUR completed - Imtiaz [place] FELDENE 20 MG ORAL CAPSULE completed 1 tablet by mouth daily - Imtiaz [place] GABAPENTIN 300 MG TABS completed ONE TAB three times DAILY - Imtiaz [place] AMBIEN 10 MG ORAL TABLET completed ONE TAB. AT BEDTIME - Natan Mills RN AMLODIPINE BESYLATE 5 MG ORAL TABLET completed ONE TAB. DAILY - Fran Dawson MD ALBUTEROL AERS completed DIRECTED - Rosie Alfaro ACTOS 30 MG ORAL TABLET completed ONE TAB. DAILY - Imtiaz [place] LISINOPRIL 40 MG ORAL TABLET completed 1 tab daily - Rhina Reddy ASPIRIN 81 MG ORAL TABLET completed ONE TAB. DAILY - Chetna Wagoner ZOLPIDEM TARTRATE 10 MG ORAL TABLET completed one tab at bedtime - Rosie Alfaro CYCLOBENZAPRINE HCL 10 MG ORAL TABLET completed one tab three times daily - Imtiaz [place] HUMULIN N SUSPENSION completed 35 units daily TWICE DAILY - Rhina Reddy BUPROPION HCL TABLET completed one tab twice daily - Rosie Alfaro GEMFIBROZIL 600 MG ORAL TABLET completed ONE TAB TWICE DAILY - Imtiaz Deanjessica ZOCOR 20 MG ORAL TABLET completed ONE TAB. AT BEDTIME - Mireya Saunders SOCIAL HISTORY Date Observation Value Provider drug use no Fran Dawson MD alcohol use no Fran Dawson MD smoking/tobacco cess ation, patient education and counseling yes Fran Dawson MD smoking, year quit 2020 Fran herndon MD number of years as a smoker 10 years or m ore Fran Dawson MD smoking, date started 1965 Fran Dawson MD smoking history, tot al pack/year 55 Fran Dawson MD smoking history, tot al pack/day 1 pkg in 3 days Fran Dawson MD cigarette use yes Fran Yepez smoking status Current every day smoker Rohit Dawson MD drug use no Fran Dawson MD alcohol use no Fran Dawson MD smoking/tobacco cess ation, patient education and counseling yes Fran Dawson MD smoking, year quit 2020 Fran herndon MD number of years as a smoker 10 years or m ore Fran Dawson MD smoking, date started 1966 Fran Dawson MD smoking history, tot al pack/year 55 Fran Dawson MD smoking history, tot al pack/day 1 pkg in 3 days rFan Dawson MD cigarette use yes Fran Yepez smoking status Current every day smoker Rohit Dawson MD drug use no Fran Dawson MD alcohol use no Fran Dawson MD smoking/tobacco cess ation, patient education and counseling yes Fran Dawson MD smoking, year quit 2020 Fran herndon MD number of years as a smoker 10 years or m ore Fran Dawson MD smoking, date started 1965 Fran Dawson MD smoking history, tot al pack/year 55 Fran Dawson MD smoking history, tot al pack/day 1 pkg in 3 days Fran Dawson MD cigarette use yes Fran Yepez smoking status Current every day smoker U dimitrios Dawson MD smoking history, tot al pack/year 55 Jil Ma RN drug use no Cayla O'José Miguel [employer] PLANT OPERATOR HELPER alcohol use no Cayla Pringle'José Miguel [employer] OPERATOR HELPER smoking/tobacco cess ation, patient education and counseling yes Cayla O'José Miguel [employer]ANT OPERATOR HELPER smoking, year quit 2020 Cayla O'N eal [employer] PLANT OPERATOR HELPER number of years as a smoker 10 years or m ore Cayla O'José Miguel [employer] PLANT OPERATOR HELPER smoking, date started 1965 Cayla O'José Miguel SLIME PLANT OPERATOR HELPER smoking history, tot al pack/year 50 Cayla O'José Miguel [employer]IME PLANT OPERATOR HELPER smoking history, tot al pack/day 1 pkg in 3 days Cayla O'José Miguel [employer] PLANT OPERATOR HELPER cigarette use yes Cayla O'José Miguel N P smoking status Current every day smoker L deborah Pringle'José Miguel [employer]IME PLANT OPERATOR HELPER drug use no Jaycee Spann alcohol use no Jaycee Spann smoking/tobacco cess ation, patient education and counseling yes Jaycee Spann smoking, year quit 2020 Jaycee vasques number of years as a smoker 10 years or m ore Jaycee Spann smoking, date started 1965 Jaycee Spann smoking history, tot al pack/year 50 Jaycee Spann smoking history, tot al pack/day 1 pkg in 3 days Jaycee Spann cigarette use yes Jaycee Spann smoking status Current every day smoker F romeo Zana physical exercise, f requency, days per week no Fran Dawson MD caffeine use, averag e drinks per day yes Fran Dawson MD smoking, year quit 2020 Fran herndon MD number of years as a smoker 10 years or m ore Fran Dawson MD smoking, date started 1965 Fran Dawson MD smoking history, tot al pack/year 50 Fran Dawson MD smoking history, tot al pack/day 1 pkg in 3 days Fran Dawson MD cigarette use yes Fran Yepez smoking status Current every day smoker U dimitrios Dawson MD social history E&M Marital Statu s: L dorina with family/friends E thnicity: P atient currently smokes every day. S mokes 5 packs per week. Prevous 2 PPD x 50 years A lcohol Use - no D rug Use - no Smoking History: P atient currently smokes every day. P atient has been counseled to quit. Fran Dawson MD smoking/tobacco cess ation, patient education and counseling yes Fran Dawson MD social history E&M Marital Statu s: L dorina with family/friends E thnicity: P atient currently smokes every day. S mokes 5 packs per week. Prevous 2 PPD x 50 years A lcohol Use - no D rug Use - no Smoking History: P atient currently smokes every day. Fran Dawson MD social history reviewed E&M revi ewed - no changes required Fran Dawson MD smoking history, tot al pack/day 1 pkg in 3 days Sofía Frey cigarette use yes Sofía Shante smoking status Current every day smoker S judith Frey social history E&M Marital Statu s: L dorian with family/friends E thnicity: P scottie currently smokes every day. S mokes 5 packs per week. Prevous 2 PPD x 50 years A lcohol Use - no D rug Use - no Smoking History: P scottie is a former smoker. Fran Dawson MD social history reviewed E&M revi ewed - no changes required Fran Dawson MD physical exercise, f requency, days per week no Kassie Mccord caffeine use, averag e drinks per day yes Kassie Mccord smoking, year quit 2020 Kassie Mccord number of years as a smoker 10 years or m ore Kassie Mccord smoking, date started 1965 Pola Arellano smoking history, tot al pack/year 50 Kassie Mccord smoking history, tot al pack/day 1 Kassie Mccord cigarette use yes Kassie Aissatou angelo smoking status Former smoker Kassie dickens smoking status Former smoker Fran Dawson MD social history E&M Marital Statu s: L dorina with family/friends E thnicity: Brooke rubin currently smokes every day. S mokes 5 packs per week. Prevous 2 PPD x 50 years A lcohol Use - no D rug Use - no Smoking History: Brooke rubin is a former smoker. Fran Dawson MD social history reviewed E&M revi ewed - no changes required Fran Dawson MD physical exercise, f requency, days per week no Analilia Arechiga caffeine use, averag e drinks per day yes Analilia Arechiga smoking, year quit 2020 Analilia fermin number of years as a smoker 10 years or m ore Analilia Arechiga smoking, date started 1965 Analilia Arechiga smoking history, tot al pack/year 50 Analilia Arechiga smoking history, tot al pack/day 1 Analilia Arechiga cigarette use yes Analilia Arechiga social history E&M Marital Statu s: L dorina with family/friends E thnicity: P scottie currently smokes every day. S mokes 5 packs per week. Prevous 2 PPD x 50 years A lcohol Use - no D rug Use - no Smoking History: P scottie is a former smoker. Fran Dawson MD social history reviewed E&M revi ewed - no changes required Fran Dawson MD physical exercise, f requency, days per week no Mireya Saunders caffeine use, averag e drinks per day yes Mireya Saunders smoking, year quit 2020 Mireya Saunders number of years as a smoker 10 years or m ore Mireya Saunders smoking, date started 1965 Krystal Saunders smoking history, tot al pack/year 50 Mireya Saunders smoking history, tot al pack/day 1 Mireyajose Saunders cigarette use yes Mireya cabrera smoking status Former smoker Mireya Dash drug use no Fran Dawson MD alcohol use no Fran Dawson MD social history E&M Marital Statu s: L dorina with family/friends E thnicity: P scottie currently smokes every day. S mokes 5 packs per week. Prevous 2 PPD x 50 years A lcohol Use - no D rug Use - no Smoking History: P scottie currently smokes every day. P scottie has been counseled to quit. Fran Dawson MD social history reviewed E&M revi ewed - no changes required Fran Dawson MD physical exercise, f requency, days per week no Rhina Reddy caffeine use, averag e drinks per day yes Rhina Reddy smoking/tobacco cess ation, patient education and counseling yes Rhina Reddy smoking, year quit 2016 Magy Reddy number of years as a smoker 10 years or m ore Rhina Reddy smoking, date started 1966 Jaye Reddy smoking history, tot al pack/year 50 Rhina Reddy smoking history, tot al pack/day 1 Rhina Reddy cigarette use yes Rhina guardado smoking status Current every day smoker S sherwin Reddy smoking/tobacco cess ation, patient education and counseling yes Fran Dawson MD drug use no Fran Dawson MD alcohol use no Fran Dawson MD social history E&M Marital Statu s: L dorina with family/friends E thnicity: P scottie currently smokes every day. S mokes 5 packs per week. Prevous 2 PPD x 50 years A lcohol Use - no D rug Use - no Smoking History: P atperico currently smokes every day. P atperico has been counseled to quit. Fran Dawson MD social history reviewed E&M revi ewed - no changes required Fran Dawson MD physical exercise, f requency, days per week no Analilia Arechiga caffeine use, averag e drinks per day yes Analilia Mcnultyby smoking, year quit 2017 Analiliamellisa Sheikh sby number of years as a smoker 10 years or m ore Analilia Kotlik smoking, date started 1966 Analilia Kotlik smoking history, tot al pack/year 50 Analilia Geni smoking history, tot al pack/day 1 Analiliabee Arechiga cigarette use yes Analilia Arechiga smoking status Current every day smoker Rohit Dawson MD physical exercise, f requency, days per week no Fran Dawson MD alcohol use, average drinks per day none Fran Dawson MD alcohol use no Fran Dawson MD caffeine use, averag e drinks per day yes Fran Dawson MD drug use no Fran Dawson MD smoking, year quit 2016 Fran herndon MD number of years as a smoker 10 years or m ore Fran Dawson MD smoking, date started 1965 Fran Dawson MD smoking history, tot al pack/year 50 Fran Dawson MD smoking history, tot al pack/day 1 Fran Dawson MD cigarette use yes Fran Yepez smoking status Former smoker Fran Dawson MD social history reviewed E&M revi ewed - no changes required Fran Dawson MD social history reviewed E&M revi ewed - no changes required Fran Dawson MD smoking, year quit 2016 Anjel Iman duron cigarette use yes Anjel Wellsam smoking status Former smoker Anjel Wells am social history reviewed E&M revi ewed - no changes required Fran Dawson MD physical exercise, f requency, days per week no Mireya Saunders alcohol use, average drinks per day none Mireya Saunders alcohol use no Mireya worrell caffeine use, averag e drinks per day yes Mireya Saunders smoking/tobacco cess ation, patient education and counseling yes Mireya Saunders drug use no Mireya herreraon number of years as a smoker 10 years or m ore Mireya Saunders smoking, date started 1966 Krystal Saunders smoking history, tot al pack/year 50 Mireya Saunders smoking history, tot al pack/day 1 Mireya Saunders cigarette use yes Mireya chouon smoking status Current every day smoker Naye Saunders social history reviewed E&M revi ewed - no changes required Fran Dawson MD physical exercise, f requency, days per week no Theresa Abdul alcohol use, average drinks per day none Theresa Abdul alcohol use no Theresa Abdul caffeine use, averag e drinks per day yes Theresa Abdul smoking/tobacco cess ation, patient education and counseling yes Theresa Abdul drug use no Theresa Abdul number of years as a smoker 10 years or m ore Theresa Abdul smoking, date started 1965 Theresa Abdul smoking history, tot al pack/year 50 Theresa Abdul smoking history, tot al pack/day 1 Theresa Abdul cigarette use yes Theresa Abdul smoking status Current every day smoker W adam Abdul social history reviewed E&M revi ewed - no changes required Maicol Richard MD physical exercise, f requency, days per week no Mireya Saunders alcohol use, average drinks per day none Mireya Ceeenson alcohol use no Mireya Nation sharonon caffeine use, averag e drinks per day yes MireyaBrittany Ceeenson smoking/tobacco cess ation, patient education and counseling yes MireyaBrittany Ceeenson drug use no Mireya Nation sharonon number of years as a smoker 10 years or m ore Mireya Saunders smoking, date started 1966 Krystal Saunders smoking history, tot al pack/year 50 Mireya Saunders smoking history, tot al pack/day 1 Mireya Saunders cigarette use yes Mireya cabrera smoking status Current every day smoker M Jack Saunders smoking history, tot al pack/year 50 Chetna Wagoner social history reviewed E&M revi ewed - no changes required Maicol Richard MD social history E&M Marital Statu s: L dorina with family/friends E thnicity: P atient currently smokes every day. S mokes 5 packs per week. Prevous 2 PPD x 50 years A lcohol Use - no D rug Use - no Smoking History: P atient currently smokes every day. P atient has been counseled to quit. Maicol Richard MD drug use no Maicol Yepez physical exercise, f requency, days per week no Chetna Wagoner alcohol use, average drinks per day none Chetna Wagoner alcohol use no Chetna valdez smoking/tobacco cess ation, patient education and counseling yes Chetna Wagoner caffeine use, averag e drinks per day yes Chetna Wagoner number of years as a smoker 10 years or m ore Chetna Wagoner smoking, date started 1966 Chetna Wagoner smoking history, tot al pack/year 48 Chetna Wagoner smoking history, tot al pack/day 1 Chetna Wagoner cigarette use yes Chetna anderson smoking status Current every day smoker K meghna Wagoner number of grandchildren Fran Dawson MD U dimitrios Dawson MD social history reviewed E&M revi ewed - no changes required Fran Dawson MD physical exercise, f requency, days per week no Mireya Saunders alcohol use, average drinks per day none Mireya Saunders alcohol use no Mireya herreraon smoking/tobacco cess ation, patient education and counseling yes Mireya Saunders caffeine use, averag e drinks per day yes Mireya Saunders number of years as a smoker 10 years or m ore Mireya Saunders smoking, date started 1966 Krystal Saunders smoking history, tot al pack/year 48 Mireya Saunders smoking history, tot al pack/day 1 Mireya Saunders cigarette use yes Mireya chouon smoking status Current every day smoker Naye Jack Saunders social history reviewed E&M revi ewed - no changes required Fran Dawson MD physical exercise, f requency, days per week no Zainab Mak alcohol use, average drinks per day none Zainab Mak alcohol use no Zainab Mak smoking/tobacco cess ation, patient education and counseling yes Zainab Corado caffeine use, averag e drinks per day yes Zainab Corado number of years as a smoker 10 years or m ore Zainab Corado smoking, date started 1966 Merly Corado smoking history, tot al pack/year 48 Zainab Corado smoking history, tot al pack/day 1 Zainab Corado cigarette use yes Zainab Corado smoking status Current every day smoker Naye obregon Mak social history E&M Marital Statu s: L dorina with family/friends E thnicity: P atient currently smokes every day. Smoking History: P atient currently smokes every day. P atient has been counseled to quit. S bryan 5 packs per week. Fran Dawson MD physical exercise, f requency, days per week no Fran Dawson MD alcohol use, average drinks per day none Fran Dawson MD caffeine use, averag e drinks per day yes Fran Dawson MD smoking/tobacco cess ation, patient education and counseling yes Fran Dawson MD number of years as a smoker 10 years or m ore Fran Dawson MD smoking, date started 1966 Fran Dawson MD smoking history, tot al pack/year 48 Fran Dawson MD smoking history, tot al pack/day 1 Fran Dawson MD cigarette use yes Fran Yepez smoking status Current every day smoker U dimitrios Dawson MD social history reviewed E&M revi ewed - no changes required Fran Dawson MD social history reviewed E&M reviman ewed - no changes required Fran Dawson MD social history E&M Marital Statu s: L dorina with family/friends E thnicity: P atient currently smokes every day. Smoking History: P atient currently smokes every day. P atient has been counseled to quit. Fran Dawson MD smoking/tobacco cess ation, patient education and counseling yes Fran Dawson MD smoking status current every day smoker U dimitrios Dawson MD social history reviewed E&M reviewed Natan Mills RN smoking history, tot al pack/year 48 Natan Mills RN smoking/tobacco cess ation, patient education and counseling yes Natan Mills RN social history reviewed E&M reviewed Natan Mills RN smoking history, tot al pack/year 47 Natan Mills RN smoking history, tot al pack/year 47 Natan Mills RN smoking history, tot al pack/day 1 Natan Mills RN smoking history, tot al pack/year 47 Natan Mills RN cigarette use yes Natan Mills RN smoking, date started 1966 Natan Cornel frye RN social history reviewed E&M reviewed Natan Mills RN smoking status smoker - current status unknown Fran Dawson MD social history reviewed E&M reviewed Natan Mills RN social history reviewed E&M reviewed Natan Mills RN smoking/tobacco cess ation, patient education and counseling yes Fran Dawson MD social history reviewed E&M reviewed Fran Dawson MD smoking/tobacco cess ation, patient education and counseling yes Fran Dawson MD social history reviewed E&M reviewed Natan Mills RN smoking/tobacco cess ation, patient education and counseling yes Natan Mills RN social history reviewed E&M reviewed Natan Mills RN smoking/tobacco cess ation, patient education and counseling yes Fran Dawson MD social history reviewed E&M reviewed Fran Dawson MD social history E&M Marital Statu s: L dorina with family/friends E thnicity: Natan Mills RN social history reviewed E&M reviewed Natan Mills RN physical exercise, f requency, days per week no [employer] caffeine use, averag e drinks per day yes [employer] alcohol use, average drinks per day none [employer] number of years as a smoker 10 years or m ore [employer] smoking status Smoker [employer] FUNCTIONAL STATUS Date Observation Value Provider HRA, CV Assess/Plan, Angina (inactive) Management Plan continue current therapy Fran Dawson MD HRA, CV Assess/Plan, Angina (inactive) Management Plan continue current therapy Fran Dawson MD HRA, CV Assess/Plan, Angina (inactive) Management Plan continue current therapy Fran Dawson MD HRA, CV Assess/Plan, Angina (inactive) Management Plan continue current therapy Fran Dawson MD HRA, CV Assess/Plan, Angina (inactive) Management Plan continue current therapy Fran Dawson MD HRA, CV Assess/Plan, Angina (inactive) Management Plan continue current therapy Fran Dawson MD HRA, CV Assess/Plan, Angina (inactive) Management Plan continue current therapy Fran Dawson MD HRA, CV Assess/Plan, Angina (inactive) Management Plan continue current therapy Fran Dawson MD HRA, CV Assess/Plan, Angina (inactive) Management Plan continue current therapy Fran Dawson MD HRA, CV Assess/Plan, Angina (inactive) Management Plan continue current therapy Fran Dawson MD HRA, CV Assess/Plan, Angina (inactive) Management Plan continue current therapy Fran Dawson MD HRA, CV Assess/Plan, Angina (inactive) Management Plan continue current therapy Fran Dawson MD MENTAL STATUS Date Observation Value Provider assessment of judgme nt and insight E&M Alert and oriented to time, place and person. Mood and affect are normal. Natan Mills RN assessment of judgme nt and insight E&M Alert and oriented to time, place and person. Mood and affect are normal. Natan Mills RN assessment of judgme nt and insight E&M Alert and oriented to time, place and person. Mood and affect are normal. Natan Mills RN assessment of judgme nt and insight E&M Alert and oriented to time, place and person. Mood and affect are normal. Natan Mills RN assessment of judgme nt and insight E&M Alert and oriented to time, place and person. Mood and affect are normal. Natan Mills RN assessment of judgme nt and insight E&M Alert and oriented to time, place and person. Mood and affect are normal. Fran Dawson MD assessment of judgme nt and insight E&M Alert and oriented to time, place and person. depressed affect. Natan Mills RN assessment of judgme nt and insight E&M Alert and oriented to time, place and person. depressed affect. Natan Mills RN assessment of judgme nt and insight E&M Alert and oriented to time, place and person. Mood and affect are normal. Fran Dawson MD assessment of judgme nt and insight E&M Alert and oriented to time, place and person. Mood and affect are normal. Natan Mills RN FAMILY HISTORY Family Member Condition Son Family History of Di abetes: Father Family History of Co ronary Artery Disease: Mother Family History of Di abetes: Mother Family History of Co ronary Artery Disease: Mother Family History of Di abetes: INSURANCE PROVIDERS Payer name Policy type / Coverage type [place] [employer] party ID [employer] Medicaid [id number] [place] [employer] Medicare [id number] ADVANCE DIRECTIVES Name Date DISCUSSED - NO DECISION MADE TREATMENT PLAN Date Name Performer [id number],C,T he Patient was reencouraged to stop smoking. Fran Dawson MD [id number],B, Fran Dawson MD [id number],C, H er updated medication list for this problem includes: Amlodipine 5 Mg Tablet (Amlodipine) ..... 1 tablet once a day BP today: 149/73 P rior BP: 159/69 (08/09/2022) Labs Reviewed: C reat: 0.8 (03/29/2016) Fran Dawson MD [id number],S,continues wit h morfin catheter Fran Dawson MD [id number],S, H er updated medication list for this problem includes: Simvastatin 20 Mg Tablet (Simvastatin) ..... Take 1 tablet by mouth once a day Fran Dawson MD [id number],S,B P is elevated because she has not had her pain medication as it has not reached her yet. B P today: 159/69 P rior BP: 136/74 (02/01/2022) Labs Reviewed: C reat: 0.8 (03/29/2016) Her updated medication list for this problem includes: Amlodipine 5 Mg Tablet (Amlodipine) ..... 1 tablet once a day Fran Dawson MD [id number],S,S table. Continue medical therapy. H er updated medication list for this problem includes: Amlodipine 5 Mg Tablet (Amlodipine) ..... 1 tablet once a day Fran Dawson MD [id number],B, Fran Dawson MD [id number],S, T he Patient was reencouraged to stop smoking. B/l Decreased breath sounds Fran Dawson MD [id number],C,Per PCP Fran Dawson MD [id number],B, Fran Dawson MD [id number],C,Per Dr. Álvaro Dawson MD [id number],S, Fran Dawson MD [id number],C,nees to cut d own on her sodas Fran Dawson MD [id number],S, B P today: 124/60 P rior BP: 124/79 (10/06/2020) Labs Reviewed: C reat: 0.8 (03/29/2016) Fran Dawson MD [id number],B, Fran Dawson MD [id number],C,needs to stop smoking Fran Dawson MD Cardiology:The Patie nt was reencouraged to stop smoking. Fran Dawson MD Cardiology Fran Dawson MD Cardiology:On medica l therapy after intervention on the left SFA. Will check GREG on next visit. Fran Dawson MD Cardiology: H er updated medication list for this problem includes: Amlodipine 5 Mg Tablet (Amlodipine) ..... 1 tablet once a day BP today: 105/63 P rior BP: 119/99 (03/15/2024) L abs Reviewed: C reat: 0.8 (03/29/2016) This visit has been a part of the consistent, comprehensive, and ongoing management of the chronic medical condition(s) listed above for the patient. Fran Dawson MD Cardiology: H er updated medication list for this problem includes: Simvastatin 20 Mg Tablet (Simvastatin) ..... Take 1 tablet by mouth once a day Fran Dawson MD Cardiology:Needs to be wearing ambulatory oxygen S ats at 83% P ulmonary has reduced her from 5L to 2L Fran Dawson MD Cardiology:kennedy cp Fran shaikh MD Cardiology: H er updated medication list for this problem includes: Amlodipine 5 Mg Tablet (Amlodipine) ..... 1 tablet once a day BP today: 119/99 P rior BP: 122/78 (10/31/2023) Labs Reviewed: Jostin reat: 0.8 (03/29/2016) Fran Dawson MD Cardiology:Has paten t stent and severe disease bilaterally C ontinue medical therapy and stop smoking Fran Dawson MD Cardiology:Stable. C ontinue medical therapy. Fran Dawson MD Cardiology Fran Dawson MD Cardiology: H er updated medication list for this problem includes: Simvastatin 20 Mg Tablet (Simvastatin) ..... Take 1 tablet by mouth once a day Fran Dawson MD Cardiology: H er updated medication list for this problem includes: Amlodipine 5 Mg Tablet (Amlodipine) ..... 1 tablet once a day BP today: 122/78 P rior BP: 139/84 (08/08/2023) Labs Reviewed: C reat: 0.8 (03/29/2016) Fran Dawson MD Cardiology Fran Dawson MD Cardiology Fran Dawson MD Cardiology:Stable. Continue medi barrett therapy. Fran Dawson MD Cardiology:09/28 1 . 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 2 . Successful DAIRY SUPPLIES SALES REPRESENTATIVE of the popliteal. notes improvement in her Sxs c heck greg in 3 months Fran Dawson MD Cardiology Fran Dawson MD Cardiology:Uses at h ome O2 (5L) C ontinue inhalers as needed Fran Dawson MD Cardiology: H er updated medication list for this problem includes: Amlodipine 5 Mg Tablet (Amlodipine) ..... 1 tablet once a day BP today: 139/84 P rior BP: 127/81 (07/04/2023) Labs Reviewed: C reat: 0.8 (03/29/2016) Fran Dawson MD Cardiology: V tulio US from 12/25/16 revealed S ignificant venous insufficiency of the greater saphenous vein bilaterally, Significant venous insufficiency of the lesser saphenous vein bilaterally, and Venous insufficiency of the left sapheno femoral junction. A s she is asymptomatic with no swelling, will not have her wear comporession at this time. Fran Dawson MD Cardiology: S table. Continue medical therapy. H er updated medication list for this problem includes: Amlodipine 5 Mg Tablet (Amlodipine) ..... 1 tablet once a day Fran Dawson MD Cardiology:Plan for AIF diagnostic on 08/20/2023. Patient and i have reviewed the scope of the procedure. she is agreeable. S tates her LE are feeling better, still symptomatic of claudication Fran Dawson MD Cardiology: T he Patient was reencouraged to stop smoking. Fran Dawson MD Cardiology: H er updated medication list for this problem includes: Amlodipine 5 Mg Tablet (Amlodipine) ..... 1 tablet once a day BP today: 127/81 P rior BP: 149/73 (02/07/2023) Labs Reviewed: C reat: 0.8 (03/29/2016) Fran Dawson MD Cardiology:per PCP Fran Dawson MD Cardiology:needs ang io at [facility], symptomatic claudication A BIs reduced bilaterally Fran Dawson MD Cardiology:The Patient was reenc ouraged to stop smoking. Fran Dawson MD Cardiology Fran Dawson MD Cardiology: H er updated medication list for this problem includes: Amlodipine 5 Mg Tablet (Amlodipine) ..... 1 tablet once a day BP today: 149/73 P rior BP: 159/69 (08/09/2022) Labs Reviewed: C reat: 0.8 (03/29/2016) Fran Dawson MD Cardiology:continues with morfin catheter Fran Dawson MD Cardiology: H er updated medication list for this problem includes: Simvastatin 20 Mg Tablet (Simvastatin) ..... Take 1 tablet by mouth once a day Fran Dawson MD Cardiology:BP is tammy vated because she has not had her pain medication as it has not reached her yet. B P today: 159/69 P rior BP: 136/74 (02/01/2022) Labs Reviewed: C reat: 0.8 (03/29/2016) Her updated medication list for this problem includes: Amlodipine 5 Mg Tablet (Amlodipine) ..... 1 tablet once a day Fran Dawson MD Cardiology:Stable. C ontinue medical therapy. H er updated medication list for this problem includes: Amlodipine 5 Mg Tablet (Amlodipine) ..... 1 tablet once a day Fran Dawson MD Cardiology Fran Dawson MD Cardiology: T he Patient was reencouraged to stop smoking. B/l Decreased breath sounds Fran Dawson MD Cardiology:Per PCP Fran Dawson MD Cardiology Fran Dawson MD Cardiology:Per Dr. Abhishek Dawson MD Cardiology Fran Dawson MD Cardiology:nees to cut down on h er sodas Fran Dawson MD Cardiology: B P today: 124/60 P rior BP: 124/79 (10/06/2020) Labs Reviewed: C reat: 0.8 (03/29/2016) Fran Dawson MD Cardiology Fran Dawson MD Cardiology:needs to stop smoking Fran Dawson MD Cardiology:Was recen tly taken off of insulin Fran Dawson MD Cardiology:Patient h as quit smoking H er updated medication list for this problem includes: Ventolin Hfa 108 (90 Base) Mcg/act Inhalation Aerosol Solution (Albuterol sulfate) ..... 2 puffs as needed Symbicort 80-4.5 Mcg/act Inhalation Aerosol (Budesonide-formoterol fumarate) ..... Inhalation twice daily Proair Hfa Aerosol Solution (Albuterol sulfate aers) ..... 2 puffs twice a day Fran Dawson MD Cardiology:Evaluate LVEF Fran Dawson MD Cardiology:Evaluate LV function with echo B P today: 124/79 P rior BP: 140/70 (01/28/2020) Labs Reviewed: C reat: 0.8 (03/29/2016) Fran Dawson MD Cardiology:Appears s table overall. We will repeat her echo since she hasn't had testing done since 2017. Fran Dawson MD Cardiology:Descripti on is consistent with sciatica. Advised that she see an orthopedic or back speacilist about this Fran Dawson MD Cardiology:The Patie nt was reencouraged to stop smoking. B/l Decreased breath sounds Fran Dawson MD Cardiology:Per PCP Fran Dawson MD Cardiology: H er updated medication list for this problem includes: Simvastatin 20 Mg Oral Tablet (Simvastatin) ..... Take one tablet by mouth once daily Zocor 20 Mg Oral Tablet (Simvastatin) ..... One tab. at bedtime Zetia 10 Mg Oral Tablet (Ezetimibe) ..... Once a day Fran Dawson MD Cardiology:Patient w as recently admitted to [facility] because she was experiencing mental status changes and had a stress test. Unclear if she had an [place]. Fran Dawson MD Cardiology: H er updated medication list for this problem includes: Simvastatin 20 Mg Oral Tablet (Simvastatin) ..... Take one tablet by mouth once daily Zocor 20 Mg Oral Tablet (Simvastatin) ..... One tab. at bedtime Zetia 10 Mg Oral Tablet (Ezetimibe) ..... Once a day Fran Dawson MD Cardiology: B P today: 132/70 P rior BP: 138/80 (01/13/2017) Labs Reviewed: C reat: 0.8 (03/29/2016) Fran Dawson MD Cardiology:The Patie nt was reencouraged to stop smoking. Fran Dawson MD Cardiology:No chest pains. P atient states she is to have shoulder surgery and is cleared and low risk from a cardiovascular stand point. Fran Dawson MD Cardiology: B P today: 138/80 P rior BP: 141/81 (12/05/2016) Labs Reviewed: C reat: 0.8 (03/29/2016) Fran Dawson MD Cardiology:The Patie nt was reencouraged to stop smoking. States she has not had a cigarette since 01/05. Fran Dawson MD Cardiology:Venous US from 12/25/16 revealed S ignificant venous insufficiency of the greater saphenous vein bilaterally, Significant venous insufficiency of the lesser saphenous vein bilaterally, and Venous insufficiency of the left sapheno femoral junction. A s she is asymptomatic with no swelling, will not have her wear comporession at this time. Fran Dawson MD Cardiology:Recurring . States the diflucan hlped. Will represcribe. Fran Dawson MD Cardiology:Intermitt ent. Her legs change colors often. Will do venous reflux doppler. Fran Dawson MD Cardiology:Seeing a plastic surg wilberto Fran Dawson MD Cardiology Fran Dawson MD Cardiology: B P today: 141/81 P rior BP: 143/79 (08/26/2016) Labs Reviewed: C reat: 0.8 (03/29/2016) Fran Dawson MD Cardiology:Diflucan 100mg po daily for 7 days and then she will make an appt to see her PCP. Also continue the cutaneous cream. Fran Dawson MD Cardiology:Reduce the zocor to 2 0mg Fran Dawson MD Cardiology:The Patient was reenc ouraged to stop smoking. Fran Dawson MD Cardiology Fran Dawson MD Hem/Onc New Patient :The patient was counseled on smoking cessation for 5 minutes. I will obtain a low dose CT Chest for lung cancer screening given her 100 pack year. Orders: C T Chest - low dose for lung cancer screening (CPT-94674) 9 9244 MOD C omplex (CPT-41993) Maicol Richard MD Hem/Onc New Patient :I will refer the patient to a local chief load dispatcher. Orders: P ulmonology (*) 9 9244 MOD C omplex (CPT-86120) Maicol Richard MD Hem/Onc New Patient :The patient has had a work up performed at [facility] which has included a normal serum epo level and negative Jak2 V617F. Her last CBC on 03/04/16 revealed a persistent polycythemia with Hgb of 18.1 and HCT of 56.4. Most likely the patient has secondary polycythemia secondary to her underlying emphysema and tobacco abuse. However, I will rule out a MPN by check a Jak2 Exon 12 as well as performing a bone marrow biopsy. The patient hip surgery will be postponed pending above work up. Orders: J AK2 Exon 12 Mutation Analysis ([id number]) C BC (INCLUDES DIFF/PLT) (6399) L DH (428447) C OMPREHENSIVE METABOLIC PANEL W/EGFR (69462) U RINALYSIS, COMPLETE (9676) 9 9885 MOD C omplex (CPT-78022) Maicol Richard MD Cardiology Fran Dawson MD Cardiology:116/60 Fran Yepez Cardiology Fran Dawson MD Cardiology Fran Dawson MD Cardiology:The Patie nt was reencouraged to stop smoking. Fran Dawson MD Cardiology Fran Dawson MD Cardiology: B P today: 148/81 P rior BP: 170/88 (10/18/2014) Fran Dawson MD follow up:Advised her to quit sm oking. Fran Dawson MD follow up:The Patien t was reencouraged to stop smoking. Fran Dawson MD routine : H er updated medication list for this problem includes: Zocor 40 Mg Tabs (Simvastatin) ..... One tablet daily Aspirin 81 Mg Tabs (Aspirin) ..... One tab. daily Lisinopril 20 Mg Tabs (Lisinopril) ..... One tab. daily Zetia 10 Mg Tabs (Ezetimibe) ..... Once a day BP today: / Prior BP: 154/90 (01/21/2013) N uclear Stress Findings: 1. Abnormal myocardial perfusion imaging after vasodilator stress with Regadenoson. 2 . Normal left ventricular systolic function with a calculated ejection fraction of 63%. 3 . There is a fixed defect involving the inferior wall consistent with scar tissue. - GC (09/24/2011) S tress Echo Findings: NOrmal exercise ECG at the level achieved. S ubmaximal stress test. N ormal exercise echo response to level achieved. V reta poor exercise tolerance. Unable to reach 85% of predicted heart rate for age. (11/21/2005) C ardiac Cath: Normal LV function. EF 60%. Elevated LVEDP. Minor nonobstructive CAD. [facility] (02/02/2009) C arotid Doppler/Duplex: 1. Less than 50% stenosis of the internal carotid arteries bilaterally. 2 . Vertebral flow is antegrade bilaterally. (02/21/2011) P T: 10.9 (01/05/2009) INR: 1.1 (01/05/2009) Fran Dawson MD routine : H er updated medication list for this problem includes: Zocor 40 Mg Tabs (Simvastatin) ..... One tablet daily Aspirin 81 Mg Tabs (Aspirin) ..... One tab. daily Lisinopril 20 Mg Tabs (Lisinopril) ..... One tab. daily Zetia 10 Mg Tabs (Ezetimibe) ..... Once a day BP today: / Prior BP: 154/90 (01/21/2013) N uclear Stress Findings: 1. Abnormal myocardial perfusion imaging after vasodilator stress with Regadenoson. 2 . Normal left ventricular systolic function with a calculated ejection fraction of 63%. 3 . There is a fixed defect involving the inferior wall consistent with scar tissue. - (09/24/2011) S tress Echo Findings: NOrmal exercise ECG at the level achieved. S ubmaximal stress test. N ormal exercise echo response to level achieved. V reta poor exercise tolerance. Unable to reach 85% of predicted heart rate for age. (11/21/2005) C ardiac Cath: Normal LV function. EF 60%. Elevated LVEDP. Minor nonobstructive CAD. [facility] (02/02/2009) C arotid Doppler/Duplex: 1. Less than 50% stenosis of the internal carotid arteries bilaterally. 2 . Vertebral flow is antegrade bilaterally. (02/21/2011) P T: 10.9 (01/05/2009) INR: 1.1 (01/05/2009) Fran Dawson MD routine :clear for s urgery but will check an echo H er updated medication list for this problem includes: Zocor 40 Mg Tabs (Simvastatin) ..... One tablet daily Aspirin 81 Mg Tabs (Aspirin) ..... One tab. daily Lisinopril 20 Mg Tabs (Lisinopril) ..... One tab. daily Zetia 10 Mg Tabs (Ezetimibe) ..... Once a day BP today: / Prior BP: 134/89 (06/05/2012) N uclear Stress Findings: 1. Abnormal myocardial perfusion imaging after vasodilator stress with Regadenoson. 2 . Normal left ventricular systolic function with a calculated ejection fraction of 63%. 3 . There is a fixed defect involving the inferior wall consistent with scar tissue. - (09/24/2011) S tress Echo Findings: NOrmal exercise ECG at the level achieved. S ubmaximal stress test. N ormal exercise echo response to level achieved. V reta poor exercise tolerance. Unable to reach 85% of predicted heart rate for age. (11/21/2005) C ardiac Cath: Normal LV function. EF 60%. Elevated LVEDP. Minor nonobstructive CAD. [facility] (02/02/2009) C arotid Doppler/Duplex: 1. Less than 50% stenosis of the internal carotid arteries bilaterally. 2 . Vertebral flow is antegrade bilaterally. (02/21/2011) P T: 10.9 (01/05/2009) INR: 1.1 (01/05/2009) Orders: E KG (CPT-43217) Fran Dawson MD routine :154/90 H er updated medication list for this problem includes: Aspirin 81 Mg Tabs (Aspirin) ..... One tab. daily Lisinopril 20 Mg Tabs (Lisinopril) ..... One tab. daily Prior BP: 134/89 (06/05/2012) Fran Dawson MD routine : H er updated medication list for this problem includes: Aspirin 81 Mg Tabs (Aspirin) ..... One tab. daily Lisinopril 20 Mg Tabs (Lisinopril) ..... One tab. daily BP today: / Prior BP: 134/89 (06/05/2012) N uclear Stress Findings: 1. Abnormal myocardial perfusion imaging after vasodilator stress with Regadenoson. 2 . Normal left ventricular systolic function with a calculated ejection fraction of 63%. 3 . There is a fixed defect involving the inferior wall consistent with scar tissue. - (09/24/2011) S tress Echo Findings: NOrmal exercise ECG at the level achieved. S ubmaximal stress test. N ormal exercise echo response to level achieved. V reta poor exercise tolerance. Unable to reach 85% of predicted heart rate for age. (11/21/2005) C ardiac Cath: Normal LV function. EF 60%. Elevated LVEDP. Minor nonobstructive CAD. [facility] (02/02/2009) C arotid Doppler/Duplex: 1. Less than 50% stenosis of the internal carotid arteries bilaterally. 2 . Vertebral flow is antegrade bilaterally. (02/21/2011) P T: 10.9 (01/05/2009) INR: 1.1 (01/05/2009) Fran Dawson MD routine : H er updated medication list for this problem includes: Zocor 40 Mg Tabs (Simvastatin) ..... One tablet daily Aspirin 81 Mg Tabs (Aspirin) ..... One tab. daily Lisinopril 20 Mg Tabs (Lisinopril) ..... One tab. daily Zetia 10 Mg Tabs (Ezetimibe) ..... Once a day BP today: / Prior BP: 134/89 (06/05/2012) N uclear Stress Findings: 1. Abnormal myocardial perfusion imaging after vasodilator stress with Regadenoson. 2 . Normal left ventricular systolic function with a calculated ejection fraction of 63%. 3 . There is a fixed defect involving the inferior wall consistent with scar tissue. - (09/24/2011) S tress Echo Findings: NOrmal exercise ECG at the level achieved. S ubmaximal stress test. N ormal exercise echo response to level achieved. V reta poor exercise tolerance. Unable to reach 85% of predicted heart rate for age. (11/21/2005) C ardiac Cath: Normal LV function. EF 60%. Elevated LVEDP. Minor nonobstructive CAD. [facility] (02/02/2009) C arotid Doppler/Duplex: 1. Less than 50% stenosis of the internal carotid arteries bilaterally. 2 . Vertebral flow is antegrade bilaterally. (02/21/2011) P T: 10.9 (01/05/2009) INR: 1.1 (01/05/2009) Fran Dawson MD routine Fran Dawson MD routine : H er updated medication list for this problem includes: Aspirin 81 Mg Tabs (Aspirin) ..... One tab. daily Lisinopril 20 Mg Tabs (Lisinopril) ..... One tab. daily Prior BP: 121/78 (10/18/2011) Fran Dawson MD routine : H er updated medication list for this problem includes: Aspirin 81 Mg Tabs (Aspirin) ..... One tab. daily Lisinopril 20 Mg Tabs (Lisinopril) ..... One tab. daily BP today: / Prior BP: 121/78 (10/18/2011) N uclear Stress Findings: 1. Abnormal myocardial perfusion imaging after vasodilator stress with Regadenoson. 2 . Normal left ventricular systolic function with a calculated ejection fraction of 63%. 3 . There is a fixed defect involving the inferior wall consistent with scar tissue. - (09/24/2011) S tress Echo Findings: NOrmal exercise ECG at the level achieved. S ubmaximal stress test. N ormal exercise echo response to level achieved. V reta poor exercise tolerance. Unable to reach 85% of predicted heart rate for age. (11/21/2005) C ardiac Cath: Normal LV function. EF 60%. Elevated LVEDP. Minor nonobstructive CAD. [facility] (02/02/2009) C arotid Doppler/Duplex: 1. Less than 50% stenosis of the internal carotid arteries bilaterally. 2 . Vertebral flow is antegrade bilaterally. (02/21/2011) P T: 10.9 (01/05/2009) INR: 1.1 (01/05/2009) Fran Dawson MD routine : H er updated medication list for this problem includes: Zocor 40 Mg Tabs (Simvastatin) ..... One tablet daily Aspirin 81 Mg Tabs (Aspirin) ..... One tab. daily Lisinopril 20 Mg Tabs (Lisinopril) ..... One tab. daily Zetia 10 Mg Tabs (Ezetimibe) ..... Once a day BP today: / Prior BP: 121/78 (10/18/2011) N uclear Stress Findings: 1. Abnormal myocardial perfusion imaging after vasodilator stress with Regadenoson. 2 . Normal left ventricular systolic function with a calculated ejection fraction of 63%. 3 . There is a fixed defect involving the inferior wall consistent with scar tissue. - (09/24/2011) S tress Echo Findings: NOrmal exercise ECG at the level achieved. S ubmaximal stress test. N ormal exercise echo response to level achieved. V reta poor exercise tolerance. Unable to reach 85% of predicted heart rate for age. (11/21/2005) C ardiac Cath: Normal LV function. EF 60%. Elevated LVEDP. Minor nonobstructive CAD. [facility] (02/02/2009) C arotid Doppler/Duplex: 1. Less than 50% stenosis of the internal carotid arteries bilaterally. 2 . Vertebral flow is antegrade bilaterally. (02/21/2011) P T: 10.9 (01/05/2009) INR: 1.1 (01/05/2009) Fran Dawson MD test results : H er updated medication list for this problem includes: Zocor 40 Mg Tabs (Simvastatin) ..... One tablet daily Aspirin 81 Mg Tabs (Aspirin) ..... One tab. daily Lisinopril 20 Mg Tabs (Lisinopril) ..... One tab. daily Zetia 10 Mg Tabs (Ezetimibe) ..... Once a day BP today: / Prior BP: 164/74 (09/12/2011) N uclear Stress Findings: 1. Abnormal myocardial perfusion imaging after vasodilator stress with Regadenoson. 2 . Normal left ventricular systolic function with a calculated ejection fraction of 63%. 3 . There is a fixed defect involving the inferior wall consistent with scar tissue. - (09/24/2011) S tress Echo Findings: NOrmal exercise ECG at the level achieved. S ubmaximal stress test. N ormal exercise echo response to level achieved. V reta poor exercise tolerance. Unable to reach 85% of predicted heart rate for age. (11/21/2005) C ardiac Cath: Normal LV function. EF 60%. Elevated LVEDP. Minor nonobstructive CAD. [facility] (02/02/2009) C arotid Doppler/Duplex: 1. Less than 50% stenosis of the internal carotid arteries bilaterally. 2 . Vertebral flow is antegrade bilaterally. (02/21/2011) P T: 10.9 (01/05/2009) INR: 1.1 (01/05/2009) Fran Dawson MD test results :121/78 H er updated medication list for this problem includes: Aspirin 81 Mg Tabs (Aspirin) ..... One tab. daily Lisinopril 20 Mg Tabs (Lisinopril) ..... One tab. daily Prior BP: 164/74 (09/12/2011) Fran Dawson MD test results : H er updated medication list for this problem includes: Aspirin 81 Mg Tabs (Aspirin) ..... One tab. daily Lisinopril 20 Mg Tabs (Lisinopril) ..... One tab. daily BP today: / Prior BP: 164/74 (09/12/2011) N uclear Stress Findings: 1. Abnormal myocardial perfusion imaging after vasodilator stress with Regadenoson. 2 . Normal left ventricular systolic function with a calculated ejection fraction of 63%. 3 . There is a fixed defect involving the inferior wall consistent with scar tissue. - (09/24/2011) S tress Echo Findings: NOrmal exercise ECG at the level achieved. S ubmaximal stress test. N ormal exercise echo response to level achieved. V reta poor exercise tolerance. Unable to reach 85% of predicted heart rate for age. (11/21/2005) C ardiac Cath: Normal LV function. EF 60%. Elevated LVEDP. Minor nonobstructive CAD. [facility] (02/02/2009) C arotid Doppler/Duplex: 1. Less than 50% stenosis of the internal carotid arteries bilaterally. 2 . Vertebral flow is antegrade bilaterally. (02/21/2011) P T: 10.9 (01/05/2009) INR: 1.1 (01/05/2009) Fran Dawson MD test results : H er updated medication list for this problem includes: Zocor 40 Mg Tabs (Simvastatin) ..... One tablet daily Aspirin 81 Mg Tabs (Aspirin) ..... One tab. daily Lisinopril 20 Mg Tabs (Lisinopril) ..... One tab. daily Zetia 10 Mg Tabs (Ezetimibe) ..... Once a day BP today: / Prior BP: 164/74 (09/12/2011) N uclear Stress Findings: 1. Abnormal myocardial perfusion imaging after vasodilator stress with Regadenoson. 2 . Normal left ventricular systolic function with a calculated ejection fraction of 63%. 3 . There is a fixed defect involving the inferior wall consistent with scar tissue. - (09/24/2011) S tress Echo Findings: NOrmal exercise ECG at the level achieved. S ubmaximal stress test. N ormal exercise echo response to level achieved. V reta poor exercise tolerance. Unable to reach 85% of predicted heart rate for age. (11/21/2005) C ardiac Cath: Normal LV function. EF 60%. Elevated LVEDP. Minor nonobstructive CAD. [facility] (02/02/2009) C arotid Doppler/Duplex: 1. Less than 50% stenosis of the internal carotid arteries bilaterally. 2 . Vertebral flow is antegrade bilaterally. (02/21/2011) P T: 10.9 (01/05/2009) INR: 1.1 (01/05/2009) Fran Dawson MD Follow up : H er updated medication list for this problem includes: Zocor 40 Mg Tabs (Simvastatin) ..... One tablet daily Aspirin 81 Mg Tabs (Aspirin) ..... One tab. daily Lisinopril 20 Mg Tabs (Lisinopril) ..... One tab. daily Zetia 10 Mg Tabs (Ezetimibe) ..... Once a day BP today: 164/74 Prior BP: 148/80 (02/22/2011) N uclear Stress Findings: Adenosine mediated myocardial perfusion study Abnormal left ventricular systolic function with a calculated ejection fraction of 42%. There is a small reversible apical defect consistent with ischemia (12/29/2008) S tress Echo Findings: NOrmal exercise ECG at the level achieved. S ubmaximal stress test. N ormal exercise echo response to level achieved. V reta poor exercise tolerance. Unable to reach 85% of predicted heart rate for age. (11/21/2005) C ardiac Cath: Normal LV function. EF 60%. Elevated LVEDP. Minor nonobstructive CAD. [facility] (02/02/2009) C arotid Doppler/Duplex: 1. Less than 50% stenosis of the internal carotid arteries bilaterally. 2 . Vertebral flow is antegrade bilaterally. (02/21/2011) P T: 10.9 (01/05/2009) INR: 1.1 (01/05/2009) Fran Dawson MD Follow up : H er updated medication list for this problem includes: Aspirin 81 Mg Tabs (Aspirin) ..... One tab. daily Lisinopril 20 Mg Tabs (Lisinopril) ..... One tab. daily BP today: 164/74 Prior BP: 148/80 (02/22/2011) N uclear Stress Findings: Adenosine mediated myocardial perfusion study Abnormal left ventricular systolic function with a calculated ejection fraction of 42%. There is a small reversible apical defect consistent with ischemia (12/29/2008) S tress Echo Findings: NOrmal exercise ECG at the level achieved. S ubmaximal stress test. N ormal exercise echo response to level achieved. V reta poor exercise tolerance. Unable to reach 85% of predicted heart rate for age. (11/21/2005) C ardiac Cath: Normal LV function. EF 60%. Elevated LVEDP. Minor nonobstructive CAD. [facility] (02/02/2009) C arotid Doppler/Duplex: 1. Less than 50% stenosis of the internal carotid arteries bilaterally. 2 . Vertebral flow is antegrade bilaterally. (02/21/2011) P T: 10.9 (01/05/2009) INR: 1.1 (01/05/2009) Fran Dawson MD Follow-up: H er updated medication list for this problem includes: Aspirin 81 Mg Tabs (Aspirin) ..... One tab. daily Lisinopril 20 Mg Tabs (Lisinopril) ..... One tab. daily Fran Dawson MD Follow-up: H er updated medication list for this problem includes: Aspirin 81 Mg Tabs (Aspirin) ..... One tab. daily Lisinopril 20 Mg Tabs (Lisinopril) ..... One tab. daily Orders: E KG (CPT-62524) Fran Dawson MD Follow-up: H er updated medication list for this problem includes: Vytorin 10-20 Mg Tabs (Ezetimibe-simvastatin) ..... One tab. at bedtime Aspirin 81 Mg Tabs (Aspirin) ..... One tab. daily Lisinopril 20 Mg Tabs (Lisinopril) ..... One tab. daily Fran Dawson MD Follow-up: H er updated medication list for this problem includes: Aspirin 81 Mg Tabs (Aspirin) ..... One tab. daily Lisinopril 20 Mg Tabs (Lisinopril) ..... One tab. daily Fran Dawson MD f/u:The Patient was reencouraged to stop smoking. Fran Dawson MD f/u: H er updated medication list for this problem includes: Aspirin 81 Mg Tabs (Aspirin) ..... One tab. daily Lisinopril 20 Mg Tabs (Lisinopril) ..... One tab. daily BP today: 153/90 P rior BP: 137/79 (01/05/2009) Fran Dawson MD f/u: H er updated medication list for this problem includes: Aspirin 81 Mg Tabs (Aspirin) ..... One tab. daily Lisinopril 20 Mg Tabs (Lisinopril) ..... One tab. daily BP today: 153/90 Prior BP: 137/79 (01/05/2009) N uclear Stress Findings: Adenosine mediated myocardial perfusion study Abnormal left ventricular systolic function with a calculated ejection fraction of 42%. There is a small reversible apical defect consistent with ischemia GC (12/29/2008) E chocardiogram: 1. Technically difficult study. Moderate concentric left ventricular hypertrophy. Normal left ventricular systolic function. Left ventricular ejection fraction is estimated at 55%. There is E to A wave reversal consistent with impaired LV relaxation. 2 . Both MV leaflets are thickened (sclerotic). There is trace mitral valve regurgitation. 3 . There is trace tricuspid valve regurgitation. Unable to adequately assess the VSP. [facility] (12/09/2008) S tress Echo Findings: NOrmal exercise ECG at the level achieved. S ubmaximal stress test. N ormal exercise echo response to level achieved. V reta poor exercise tolerance. Unable to reach 85% of predicted heart rate for age. (11/21/2005) C ardiac Cath: Normal LV function. EF 60%. Elevated LVEDP. Minor nonobstructive CAD. [facility] (02/02/2009) Fran Dawson MD f/u: H er updated medication list for this problem includes: Aspirin 81 Mg Tabs (Aspirin) ..... One tab. daily Lisinopril 20 Mg Tabs (Lisinopril) ..... One tab. daily BP today: 153/90 P rior BP: 137/79 (01/05/2009) Fran Dawson MD f/u:no change. H er updated medication list for this problem includes: Vytorin 10-20 Mg Tabs (Ezetimibe-simvastatin) ..... One tab. at bedtime Aspirin 81 Mg Tabs (Aspirin) ..... One tab. daily Lisinopril 20 Mg Tabs (Lisinopril) ..... One tab. daily BP today: 153/90 Prior BP: 137/79 (01/05/2009) N uclear Stress Findings: Adenosine mediated myocardial perfusion study Abnormal left ventricular systolic function with a calculated ejection fraction of 42%. There is a small reversible apical defect consistent with ischemia (12/29/2008) S tress Echo Findings: NOrmal exercise ECG at the level achieved. S ubmaximal stress test. N ormal exercise echo response to level achieved. V reta poor exercise tolerance. Unable to reach 85% of predicted heart rate for age. (11/21/2005) C ardiac Cath: Normal LV function. EF 60%. Elevated LVEDP. Minor nonobstructive CAD. [facility] (02/02/2009) C arotid Doppler/Duplex: Normal (12/29/2008) P T: 10.9 (01/05/2009) INR: 1.1 (01/05/2009) Fran Dawson MD Follow-up on test: H er updated medication list for this problem includes: Aspirin 81 Mg Tabs (Aspirin) ..... One tab. daily Lisinopril 20 Mg Tabs (Lisinopril) ..... One tab. daily & #13;BP today: 137/79 Prior BP: 148/92 (12/09/2008) N uclear Stress Findings: Adenosine mediated myocardial perfusion study Abnormal left ventricular systolic function with a calculated ejection fraction of 42%. There is a small reversible apical defect consistent with ischemia GC (12/29/2008) S tress Echo Findings: NOrmal exercise ECG at the level achieved. S ubmaximal stress test. N ormal exercise echo response to level achieved. V reta poor exercise tolerance. Unable to reach 85% of predicted heart rate for age. (11/21/2005) C arotid Doppler/Duplex: Normal w ill rx a cardiac cath T he risks and benefits of the procedure, including but not limited the risk of heart attack, , stroke, bleeding, kidney failure, and loss of limb as well as the alternative of continued medical therapy, stress testing or bypass surgery were discussed with the patient and any present family members and the patient wishes to proceed with cardiac cath and stenting. The patient and family had opportunity to discuss this with us. Written material including informed consent was given out. Fran Dawson MD Follow-up on test:Th e Patient was reencouraged to stop smoking. O rders: T OBACCO USE CESSATION INTERMEDIATE 3-10 MINUTES (CPT-39882) Fran Dawson MD Follow-up on test: H er updated medication list for this problem includes: Aspirin 81 Mg Tabs (Aspirin) ..... One tab. daily Lisinopril 20 Mg Tabs (Lisinopril) ..... One tab. daily BP today: 137/79 P rior BP: 148/92 (12/09/2008) Fran Dawson MD Follow-up on test: H er updated medication list for this problem includes: Aspirin 81 Mg Tabs (Aspirin) ..... One tab. daily Lisinopril 20 Mg Tabs (Lisinopril) ..... One tab. daily & #13;BP today: 137/79 Prior BP: 148/92 (12/09/2008) N uclear Stress Findings: Adenosine mediated myocardial perfusion study Abnormal left ventricular systolic function with a calculated ejection fraction of 42%. There is a small reversible apical defect consistent with ischemia GC (12/29/2008) E chocardiogram: 1. Technically difficult study. Moderate concentric left ventricular hypertrophy. Normal left ventricular systolic function. Left ventricular ejection fraction is estimated at 55%. There is E to A wave reversal consistent with impaired LV relaxation. 2 . Both MV leaflets are thickened (sclerotic). There is trace mitral valve regurgitation. 3 . There is trace tricuspid valve regurgitation. Unable to adequately assess the VSP. [facility] (12/09/2008) S tress Echo Findings: NOrmal exercise ECG at the level achieved. S ubmaximal stress test. N ormal exercise echo response to level achieved. V reta poor exercise tolerance. Unable to reach 85% of predicted heart rate for age. (11/21/2005) Fran Dawson MD Follow-up on test: H er updated medication list for this problem includes: Vytorin 10-20 Mg Tabs (Ezetimibe-simvastatin) ..... One tab. at bedtime BP today: 137/79 Prior BP: 148/92 (12/09/2008) Fran Dawson MD Follow-up on test: H er updated medication list for this problem includes: Aspirin 81 Mg Tabs (Aspirin) ..... One tab. daily Lisinopril 20 Mg Tabs (Lisinopril) ..... One tab. daily BP today: 137/79 P rior BP: 148/92 (12/09/2008) Fran Dawson MD Follow-up on test Fran Yepez 6 month follow-up : T he following medications were removed from the medication list: Gemfibrozil 600 Mg Tabs (Gemfibrozil) ..... One tab twice daily Her updated medication list for this problem includes: Vytorin 10-20 Mg Tabs (Ezetimibe-simvastatin) ..... One tab. at bedtime Fran Dawson MD 6 month follow-up : H er updated medication list for this problem includes: Aspirin 81 Mg Tabs (Aspirin) ..... One tab. daily Lisinopril 20 Mg Tabs (Lisinopril) ..... One tab. daily Orders: E KG (CPT-19293) Fran Dawson MD 6 month follow-up : H er updated medication list for this problem includes: Aspirin 81 Mg Tabs (Aspirin) ..... One tab. daily Lisinopril 20 Mg Tabs (Lisinopril) ..... One tab. daily Fran Dawson MD 6 month follow-up :s arbenly asked to stop smoking. s he is to have a bx of the left side of her face. Fran Dawson MD office visit: T he following medications were removed from the medication list: Amlodipine Besylate 5 Mg Tabs (Amlodipine besylate) ..... One tab. daily Her updated medication list for this problem includes: Aspirin 81 Mg Tabs (Aspirin) ..... One tab. daily Lisinopril 20 Mg Tabs (Lisinopril) ..... One tab. daily N uclear Stress Findings: EF - 54%. O ld septal infarct. P ostivie EKG portion of Persantine Cardiolite stress test. S mall area of mild ischemia inferior wall of the left ventricle. (12/17/2005) S tress Echo Findings: NOrmal exercise ECG at the level achieved. S ubmaximal stress test. N ormal exercise echo response to level achieved. V reta poor exercise tolerance. Unable to reach 85% of predicted heart rate for age. (11/21/2005) E chocardiogram: EF - 55-60%. B orderline LVH. M Ild diastolic dysfunction. T hickened mitral valve. T hickened aortic valve. T race tricuspid regurgitation. (02/06/2007) Fran Dawson MD office visit:The Pat ient was reencouraged to stop smoking. Fran Dawson MD office visit: T he following medications were removed from the medication list: Amlodipine Besylate 5 Mg Tabs (Amlodipine besylate) ..... One tab. daily Her updated medication list for this problem includes: Aspirin 81 Mg Tabs (Aspirin) ..... One tab. daily Lisinopril 20 Mg Tabs (Lisinopril) ..... One tab. daily Orders: E KG (CPT-55773) C omplete Echo (CPT-03528) w ill stop the amlodopine. and reduce the lisinopril to 20 mg po once daily. c nadiak her echo and Fran Dawson MD office visit: H er updated medication list for this problem includes: Aspirin 81 Mg Tabs (Aspirin) ..... One tab. daily Lisinopril 40 Mg Tabs (Lisinopril) ..... One tab. daily Amlodipine Besylate 5 Mg Tabs (Amlodipine besylate) ..... One tab. daily N uclear Stress Findings: EF - 54%. O ld septal infarct. P ostivie EKG portion of Persantine Cardiolite stress test. S mall area of mild ischemia inferior wall of the left ventricle. (12/17/2005) E chocardiogram: EF - 55-60%. B orderline LVH. M Ild diastolic dysfunction. T hickened mitral valve. T hickened aortic valve. T race tricuspid regurgitation. (02/06/2007) S tress Echo Findings: NOrmal exercise ECG at the level achieved. S ubmaximal stress test. N ormal exercise echo response to level achieved. V reta poor exercise tolerance. Unable to reach 85% of predicted heart rate for age. (11/21/2005) s he uses her cpap intermittently as she does not sleep well. Fran Dawson MD office visit: H er updated medication list for this problem includes: Vytorin 10-20 Mg Tabs (Ezetimibe-simvastatin) ..... One tab. at bedtime Gemfibrozil 600 Mg Tabs (Gemfibrozil) ..... One tab twice daily Fran Dawson MD office visit:discussed weight lo ss. Fran Dawson MD Date Name Arterial Duplex Bi-L angelito EX LIPID PANEL COMPREHENSIVE METABO LIC PANEL, W/EGFR PROTHROMBIN TIME WIT H INR LIPID PANEL CBC (INCLUDES DIFF/P LT) BASIC METABOLIC PANE L W/EGFR Complete Echo Complete Echo Complete Echo Venous Doppler Bilat eral LE - Reflux URINALYSIS, COMPLETE CT Chest - low dose for lung cancer screening COMPREHENSIVE METABO LIC PANEL W/EGFR LDH CBC (INCLUDES DIFF/P LT) JAK2 Exon 12 Mutatio n Analysis Complete Echo DLCO - 34311 FRC - 70432 FVC - 78039 STR - Adenosine Complete Echo Complete Echo Stress Test - Adenos ine Complete Echo Carotid Duplex Bilat eral Complete Echo Cardiac Cath - GC Complete Echo HISTORY OF PROCEDURES Procedure Date Procedure Name Provider Procedure Notes S tatus Complex e/m visit add on Fran Dawson MD completed Complex e/m visit add on Fran Dawson MD completed EKG Fran Dawson MD completed EKG Fran Dawson MD completed EKG Fran Dawson MD completed SNOMED-CT: 094346322 575176 Current Medications Documented Fran Dawson MD completed SNOMED-CT: 13212036 Physical Exam, Performed: Pulse Exam of Foot Fran Dawson MD completed SNOMED-CT: 116029263 308440 Current Medications Documented Fran Dawson MD completed SNOMED-CT: 19965707 Physical Exam, Performed: Pulse Exam of Foot Fran Dawson MD completed EKG Fran Dawson MD completed SNOMED-CT: 98103124 Physical Exam, Performed: Pulse Exam of Foot Fran Dawson MD completed SNOMED-CT: 447876954 136087 Current Medications Documented Fran Dawson MD completed SNOMED-CT: 593715558 450488 Current Medications Documented Maicol Richard MD completed SNOMED-CT: 953227080 473879 Current Medications Documented Maicol Richard MD completed SNOMED-CT: 949927235 Smoking Cessation Counseling Fran Dawson MD completed SNOMED-CT: 59693843 Physical Exam, Performed: Pulse Exam of Foot Fran Dawson MD completed SNOMED-CT: 325458788 512986 Current Medications Documented Fran Dawson MD completed Stress EKG Wilfrid Wiggins MD completed Regadenoson, 4 units Fran Dawson MD completed Cardiolite, 2 units Fran Dawson MD completed SPECT Images Haley Ngo MD compl eted BLOOD COUNT HEMOGLOBIN Fran Dawson MD completed FVC - 57930 Fran Dawson MD complete d FRC - 08442 Fran Dawson MD complete d DLCO - 01042 Fran Dawson MD complet ed SNOMED-CT: 277954902 Smoking Cessation Counseling Fran Dawson MD completed SNOMED-CT: 62454897 Physical Exam, Performed: Pulse Exam of Foot Fran Dawson MD completed EKG Fran Dawson MD completed SNOMED-CT: 367224235 699165 Current Medications Documented Fran Dawson MD completed EKG Fran Dawson MD completed EKG Fran Dawson MD completed EKG Fran Dawson MD completed EKG Fran Dawson MD completed EKG Fran Dawson MD completed
--- OUTSIDE RECORDS SUMMARY | 2024-06-24 22:22 | XMS_ITS | Encounter Summary ---
Author Organization [facility] Address [address] [place] [id number] Care Team Providers Care Lead Investigator Name Role Phone Hadley Olmstead MD Primary Care Provider [phone] Hadley Olmstead MD Primary Care Provider [phone] Encounter Details Date Type Department Care Team (Late st Contact Info) Description 03/11/2002 Abstract [facility] Conversion Md, Generic Conversion, Social History [...] on filedocumented in this encounter Care Teams Lead Investigator Relationship Specialty Start Date End Date Hadley Olmstead MD PCP - General 07/01/16 Hadley Olmstead MD PCP - General 06/24/16 06/30/16 documented as of this encounter
--- OUTSIDE RECORDS SUMMARY | 2024-06-24 22:22 | XMS_ITS | Clinical Summary ---
Author Organization [facility] Address [address] [place] [address] Care Team Providers Care Refrigeration Engineer Name Role Phone Cayla Guillen RN Unavailable Unavailable Cayla Guillen RN Unavailable Unavailable Shira Anne MD Unavailable [phone] Fran Dawson MD Unavailable Denisha Gomez MD Unavailable [phone] Jose Bales MD Primary Care Provider Allergies [...] tablet (300 mg total) by mouth nightly Active Active Problems Patient Care Coordination No te Formatting of this note migh t be different from the original. Mechanism of Injury: SLMF Dx: R FN fx PMHx: COPD on 2-3L, DM, HLD, HTN, MDD, suprapubic catheter Surgeries: 12/07/23 R REFLOW OPERATOR HDC: 01/08/24, DC to SNF WBAT All extremities Global Hip Restrictions for 6 weeks post surgery RTC in 3wks for Suture Removal (Surgery Date- ) May Walk as Tolerated Able to bathe self, groom and Requires assistance May Shower keep wound clean and dry DVT Prophylaxis- ASA 81mg Pain Mgmt- Tylenol 325mg Saint Michael 10/325 Lidocaine Patches 4% Robaxin 750mg Upcoming Clinic Visit: 01/16/24 Suture Removal? Does Insurance Qualify for In Clinic PT? NO Medicare- [facility] Problem Noted Date Diagnosed Date Lumbar spine pain 04/02/2024 Recurrent falls 12/29/2023 Assessment & Plan (12/29/2023 4:07 PM CDT): Recently admitted with femur fracture repaired this episode fall with lumbar burst fracture Sutures remain in right hip from prior surgery check date for removal right REFLOW OPERATOR 12/07/2023 [place] Closed burst fracture of lumbar [...] Jardiance 10 mg (filled 10/07)- held - Saint Michael 10-325 mg TID - Hydroxyzine 10 mg [...] Jardiance 10 mg (filled 10/07)- held - [facility] Michael 10-325 mg TID - Hydroxyzine 10 mg - Lyrica 100 mg BID - Quetiapine 100 mg BID - Simvastatin 20 mg - Trazodone 300 mg- dose reduced and made PRN Patient also reports taking aspirin 81 mg daily Acute encephalopathy 12/08/2023 Acute metabolic encephalopathy 12/08/2023 Fall 12/08/2023 NSTEMI (non-ST elevated myocardial infarction) ( [facility]) 12/08/2023 Onychomycosis 12/08/2023 Staring episodes 12/08/2023 Suprapubic catheter ([facility]) 12/08/2023 Assessment & Plan (12/29/2023 3:43 PM CDT): 2/ hx bladder cancer Assessment & Plan (12/11/2023 [...] fx - Ortho Trauma consulted -12/06 R REFLOW OPERATOR [[facility]] - WBAT RLE - Anterior hip precautions - Stitch/staple removal 3 weeks post op - PT/OT, pain control - Bone health referral at discharge - Dressing changes daily and as needed - Follow up with Ortho Trauma on 01/15 COPD (chronic obstructive pulmonary disease) Assessment & Plan (12/11/2023 11:45 AM CDT): - Home medications: albuterol, Breztri, Symbicort - watermaster smoking hx - 2L O2 at home, [...] 12/08: patient reporting continued pain. Reports home Saint Michael is helpful at home. Will change oxycodone back to home Saint Michael 10-325 mg q8h PRN. - 12/09: toradol 15 mg IV q6h x 3 doses. Increase Robaxin to 750 mg - 12/10: increase Saint Michael to q6h PRN Mood disorder 12/06/2023 Assessment & Plan (12/06/2023 1:09 PM CDT): - resume home seroquel 100 mg BID Insomnia 12/06/2023 Assessment & Plan (12/06/2023 1:09 PM CDT): - Resume home trazodone 150 mg nightly PRN Gangrene of toe of left foot (CMS/HCC) 4 Cigarette smoker 03/24/2023 Diabetic peripheral neuropathy ([facility]) 023 Hammer toe 03/24/2023 Peripheral arterial occlusive disease ([facility]) 03/24/2023 Acute urinary tract infection 09/27/2022 Retention of urine 09/10/2022 Recurrent urinary tract infection 08/22/2022 Overactive bladder 07/22/2022 Vitamin D deficiency 07/22/2022 Neuropathy due to type 2 diabetes mellitus ([facility]) 07/23/2021 Ulcer of foot due to type 2 diabetes mellitus ([facility]) 07/23/2021 Unsteadiness on feet 01/05/2021 Superficial mycosis, unspecified 12/28/2020 Acute and chronic respirator y failure with hypercapnia ([facility]) 12/08/2020 Hypomagnesemia 12/08/2020 Major depressive [...] in urine Chronic respiratory failure with hypoxia ([facility]) 10/30/2020 Disc degeneration, lumbar 03/15/2020 Spinal [...] asso ciated with type 2 diabetes mellitus (CMS/HCC) 08/29/2017 Hypoxia 08/29/2017 Panlobular emphysema 08/29/2017 Assessment [...] right hip region Tobacco dependence syndrome 03/17/2008 Encounters Date Type Department Care Team Description 04/02/2024 11:00 AM HOT BOX CHECKER Office Visit [facility] [address] [facility] [address] [place] [address] [place] [address] Hadley Reynsoo MD Lumbar spine pain (Primary Dx); Closed stable burst fracture of fourth lumbar vertebra with delayed healing, subsequent encounter 04/02/2024 10:47 AM HOT BOX CHECKER - 04/02/2024 11:59 PM HOT BOX CHECKER Hospital Encounter [facility] [address] [place] [address] Lumbar spine pain Discharge Disposition: Discharge to home or self care from Last 3 Months Surgical History Surgery Date Site/Laterality Comments CARPAL TUNNEL RELEASE Carpal tunnel release KNEE ARTHROPLASTY Knee replacement TOTAL ABDOMINAL HYSTERECTOMY Hysterectomy, total CHOLECYSTECTOMY SECTION BREAST SURGERY JOINT REPLACEMENT SPINAL CORD STIMULATOR TRIAL W/ LAMINOTOMY INSERT VENA CAVA FILTER 01/02/2024 N/A Medical History Medical History Date Comments Diabetes mellitus (HCC) Diabetes mellitus; Comments: CCB 02/19/2016 - Acute myocardial infarction (HCC) anteroseptal Depression Depression COPD (chronic obstructive pu lmonary disease) (HCC) Hyperlipidemia Type 2 diabetes mellitus (HCC) Arthritis Obesity 1st degree AV block DJD (degenerative joint disease) ERINN (obstructive sleep apnea) Family History Medical History Relation Name Comments Diabetes Father Diabetes mellit us; Heart failure Father Congestive hea rt failure; Coronary artery disease Mother Mer[place] nary artery disease; Heart failure Mother Congestive hea rt failure; Hypertension Other Family history of Hypertension; Relation Name Status Comments Father Mother Other Social History Tobacco Use Types Packs/Day Years Used Date Smoking Tobacco: Every Day Cigarettes 0.5 60.1 Started: 1966 Smokeless Tobacco: Never Tobacco Cessation:Ready to Q uit: Yes Alcohol Use Standard Drinks/Week Comments Not Currently 0 (1 standard drink = 0.6 oz pur e alcohol) [facility] Utilities Answer Date Recorded In the past 12 months has th e electric, gas, oil, or water company threatened to shut off services in your [...] friends, or neighbors? Twice a week 12/29/19 How often do you get togethe r with friends or relatives? Twice a week 12/29/2023 How often do you attend chur ch or episcopalian services? 1 to 4 times per year 12/29/2023 Do you belong to any clubs o r organizations such as mandaeism groups, unions, fraternal or athletic groups, or [...] Date Recorded PHQ-2 Total Score 0 12/29/2023 [facility] Occupat ional Health - Occupational Stress Questionnaire Answer Date [...] any time in the past 12 m [facility], were you homeless or living in a care home (including now)? No 12/29/2023 Personal Safety Answer Date Recorded Have you ever been in or are you currently in a harmful physical or emotional relationship or is someone making you feel afraid or unsafe? Denies 12/29/2023 Comments No Sex and Gender Information Value Date Recorded Sex Assigned at Not on file Legal Sex Female 11:12 PM HOT BOX CHECKER Gender Identity Not on file Sexual Orientation Not on file Obstetrics History Last Filed Vital Signs Vital Sign Reading [...] 12/30/2023 2:17 AM CDT Plan of Treatment Health Maintenance Due Date Last Done Comments Albumin Creatinine Ratio, Urine 1953 Colon Cancer Screening-Colonoscopy 1955 Osteoporosis Screening-Bone Density Scan 1955 Dilated Eye Exam 1955 Foot Exam 1953 DTaP/Tdap/Td Vaccine (1 - Tdap) 1964 Hepatitis B Screening 1971 Lung Cancer Screening 2003 Zoster Vaccine (1 of 2) 2003 Well Visit 65+ 2018 Lipid Panel 12/26/2019 12/25/2018 Breast Cancer Screening-Mammogram 02/27/2020 02/26/2019, 02/26/2019, 12/26/2017 Pneumococcal vaccine 65+ (3 of 3 - PPSV23 or PCV20) 12/09/2022 12/09/2017, 02/04/2017, 03/13/2016 Covid-19 Vaccine (2 - 2023-2 5 season) 2024 01/18/2021 Influenza Vaccine (#1) 2024 0, 02/17/2020, 02/03/2019, Additional history exists Hemoglobin A1C 06/10/2024 12/09/2023, 12/08/2023 Depression Screening 12/27/2024 12/28/2023 eGFR 01/03/2025 01/04/2024, 12/17, 01/01/2024, Additional history exists Fall Risk Assessment 01/07/2025 01/08/2024 Hepatitis C Screening Completed 03/04/2016 Goals Goal Patient Goal Type Associated Problems Recent Progress Patient-Stated? Author Exercise times per week Exercise No change(2017 7:25 AM HOT BOX CHECKER) No Cayla Guillen, RN Note: 5 times a week. 50%= Score 3 She is currently walking on the treadmill every day for about 7 minutes. Reduce tobacco use (cigarettes, smokeless, etc) Tobacco Use No change(2017 7:25 AM HOT BOX CHECKER) No Cayla Guillen, RN Note: She is currently trying to stop smoking and is down to only half of a pack per day. Medical Devices Implanted Type Area Banana Grader Device Identifier Shelf Expiration Date Model / Serial / Lot [employer] Simplex P Radiopaque Full Dose Cement Bone Sterile 6191-1-010 - S0 - [id number] Implanted:Qty: 1 on 12/07/2023 by Marnie Leblanc MD at [facility] Bone Cement Right: Hip [employer] [id number] 01/16/2026 6191-1-010 / 0 / [employer] Simplex P Full Dose Radiopaque Preblend Cement Bone Tobramycin 6197-9-010 - S0 - [id number] Implanted:Qty: 1 on 12/07/2023 by Marnie Leblanc MD at [facility] Bone Cement Right: Hip [employer] [id number] 03/18/2025 6197-9-010 / 0 / [employer] Self-Centering 46mm 28mm Hip Femur Head Bipolar Sterile Brown [id number] - S0 - [id number] Implanted:Qty: 1 on 12/07/2023 by Marnie Leblanc MD at [facility] Other - see comments Right: Hip [employer] [id number] 12/17/2027 [id number] / 0 / [employer] Inc Articul/Selvin 28mm Hip +1.5mm 12/14 Taper Head Femoral Cocr Sterile Latex Free 1365-11-000 - S0 - [id number] Implanted:Qty: 1 on 12/07/2023 by Marnie Leblanc MD at [facility] Other - see comments Right: Hip [employer] [id number] 08/16/2028 1365-11-000 / 0 / [employer] [employer]/Or tho Prep-Im Plug [place] Sponge Suction Hip Kit Thr Latex Free 337035 - S0 - [id number] Implanted:Qty: 1 on 12/07/2023 by Marnie Leblanc MD at [facility] Other - see comments Right: Hip [employer]/ Ortho [id number] 07/07/2033 [id number] / 0 / [id number] [employer] Cementralizer 9.25mm Cemented Hip Femur Centralizer Stem Pmma Latex Free [id number] - S0 - [id number] Implanted:Qty: 1 on 12/07/2023 by Marnie Leblanc MD at [facility] Other - see comments Right: Hip [employer] [id number] 07/16/2028 [id number] / 0 / [employer] Inc [place] 108mm Cemented Hip 3 05/01 Standard Offset Taper Stem [id number] - S0 - [id number] Implanted:Qty: 1 on 12/07/2023 by Marnie Leblanc MD at [facility] Other - see comments Right: Hip [employer] [id number] 05/18/2028 [id number] / 0 / [place] [employer] [place] Jugular Venal Cava Filter Nf291l - [id number] Implanted:Qty: 1 on 01/02/2024 at [facility] [employer] 10/16/2026 [id number] / / [id number] Explanted Type Area Banana Grader Device Identifier Shelf Expiration Date Model / Serial / Lot [employer] 1192 [place] Lead - Sn/A - [id number] Implanted:Qty: 1 on 08/07/2018 by Angely Lucero MD at [facility] N/A: Thoracic [employer] [id number] 06/29/2020 1192 / N/A / [id number] Description:Fascia above T-8 [employer] 1192 [place] Lead - Sn/A - [id number] Implanted:Qty: 1 on 08/07/2018 by Angely Lucero MD at [facility] N/A: Thoracic [employer] [id number] 06/29/2020 1192 / N/A / [id number] Description:Fascia above T-7 [employer] 3186ans Octrode 60cm 8 Electrode Lead Percutaneous Kit Neurostimulator - [id number] - [id number] Implanted:Qty: 1 on 08/07/2018 by Angely Lucero MD at [facility] N/A: Thoracic [employer] [id number] 03/02/2020 [id number] / [id number] / N/A Description:Thoracic 8 [employer] 3186ans Octrode 60cm 8 Electrode Lead Percutaneous Kit Neurostimulator - [id number] - [id number] Implanted:Qty: 1 on 08/07/2018 by Angely Lucero MD at [facility] N/A: Thoracic [employer] [id number] 03/01/2020 [id number] / [id number] / Description:Thoracic 7 [employer] 3662 Proclaim Elite 2.63inx1.98in 7 Ipg Implantable Recharge Free - Uclp138.1 - [id number] Implanted:Qty: 1 on 08/07/2018 by Angely Lucero MD at [facility] Left: Back [employer] [id number] 06/03/2020 3662 / [id number] / Description:Left posterior l ower quadrant battery Procedures Procedure Name Priority Date/Time Associated Diagnosis Comments XR SPINE LUMBAR 2 OR 3 VIEWS Schedule Routine, Read Routine (OP Routine) 04/02/2024 10:53 AM HOT BOX CHECKER Lumbar spine pain EGFR Routine 01/04/2024 10:05 PM CDT HEMOGLOBIN A1C Routine 12/08/2023 9:56 PM CDT SERUM HEPATITIS PANEL Routine 03/04/2016 9:39 AM CDT from Last 3 Months or Most Recently Relevant to Health Maintenance Results * XR Spine Lumbar 2 Or 3 View (04/02/2024 10:53 AM HOT BOX CHECKER) Anatomical Region Laterality Modality Spine N/A Computed Radiogr aphy 04/02/2024 11:5 6 AM HOT BOX CHECKER Impressions 04/02/2024 11:56 AM HOT BOX CHECKER 1. Unchanged L4 burst fracture with grade 1 anterolisthesis of L4 on L5. Electronically signed by: Shayne Muniz D.O. Narrative 04/02/2024 11:56 AM HOT BOX CHECKER EXAMINATION: XR SPINE LUMBAR 2 OR 3 VIEWS HISTORY: lumbar fx FINDINGS: Comparison made with 12/30/2023. Unchanged L4 burst fracture without interval Roper. Unchanged grade 1 anterolisthesis of L4 on L5. Nxgoeeul-jo-msjkkw degenerative disc disease throughout the lumbar spine. No acute fractures. Vascular calcifications. IVC filter noted. Right hip hemiarthroplasty partially visualized. Procedure Note Shayne Muniz, - 04/02/2024 EXAMINATION: XR SPINE LUMBAR 2 OR 3 VIEWS HISTORY: lumbar fx FINDINGS: Comparison made with 12/30/2023. Unchanged L4 burst fracture without interval Roper. Unchanged grade 1 anterolisthesis of L4 on L5. Oxwspcwr-nw-qdmovo degenerative disc disease throughout the lumbar spine. No acute fractures. Vascular calcifications. IVC filter noted. Right hip hemiarthroplasty partially visualized. IMPRESSION: 1. Unchanged L4 burst fracture with grade 1 anterolisthesis of L4 on L5. Electronically signed by: Shayne Muniz D.O. us Hadley Reynoso MD IMG XR PROCEDURES Final [...] 5 PM CDT 01/04/2024 10:47 PM CDT Semaj Lovell DO LAB BLOOD ORDERABLES Final Result Performing Organization Address [facility] de Phone Number [facility] [place] [address] * (ABNORMAL) Hemoglobin A1c (12/08/2023 9:56 PM CDT) Hgb A1C 5.8(H) 4.0 - 5.6 % Estimated Average Glucose 120 mg/dL [facility] Comment: The ADA recommends reporting an estimated [...] ORDERABLES Final Res ult Performing Organization Address [facility] [address] [facility] Co de Phone Number [facility] [place] [address] * (ABNORMAL) Serum Hepatitis panel (03/04/2016 9:39 AM CDT) HAV ab, IgM Negative Negative CDR HISTORICAL [...] Recently Relevant to Health Maintenance Insurance MEDICARE [employer] [facility] MEDICARE [facility] Address: [address] [address] [place] [address] IDPA IDPA MEDICARE [facility] Address: [address] [address] [place] [address] [facility] Advance Directives For more information, please contact: [phone] * Full Code (Latest Code Status on File) Date Activated Date Inactivated Comments 12/29/2023 7:54 AM 01/08/2024 5:28 PM * Full Code Date Activated Date Inactivated Comments 12/06/2023 7:58 AM 12/12/2023 5:46 PM Care Teams Refrigeration Engineer Relationship Specialty Start Date End Date Jose Bales MD [address] [place] [id number] PCP - General Gastroenterology 12/09/23 Cayla Guillen, RN Registered Nurse 04/28/17 Cayla Guillen, RN Registered Nurse 06/27/17 Shira Anne MD [address] [place] [address] Urologist Urology 11/30/20 [place] [address] [facility] [address] [place] [address] Associate Dentist Cardiovascular Disease 11/30/20 Denisha Gomez MD [address] [place] [address] Consulting Physician Radiation Oncology 12/01/20
--- OUTSIDE RECORDS SUMMARY | 2024-06-24 22:22 | XMS_ITS | Patient Health Summary ---
Author Organization [facility] Address [address] [place] [address] Care Team Providers Care Outdoor Adventure Guides Name Role Phone Griffin Weiss MD Primary Care Provider [phone] Note from [facility],non-owned Affiliates and Associated Physician Practices is amultiple site organization consisting of ambulatory clinics and hospital sitesin [place], [place], [place] and [place]. This disclosure is being madepursuant to the Care Everywhere program and may not contain all information available regarding this patient. Last updated 18.[facility] Allergies * Alcohol(Urticaria) -High Criticality * Atorvastatin(Myalgias) -Medium Criticality * Clarithromycin(Unknown) -Medium Criticality * Duragesic(Shortness of Breath) -High Criticality * Gabapentin(Dizziness) -Medium Criticality * Morphine(Nausea and/or Vomiting) -Low Criticality * Paroxetine(Urticaria,Rash,Unknown) -High Criticality * Somatropin(Dizziness) -Medium Criticality * Tramadol(Nausea and/or Vomiting) -Low Criticality * Varenicline(Unknown,Psychiatric) -Medium Criticality * Fentanyl(Shortness of Breath,Other) -High Criticality,Inactive Medications * Be aware that medications may not be up to date on this document. Alwaysverify current medications with the patient. * amLODIPine (NORVASC) 5 MG tablet Take 5 mg by mouth once daily * levocetirizine (XYZAL) 5 MG tablet Take 5 mg by mouth once daily * metFORMIN (GLUCOPHAGE) 500 MG tablet Take 500 mg by mouth 2 times daily * pregabalin (LYRICA) 100 MG capsule Take 100 mg by mouth 2 times daily * QUEtiapine (SEROQUEL) 50 MG tablet Take 50 mg by mouth 3 times daily * simvastatin (ZOCOR) 20 MG tablet Take 20 mg by mouth once daily * traZODone (DESYREL) 150 MG tablet(Started 11/25/2019) Take 150 mg by mouth at bedtime * lactobacillus extra strength (FLORAJEN) capsule Take 1 capsule by mouth 2 times daily * venlafaxine (EFFEXOR) 75 MG tablet Take 75 mg by mouth 2 times daily * insulin lispro (HUMALOG;ADMELOG) 100 UNIT/ML pen Inject 0-10 Units subcutaneously 3 times daily before meals * magnesium oxide (MAG-OX) 400 MG tablet(Started 11/03/2020) Take 1 (one) tablet by mouth once daily * HYDROcodone-acetaminophen (NORCO) 10-325 MG tablet(Started 11/03/2020) Take 1 (one) tablet by mouth every 6 hours as needed Active Problems Problem Noted Date Diagnosed Date [...] Mass Index 34.8 10/31/2020 3:36 AM CDT Procedures * CARDIAC RHYTHM STRIP ORDER(Performed 11/06/2020) * GLUCOSE - POINT OF CARE(Performed 11/03/2020) * GLUCOSE - POINT OF CARE(Performed 11/03/2020) * GLUCOSE - POINT OF CARE(Performed 11/03/2020) * GLUCOSE - POINT OF CARE(Performed 11/03/2020) * PHOSPHORUS BLOOD(Performed 11/03/2020) * MAGNESIUM BLOOD(Performed 11/03/2020) * COMPREHENSIVE METABOLIC PANEL(Performed 11/03/2020) * CBC W AUTO DIFFERENTIAL(Performed 11/03/2020) * GLUCOSE - POINT OF CARE(Performed 11/03/2020) * GLUCOSE - POINT OF CARE(Performed 11/02/2020) * GLUCOSE - POINT OF CARE(Performed 11/02/2020) * GLUCOSE - POINT OF CARE(Performed 11/02/2020) * GLUCOSE - POINT OF CARE(Performed 11/02/2020) * PHOSPHORUS BLOOD(Performed 11/02/2020) * MAGNESIUM BLOOD(Performed 11/02/2020) * COMPREHENSIVE METABOLIC PANEL(Performed 11/02/2020) * CBC W AUTO DIFFERENTIAL(Performed 11/02/2020) * GLUCOSE - POINT OF CARE(Performed 11/02/2020) * GLUCOSE - POINT OF CARE(Performed 11/01/2020) * GLUCOSE - POINT OF CARE(Performed 11/01/2020) * GLUCOSE - POINT OF CARE(Performed 11/01/2020) * GLUCOSE - POINT OF CARE(Performed 11/01/2020) * CBC W AUTO DIFFERENTIAL(Performed 11/01/2020) * VANCOMYCIN LEVEL RANDOM(Performed 11/01/2020) * PHOSPHORUS BLOOD(Performed 11/01/2020) * MAGNESIUM BLOOD(Performed 11/01/2020) * COMPREHENSIVE METABOLIC PANEL(Performed 11/01/2020) * GLUCOSE - POINT OF CARE(Performed 11/01/2020) * GLUCOSE - POINT OF CARE(Performed 11/01/2020) * GLUCOSE - POINT OF CARE(Performed 11/01/2020) * OSMOLALITY URINE(Performed 11/01/2020) * CULTURE MRSA(Performed 11/01/2020) * OSMOLALITY BLOOD(Performed 10/31/2020) * BASIC METABOLIC PANEL (CALCIUM TOTAL)(Performed 10/31/2020) * GLUCOSE - POINT OF CARE(Performed 10/31/2020) * BLOOD GASES ARTERIAL(Performed 10/31/2020) * GLUCOSE - POINT OF CARE(Performed 10/31/2020) * GLUCOSE - POINT OF CARE(Performed 10/31/2020) * GLUCOSE - POINT OF CARE(Performed 10/31/2020) * POTASSIUM BLOOD(Performed 10/31/2020) * GLUCOSE - POINT OF CARE(Performed 10/31/2020) * GLUCOSE - POINT OF CARE(Performed 10/31/2020) * GLUCOSE - POINT OF CARE(Performed 10/31/2020) * POTASSIUM BLOOD(Performed 10/31/2020) * GLUCOSE - POINT OF CARE(Performed 10/31/2020) * GLUCOSE - POINT OF CARE(Performed 10/31/2020) * US RETROPERITONEAL COMPLETE(Performed 10/31/2020) Performed for Chronic respiratory failure with hypoxia (HCC) * GLUCOSE - POINT OF CARE(Performed 10/31/2020) * GLUCOSE - POINT OF CARE(Performed 10/31/2020) * POTASSIUM BLOOD(Performed 10/31/2020) * URINE MICROSCOPIC ONLY REFLEX TO CULTURE(Performed 10/31/2020) * URINALYSIS REFLEX MICROSCOPIC REFLEX CULTURE(Performed 10/31/2020) * CULTURE URINE(Performed 10/31/2020) * STREP PNEUMONIAE ANTIGEN URINE(Performed 10/31/2020) * LEGIONELLA ANTIGEN URINE(Performed 10/31/2020) * HEMOGLOBIN A1C(Performed 10/31/2020) * CBC W AUTO DIFFERENTIAL(Performed 10/31/2020) * CULTURE BLOOD(Performed 10/31/2020) * TROPONIN I(Performed 10/31/2020) * PHOSPHORUS BLOOD(Performed 10/31/2020) * MAGNESIUM BLOOD(Performed 10/31/2020) * LACTIC ACID BLOOD(Performed 10/31/2020) * COMPREHENSIVE METABOLIC PANEL(Performed 10/31/2020) * CULTURE BLOOD(Performed 10/31/2020) * XR CHEST 1VW PORTABLE(Performed 10/31/2020) Performed for Chronic respiratory failure with hypoxia (HCC) * BLOOD GASES ARTERIAL(Performed 10/31/2020) * ECHOCARDIOGRAM 2D WITH DOPPLER(Performed 10/31/2020) Performed for Chronic respiratory failure with hypoxia (HCC) Results * CARDIAC RHYTHM STRIP ORDER (11/06/2020 9:26 PM CDT) Narrative 11/06/2020 9:26 PM CDT Ordered by an unspecified provider. Scanned Document CARDIAC SERVICES ORD ERABLES * (ABNORMAL) GLUCOSE - POINT OF CARE (11/03/2020 2:50 PM CDT) Only the most recent of28 resultswithin the time period is included. Pathologist [facility] Glucose WB/POC 197(H) 70 - 106 mg/dL 11/04/2020 7:30 AM CDT [facility] Specimen Type Cap Fingerstick 2020 7:30 AM CDT [facility] Blood BLOOD SPECIMEN / Unknown 11/03/2020 2:50 PM CDT 11/04/2020 7:30 AM CDT Thao Gonzalez MD LAB - POINT OF CARE ORDERABLES [facility] [address] [place] [address] * (ABNORMAL) CBC W AUTO DIFFERENTIAL (11/03/2020 3:19 AM CDT) Only the most recent of4 resultswithin the time period is included. WBC 6.4 4.4 - 10.7 x10E9/L 11/03/2020 4:31 AM CDT [facility] WBC Corrected 11/03/2020 4:31 AM CDT [facility] RBC 4.16 3.80 - 5.20 x10E12/L 11/03/2020 4:31 AM CDT [facility] Hemoglobin 11.8(L) 12.0 - 15.6 gm/dL 11/03/2020 4:31 AM CDT [facility] Hematocrit 38.0 35.9 - 45.5 % 11/03/2020 4:31 AM CDT [facility] MCV 91.3 80.7 - 98.3 fl 11/03/2020 4:31 AM CDT [facility] MCH 28.4 26.7 - 34.0 pg 11/03/2020 4:31 AM CDT [facility] MCHC 31.1 30.8 - 35.9 gm/dL 11/03/2020 4:31 AM CDT [facility] Platelet Count 217 153 - 416 x10E9/L 11/03/2020 4:31 AM [facility] RDW-CV 13.8 12.1 - 14.9 % 11/03/2020 4:31 AM CDT [facility] MPV 10.2 9.4 - 12.9 fl 11/03/2020 4:31 AM [facility] Neutrophils % 46.6 44.0 - 73.0 % 11/03/2020 4:31 AM [facility] Lymphocytes % 33.1 20.0 - 43.0 % 11/03/2020 4:31 AM [facility] Monocytes % 11.7 5.0 - 13.0 % 11/03/2020 4:31 AM [facility] Eosinophils % 6.9(H) 0.0 - 6.0 % 11/03/2020 4:31 AM [facility] Basophils % 0.6 0.0 - 2.0 % 11/03/2020 4:31 AM [facility] Immature Granulocytes 1.1(H) 0 - 1 % 11/03/2020 4:31 AM [facility] Neutrophil Absolute 2.98 2.01 - 7.14 x10E9/L 11/03/2020 4:31 AM [facility] Lymphocytes Absolute 2.12 1.07 - 3.94 x10E9/L 11/03/2020 4:31 AM [facility] Monocytes Absolute 0.75 0.26 - 1.07 x10E9/L 11/03/2020 4:31 AM [facility] Eosinophils Absolute 0.44 0 - 0.47 x10E9/L 11/03/2020 4:31 AM CDT [facility] Basophils Absolute 0.04 0 - 0.08 x10E9/L 11/03/2020 4:31 AM CDT [facility] Immature Granulocytes Absolute 0.07(H) 0.00 - 0.06 x10E9/L 11/03/2020 4:31 AM [facility] nRBC Auto 0 /100 WBC 11/03/2020 4:31 AM [facility] Blood BLOOD SPECIMEN / Unknown Lab Venipuncture / Unknown 11/03/2020 3:19 AM CDT 11/03/2020 4:24 AM CDT Enoch Galvan MD LAB - HEMATOLOGY ORD ERABLES [facility] [address] [address] * (ABNORMAL) COMPREHENSIVE METABOLIC PANEL (11/03/2020 3:19 AM CDT) Only the most recent of4 resultswithin the time period is included. Glucose 78 70 - 105 mg/dL 11/03/2020 5:09 AM [facility] Sodium 140 136 - 145 mmol/L 11/03/2020 5:09 AM [facility] Potassium 4.1 3.5 - 5.1 mmol/L 11/03/2020 5:09 AM [facility] Chloride 107 98 - 107 mmol/L 11/03/2020 5:09 AM [facility] CO2 22(L) 23 - 31 mmol/L 11/03/2020 5:09 AM [facility] Calcium 7.8(L) 8.4 - 10.4 mg/dL 11/03/2020 5:09 AM [facility] Anion Gap 11 8 - 18 mmol/L 11/03/2020 5:09 AM [facility] BUN 23(H) 9.8 - 20.1 mg/dL 11/03/2020 5:09 AM [facility] Creatinine 0.79 0.57 - 1.11 mg/dL 11/03/2020 5:09 AM [facility] Alkaline Phosphatase 70 40 - 150 U/L 11/03/2020 5:09 AM [facility] ALT 15 0 - 61 U/L 11/03/2020 5:09 AM [facility] AST 14 5 - 34 U/L 11/03/2020 5:09 AM CDT [facility] Protein Total 5.9(L) 6.4 - 8.3 gm/dL 11/03/2020 5:09 AM CDT [facility] Albumin 2.8(L) 3.2 - 4.6 gm/dL 11/03/2020 5:09 AM CDT [facility] Bilirubin Total 0.2 0.2 - 1.2 mg/dL 11/03/2020 5:09 AM CDT [facility] eGFR by MDRD >60 >60 mL/min/1.7 3m2 11/03/2020 5:09 AM CDT [facility] eGFR by MDRD >60 >60 mL/min/1.7 3m2 11/03/2020 5:09 AM CDT [facility] Blood BLOOD SPECIMEN / Unknown Lab Venipuncture / Unknown 11/03/2020 3:19 AM CDT 11/03/2020 4:23 AM CDT Enoch Galvan MD LAB - CHEMISTRY [facility]lexander [facility] Performing Organization Address [facility] de Phone Number [facility] [address] [place] [address] * (ABNORMAL) PHOSPHORUS BLOOD (11/03/2020 3:19 AM CDT) Only the most recent of4 resultswithin the time period is included. Phosphorus 2.0(L) 2.3 - 4.7 mg/dL 11/03/2020 5:09 AM CDT [facility] Blood BLOOD SPECIMEN / Unknown Lab Venipuncture / Unknown 11/03/2020 3:19 AM CDT 11/03/2020 4:23 AM CDT Enoch Galvan MD LAB - CHEMISTRY MIGUEL [facility] Performing Organization Address [facility] de Phone Number [facility] [address] [place], [place] [id number] * (ABNORMAL) MAGNESIUM BLOOD (11/03/2020 3:19 AM CDT) Only the most recent of4 resultswithin the time period is included. Magnesium 1.3(L) 1.6 - 2.6 mg/dL 11/03/2020 5:09 AM CDT [facility] Blood BLOOD SPECIMEN / Unknown Lab Venipuncture / Unknown 11/03/2020 3:19 AM CDT 11/03/2020 4:23 AM CDT Enoch Galvan MD LAB - CHEMISTRY MIGUEL MAJOR Performing Organization Address [facility] de Phone Number [facility] [address] [place] [address] * VANCOMYCIN LEVEL RANDOM (11/01/2020 7:51 AM CDT) Vancomycin Random 10.3 ug/mL 11/01/2020 8:13 AM CDT [facility] Blood BLOOD SPECIMEN / Unknown Lab Venipuncture / Unknown 11/01/2020 7:51 AM CDT 11/01/2020 7:54 AM CDT Narrative [facility] - 11/01/2020 8:13 AM CDT No reference range available for random Vancomycin levels. All results interpreted by ordering physician. Candace Seay MD LAB - CHEMISTRY MIGUEL MAJOR Performing Organization Address [facility] de Phone Number [facility] [address] [place] [address] [place] [address] * CULTURE MRSA (11/01/2020 12:14 AM CDT) Culture Negative for methicillin-resist ant Staphylococcus aureus (MRSA) GUALBERTO 11/02/2020 6:49 AM CDT [facility] Microbiology SPECIMEN FROM NASAL FOSSAE / Unknown Collection / Unknown 11/01/2020 12:14 AM CDT 11/01/2020 12:23 AM CDT Enoch Galvan MD LAB - MICROBIOLOGY O RDERABLES Performing Organization Address City/[facility] Co de Phone Number [facility] MICROBIOLOGY [address] [place] [address], [facility] [phone] * OSMOLALITY URINE (11/01/2020 12:14 AM CDT) Osmolality Urine 320 50-1,200 mOsm/kg 11/01/2020 12:49 AM T [facility] Urine URINE SPECIMEN OBTAINED BY CLEAN CATCH PROCEDURE / Unknown Collection / Unknown 11/01/2020 12:14 AM CDT 11/01/2020 12:23 AM CDT Candace Seay MD LAB - URINE CHEMISTR Y ORDERABLES [facility] [address] [address] * (ABNORMAL) BASIC METABOLIC PANEL (CALCIUM TOTAL) (10/31/2020 10:57 PM CDT) Pathologist [facility] Glucose 132(H) 70 - 105 mg/dL 10/31/2020 11:31 PM [facility] Sodium 139 136 - 145 mmol/L 10/31/2020 11:31 PM [facility] Potassium 4.3 3.5 - 5.1 mmol/L 10/31/2020 11:31 PM [facility] Chloride 97(L) 98 - 107 mmol/L 10/31/2020 11:31 PM [facility] CO2 30 23 - 31 mmol/L 10/31/2020 11:31 PM [facility] Calcium 9.1 8.4 - 10.4 mg/dL 10/31/2020 11:31 PM [facility] Anion Gap 12 8 - 18 mmol/L 10/31/2020 11:31 PM [facility] BUN 57(H) 9.8 - 20.1 mg/dL 10/31/2020 11:31 PM [facility] Creatinine 1.72(H) 0.57 - 1.11 mg/dL 10/31/2020 11:31 PM [facility] eGFR by MDRD 30(L) >60 mL/min/1.7 3m2 10/31/2020 11:31 PM [facility] eGFR by MDRD 36(L) >60 mL/min/1.7 3m2 10/31/2020 11:31 PM [facility] Blood BLOOD SPECIMEN / Unknown Lab Venipuncture / Unknown 10/31/2020 10:57 PM CDT 10/31/2020 11:13 PM CDT Candace Seay MD LAB - CHEMISTRY MIGUEL MAJOR Performing Organization Address [facility]/ZIP Co de Phone Number [facility] [address] [place] [phone] * (ABNORMAL) OSMOLALITY BLOOD (10/31/2020 10:57 PM CDT) Osmolality 311(H) 280 - 300 mOsm/kg 10/31/2020 11:49 PM CDT [facility] Blood BLOOD SPECIMEN / Unknown Lab Venipuncture / Unknown 10/31/2020 10:57 PM CDT 10/31/2020 11:13 PM CDT Candace Seay MD LAB - CHEMISTRY MIGUEL MAJOR Performing Organization Address [facility] de Phone Number [facility] [address] [place] [address] * (ABNORMAL) BLOOD GASES ARTERIAL (10/31/2020 5:58 PM CDT) Only the most recent of2 resultswithin the time period is included. pH Arterial 7.39 7.35 - 7.45 pH 11/01/2020 1:24 PM CDT [facility] pCO2 Arterial 51(H) 35 - 45 mm hg 11/01/2020 1:24 PM CDT [facility] Comment:H pO2 Arterial 70(L) 80 - 100 mm hg 11/01/2020 1:24 PM CDT [facility] Comment:L HCO3 Arterial 30(H) 22 - 26 mmol/L 11/01/2020 1:24 PM CDT [facility] Comment:H BE Arterial 3.9(H) -2.0 - 2.0 mmol/L 11/01/2020 1:24 PM CDT [facility] Comment:H O2 Saturation Arterial 93 90 - 100 % 11/01/2020 1:24 PM CDT [facility] Hemoglobin Arterial 12.7 12.0 - 15.6 gm/dL 11/01/2020 1:24 PM CDT [facility] Carboxyhemoglobin Arterial 0.0 0.0 - 2.5 % 11/01/2020 1:24 PM CDT [facility] Methemoglobin Arterial 0.3 0.0 - 2.0 % 11/01/2020 1:24 PM CDT [facility] Oxyhemoglobin Arterial 93 % 11/01/2020 1:24 PM CDT [facility] O2 Content Arterial 16.7 % 11/01 1:24 PM CDT [facility] Comment:L Mode NC 11/01/2020 1:24 PM CDT [facility] Mich's Test Positive 11/01/2020 1:24 PM CDT [facility] Liter Flow (LPM) 5.00 11/02/19 1:24 PM CDT [facility] Sample Site R Radial 11/01/2020 1:24 PM CDT [facility] Sample Type Arterial 11/01/2020 1:24 PM CDT [facility] [place] [id number] 11/01/2020 1:24 PM CDT [facility] Blood, arterial ARTERIAL BLOOD SPECIMEN / Unknown 10/31/2020 5:58 PM CDT 10/31/2020 5:58 PM CDT Enoch Galvan MD LAB - BLOOD GASES OR DERABLES Performing Organization Address [facility] de Phone Number [facility] RESP THERAPY [address] [place] [address] * POTASSIUM BLOOD (10/31/2020 3:42 PM CDT) Only the most recent of3 resultswithin the time period is included. Potassium 5.1 3.5 - 5.1 mmol/L 10/31/2020 3:59 PM CDT [facility] Blood BLOOD SPECIMEN / Unknown Lab Venipuncture / Unknown 10/31/2020 3:42 PM CDT 10/31/2020 3:46 PM CDT Enoch Galvan MD LAB - CHEMISTRY MIGUEL MAJOR [facility] [address] [place] [address] * US RETROPERITONEAL COMPLETE (10/31/2020 10:23 AM CDT) Anatomical Region Laterality Modality Abdomen Ultrasound 10/31/2020 11:3 0 AM CDT Impressions 10/31/2020 11:31 AM CDT Mild bilateral hydronephrosis *Reading Radiologist: Emmanuel Alvarez on 10/31/2020 at 11:31 AM Narrative 10/31/2020 11:31 AM CDT Ultrasound bilateral kidneys and bladder INDICATION: acute renal failure FINDINGS: Ultrasound shows the right kidney to measure 12.05 x 5.49 x 5.97 cm in the left kidney to measure 12.16 x 6.34 x 6.66 cm. There is mild prominence of both collecting systems. There is a Millre catheter present. Bilateral ureteral jets are not seen. Procedure Note Emmanuel Alvarez MD - 10/31/2020 Ultrasound bilateral kidneys and bladder INDICATION: acute renal failure FINDINGS: Ultrasound shows the right kidney to measure 12.05 x 5.49 x 5.97 cm in the left kidney to measure 12.16 x 6.34 x 6.66 cm. There is mild prominence of both collecting systems. There is a Miller catheter present. Bilateral ureteral jets are not seen. IMPRESSION Mild bilateral hydronephrosis *Reading Radiologist: Emmanuel Alvarez on 10/31/2020 at 11:31 AM Will Burch MD US ORDERABLES * (ABNORMAL) URINE MICROSCOPIC ONLY REFLEX TO CULTURE (10/31/2020 4:25 AM CDT) Reflex Status Culture to follow 10/31/2020 6:47 AM CDT [facility] RBC UA 0-2 None Seen, 0-2, 3-5 # /hpf 10/31/2020 6:47 AM CDT [facility] WBC UA 11-20(A) None Seen, 0-5 # /hpf 10/31/2020 6:47 AM CDT [facility] Bacteria UA None Seen None Seen 10/31/2020 6:47 AM CDT [facility] Squamous Epithelial Cells None Seen None Seen, 0-2, 3-5 /hpf 10/31/2020 6:47 AM [facility] Budding Yeast Occasional( A) None seen /hpf 10/31/2020 6:47 AM [facility] Urine URINE SPECIMEN OBTAINED BY CLEAN CATCH PROCEDURE / Unknown Collection / Unknown 10/31/2020 4:25 AM CDT 10/31/2020 6:37 AM CDT Narrative [facility] - 10/31/2020 6:47 AM CDT Will Burch MD LAB - URINALYSIS ORD ERABLES [facility] [address] [place] [address] * (ABNORMAL) URINALYSIS REFLEX MICROSCOPIC REFLEX CULTURE (10/31/2020 4:25 AM CDT) Color UA Straw Straw, Yellow 10/31/2020 6:43 AM [facility] Clarity UA Clear Clear 10/31/2020 6:43 AM [facility] Glucose UA 1+(A) Negative 10/31/2020 6:43 AM [facility] Bilirubin UA Negative Negative 10/31/2020 6:43 AM [facility] Ketone UA Negative Negative 10/31/2020 6:43 AM [facility] Specific Dugger UA 1.006 1.005 - 1.030 10/31/2020 6:43 AM [facility] Blood UA 1+(A) Negative 10/31/2020 6:43 AM [facility] pH UA 6.0 5.0 - 8.0 pH 10/31/2020 6:43 AM [facility] Protein UA Negative Negative 10/31/2020 6:43 AM [facility] Urobilinogen UA Negative Negative mg/dL 10/31/2020 6:43 AM [facility] Nitrite UA Negative Negative 10/31/2020 6:43 AM [facility] Leukocyte UA 1+(A) Negative 10/31/2020 6:43 AM [facility] Urine Microscopy Urine microscopy to follow 10/31/2020 6:43 AM CDT [facility] Reflex Status Culture to follow 10/31/2020 6:43 AM CDT [facility] Urine URINE SPECIMEN OBTAINED BY CLEAN CATCH PROCEDURE / Unknown Collection / Unknown 10/31/2020 4:25 AM CDT 10/31/2020 6:37 AM CDT Narrative [facility] - 10/31/2020 6:43 AM CDT Will Burch MD LAB - URINALYSIS ORD ERABLES Performing Organization Address [facility] Co de Phone Number [facility] [address] [place] [address] * STREP PNEUMONIAE ANTIGEN URINE (10/31/2020 4:25 AM CDT) Streptococcus pneumoniae Antigen Urine Negative Negative 11/01/2020 7:19 AM CDT [facility] Urine URINE / Unknown Collection / Unknown 10/31/2020 4:25 AM CDT 10/31/2020 6:38 AM CDT [facility] - 11/01/2020 7:19 AM CDT Patients who have received the Streptococcus pneumoniae vaccines may test positive in the 48 hours following vaccination. It is recommended to avoid testing within five days of receiving vaccination. Testing pediatric patients is discouraged because of their high rates of nasal colonization with Streptococcus pneumoniae leading to false positive results. Samples from patients taking antibiotics for more than 24 hours may cause false negatives. Will Burch MD LAB - MICROBIOLOGY O RDERABLES Performing Organization Address [place]/[facility] Co de Phone Number [facility] [address] [place] [id number] [phone] * LEGIONELLA ANTIGEN URINE (10/31/2020 4:25 AM CDT) Legionella Antigen Urine Negative Negative 11/01/2020 7:18 AM CDT [facility] Urine URINE / Unknown Collection / Unknown 10/31/2020 4:25 AM CDT 10/31/2020 6:37 AM CDT [facility] - 11/01/2020 7:18 AM CDT This assay detects Legionella pneumophila serogroup one (1) antigen. A negative test result does not rule out the possibility of Legionella infection due to other serogroups or species of Legionella. A positive result may indicate a recent or remote infection with serogroup 1. Will Burch MD LAB - MICROBIOLOGY O TERE Performing Organization Address [place]/[facility]/ZIP Co de Phone Number [facility] [address] [place] [address], [facility] [phone] * CULTURE URINE (10/31/2020 4:25 AM CDT) Culture Urine <10,000 CFU/mL [facility] GUALBERTO 11/02/2020 4:10 AM CDT [facility] Urine URINE SPECIMEN OBTAINED BY CLEAN CATCH PROCEDURE / Unknown Collection / Unknown 10/31/2020 4:25 AM CDT 10/31/2020 6:37 AM CDT Will Burch MD LAB - MICROBIOLOGY O TERE Performing Organization Address City/[facility]/ZIP Co de Phone Number [facility] [address] [place] [address], [facility] [phone] * (ABNORMAL) HEMOGLOBIN A1C (10/31/2020 4:22 AM CDT) Hemoglobin A1c 6.7(H) 4.2 - 5.6 % 10/31/2020 4:37 AM CDT [facility] Estimated Average Glucose 146 mg/dL 10/31/2020 4:37 AM CDT [facility] Blood BLOOD SPECIMEN / Unknown Lab Venipuncture / Unknown 10/31/2020 4:22 AM CDT 10/31/2020 4:25 AM CDT Narrative [facility] - 10/31/2020 4:37 AM CDT The following cutoff levels are recommended by [place] [employer]. A1c > 6.5% : considered as diabetes if two separate tests >6.5% or in an appropriate clinical setting. A1c 5.7% - 6.4% : considered as prediabetes (suggest increased risk for diabetes and cardiovascular disease) Control target level: Should be individualized. < 7 for general (non-) , < 8% less stringent goal, < 6.5 more stringent goal. Hemoglobin A1c measurements are used as an aid in the diagnosis of diabetic mellitus, as an aid to identify patients who may be at the risk for developing diabetic mellitus, and for the monitoring long-term blood glucose control in individuals with diabetes mellitus. This test should not replace glucose testing for patients with Type 1 diabetes, pediatric patients, or women. Falsely low HbA1c results may be observed in patients with clinical conditions that shorten erythrocyte life span or decrease mean erythrocyte age such as the presence of unstable hemoglobin variants, elevated hemoglobin F level or other causes of hemolytic anemia . HbA1c may not accurately reflect glycemic control when clinical conditions that affect erythrocyte survival are present. Severe Iron deficiency anemia may yield falsely high results. Hemoglobin A1c assay should not be used to diagnose or monitor diabetes in patients with malignancy, recent blood transfusion, chronic kidney or liver disease. This method may yield falsely low results when hemoglobin (HbF) exceeds 5% in the specimen. Will Burch MD LAB - CHEMISTRY MIGUEL MAJOR Performing Organization Address City/[facility]/ZIP Co de Phone Number [facility] [address] [place] [address] * CULTURE BLOOD (10/31/2020 4:01 AM CDT) Only the most recent of2 resultswithin the time period is included. [facility] Culture No growth day 5 GUALBERTO 11/05/2020 10:30 AM CDT [facility] Blood PERIPHERAL BLOOD / Unknown Lab Venipuncture / Unknown 10/31/2020 4:01 AM CDT 10/31/2020 4:05 AM CDT Will Burch MD LAB - MICROBIOLOGY O RDERABLES [facility] [address] [place] [address], [facility] [phone] * TROPONIN I (10/31/2020 4:00 AM CDT) Pathologist [facility] Troponin I 0.016 <0.038 ng/mL 10/31/2020 4:30 AM CDT [facility] Blood BLOOD SPECIMEN / Unknown Lab Venipuncture / Unknown 10/31/2020 4:00 AM CDT 10/31/2020 4:06 AM CDT Will Burch MD LAB - CHEMISTRY MIGUEL MAJOR Performing Organization Address City/[facility]/ZIP Co de Phone Number [facility] [address] [place] [address] * LACTIC ACID BLOOD (10/31/2020 4:00 AM CDT) Lactic Acid 1.15 0.5 - 2.2 mmol/L 10/31/2020 4:22 AM CDT [facility] Blood BLOOD SPECIMEN / Unknown Lab Venipuncture / Unknown 10/31/2020 4:00 AM CDT 10/31/2020 4:05 AM CDT Will Burch MD LAB - CHEMISTRY ABENAAlexander KHANGEO Performing Organization Address [facility] Co de Phone Number [facility] [address] [place] [address] * XR CHEST 1VW PORTABLE (10/31/2020 3:56 AM CDT) Anatomical Region Laterality Modality Chest Radiographic Starr ging 10/31/2020 7:30 AM CDT Narrative 10/31/2020 8:26 AM CDT PORTABLE CHEST AP HISTORY: Respiratory failure, hypoxia. FINDINGS: No prior. Heart is enlarged. Left hemidiaphragm is elevated. Question left lower lobe consolidation and/or effusion. No pneumothorax. Right lung is clear. Endotracheal tube ends in the mid thoracic trachea and enteric tube is coiled in the stomach. Edited by Karen Faith on 10/31/2020 8:15 AM *Reading Radiologist: Sameer Yang on 10/31/2020 at 8:26 AM Procedure Note Sameer Yang MD - 10/31/2020 PORTABLE CHEST AP HISTORY: Respiratory failure, hypoxia. FINDINGS: No prior. Heart is enlarged. Left hemidiaphragm is elevated. Question left lower lobe consolidation and/or effusion. No pneumothorax. Right lung is clear. Endotracheal tube ends in the mid thoracic trachea and enteric tube is coiled in the stomach. Edited by Karen Faith on 10/31/2020 8:15 AM *Reading Radiologist: Sameer Yang on 10/31/2020 at 8:26 AM Will Burch MD DIAGNOSTIC IMAGING O RDERABLES * ECHOCARDIOGRAM 2D WITH DOPPLER (10/31/2020 3:30 AM CDT) 10/31/2020 3:30 AM CDT Narrative Procedure Note Mio Moyer MD - 10/31/2020 [place] [address] Echocardiography Examination Transthoracic Name: CASIMIRO ATKINSON MPI#: MR#: [id number] Admission Number: [id number] Study Date: 10/31/2020 Study Time: 08:29 AM Date Of : 1955 Age: 65 years Height: 60 in. (152.4 cm) Weight: 179 lbs. (81.19 kg) BSA: 1.78 m2 Gender: Female Blood Pressure: 136 mmHg / 45 mmHg Heart Rate: Exam Details Procedure Ordered: ECHOCARDIOGRAM 2D W/DOPPLER Procedure Components: Complete 2D, M-mode, complete spectral Doppler, color Doppler, Definity Procedure Views: Images were obtained from the parasternal, apical, subcostal, and suprasternal notch acoustic windows Procedure Status: Routine study Image Quality: Technically Difficult Contrast: Intravenous contrast (Definity) was administered to opacify the left ventricle. Facility Location: [facility] Indication: Respiratory Failure Procedure Ventilation Worker: Letitia Beyer RDCS Ordering Provider: Will Burch MD Reading Physician: Mio Moyer MD Conclusions Left Ventricle: Left ventricle is normal in size. Normal global systolic left ventricular function. EF 68 %. Left ventricle wall thickness is normal. There are no regional wall motion abnormalities. Diastolic function is indeterminate. Left Atrium: The left atrium is mildly dilated. Aortic Valve: Aortic leaflets exhibit sclerosis. Patient: CASIMIRO ATKINSON Study Date: 10/31/2020 08:29 AM Page 1 of 4 Tricuspid Valve Measurements RVSP: 23 mmHg. Follow up: Findings Left Ventricle: Left ventricle is normal in size. Normal global systolic left ventricular function. EF evaluated by biplane method of disks. EF 68 %. Left ventricle wall thickness is normal. There are no regional wall motion abnormalities. Diastolic function is indeterminate. Right Ventricle: Normal size right ventricle. Right ventricular wall thickness is normal. Right ventricular systolic function is normal. Right ventricular systolic is within the normal range. Pulmonary artery pressure normal. Left Atrium: The left atrium is mildly dilated. Right Atrium: The right atrium is normal in size. Mitral Valve: Mitral leaflets exhibit normal cuspal separation. No mitral regurgitation. No mitral valve stenosis. Aortic Valve: Aortic leaflets exhibit normal cuspal separation. No aortic valve regurgitation. There is no aortic stenosis. Aortic leaflets exhibit sclerosis. Tricuspid Valve: Tricuspid valve leaflets are normal. No tricuspid regurgitation. No tricuspid valve stenosis. Pulmonic Valve: Pulmonic leaflets exhibit normal cuspal separation. No pulmonic valve regurgitation is evident. There is no pulmonic valve stenosis. Aorta: The aorta is normal. No dilation of the ascending aorta. The aortic root exhibits normal size. Great Vessels: IVC: The inferior vena cava is normal in size. The inferior vena cava is normal in size and course. Pericardium: The pericardium is normal in appearance. No pericardial effusion. Clinical Data Comment: History: DM Measurements Anatomy Label Value Normal Value Aorta AoRoot, MM 2.8 cm (2.2cm - 3.7cm) Aortic Valve AV Vmean 1.7 m/s Aortic Valve AV VTI 58.1 cm Aortic Valve AV PGmax 23 mmHg Aortic Valve AV PGmean 13 mmHg Aortic Valve AV Vmax, Caliper 2.41 m/s (1m/s - 1.7m/s) Aortic Valve LVOT VTI / AV VTI 0.58 Aortic Valve SAVI D (continuity eq. VTI) 1.8 cm Aortic Valve SAVI Index (continuity 0.96 cm /m eq.Vmax) Patient: CASIMIRO ATKINSON Study Date: 10/31/2020 08:29 AM Page 2 of 4 Aortic Valve LVOT Vmax / AV Vmax 0.53 Inferior Vena Cava IVC 1.2 cm (1.2cm - 2.3cm) Interventricular septum IVSd, 2D 1.2 cm (0.6cm - 1.1cm) Left Atrium LADs, 2D 3.8 cm (2.7cm - 3.8cm) Left Atrium LA Area s, A4C 21.6 cm (0cm - 20cm ) Left Atrium LA Area s, A2C 21.2 cm (0cm - 20cm ) Left Atrium LAESV, MOD4 61 ml (22ml - 52ml) Left Atrium LAESV, MOD2 67 ml (22ml - 52ml) Left Atrium LAESV index, MOD4 34.3 ml/m Left Atrium LAESV index, MOD2 37.6 ml/m Left Ventricle LVOT Vmax 1.28 m/s (0.7m/s - 1.1m/s) Left Ventricle LVOTd 2 cm (1.8cm - 2cm) Left Ventricle LVOT VTI 33.7 cm (18cm - 22cm) Left Ventricle LVOT PGmax 7 mmHg Left Ventricle LVEF visual 68 % (55% - 75%) Left Ventricle LVDd, 2D 3.7 cm (3.7cm - 5.2cm) Left Ventricle LVDs, 2D 2.3 cm (2.2cm - 3.5cm) Left Ventricle LVPWd, 2D 1.1 cm (0.6cm - 0.9cm) Left Ventricle FS, 2D 37.84 % Left Ventricle LVEDV, BP 146 ml (56ml - 104ml) Left Ventricle LVESV, BP 35 ml (19ml - 49ml) Left Ventricle LVEDV Index, BP 82 ml/m (35ml/m - 75ml/m ) Left Ventricle LVESV Index, BP 19.7 ml/m (12ml/m - 30ml/m ) Left Ventricle LVSV Index, BP 62.4 ml/m Left Ventricle LVOT PGmean 4 mmHg Left Ventricle LVOT Vmean 0.92 m/s Left Ventricle LVOT Area 3.1 cm Left Ventricle Diastolic MV E Vmax 0.93 m/s Function Left Ventricle Diastolic MV A Vmax 1.07 m/s Function Left Ventricle Diastolic MV E/A 0.87 Function Left Ventricle Diastolic MV E/E' lateral 13.1 Function Left Ventricle Diastolic MV E/E' septal 14.1 (0.45 - 1.25) Function Left Ventricle Diastolic MV DT 373 ms Function Left Ventricle Diastolic MV E' septal 0.07 m/s Function Left Ventricle Diastolic MV E' lateral 0.07 m/s Function Left Ventricle Diastolic MV E/E' mean 13.29 Function Left Ventricle Diastolic MV E' mean 0.07 m/s Function Pulmonic Valve PV PGmax 5 mmHg Pulmonic Valve PV Vmax, Caliper 1.15 m/s (0.6m/s - 0.9m/s) Right Ventricle Diastolic TR Pmax 20 mmHg Patient: CASIMIRO ATKINSON Study Date: 10/31/2020 08:29 AM Page 3 of 4 Function Right Ventricle Diastolic PV AT 115 ms Function Tricuspid Valve RVSP 23 mmHg Tricuspid Valve RA Pressure 3 mmHg Tricuspid Valve TR Vmax 2.25 m/s (No Signature Object) Patient: CASIMIRO ATKINSON Study Date: 10/31/2020 08:29 AM Page 4 of 4 Will Burch MD ECHO ORDERABLES [facility] [address] [address] Care Teams [employer] Guides Relationship Specialty Start Date End Date Griffin Weiss MD [address] [place] [address] PCP - General 08/29/21
--- NOTE | 2024-06-24 22:30 | ECG_ITS ---
Test Date: 2024-06-24 22:42:27 Measurements Intervals [place] Rate: 67 P: 73 MD: 215 QRS: -8 QRSD: 89 T: 55 QT: 433 QTc: 459 Interpretive Statements SINUS RHYTHM WITH FIRST DEGREE AV BLOCK CANNOT R/O SEPTAL INFARCT, AGE INDETERMINATE BORDERLINE ST-T WAVE ABNORMALITY- HIGH LATERAL LEADS BASELINE WANDER- I, II, III, AVR, AVL, AVF, V1, V5 ABNORMAL ECG Compared to ECG 12/28/2023 14:42:31 NO SIGNIFICANT CHANGE Electronically Signed On 06-25-2024 06:44:11 [employer] by Alireza Arevalo D.O.
[2024-06-24 22:52] LABS: Fractional Inspired Oxygen 40 %; HCO3 VBG 26.4 mEq/l (24.0-30.0); PCO2 VBG 57.5 mmHg (42.0-48.0); PO2 VBG 60.3 mmHg (35.0-45.0); pH VBG 7.279 (7.300-7.400)
[2024-06-24 22:53] LABS: Device VENTILATOR
[2024-06-24 22:54] LABS: Arterial Blood Gas PEEP 5 cmH2O; Arterial Blood Gas Tidal Volume 400 ml; Arterial Blood Gas Vent Mode CMV; Arterial Blood Gas Ventilator rate 20 /MIN
[2024-06-24 22:57] LABS: Basophils Percent Auto 0.1 % (0.2-1.2); Hematocrit 35.7 % (37.0-47.0); Hemoglobin 10.8 g/dL (12.0-15.0); Immature Granulocyte Absolute 0.06 K/mm3 (0.00-0.031); Immature Granulocyte Percent A 0.7 % (0-0.5); Lymphocytes Absolute Auto 1.72 K/mm3 (0.9-3.2); Lymphocytes Percent Auto 20.9 % (18.3-44.2); Mean Corpuscular HGB Conc 30.3 g/dl (32-36); Mean Corpuscular Hemoglobin 26.3 pg (26-34); Mean Corpuscular Volume 86.9 fl (80-100); Mean Platelet Volume 9.6 fl (7.4-10.4); Monocytes Absolute Auto 0.8 K/mm3 (0.1-0.6); Monocytes Percent Auto 9.1 % (2.6-8.5); Neutrophils Absolute Auto 5.7 K/mm3 (1.3-6.7); Neutrophils Percent Auto 69.2 % (45.5-73.1); Platelet Count Result 161 k/mm3 (150-375); Red Blood Count 4.11 M/mm3 (4.2-5.4); Red Cell Distribution Width 18.1 % (11.5-14.5); White Blood Count 8.2 K/mm3 (4.5-10.0)
[2024-06-24] MEDS: SODIUM CHLORIDE 0.9% IV 1,000 ML 999 ML IV CONT ×3 (23:01→23:04)
[2024-06-24 23:05] VITALS: BP 79/48; PULSE 67; RESP 20; TEMP 36.4; O2SAT 97
[2024-06-24 23:06] LABS: Prothrombin Time 13.6 Seconds (11.1-14.7)
[2024-06-24 23:08] LABS: Partial Thromboplastin Time 41.1 Seconds (22.3-36.8)
[2024-06-24 23:17] VITALS: O2SAT 97
--- NOTE | 2024-06-24 23:20 | ED.SOB ---
HPI - SOB/Dyspnea General Chief Complaint: Shortness of Breath/Dyspnea <Pierre Hunter MD - Last Filed: 06/25/24 21:36> Stated Complaint: resp fx, unresponsive <Pierre Hunter MD - Last Filed: 06/25/24 21:36> History of Present Illness HPI Narrative: 69-year-old female with history of COPD on home oxygen, recent diagnosis of pulmonary embolism with an IVC filter placed at [facility]. Patient presents to the emergency department in respiratory arrest, long term staff found the patient unresponsive, not breathing spontaneously but did have a pulse. They attempted CPR and called EMS for assistance. EMS arrived to find the patient obtunded, pupils are 3 mm and minimally reactive, not breathing spontaneously with a GCS of 3. Attempted intubation in the field was unsuccessful secondary to bloody mucus, obstructing the view. she was placed on oxygen with BVM and transported emergently to the hospital for evaluation. Patient did have a pulse and did not require chest compressions or ACLS medications. She arrives in respiratory distress, transitioned to bed 4 as a medical resuscitation this time. Patient does have a full code status on her long term paperwork. <Pierre Hunter MD - Last Filed: 06/25/24 21:36> Related Data Home Medications: Home Medications ?Medication ?Instructions ?Recorded ?Confirmed ?Last Taken ?Type albuterol sulfate 90 mcg/actuation 2 puff inhalation Q4H PRN 12/04/20 11/14/23 11/14/23 History aerosol inhaler Shortness Of Breath amlodipine 5 mg tablet 5 mg PO DAILY 12/04/20 11/14/23 11/14/23 History quetiapine 50 mg tablet 100 mg PO BID 12/04/20 11/14/23 11/14/23 History trazodone 300 mg tablet 300 mg PO HS PRN Sleep 12/04/20 11/14/23 11/13/23 History simvastatin 20 mg tablet 20 mg PO DAILY 12/24/20 11/14/23 11/14/23 History multivit with minerals-iron 18 1 tablet PO DAILY 08/06/21 11/14/23 11/14/23 History mg-folic ac 400 mcg-vit K 25 mcg tablet (Adults Multivitamin) omega-3 fatty acids 1,250 mg PO DAILY 02/27/23 11/14/23 11/14/23 History clopidogrel 75 mg tablet 75 mg PO DAILY 10/21/23 11/14/23 11/14/23 History budesonide 160 mcg-glycopyr 9 2 inh inhalation BID 11/14/23 11/14/23 11/14/23 History mcg-formot 4.8 mcg/actuation HFA inhaler (Breztri Aerosphere) melatonin 10 mg tablet 20 mg PO HS 11/14/23 11/14/23 11/13/23 History metformin 500 mg tablet 500 mg PO BIDWM 11/14/23 11/14/23 Unknown History <Pierre Hunter MD - Last Filed: 06/25/24 21:36> Allergies/Adverse Reactions: Allergies Allergy/AdvReac Type Severity Reaction Status Date / Time alcohol Allergy Severe Hives Verified 03/18/24 08:45 fentanyl Allergy Severe COULD NOT Verified 03/18/24 08:45 BREATH clarithromycin Allergy Intermediate Hives Verified 03/18/24 08:45 paroxetine Allergy Intermediate Hives Verified 03/18/24 08:45 atorvastatin Allergy Unknown Rash Verified 03/18/24 08:45 morphine AdvReac Severe Nausea and Verified 03/18/24 08:45 Vomiting gabapentin AdvReac Intermediate Dizziness Verified 03/18/24 08:45 varenicline (From Chantix) AdvReac Intermediate Hallucinati Verified 03/18/24 08:45 ng <Pierre Hunter MD - Last Filed: 06/25/24 21:36> Review of Systems Review of Systems: ROS unobtainable: Yes unobtainable due to medical condition and unobtainable due to mental status <Pierre Hunter MD - Last Filed: 06/25/24 21:36> [facility] Past Medical History Medical History: Medical History Pulmonary embolism Hyperlipidemia, unspecified Bladder cancer s/p resection Indwelling Miller catheter present Peripheral neuropathy Tobacco abuse Hypertension Depression with anxiety Obstructive sleep apnea no longer uses a CPAP but uses oxygen at 2 L per nasal cannula. COPD (chronic obstructive pulmonary disease) DM2 (diabetes mellitus, type 2) <Pierre Hunter MD - Last Filed: 06/25/24 21:36> Surgical History Surgical History: Surgical History History of classical section History of total knee arthroplasty right <Pierre Hunter MD - Last Filed: 06/25/24 21:36> Family History Family History: Family History Father Family history of coronary artery disease Mother Family history of coronary artery disease Other Asthma Diabetes mellitus Family history of elevated blood lipids <Pierre Hunter MD - Last Filed: 06/25/24 21:36> Social History Social History: Social History Social History: the patient stated that she smokes cigarettes up to about 4 months ago. 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 She lives at [facility]. She has an ex-. She has 3 children. She tells me she does not have a durable power director of securities and real estate for healthcare but desires to be a full code. The patient stated although she quit smoking 4 months ago she desires to have a cigarette today. Smoking packs per day: 1 Smoking cigarettes per day: 20.0 Years smoked: 62 Smoking pack-years: 62.00 Smoking status: Former smoker Tobacco type: cigarettes Second hand tobacco smoke exposure: Yes Smoking end date: 08/05/21 Additional smoking assessment comments: CURRENTLY SMOKES 0.25 PK/DAY Alcohol intake: never Substance use: former Substance use type: crack/cocaine Do You Feel Safe in your Home?: Yes Lack of Transportation: No Lack of Food: Never True Current Housing: I Have Housing Concerned About Future Housing: No Difficulty Paying Gas/Electric Bills: No Difficulty Paying for Meds: No Currently Unemployed: No Education: Associate Degree Difficulty w/ Childcare or Family Care: No Living arrangements: with family Gender identity (if verbalized by the patient): Female Spiritual care concerns: No <Pierre Hunter MD - Last Filed: 06/25/24 21:36> Exam Narrative: GENERAL: Obtunded, GCS 3, respiratory distress, pulse palpable HEAD: [Normocephalic, atraumatic.] EYES: pupils 3 mm and sluggishly reactive bilaterally. ENT: Posterior oropharynx with some bloody mucus and secretions. NECK: Supple. CHEST: BVM with Respiratory initiating respirations, clear to auscultation bilaterally with some coarse rhonchi but no wheezing or prolonged expiratory phase, easy to bag HEART: [Regular rate and rhythm]. warm extremities, peripheral pulses ABDOMEN: [Soft, nondistended, suprapubic catheter in place, purulent drainage noted EXTREMITIES: no peripheral edema SKIN: Warm, dry, excoriations under the breasts and intertriginous areas near the abdomen but no signs of active cellulitis or infection NEURO: GCS 3 <Pierre Hunter MD - Last Filed: 06/25/24 21:36> Course Course Emergency Course: SHILA 0400: Patient signed out to me pending discussion with family's in regards to withdrawing care. The patient has 3 children were at bedside. Patient had made it clear to them that she did not resuscitative efforts were she to get sick again. Per the family she has been intubated approximately 8 times in the past for respiratory failure. She has recently sustained lumbar burst fracture which has left her in pain on a daily basis. Her health has continued to fail and at this time they would like to terminally extubate her. Patient was given pain medication and anxiolysis. patient was made comfort measures and extubated. Care coordination consult placed for hospice/palliative care. I was called to bedside by the family as they were considering changing their decision. After discussing with them at length they have decided to continue with comfort measures and palliative care. <Gabriel Joseph MD - Last Filed: 06/25/24 07:38> Reevaluation(s) Reevaluation #1: I had a lengthy discussion with the family regarding comfort care and our medical treatment that was performed in the emergency department. Family was reassured and all questions were addressed. Family was comfortable with the initial plan to continue with comfort care. I did discuss the case with the hospice physician and since the family does not request hospice Dr. Thompson did not feel comfortable accepting the patient. Case was discussed with hospitalist patient was accepted for comfort care to [facility]. <Jackson Daily MD - Last Filed: 06/25/24 18:35> Vital Signs Vital signs: Vital Signs Pulse Rate 92 06/24/24 22:22 Pulse Oximetry 100 06/24/24 22:22 Oxygen Delivery Mechanical Ventilation 06/24/24 22:22 Fraction of Inspired Oxygen 50 06/24/24 22:22 Temperature 36.4 C 06/24/24 23:05 Pulse Rate 66 06/25/24 11:00 Respiratory Rate 24 H 06/25/24 11:00 Blood Pressure 88/54 L 06/25/24 05:09 Pulse Oximetry 27 L 06/25/24 11:00 Oxygen Delivery Room Air 06/25/24 13:30 Oxygen Flow Rate 2 06/25/24 05:08 Fraction of Inspired Oxygen 50 06/25/24 00:50 <Pierre Hunter MD - Last Filed: 06/25/24 21:36> Vital Signs Pulse Rate 92 06/24/24 22:22 Pulse Oximetry 100 06/24/24 22:22 Oxygen Delivery Mechanical Ventilation 06/24/24 22:22 Fraction of Inspired Oxygen 50 06/24/24 22:22 Temperature 36.4 C 06/24/24 23:05 Pulse Rate 66 06/25/24 11:00 Respiratory Rate 24 H 06/25/24 11:00 Blood Pressure 88/54 L 06/25/24 05:09 Pulse Oximetry 27 L 06/25/24 11:00 Oxygen Delivery Room Air 06/25/24 13:30 Oxygen Flow Rate 2 06/25/24 05:08 Fraction of Inspired Oxygen 50 06/25/24 00:50 <Gabriel Joseph MD - Last Filed: 06/25/24 07:38> Vital Signs Pulse Rate 92 06/24/24 22:22 Pulse Oximetry 100 06/24/24 22:22 Oxygen Delivery Mechanical Ventilation 06/24/24 22:22 Fraction of Inspired Oxygen 50 06/24/24 22:22 Temperature 36.4 C 06/24/24 23:05 Pulse Rate 66 06/25/24 11:00 Respiratory Rate 24 H 06/25/24 11:00 Blood Pressure 88/54 L 06/25/24 05:09 Pulse Oximetry 27 L 06/25/24 11:00 Oxygen Delivery Room Air 06/25/24 13:30 Oxygen Flow Rate 2 06/25/24 05:08 Fraction of Inspired Oxygen 50 06/25/24 00:50 <Jackson Daily MD - Last Filed: 06/25/24 18:35> Procedures Central Line Placement Left SC: Central Line Date: 06/24/24 <Pierre Hunter MD - Last Filed: 06/25/24 21:36> Central Line Time: 23:05 <Pierre Hunter MD - Last Filed: 06/25/24 21:36> Performed Emergently - Given emergent patient condition, temporal constraints may have precluded informed consent.: Yes <Pierre Hunter MD - Last Filed: 06/25/24 21:36> Time Out Performed: Yes <Pierre Hunter MD - Last Filed: 06/25/24 21:36> Patient Placed on Monitor/Pulse Ox: Yes <Pierre Hunter MD - Last Filed: 06/25/24 21:36> Max. Sterile Barrier Technique: Caps, large sterile sheet and hand hygiene <Pierre Hunter MD - Last Filed: 06/25/24 21:36> Central Line Prep: 2% chlorhexidine scrub <Pierre Hunter MD - Last Filed: 06/25/24 21:36> Emergently Placed, Full Sterile: prep not done <Pierre Hunter MD - Last Filed: 06/25/24 21:36> Technique: seldinger <Pierre Hunter MD - Last Filed: 06/25/24 21:36> Local Anesthetic: none <Pierre Hunter MD - Last Filed: 06/25/24 21:36> Ultrasound Used for Placement: No <Pierre Hunter MD - Last Filed: 06/25/24 21:36> Central Line Lumen Inserted: triple <Pierre Hunter MD - Last Filed: 06/25/24 21:36> Post Procedure: sutured in place, good blood return, all ports aspirated, flushed, capped and sterile dressing applied <Pierre Hunter MD - Last Filed: 06/25/24 21:36> Post Procedure X-Ray: tip of catheter in good position and no pneumothorax seen <Pierre Hunter MD - Last Filed: 06/25/24 21:36> Patient Tolerated Procedure: well and no complications <Pierre Hunter MD - Last Filed: 06/25/24 21:36> Complications: none <Pierre Hunter MD - Last Filed: 06/25/24 21:36> Intubation Intubation #1: Intubation Date: 06/24/24 <Pierre Hunter MD - Last Filed: 06/25/24 21:36> Intubation Time: 22:22 <Pierre Hunter MD - Last Filed: 06/25/24 21:36> Time out performed: Yes <Pierre Hunter MD - Last Filed: 06/25/24 21:36> sedative: Etomidate <Pierre Hunter MD - Last Filed: 06/25/24 21:36> Mg Given: 20 <Pierre Hunter MD - Last Filed: 06/25/24 21:36> paralytic: Rocuronium <Pierre Hunter MD - Last Filed: 06/25/24 21:36> Mg Given: 100 <Pierre Hunter MD - Last Filed: 06/25/24 21:36> Laryngoscope: fiber optic video scope <Pierre Hunter MD - Last Filed: 06/25/24 21:36> Tube Size (cm): 7.5 <Pierre Hunter MD - Last Filed: 06/25/24 21:36> Method of Intubation: orotracheal <Pierre Hunter MD - Last Filed: 06/25/24 21:36> Number of Attempts: 1 <Pierre Hunter MD - Last Filed: 06/25/24 21:36> Tube Secured Depth (cm): 21 <Pierre Hunter MD - Last Filed: 06/25/24 21:36> Tube Secured Location: lips <Pierre Hunter MD - Last Filed: 06/25/24 21:36> Tube Placement Confirmation: visualized tube passing through cords, equal breath sounds bilaterally, no breath sounds over epigastrium and confirmation by capnometry <Pierre Hunter MD - Last Filed: 06/25/24 21:36> Patient Tolerated Procedure: well and no complications <Pierre Hunter MD - Last Filed: 06/25/24 21:36> Intubation Complications: none <Pierre Hunter MD - Last Filed: 06/25/24 21:36> MDM - SOB/Dyspnea MDM Narrative Medical decision making narrative: 69-year-old female with history of COPD on home oxygen, recent pulmonary embolism with an IVC filter, history of bladder cancer status post resection with a suprapubic catheter. History of hypertension diabetes. Patient presents in respiratory arrest with a GCS of 3, not breathing spontaneously but does have a palpable pulse. Pupils are 3 mm and minimally reactive, she was made a medical resuscitation and emergently intubated after being placed on the monitor car operator and obtaining vital signs. She has a borderline low blood pressure of 104 systolic, pulse in the 80s. purulent drainage noted through her Miller catheter as well as in the or oropharynx there is some bloody secretions and thick mucus when intubating. respiratory therapy was called to bedside to assist with BVM respirations well intubation was set up. Patient was intubated on 1st pass success without complication and noted to have thick secretions and mucus with some bloody secretions in her airway but no evidence of pulmonary edema with deep suctioning. OG was placed, postprocedural x-ray was obtained showing appropriate positioning of the endotracheal tube and OG tube. minimal output from OG tube. patient's blood pressure started to become hypotensive repeatedly in the 60s to 70s systolic range, bradycardic in the low 50s. Patient was given a total of 80 mcg of push dose epinephrine with transient responses over each push over the period of 10-15 minutes. 3 L of fluid was pressure bag to her multiple IVs and completed without any response to her blood pressure. norepinephrine was started peripherally well central access obtained. She was placed on 10 micrograms/minute of norepinephrine with improvement her blood pressure 131/52 and holding. Central access was obtained through left subclavian as detailed above, postprocedural chest x-ray was independently reviewed shows no pneumothorax and appropriate positioning. Line is ready for use. ventilator settings of 20 respiratory rate, tidal volumes of 400, peep of 5, O2 of 50%. Differential diagnosis is broad but does include sepsis, likely source either being urinary or pulmonary pathology, pulmonary embolism or recurrence, ACS or aortic pathology. Intracranial pathology causing her obtundation is also possible. COPD exacerbation is possible however patient is backing easily and has no wheezing or any prolonged expiratory phase. She was set up on the ventilator with good tidal volumes, maintaining without any sedation and having appropriate peak and plateau pressures. CT angiography of the chest abdomen pelvis as well as a CT of the head noncontrast was ordered she was started on vancomycin cefepime and given a total of > 30 cc/kg bolus with blood cultures and lactic acid obtained to follow septic protocol. VBG obtained and shows some respiratory acidosis with a pH is 7.2 and elevated CO2 level consistent with acute on chronic retention. not significant elevated to the point that would cause her obtundation however. Nebulizer treatments were ordered with respiratory therapy to assist. Workup shows that she tested positive for influenza a and started on oral tamiflu, negative for COVID and RSV. No leukocytosis, hemoglobin of 10.8 which is improved from her baseline anemia. Normal platelet count. Slightly prolonged APTT but otherwise normal INR. lactic acid normal. Normal BUN and creatinine, glucose normal 166, troponin elevated 0.072, C-reactive protein elevated 4.7. Lipase negative. urinalysis with florid urinary tract infection signs. Chest x-ray showed appropriate positioning of the central venous catheter and OG tube. Awaiting CT head and CT angiography of the chest abdomen pelvis at this time. Patient was re-evaluated frequently, maintaining her pressure and stable with Norepi running at 10 and holding. will be started on maintenance fluids. Patient is still awaiting her CT scans at this time for further disposition but patient would require admission to the ICU or potential transfer to outside hospital depending on results. patient was re-evaluated frequently, not receiving any sedation medications at this time but does have p.r.n. Versed ordered if she becomes agitated or wakes up. She initially had a cough and gag after suctioning with after the intubation but this is weak at this time. Patient care was signed out to the night ER physician Dr. Joseph at 1:00 a.m. Was able to reach out and speak to family members over the phone regarding patient's presentation. They informed me that patient would not want to be on life supporting measures and has had previous intubations for similar presentations and attributed them to her COPD and hypoxia not compliant with her oxygen or BiPAP at home. They think patient would not wish to be on a ventilator or blood pressures according medications. They will come in and have discussions at bedside for potential terminal extubation or hospice care. Patient care was signed out to the night ER physician Dr. Joseph at 1:00 a.m. <Pirere Hunter MD - Last Filed: 06/25/24 21:36> Medical Records Attestation: I reviewed the patient's medical records. <Pierre Hunter MD - Last Filed: 06/25/24 21:36> Lab Data Attestation: I reviewed the patient's lab results. <Pierre Hunter MD - Last Filed: 06/25/24 21:36> Result diagrams: 06/24/24 22:34 06/24/24 22:34 <Pierre Hunter MD - Last Filed: 06/25/24 21:36> Labs: Lab Results 06/24/24 06/24/24 06/24/24 Range/Units 22:34 22:35 22:49 WBC 8.2 (4.5-10.0) K/mm3 RBC 4.11 L (4.2-5.4) M/mm3 Hgb 10.8 L D (12.0-15.0) g/dL Hct 35.7 L (37.0-47.0) % MCV 86.9 (80-100) fl MCH 26.3 (26-34) pg MCHC 30.3 L (32-36) g/dl RDW 18.1 H (11.5-14.5) % Plt Count 161 D (150-375) k/mm3 MPV 9.6 (7.4-10.4) fl Immature Gran % (Auto) 0.7 H (0-0.5) % Neut % (Auto) 69.2 (45.5-73.1) % Lymph % (Auto) 20.9 (18.3-44.2) % [place] % (Auto) 9.1 H (2.6-8.5) % Eos % (Auto) 0.0 (0-4.4) % Baso % (Auto) 0.1 L (0.2-1.2) % Lymph # (Auto) 1.72 (0.9-3.2) K/mm3 [place] # (Auto) 0.8 H (0.1-0.6) K/mm3 Eos # (Auto) 0.0 (0-0.3) K/mm3 Baso # (Auto) 0.0 (0.0-0.1) K/mm3 Abs Immat Gran (auto) 0.06 H (0.00-0.031) K/mm3 Absolute Neuts (auto) 5.7 (1.3-6.7) K/mm3 Absolute Nucleated RBC 0.000 (0.0-0.012) K/mm3 Nucleated RBC % 0.0 (0.0-0.2) % PT 13.6 (11.1-14.7) Seconds INR 1.0 APTT 41.1 H (22.3-36.8) Seconds Minute Volume Not Reportable Vent Mode Cmv Tidal Volume 400 ml PEEP 5 cmH2O Peak Inspir Pressure Not Reportable Pressure Support Not Reportable Sodium 132 L (137-145) mmol/L Potassium 4.0 (3.4-5.0) mmol/L Chloride 95 L (98-107) mmol/L Carbon Dioxide 29 (22-30) mmol/L Anion Gap 8 (4-12) mmol/L BUN 28 H (7-17) mg/dL Creatinine 0.92 (0.7-1.0) mg/dL Estim Creat Clear Calc 49 ml/min Estimated GFR 60 (59 - ) Glucose 166 H (65-110) mg/dL Lactic Acid 1.0 (0.7-2.0) mmol/L Calcium 7.7 L (8.4-10.2) mg/dL Total Bilirubin 0.4 (0.2-1.3) mg/dL AST 48 H (14-36) U/L ALT 23 (6-35) U/L Alkaline Phosphatase 65 (38-126) U/L Troponin I 0.072 H* (0.000-0.034) ng/mL C-Reactive Protein 4.7 H (<1.0) mg/dL Total Protein 6.0 L (6.3-8.2) g/dL Albumin 3.0 L (3.5-5.1) g/dL Lipase 49 (23-300) U/L Urine Color (Yellow) Urine Appearance (Clear) Urine pH (5.0-9.0) Ur Specific [place] (1.001-1.035) Urine Protein (Negative) mg/dL Urine Glucose (UA) (Negative) mg/dL Urine Ketones (Negative) mg/dL Ur Blood (Man) (Negative) Urine Nitrate (Negative) Urine Bilirubin (Negative) Urine Urobilinogen (<2.0) mg/dL Add Ur Microanalysis Leukocyte Esterase Rfl (Negative) VALERIE/UL Urine RBC (0-2) /hpf Urine WBC (0-3) /hpf Ur Squamous Epith Cells (Few) /hpf Urine Bacteria /hpf Urine Casts Urine Mucus /lpf Urine Yeast (Budding) (None) /hpf Nasal MRSA (PCR) (NOT DETECTE) Influenza A (RT-PCR) (Negative) Influenza B (RT-PCR) (Negative) RSV (RT-PCR) (Negative) SARS-CoV-2 RNA (RT-PCR) (Negative) 06/24/24 06/25/24 Range/Units 23:08 01:08 WBC (4.5-10.0) K/mm3 RBC (4.2-5.4) M/mm3 Hgb (12.0-15.0) g/dL Hct (37.0-47.0) % MCV (80-100) fl MCH (26-34) pg MCHC (32-36) g/dl RDW (11.5-14.5) % Plt Count (150-375) k/mm3 MPV (7.4-10.4) fl Immature Gran % (Auto) (0-0.5) % Neut % (Auto) (45.5-73.1) % Lymph % (Auto) (18.3-44.2) % Bea[place]gard % (Auto) (2.6-8.5) % Eos % (Auto) (0-4.4) % Baso % (Auto) (0.2-1.2) % Lymph # (Auto) (0.9-3.2) K/mm3 [place] # (Auto) (0.1-0.6) K/mm3 Eos # (Auto) (0-0.3) K/mm3 Baso # (Auto) (0.0-0.1) K/mm3 Abs Immat Gran (auto) (0.00-0.031) K/mm3 Absolute Neuts (auto) (1.3-6.7) K/mm3 Absolute Nucleated RBC (0.0-0.012) K/mm3 Nucleated RBC % (0.0-0.2) % PT (11.1-14.7) Seconds INR APTT (22.3-36.8) Seconds Minute Volume Vent Mode Tidal Volume ml PEEP cmH2O Peak Inspir Pressure Pressure Support Sodium (137-145) mmol/L Potassium (3.4-5.0) mmol/L Chloride (98-107) mmol/L Carbon Dioxide (22-30) mmol/L Anion Gap (4-12) mmol/L BUN (7-17) mg/dL Creatinine (0.7-1.0) mg/dL Estim Creat Clear Calc ml/min Estimated GFR (59 - ) Glucose (65-110) mg/dL Lactic Acid (0.7-2.0) mmol/L Calcium (8.4-10.2) mg/dL Total Bilirubin (0.2-1.3) mg/dL AST (14-36) U/L ALT (6-35) U/L Alkaline Phosphatase (38-126) U/L Troponin I (0.000-0.034) ng/mL C-Reactive Protein (<1.0) mg/dL Total Protein (6.3-8.2) g/dL Albumin (3.5-5.1) g/dL Lipase (23-300) U/L Urine Color Yellow (Yellow) Urine Appearance Turbid H (Clear) Urine pH 5.5 (5.0-9.0) Ur Specific [place] 1.023 (1.001-1.035) Urine Protein 1+ H (Negative) mg/dL Urine Glucose (UA) 3+ H (Negative) mg/dL Urine Ketones Negative (Negative) mg/dL Ur Blood (Man) Trace (Negative) Urine Nitrate Positive H (Negative) Urine Bilirubin Negative (Negative) Urine Urobilinogen 0.2 (<2.0) mg/dL Add Ur Microanalysis Reviewed Leukocyte Esterase Rfl 2+ H (Negative) VALERIE/UL Urine RBC >100 H (0-2) /hpf Urine WBC 51-100 H (0-3) /hpf Ur Squamous Epith Cells Moderate (Few) /hpf Urine Bacteria 4+ H /hpf Urine Casts >20 Urine Mucus Present /lpf Urine Yeast (Budding) Present H (None) /hpf Nasal MRSA (PCR) Not detected (NOT DETECTE) Influenza A (RT-PCR) Positive A (Negative) Influenza B (RT-PCR) Negative (Negative) RSV (RT-PCR) Negative (Negative) SARS-CoV-2 RNA (RT-PCR) Negative (Negative) <Pierre Hunter MD - Last Filed: 06/25/24 21:36> Lab Results 06/24/24 06/24/24 06/24/24 Range/Units 22:34 22:35 22:49 WBC 8.2 (4.5-10.0) K/mm3 RBC 4.11 L (4.2-5.4) M/mm3 Hgb 10.8 L D (12.0-15.0) g/dL Hct 35.7 L (37.0-47.0) % MCV 86.9 (80-100) fl MCH 26.3 (26-34) pg MCHC 30.3 L (32-36) g/dl RDW 18.1 H (11.5-14.5) % Plt Count 161 D (150-375) k/mm3 MPV 9.6 (7.4-10.4) fl Immature Gran % (Auto) 0.7 H (0-0.5) % Neut % (Auto) 69.2 (45.5-73.1) % Lymph % (Auto) 20.9 (18.3-44.2) % [place] % (Auto) 9.1 H (2.6-8.5) % Eos % (Auto) 0.0 (0-4.4) % Baso % (Auto) 0.1 L (0.2-1.2) % Lymph # (Auto) 1.72 (0.9-3.2) K/mm3 [place] # (Auto) 0.8 H (0.1-0.6) K/mm3 Eos # (Auto) 0.0 (0-0.3) K/mm3 Baso # (Auto) 0.0 (0.0-0.1) K/mm3 Abs Immat Gran (auto) 0.06 H (0.00-0.031) K/mm3 Absolute Neuts (auto) 5.7 (1.3-6.7) K/mm3 Absolute Nucleated RBC 0.000 (0.0-0.012) K/mm3 Nucleated RBC % 0.0 (0.0-0.2) % PT 13.6 (11.1-14.7) Seconds INR 1.0 APTT 41.1 H (22.3-36.8) Seconds Minute Volume Not Reportable Vent Mode Cmv Tidal Volume 400 ml PEEP 5 cmH2O Peak Inspir Pressure Not Reportable Pressure Support Not Reportable Sodium 132 L (137-145) mmol/L Potassium 4.0 (3.4-5.0) mmol/L Chloride 95 L (98-107) mmol/L Carbon Dioxide 29 (22-30) mmol/L Anion Gap 8 (4-12) mmol/L BUN 28 H (7-17) mg/dL Creatinine 0.92 (0.7-1.0) mg/dL Estim Creat Clear Calc 49 ml/min Estimated GFR 60 (59 - ) Glucose 166 H (65-110) mg/dL Lactic Acid 1.0 (0.7-2.0) mmol/L Calcium 7.7 L (8.4-10.2) mg/dL Total Bilirubin 0.4 (0.2-1.3) mg/dL AST 48 H (14-36) U/L ALT 23 (6-35) U/L Alkaline Phosphatase 65 (38-126) U/L Troponin I 0.072 H* (0.000-0.034) ng/mL C-Reactive Protein 4.7 H (<1.0) mg/dL Total Protein 6.0 L (6.3-8.2) g/dL Albumin 3.0 L (3.5-5.1) g/dL Lipase 49 (23-300) U/L Urine Color (Yellow) Urine Appearance (Clear) Urine pH (5.0-9.0) Ur Specific [place] (1.001-1.035) Urine Protein (Negative) mg/dL Urine Glucose (UA) (Negative) mg/dL Urine Ketones (Negative) mg/dL Ur Blood (Man) (Negative) Urine Nitrate (Negative) Urine Bilirubin (Negative) Urine Urobilinogen (<2.0) mg/dL Add Ur Microanalysis Leukocyte Esterase Rfl (Negative) VALERIE/UL Urine RBC (0-2) /hpf Urine WBC (0-3) /hpf Ur Squamous Epith Cells (Few) /hpf Urine Bacteria /hpf Urine Casts Urine Mucus /lpf Urine Yeast (Budding) (None) /hpf Nasal MRSA (PCR) (NOT DETECTE) Influenza A (RT-PCR) (Negative) Influenza B (RT-PCR) (Negative) RSV (RT-PCR) (Negative) SARS-CoV-2 RNA (RT-PCR) (Negative) 06/24/24 06/25/24 Range/Units 23:08 01:08 WBC (4.5-10.0) K/mm3 RBC (4.2-5.4) M/mm3 Hgb (12.0-15.0) g/dL Hct (37.0-47.0) % MCV (80-100) fl MCH (26-34) pg MCHC (32-36) g/dl RDW (11.5-14.5) % Plt Count (150-375) k/mm3 MPV (7.4-10.4) fl Immature Gran % (Auto) (0-0.5) % Neut % (Auto) (45.5-73.1) % Lymph % (Auto) (18.3-44.2) % [place] % (Auto) (2.6-8.5) % Eos % (Auto) (0-4.4) % Baso % (Auto) (0.2-1.2) % Lymph # (Auto) (0.9-3.2) K/mm3 [place] # (Auto) (0.1-0.6) K/mm3 Eos # (Auto) (0-0.3) K/mm3 Baso # (Auto) (0.0-0.1) K/mm3 Abs Immat Gran (auto) (0.00-0.031) K/mm3 Absolute Neuts (auto) (1.3-6.7) K/mm3 Absolute Nucleated RBC (0.0-0.012) K/mm3 Nucleated RBC % (0.0-0.2) % PT (11.1-14.7) Seconds INR APTT (22.3-36.8) Seconds Minute Volume Vent Mode Tidal Volume ml PEEP cmH2O Peak Inspir Pressure Pressure Support Sodium (137-145) mmol/L Potassium (3.4-5.0) mmol/L Chloride (98-107) mmol/L Carbon Dioxide (22-30) mmol/L Anion Gap (4-12) mmol/L BUN (7-17) mg/dL Creatinine (0.7-1.0) mg/dL Estim Creat Clear Calc ml/min Estimated GFR (59 - ) Glucose (65-110) mg/dL Lactic Acid (0.7-2.0) mmol/L Calcium (8.4-10.2) mg/dL Total Bilirubin (0.2-1.3) mg/dL AST (14-36) U/L ALT (6-35) U/L Alkaline Phosphatase (38-126) U/L Troponin I (0.000-0.034) ng/mL C-Reactive Protein (<1.0) mg/dL Total Protein (6.3-8.2) g/dL Albumin (3.5-5.1) g/dL Lipase (23-300) U/L Urine Color Yellow (Yellow) Urine Appearance Turbid H (Clear) Urine pH 5.5 (5.0-9.0) Ur Specific [place] 1.023 (1.001-1.035) Urine Protein 1+ H (Negative) mg/dL Urine Glucose (UA) 3+ H (Negative) mg/dL Urine Ketones Negative (Negative) mg/dL Ur Blood (Man) Trace (Negative) Urine Nitrate Positive H (Negative) Urine Bilirubin Negative (Negative) Urine Urobilinogen 0.2 (<2.0) mg/dL Add Ur Microanalysis Reviewed Leukocyte Esterase Rfl 2+ H (Negative) VALERIE/UL Urine RBC >100 H (0-2) /hpf Urine WBC 51-100 H (0-3) /hpf Ur Squamous Epith Cells Moderate (Few) /hpf Urine Bacteria 4+ H /hpf Urine Casts >20 Urine Mucus Present /lpf Urine Yeast (Budding) Present H (None) /hpf Nasal MRSA (PCR) Not detected (NOT DETECTE) Influenza A (RT-PCR) Positive A (Negative) Influenza B (RT-PCR) Negative (Negative) RSV (RT-PCR) Negative (Negative) SARS-CoV-2 RNA (RT-PCR) Negative (Negative) <Gabriel Joseph MD - Last Filed: 06/25/24 07:38> Lab Results 06/24/24 06/24/24 06/24/24 Range/Units 22:34 22:35 22:49 WBC 8.2 (4.5-10.0) K/mm3 RBC 4.11 L (4.2-5.4) M/mm3 Hgb 10.8 L D (12.0-15.0) g/dL Hct 35.7 L (37.0-47.0) % MCV 86.9 (80-100) fl MCH 26.3 (26-34) pg MCHC 30.3 L (32-36) g/dl RDW 18.1 H (11.5-14.5) % Plt Count 161 D (150-375) k/mm3 MPV 9.6 (7.4-10.4) fl Immature Gran % (Auto) 0.7 H (0-0.5) % Neut % (Auto) 69.2 (45.5-73.1) % Lymph % (Auto) 20.9 (18.3-44.2) % [place] % (Auto) 9.1 H (2.6-8.5) % Eos % (Auto) 0.0 (0-4.4) % Baso % (Auto) 0.1 L (0.2-1.2) % Lymph # (Auto) 1.72 (0.9-3.2) K/mm3 [place] # (Auto) 0.8 H (0.1-0.6) K/mm3 Eos # (Auto) 0.0 (0-0.3) K/mm3 Baso # (Auto) 0.0 (0.0-0.1) K/mm3 Abs Immat Gran (auto) 0.06 H (0.00-0.031) K/mm3 Absolute Neuts (auto) 5.7 (1.3-6.7) K/mm3 Absolute Nucleated RBC 0.000 (0.0-0.012) K/mm3 Nucleated RBC % 0.0 (0.0-0.2) % PT 13.6 (11.1-14.7) Seconds INR 1.0 APTT 41.1 H (22.3-36.8) Seconds Minute Volume Not Reportable Vent Mode Cmv Tidal Volume 400 ml PEEP 5 cmH2O Peak Inspir Pressure Not Reportable Pressure Support Not Reportable Sodium 132 L (137-145) mmol/L Potassium 4.0 (3.4-5.0) mmol/L Chloride 95 L (98-107) mmol/L Carbon Dioxide 29 (22-30) mmol/L Anion Gap 8 (4-12) mmol/L BUN 28 H (7-17) mg/dL Creatinine 0.92 (0.7-1.0) mg/dL Estim Creat Clear Calc 49 ml/min Estimated GFR 60 (59 - ) Glucose 166 H (65-110) mg/dL Lactic Acid 1.0 (0.7-2.0) mmol/L Calcium 7.7 L (8.4-10.2) mg/dL Total Bilirubin 0.4 (0.2-1.3) mg/dL AST 48 H (14-36) U/L ALT 23 (6-35) U/L Alkaline Phosphatase 65 (38-126) U/L Troponin I 0.072 H* (0.000-0.034) ng/mL C-Reactive Protein 4.7 H (<1.0) mg/dL Total Protein 6.0 L (6.3-8.2) g/dL Albumin 3.0 L (3.5-5.1) g/dL Lipase 49 (23-300) U/L Urine Color (Yellow) Urine Appearance (Clear) Urine pH (5.0-9.0) Ur Specific [place] (1.001-1.035) Urine Protein (Negative) mg/dL Urine Glucose (UA) (Negative) mg/dL Urine Ketones (Negative) mg/dL Ur Blood (Man) (Negative) Urine Nitrate (Negative) Urine Bilirubin (Negative) Urine Urobilinogen (<2.0) mg/dL Add Ur Microanalysis Leukocyte Esterase Rfl (Negative) VALERIE/UL Urine RBC (0-2) /hpf Urine WBC (0-3) /hpf Ur Squamous Epith Cells (Few) /hpf Urine Bacteria /hpf Urine Casts Urine Mucus /lpf Urine Yeast (Budding) (None) /hpf Nasal MRSA (PCR) (NOT DETECTE) Influenza A (RT-PCR) (Negative) Influenza B (RT-PCR) (Negative) RSV (RT-PCR) (Negative) SARS-CoV-2 RNA (RT-PCR) (Negative) 06/24/24 06/25/24 Range/Units 23:08 01:08 WBC (4.5-10.0) K/mm3 RBC (4.2-5.4) M/mm3 Hgb (12.0-15.0) g/dL Hct (37.0-47.0) % MCV (80-100) fl MCH (26-34) pg MCHC (32-36) g/dl RDW (11.5-14.5) % Plt Count (150-375) k/mm3 MPV (7.4-10.4) fl Immature Gran % (Auto) (0-0.5) % Neut % (Auto) (45.5-73.1) % Lymph % (Auto) (18.3-44.2) % [place] % (Auto) (2.6-8.5) % Eos % (Auto) (0-4.4) % Baso % (Auto) (0.2-1.2) % Lymph # (Auto) (0.9-3.2) K/mm3 [place] # (Auto) (0.1-0.6) K/mm3 Eos # (Auto) (0-0.3) K/mm3 Baso # (Auto) (0.0-0.1) K/mm3 Abs Immat Gran (auto) (0.00-0.031) K/mm3 Absolute Neuts (auto) (1.3-6.7) K/mm3 Absolute Nucleated RBC (0.0-0.012) K/mm3 Nucleated RBC % (0.0-0.2) % PT (11.1-14.7) Seconds INR APTT (22.3-36.8) Seconds Minute Volume Vent Mode Tidal Volume ml PEEP cmH2O Peak Inspir Pressure Pressure Support Sodium (137-145) mmol/L Potassium (3.4-5.0) mmol/L Chloride (98-107) mmol/L Carbon Dioxide (22-30) mmol/L Anion Gap (4-12) mmol/L BUN (7-17) mg/dL Creatinine (0.7-1.0) mg/dL Estim Creat Clear Calc ml/min Estimated GFR (59 - ) Glucose (65-110) mg/dL Lactic Acid (0.7-2.0) mmol/L Calcium (8.4-10.2) mg/dL Total Bilirubin (0.2-1.3) mg/dL AST (14-36) U/L ALT (6-35) U/L Alkaline Phosphatase (38-126) U/L Troponin I (0.000-0.034) ng/mL C-Reactive Protein (<1.0) mg/dL Total Protein (6.3-8.2) g/dL Albumin (3.5-5.1) g/dL Lipase (23-300) U/L Urine Color Yellow (Yellow) Urine Appearance Turbid H (Clear) Urine pH 5.5 (5.0-9.0) Ur Specific [place] 1.023 (1.001-1.035) Urine Protein 1+ H (Negative) mg/dL Urine Glucose (UA) 3+ H (Negative) mg/dL Urine Ketones Negative (Negative) mg/dL Ur Blood (Man) Trace (Negative) Urine Nitrate Positive H (Negative) Urine Bilirubin Negative (Negative) Urine Urobilinogen 0.2 (<2.0) mg/dL Add Ur Microanalysis Reviewed Leukocyte Esterase Rfl 2+ H (Negative) VALERIE/UL Urine RBC >100 H (0-2) /hpf Urine WBC 51-100 H (0-3) /hpf Ur Squamous Epith Cells Moderate (Few) /hpf Urine Bacteria 4+ H /hpf Urine Casts >20 Urine Mucus Present /lpf Urine Yeast (Budding) Present H (None) /hpf Nasal MRSA (PCR) Not detected (NOT DETECTE) Influenza A (RT-PCR) Positive A (Negative) Influenza B (RT-PCR) Negative (Negative) RSV (RT-PCR) Negative (Negative) SARS-CoV-2 RNA (RT-PCR) Negative (Negative) <Jackson Daily MD - Last Filed: 06/25/24 18:35> ABG Data ABG results: 06/24/24 22:49 VBG pH 7.279 L VBG pCO2 57.5 H VBG pO2 60.3 H VBG HCO3 26.4 O2 Delivery Device Ventilator O2 Liters/Min Not Reportable Vent Rate 20 FiO2 40 <Pierre Hunter MD - Last Filed: 06/25/24 21:36> 06/24/24 22:49 VBG pH 7.279 L VBG pCO2 57.5 H VBG pO2 60.3 H VBG HCO3 26.4 O2 Delivery Device Ventilator O2 Liters/Min Not Reportable Vent Rate 20 FiO2 40 <Gabriel Joseph MD - Last Filed: 06/25/24 07:38> 06/24/24 22:49 VBG pH 7.279 L VBG pCO2 57.5 H VBG pO2 60.3 H VBG HCO3 26.4 O2 Delivery Device Ventilator O2 Liters/Min Not Reportable Vent Rate 20 FiO2 40 <Jackson Daily MD - Last Filed: 06/25/24 18:35> Imaging Data Attestation: I personally reviewed and interpreted this imaging study as follows: <Pierre Hunter MD - Last Filed: 06/25/24 21:36> My impression: Impressions Abdomen X-Ray 06/24/24 23:05 IMPRESSION: Moderate pulmonary vascular congestion, without focal infiltrate or effusion. Endotracheal tube and nasogastric tube in good position, and ready for immediate use. Chest X-Ray 06/24/24 23:05 IMPRESSION: Moderate pulmonary vascular congestion, without focal infiltrate or effusion. Endotracheal tube and nasogastric tube in good position, and ready for immediate use. Chest X-Ray 06/24/24 23:07 IMPRESSION: Central venous catheter in good position and ready for immediate use. Remainder of examination is unchanged <Pierre Hunter MD - Last Filed: 06/25/24 21:36> ECG Data EKG #1: Attestation: I personally reviewed and interpreted this ECG as follows: <Pierre Hunter MD - Last Filed: 06/25/24 21:36> ECG completion date: 06/24/24 <Pierre Hunter MD - Last Filed: 06/25/24 21:36> ECG completion time: 22:42 <Pierre Hunter MD - Last Filed: 06/25/24 21:36> Prior ECG tracings: not available for review <Pierre Hunter MD - Last Filed: 06/25/24 21:36> Interpretation: no ST segment elevations, depressions, regular rate and rhythm, good R-wave progression, no signs of acute ischemic event. Compared to previous EKG does not appear to have any significant interval changes. Overall normal sinus rhythm, slightly prolonged HI interval at 250 milliseconds, normal QTC, normal QRS. <Pierre Hunter MD - Last Filed: 06/25/24 21:36> Critical Care Time Critical Care Time Critical Care Time: Yes <Pierre Hunter MD - Last Filed: 06/25/24 21:36> Total Critical Care Time: 90 ( critical care time does not include the separately billable procedures as outlined above including endotracheal intubation and central venous access.) <Pierre Hunter MD - Last Filed: 06/25/24 21:36> Discharge Plan Discharge Clinical Impression: Respiratory arrest, Acute hypercapnic respiratory failure, Sepsis, Acute UTI, Influenza A, Shock circulatory, End of life care <Pierre Hunter MD - Last Filed: 06/25/24 21:36> Patient Disposition: Still a Patient <Pierre Hunter MD - Last Filed: 06/25/24 21:36> Condition: Critical <Pierre Hunter MD - Last Filed: 06/25/24 21:36>
[2024-06-24] MEDS: ALBUTEROL SULFATE NEB 2.5 MG/3 ML INH 10 MG INHALATION (23:22)
[2024-06-24] MEDS: IPRATROPIUM BR 0.02% INH SOLN 0.5 MG/2.5 ML VIAL 1 MG INHALATION (23:22)
--- NOTE | 2024-06-24 23:22 | PC.NURSE ---
2214 - PT INTUBATED BY EDP DR. STRAUSS. VORB 20MG ETOMIDATE AND 100MG ROCURONIUM. 7.5 ETT, 21 @ LIP. POSITIVE COLOR CHANGE, EQUAL BILAT CHEST RISE AND FALL, BREATH SOUNDS AUSCULTATED. VERIFIED BY XRAY AND EDP. 2,000 NS INFUSING. OG PLACED BY EDP DR. STRAUSS 72@LIP. 2215 - VS 106/61, HR 93, 100% MANUALLY VENTILATED, RR 15. 2218 - VS 64/30, HR 86, 100% MECHANICALLY VENTILATED, RR 20. 20 MCG EPI IVP BY EDP DR Virgen 2225 - VS 113/47, HR 103, 100% MECHANICALLY VENTILATED, RR 20.
[2024-06-24 23:23] VITALS: PULSE 61; RESP 20
--- NOTE | 2024-06-24 23:31 | PC.NURSE ---
NOREPINEPHRINE STARTED AT 10MCG/MIN BIJU STRAUSS.
[2024-06-24 23:40] VITALS: PULSE 67; O2SAT 97
[2024-06-24 23:42] LABS: Alanine Aminotransferase 23 U/L (6-35); Alkaline Phosphatase 65 U/L (38-126); Anion Gap 8 mmol/L (4-12); Aspartate Amino Transferase 48 U/L (14-36); Bilirubin,Total 0.4 mg/dL (0.2-1.3); Blood Urea Nitrogen 28 mg/dL (7-17); Calcium 7.7 mg/dL (8.4-10.2); Carbon Dioxide 29 mmol/L (22-30); Chloride 95 mmol/L (98-107); Estimated CRCL calculation 49 ml/min; Estimated Glomerular Filt Rate 60; Glucose 166 mg/dL (65-110); Lipase 49 U/L (23-300); Sodium 132 mmol/L (137-145); Troponin I 0.072 ng/mL (0.000-0.034)
[2024-06-24 23:43] LABS: Add Urine Microscopic? YES; Appearance Urine Turbid (Clear); Bacteria Urine 4+ /hpf; Bilirubin Urine Negative (Negative); Blood Urine Trace (Negative); Budding Yeast Urine Present /hpf; Color Urine Yellow (Yellow); Glucose Urine UA 3+ mg/dL (Negative); Ketones Urine Negative (Negative); Leukocyte Esterase Ur 2+ LEU/UL (Negative); Mucus Urine Present /lpf; Need Manual Microscopic Reviewed; Nitrate Urine Positive (Negative); Non Pathogenic Casts >20; Protein Urine 1+ mg/dL (Negative); RBC Urine >100 /hpf (0-2); Specific Grav Ur 1.023 (1.001-1.035); Squamous Epithelial Cell Urine Moderate /hpf (Few); Urobilinogen Urine 0.2 mg/dL (<2.0); WBC Urine 51-100 /hpf (0-3); pH Urine 5.5 (5.0-9.0)
[2024-06-24 23:45] LABS: CRP 4.7 mg/dL (<1.0)
[2024-06-24 23:55] LABS: Influenza A QL RT-PCR Positive (Negative); Influenza B QL RT-PCR Negative (Negative); RSV RNA, RT-PCR Negative (Negative); SARS-CoV-2 RNA PCR Negative (Negative)
[2024-06-25] VITALS (57 sets, daily range): BP systolic 72–136; BP diastolic 45–92; PULSE 60–108; RESP 11–25; O2SAT 20–95
[2024-06-25] MEDS: NOREPINEPHRINE 8 MG/D5W 250 ML 8 MG/250 ML BAG 18.75 MG IV CONT (00:43)
[2024-06-25] MEDS: CEFEPIME 2 GM/NS 50 ML 2 GM/50 ML BAG IVPB (00:43)
[2024-06-25 02:24] LABS: MRSA (PCR) NOT DETECTED (NOT DETECTE)
[2024-06-25] MEDS: HYDROmorphone HCL INJ (*CRX) 1 MG/ML SYR 0.5 MG IV PUSH (03:50)
[2024-06-25] MEDS: LORazepam INJ (*CRX) 2 MG/ML VIAL IV PUSH ×6 (03:50→14:50)
[2024-06-25] MEDS: GLYCOPYRROLATE INJ (*SP) 0.2 MG/ML VIAL IV PUSH (04:09)
[2024-06-25] MEDS: HYDROmorphone HCL INJ (*CRX) 1 MG/ML SYR IV PUSH ×2 (04:26→08:35)
--- NOTE | 2024-06-25 04:29 | PC.NURSE ---
DAUGHTER AT BEDSIDE REMOVED RESTRAINTS, CARDIAC LEADS, AND PULSE OX FROM PT. DAUGHTER REQUESTING PT BE PLACED ON OXYGEN AND ALSO REQUESTING INK PAD TO OBTAIN FINGER PRINTING. PT EXTUBATED. PT PLACED ON 2L NC O2 FOR COMFORT. MEDICATIONS GIVEN FOR PAIN MANAGEMENT. FAMILY MEMBERS AT BEDSIDE WITH NO FURTHER REQUESTS AT THIS TIME.
[2024-06-25] MEDS: HYDROmorphone HCL INJ (*CRX) 1 MG/ML SYR IM (07:30)
[2024-06-25] MEDS: MORPHINE SULFATE (*CRX) 2 MG/ML INJ IV PUSH ×9 (09:50→14:55)
--- NOTE | 2024-06-25 13:38 | ADMGEN ---
This patient, Casimiro Atkinson, was admitted to Medical Room 349-01. Patient/family oriented to hospital policies and general routines including ID bracelet, bed and alarms, visiting hours, pain management, procedures, bathroom and other care routines, personal items, smoking policy, room service/diet, and visiting hours. Information on how to activate the Rapid Response Team has been discussed. Patient/Family are encouraged to report perceived risks to care and to ask questions if they do not understand what they are told or what they should do.
--- NOTE | 2024-06-25 15:30 | PM.IMHP ---
H&P: HPI History of Present Illness Date/Time: 06/25/24 15:30 Chief Complaint: found unresponsive Narrative: 70-year-old female past medical history of COPD on home oxygen, pulmonary embolism status post IVC filter who was brought to the ER from group home on account of respiratory arrest. CPR was attempted and the EMS was called EMS arrived and patient was extubated on the scene. By EMS evaluation patient did require a any chest compressions. Patient arrived here 0 intubated, Er physician discussed with family and they decided to transition to comfort care and patient was extubated and placed on comfort care. Vital signs on arrival to the ER heart rate 67, respiratory rate 20 blood pressure of 79/48 saturating 97% of FiO2 50%. Labs WBC 8.2, hemoglobin 10.8, VBG 7.279/57.5/60.3/26.4, sodium 132, creatinine 0.92 troponin 0.072, UA positive for leuks nitrites and leukocyte esterase with pyuria flu A positive CT abdomen pelvis which chest showed moderate to advanced emphysema with assessment without follow pulmonary nodule diffuse hepatic steatosis unstable L4 compression fracture. On my encounter family was expressed they were rushed to comfort care, for this i invited the ER physician back and discussed with the family and they were comfortable with comfort care. Comfort care was thus continued and patient was admitted Review of Systems Review of Systems: Unable to do review of system as patient was mostly unresponsive and resting comfortably at bedside PMFSH Past Medical History Medical History Pulmonary embolism Hyperlipidemia, unspecified Bladder cancer s/p resection Indwelling Miller catheter present Peripheral neuropathy Tobacco abuse Hypertension Depression with anxiety Obstructive sleep apnea no longer uses a CPAP but uses oxygen at 2 L per nasal cannula. COPD (chronic obstructive pulmonary disease) DM2 (diabetes mellitus, type 2) Surgical History Surgical History History of classical section History of total knee arthroplasty right Family History Family History Father Family history of coronary artery disease Mother Family history of coronary artery disease Other Asthma Diabetes mellitus Family history of elevated blood lipids Social History Social History Social History: the patient stated that she smokes cigarettes up to about 4 months ago. 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 She lives at [facility]. She has an ex-. She has 3 children. She tells me she does not have a durable power attorney general for healthcare but desires to be a full code. The patient stated although she quit smoking 4 months ago she desires to have a cigarette today. Smoking packs per day: 1 Smoking cigarettes per day: 20.0 Years smoked: 62 Smoking pack-years: 62.00 Smoking status: Former smoker Tobacco type: cigarettes Second hand tobacco smoke exposure: Yes Smoking end date: 08/05/21 Additional smoking assessment comments: CURRENTLY SMOKES 0.25 PK/DAY Alcohol intake: never Substance use: former Substance use type: crack/cocaine Do You Feel Safe in your Home?: Yes Lack of Transportation: No Lack of Food: Never True Current Housing: I Have Housing Concerned About Future Housing: No Difficulty Paying Gas/Electric Bills: No Difficulty Paying for Meds: No Currently Unemployed: No Education: Associate Degree Difficulty w/ Childcare or Family Care: No Living arrangements: with family Gender identity (if verbalized by the patient): Female Spiritual care concerns: No Meds Home Medications and Allergies Home Medications ?Medication ?Instructions ?Recorded ?Confirmed ?Type albuterol sulfate 90 mcg/actuation 2 puff inhalation Q4H PRN 12/04/20 11/14/23 History aerosol inhaler Shortness Of Breath amlodipine 5 mg tablet 5 mg PO DAILY 12/04/20 11/14/23 History quetiapine 50 mg tablet 100 mg PO BID 12/04/20 11/14/23 History trazodone 300 mg tablet 300 mg PO HS PRN Sleep 12/04/20 11/14/23 History simvastatin 20 mg tablet 20 mg PO DAILY 12/24/20 11/14/23 History aspirin 81 mg chewable tablet 81 mg PO DAILY@0800 30 days #30 12/28/20 11/14/23 Rx (Children's Aspirin) tabs hydrocodone 10 mg-acetaminophen 1 tablet PO Q8H PRN Pain 6-10 #90 01/06/21 11/14/23 Rx 325 mg tablet tabs pregabalin 100 mg capsule 100 mg PO BID #60 caps 02/20/21 11/14/23 Rx multivit with minerals-iron 18 1 tablet PO DAILY 08/06/21 11/14/23 History mg-folic ac 400 mcg-vit K 25 mcg tablet (Adults Multivitamin) omega-3 fatty acids 1,250 mg PO DAILY 02/27/23 11/14/23 History clopidogrel 75 mg tablet 75 mg PO DAILY 10/21/23 11/14/23 History budesonide 160 mcg-glycopyr 9 2 inh inhalation BID 11/14/23 11/14/23 History mcg-formot 4.8 mcg/actuation HFA inhaler (Breztri Aerosphere) melatonin 10 mg tablet 20 mg PO HS 11/14/23 11/14/23 History metformin 500 mg tablet 500 mg PO BIDWM 11/14/23 11/14/23 History Allergies Allergy/AdvReac Type Severity Reaction Status Date / Time alcohol Allergy Severe Hives Verified 03/18/24 08:45 fentanyl Allergy Severe COULD NOT Verified 03/18/24 08:45 BREATH clarithromycin Allergy Intermediate Hives Verified 03/18/24 08:45 paroxetine Allergy Intermediate Hives Verified 03/18/24 08:45 atorvastatin Allergy Unknown Rash Verified 03/18/24 08:45 morphine AdvReac Severe Nausea and Verified 03/18/24 08:45 Vomiting gabapentin AdvReac Intermediate Dizziness Verified 03/18/24 08:45 varenicline (From Chantix) AdvReac Intermediate Hallucinati Verified 03/18/24 08:45 ng Vital Signs Vital Signs - 24 hr 06/24/24 22:22 06/24/24 23:05 06/24/24 23:17 Temperature 97.6 F Pulse Rate 92 67 Respiratory Rate 20 Blood Pressure 79/48 L Pulse Oximetry 100 97 97 Oxygen Delivery Mechanical Ventilation Mechanical Ventilation Mechanical Ventilation Oxygen Flow Rate Fraction of Inspired Oxygen 50 06/24/24 23:23 06/24/24 23:40 06/25/24 00:30 Temperature Pulse Rate 61 67 70 Respiratory Rate 20 20 Blood Pressure Pulse Oximetry 97 Oxygen Delivery Mechanical Ventilation Oxygen Flow Rate Fraction of Inspired Oxygen 40 06/25/24 00:36 06/25/24 00:41 06/25/24 00:43 Temperature Pulse Rate 72 70 60 Respiratory Rate 20 20 Blood Pressure 130/49 L 120/47 L 72/48 L Pulse Oximetry 92 92 Oxygen Delivery Oxygen Flow Rate Fraction of Inspired Oxygen 06/25/24 00:46 06/25/24 00:50 06/25/24 00:51 Temperature Pulse Rate 72 70 72 Respiratory Rate 19 21 H Blood Pressure 123/46 L 120/45 L Pulse Oximetry 91 93 95 Oxygen Delivery Mechanical Ventilation Oxygen Flow Rate Fraction of Inspired Oxygen 50 06/25/24 01:11 06/25/24 01:16 06/25/24 01:36 Temperature Pulse Rate 72 72 72 Respiratory Rate 20 20 20 Blood Pressure 125/92 H 124/45 L 122/48 L Pulse Oximetry 92 91 90 Oxygen Delivery Oxygen Flow Rate Fraction of Inspired Oxygen 06/25/24 01:37 06/25/24 01:41 06/25/24 01:58 Temperature Pulse Rate 70 69 69 Respiratory Rate 18 20 17 Blood Pressure 120/47 L 125/47 L Pulse Oximetry 90 90 94 Oxygen Delivery Oxygen Flow Rate Fraction of Inspired Oxygen 06/25/24 02:01 06/25/24 02:02 06/25/24 02:06 Temperature Pulse Rate 71 70 71 Respiratory Rate 20 20 20 Blood Pressure 123/47 L 127/49 L Pulse Oximetry 92 92 92 Oxygen Delivery Oxygen Flow Rate Fraction of Inspired Oxygen 06/25/24 02:11 06/25/24 02:15 06/25/24 02:16 Temperature Pulse Rate 67 69 70 Respiratory Rate 20 20 20 Blood Pressure 128/49 L 127/48 L Pulse Oximetry 92 92 92 Oxygen Delivery Oxygen Flow Rate Fraction of Inspired Oxygen 06/25/24 02:21 06/25/24 02:41 06/25/24 02:42 Temperature Pulse Rate 68 67 67 Respiratory Rate 21 H 20 20 Blood Pressure 123/45 L 125/47 L Pulse Oximetry 92 91 91 Oxygen Delivery Oxygen Flow Rate Fraction of Inspired Oxygen 06/25/24 02:45 06/25/24 02:46 06/25/24 02:51 Temperature Pulse Rate 66 69 69 Respiratory Rate 20 20 20 Blood Pressure 128/60 126/48 L Pulse Oximetry 92 91 91 Oxygen Delivery Oxygen Flow Rate Fraction of Inspired Oxygen 06/25/24 02:56 06/25/24 03:00 06/25/24 03:01 Temperature Pulse Rate 68 66 66 Respiratory Rate 20 20 20 Blood Pressure 128/48 L 130/47 L Pulse Oximetry 92 91 Oxygen Delivery Oxygen Flow Rate Fraction of Inspired Oxygen 06/25/24 03:02 06/25/24 03:06 06/25/24 03:15 Temperature Pulse Rate 62 64 65 Respiratory Rate 20 20 20 Blood Pressure 124/46 L Pulse Oximetry 91 91 90 Oxygen Delivery Oxygen Flow Rate Fraction of Inspired Oxygen 06/25/24 03:16 06/25/24 03:31 06/25/24 03:32 Temperature Pulse Rate 64 62 64 Respiratory Rate 20 20 20 Blood Pressure 123/46 L 123/46 L Pulse Oximetry 91 91 Oxygen Delivery Oxygen Flow Rate Fraction of Inspired Oxygen 06/25/24 03:36 06/25/24 03:41 06/25/24 03:45 Temperature Pulse Rate 63 65 67 Respiratory Rate 20 22 H 19 Blood Pressure 121/48 L 93/48 L Pulse Oximetry 91 90 91 Oxygen Delivery Oxygen Flow Rate Fraction of Inspired Oxygen 06/25/24 03:46 06/25/24 03:52 06/25/24 04:00 Temperature Pulse Rate 80 62 94 Respiratory Rate 19 15 Blood Pressure 79/60 L 88/54 L Pulse Oximetry Oxygen Delivery Oxygen Flow Rate Fraction of Inspired Oxygen 06/25/24 04:01 06/25/24 05:07 06/25/24 05:08 Temperature Pulse Rate 86 108 H Respiratory Rate 16 11 L Blood Pressure 136/51 L Pulse Oximetry 33 L 33 L Oxygen Delivery Nasal Cannula Oxygen Flow Rate 2 Fraction of Inspired Oxygen 06/25/24 05:09 06/25/24 05:53 06/25/24 06:04 Temperature Pulse Rate 62 87 Respiratory Rate 14 Blood Pressure 88/54 L Pulse Oximetry 87 L 89 L Oxygen Delivery Oxygen Flow Rate Fraction of Inspired Oxygen 06/25/24 07:30 06/25/24 08:01 06/25/24 08:53 Temperature Pulse Rate 93 98 Respiratory Rate 20 23 H Blood Pressure Pulse Oximetry 24 L 21 L 20 L Oxygen Delivery Room Air Oxygen Flow Rate Fraction of Inspired Oxygen 06/25/24 09:25 06/25/24 09:30 06/25/24 09:45 Temperature Pulse Rate 100 101 H 61 Respiratory Rate 22 H 25 H 25 H Blood Pressure Pulse Oximetry Oxygen Delivery Oxygen Flow Rate Fraction of Inspired Oxygen 06/25/24 10:00 06/25/24 10:15 06/25/24 10:30 Temperature Pulse Rate 70 70 65 Respiratory Rate 22 H 25 H 20 Blood Pressure Pulse Oximetry 58 L 35 L 20 L Oxygen Delivery Oxygen Flow Rate Fraction of Inspired Oxygen 06/25/24 10:45 06/25/24 11:00 06/25/24 13:30 Temperature Pulse Rate 68 66 Respiratory Rate 22 H 24 H Blood Pressure Pulse Oximetry 27 L Oxygen Delivery Room Air Oxygen Flow Rate Fraction of Inspired Oxygen Exam Narrative: Patient was resting comfortably on comfort care H&P: Results Labs Labs: Short CBC 06/24/24 Range/Units 22:34 WBC 8.2 (4.5-10.0) K/mm3 Hgb 10.8 L D (12.0-15.0) g/dL Hct 35.7 L (37.0-47.0) % Plt Count 161 D (150-375) k/mm3 BMP 06/24/24 22:34 Sodium 132 L Potassium 4.0 Chloride 95 L Carbon Dioxide 29 BUN 28 H Creatinine 0.92 Glucose 166 H Calcium 7.7 L Cardiac Enzymes 06/24/24 Range/Units 22:34 Troponin I 0.072 H* (0.000-0.034) ng/mL Liver Function 06/24/24 Range/Units 22:34 Total Bilirubin 0.4 (0.2-1.3) mg/dL AST 48 H (14-36) U/L ALT 23 (6-35) U/L Alkaline Phosphatase 65 (38-126) U/L Albumin 3.0 L (3.5-5.1) g/dL Urine 06/24/24 Range/Units 23:08 Urine Color Yellow (Yellow) Urine Appearance Turbid H (Clear) Urine pH 5.5 (5.0-9.0) Ur Specific [place] 1.023 (1.001-1.035) Urine Protein 1+ H (Negative) mg/dL Urine Glucose (UA) 3+ H (Negative) mg/dL Assessment and Plan Assessment and plan (1) End of life care: Code(s): Z51.5 - Encounter for palliative care Status: Acute (2) Influenza A: Code(s): J10.1 - Influenza due to other identified influenza virus with other respiratory manifestations Status: Acute Plan Respiratory arrest Acute hypoxic hypercapneic respiratory failure Likely from COPD exacerbation triggered by Influenza A patient was intubated and then extubated and transitioned to comfort care per family request Influenza A on comfort care End of life care Continue PRN morphine for dyspnea, Ativan for anxiety, Glycopyrolate for secretions and tylenol for fever Family at bedside provide support to family
--- NOTE | 2024-06-25 15:49 | P.DN_ITS ---
Discharge Summary Probable Cause of Probable Cause of : Acute hypoxemic respiratory failure COPD exacerbation Influenza A Summary Hospital Course: 70-year-old female past medical history of COPD on home oxygen, pulmonary embolism status post IVC filter who was brought to the ER from detention on account of respiratory arrest. CPR was attempted and the EMS was called EMS arrived and patient was extubated on the scene. By EMS evaluation patient did require a any chest compressions. Patient arrived here 0 intubated, Er physician discussed with family and they decided to transition to comfort care and patient was extubated and placed on comfort care. Vital signs on arrival to the ER heart rate 67, respiratory rate 20 blood pressure of 79/48 saturating 97% of FiO2 50%. Labs WBC 8.2, hemoglobin 10.8, VBG 7.279/57.5/60.3/26.4, sodium 132, creatinine 0.92 troponin 0.072, UA positive for leuks nitrites and leukocyte esterase with pyuria flu A positive CT abdomen pelvis which chest showed moderate to advanced emphysema with assessment without follow pulmonary nodule diffuse hepatic steatosis unstable L4 compression fracture. On my encounter family was expressed they were rushed to comfort care, for this i invited the ER physician back and discussed with the family and they were comfortable with comfort care. Comfort care was thus continued and patient was admitted Patient was admitted for comfort care and eventually passed at 1515. Family were present at bedside
== END 2024-06-25 15:15 | disposition expired ==
LOC: ANHED 06-25 09:57 → ANH3MEDSUR 06-25 10:37 → ANH3MED 06-25 12:51
PROVIDERS: Physician Assistant; Admitting Provider Internal Medicine; Emergency Provider Student in an Organized Health Care Education/Training Program; PCP Internal Medicine Gastroenterology; Visit Provider Internal Medicine
DX: J96.01 Acute respiratory failure with hypoxia (principal); J96.02 Acute respiratory failure with hypercapnia; J10.1 Influenza due to other identified influenza virus with other respiratory manifestations; J43.9 Emphysema, unspecified; Z51.5 Encounter for palliative care; R82.81 Pyuria; I26.99 Other pulmonary embolism without acute cor pulmonale; Z95.828 Presence of other vascular implants and grafts; E11.42 Type 2 diabetes mellitus with diabetic polyneuropathy; E78.5 Hyperlipidemia, unspecified; I10 Essential (primary) hypertension; F41.8 Other specified anxiety disorders; G47.33 Obstructive sleep apnea (adult) (pediatric); Z20.822 Contact with and (suspected) exposure to COVID-19; Z87.891 Personal history of nicotine dependence; Z85.51 Personal history of malignant neoplasm of bladder; Z99.81 Dependence on supplemental oxygen; Z79.51 Long term (current) use of inhaled steroids; Z79.82 Long term (current) use of aspirin; Z79.84 Long term (current) use of oral hypoglycemic drugs; Z79.899 Other long term (current) drug therapy
CPT/HCPCS: 31500; 36415; 36556; 70450; 71275; 74174; 80053; 81001; 82803; 83605; 83690; 84484; 85025; 85610; 85730; 86140; 87040; 87637; 87641; 93005; 94002; 94640; 96365; 96366; 96367; 96375; 96376; 99291; C1751; G0378; J0171; J0692; J1171; J1596; J2060; J2270; J3010; J7030; Q9967